=== PATIENT | female | born 1995 | race Caucasian/White ===

== ENCOUNTER → 2017-11-24 06:35 | Outpatient (CLI) | payer OTHER, MEDICAID, SELFPAY ==
--- NOTE | 2017-11-24 | DI.MRI.S_ITS ---
PROCEDURE: MR PELVIS WO/W CON INDICATIONS: pelvic pain TECHNIQUE: Coronal HASTE, sagittal breath-hold T2 FSE; axial T1 FSE with and without fat saturation through the pelvis. Optional long- and short-axis uterine nonbreath-hold T2 FSE through the uterus. Sagittal or axial dynamic VIBE during administration of contrast. Post-contrast axial or coronal VIBE/2-D FLASH with fat saturation from the iliac crests to the symphysis. Optional diffusion weighted imaging and ADC may be performed. COMPARISON: [facility], US, US PELVIC COMPLETE, 10/17/2017, 15:50. [facility], US, US PELVIC COMPLETE WITH TRANSVAGINAL, 06/17/2017, 23:06. , CT, KIDNEY/ URETER/BLADDER, 07/02/2013, 18:05. [facility], MR, ABDOMEN W&W/O CONTRAST, 09/07/2007, 16:36. FINDINGS: Image quality: Diagnostic.. Uterus: There has been an interval partial hysterectomy identified. The majority of the myometrium has been completely resected. The cervix remains in place and appears to be within normal limits. No soft tissue masses are identified. There are no adjacent loculated fluid collections. Adnexa: The ovaries are not enlarged. There is a small peripherally enhancing cyst without internal septations or other suspicious imaging characteristics involving the right ovary that measures up to 2.5 cm in diameter. The ovaries are otherwise unremarkable and contain multiple follicles, bilaterally. Urinary system: Bladder wall is normal in thickness. Distal ureters are non distended. Urethra appears normal in morphology. Nodes and vessels: No pelvic or inguinal adenopathy by size criteria. Iliac vessels are normal in size. Bowel and peritoneum: No pathologic free pelvic fluid. Physiologic free fluid is seen. No loculated fluid collections are evident. Inferior colon and small bowel loops are normal in caliber. Soft tissues: No inguinal hernias. No findings of pelvic floor incompetence in the absence of provocation. Bones: Marrow demonstrates normal overall signal. IMPRESSION: 1. No definite findings are evident to explain the patient's pain. 2. Status post partial hysterectomy. The cervix remains intact and appears to be within normal limits. 3. 2.5 cm right ovarian cyst is of doubtful significance. The ovaries are otherwise unremarkable. 4. Small amount of free fluid within the pelvis is likely physiologic. No loculated fluid collections or abscesses. Dictated by: Jose D Flores M.D. on 11/24/2017 at 8:38 Approved by: Jose D Flores M.D. on 11/24/2017 at 8:45
== END ==
PROVIDERS: Family Provider Family Medicine; PCP Family Medicine; Visit Provider Obstetrics & Gynecology Gynecologic Oncology
DX: R10.2 Pelvic and perineal pain (principal); N83.201 Unspecified ovarian cyst, right side
CPT/HCPCS: 72197; A9579

== ENCOUNTER 2017-11-30 16:47 | Emergency (ER) | payer OTHER, MEDICAID, SELFPAY ==
[2017-11-30 16:55] VITALS: BP 150/86; PULSE 85; RESP 20; TEMP 36.9; O2SAT 100; BMI 35.9
[2017-11-30 18:13] VITALS: BP 144/74; PULSE 81; RESP 16; TEMP 36.7; O2SAT 99
--- NOTE | 2017-11-30 18:27 | ED.ABDPAIN ---
HPI - Abdominal Pain General Chief Complaint: Abdominal Pain Stated Complaint: STATES PELVIC PAIN Time Seen by Provider: 11/30/17 17:32 Source: patient, family, RN notes reviewed and old records reviewed Mode of arrival: ambulatory Limitations: no limitations History of Present Illness HPI narrative: Patient is a 22-year-old female who presents with lower abdominal pain. She she has been having lower pelvic pain since her hysterectomy in August. She had an MRI November 24 with which did show on the right ovarian cyst. Today she says that the pain was quite bad. Woke up from her sleep last night she threw up once. She has taken Tylenol and ibuprofen today it has not really gotten better. No fevers. She has had painful urination since her hysterectomy and that has not changed. She had a pelvic MRI 11/24/2017 which did show an ovarian cyst with a small amount of free fluid. MD complaint: abdominal pain Related Data Home Medications Medication Instructions Recorded Confirmed ibuprofen 800 mg PO PRN PRN 11/30/17 11/30/17 medroxyprogesterone 10 mg PO DAILY 11/30/17 11/30/17 Previous Rx's Medication Instructions Recorded tramadol 50 mg PO Q6H PRN #10 tab 11/30/17 Allergies Allergy/AdvReac Type Severity Reaction Status Date / Time shellfish derived Allergy Severe ANAPHYLAXIS Verified 11/30/17 17:01 [SHELLFISH DERIVED] adhesive [ADHESIVE] Allergy Mild Verified 11/30/17 17:01 amoxicillin [AMOXICILLIN] Allergy Mild Verified 11/30/17 17:01 doxycycline [DOXYCYCLINE] Allergy Mild Verified 11/30/17 17:01 iodine [IODINE] Allergy Mild Verified 11/30/17 17:01 metoclopramide Allergy Mild Verified 11/30/17 17:01 [METOCLOPRAMIDE] Penicillins [PENICILLINS] Allergy Mild Verified 11/30/17 17:01 prochlorperazine Allergy Mild Verified 11/30/17 17:01 [PROCHLORPERAZINE] sulfamethoxazole Allergy Mild RASH Verified 11/30/17 17:01 [From BACTRIM] trimethoprim [From BACTRIM] Allergy Mild RASH Verified 11/30/17 17:01 cephalexin [CEPHALEXIN] Allergy Unknown Verified 11/30/17 17:01 ciprofloxacin [CIPROFLOXACIN] Allergy Unknown Verified 11/30/17 17:01 clindamycin [CLINDAMYCIN] Allergy Unknown Verified 11/30/17 17:01 Iodinated Contrast- Oral and Allergy Unknown Verified 11/30/17 17:01 IV Dye [IODINATED CONTRAST MEDIA - IV DYE] latex [LATEX] Allergy Unknown Verified 11/30/17 17:01 Review of Systems Review of Systems All systems reviewed & are unremarkable except as noted in HPI and below Constitutional Denies chills, Denies fever(s), Denies lethargy and Denies weakness Cardiovascular Denies chest pain, Denies irregular heart rhythm, Denies lightheadedness, Denies palpitations, Denies dyspnea, Denies dyspnea on exertion and Denies orthopnea Respiratory Denies cough, Denies dyspnea, Denies dyspnea on exertion and Denies wheezing Gastrointestinal Gastrointestinal: Reports as per HPI and Reports abdominal pain Genitourinary Reports as per HPI Musculoskeletal Denies back pain, Denies muscle weakness, Denies numbness and Denies tingling Integumentary/Breasts Denies pruritus, Denies erythema, Denies rash and Denies wounds Neurologic Denies numbness, Denies tingling and Denies weakness Endocrine Denies palpitations Allergic/Immunologic Denies wheezing [facility] Surgical History Status post hysterectomy (Acute) Status post appendectomy Status post dilation and curettage Status post dilation and curettage Status post knee surgery Status post knee surgery Status post laparoscopic supracervical hysterectomy (09/01/17) Status post laparoscopy Status post laparoscopy Status post laparoscopy Status post tonsillectomy and adenoidectomy Social History Smoking Status: Never smoker Exam Initial Vital Signs Initial Vital Signs: Vital Signs Temperature 98.5 F 11/30/17 16:55 Pulse Rate 85 11/30/17 16:55 Respiratory Rate 20 11/30/17 16:55 Blood Pressure 150/86 H 11/30/17 16:55 Pulse Oximetry 100 11/30/17 16:55 Const General: cooperative, well developed and acute distress Nutritional Appearance: well nourished Orientation: alert, awake, oriented x3 and not confused Resp Effort & Inspection: normal respiratory effort, able to speak in complete sentences, no respiratory distress and no use of accessory muscles Auscultation: clear to auscultation bilaterally, no rales, no rhonchi and no wheezes Cardio Rate: regular rate Rhythm: regular rhythm Heart Sounds: no click, no gallops, no murmurs and no rubs Pulses: normal peripheral pulses GI Palpation: soft and tender (Lower suprapubic area and right side) Auscultation: normal bowel sounds General: No CVA tenderness Skin General: no rashes or lesions noted, No jaundice and No petechiae Neuro General: alert, awake and oriented x3 Cranial Nerves: CN's II-XI intact bilaterally Course Orders Ordered: ED Orders 11/30/17 18:40 US pelvic complete Stat Complete Blood Count AUTO DIFF Stat Comprehensive Metabolic Panel Stat Lipase Stat Discontinued Medications Sodium Chloride (Normal Saline 0.9%) 1,000 mls @ 1,000 mls/hr IV CONT JERI Last Infusion: 11/30/17 19:44 Dose: 0 mls/hr Admin: 11/30/17 18:46 Dose: 1,000 mls/hr Ketorolac Tromethamine (Toradol) 30 mg IV NOW ONE Stop: 11/30/17 18:34 Last Admin: 11/30/17 18:46 Dose: 30 mg Tramadol HCl (Ultram 50mg Prepack) 1 bottle MISC SEEINSTR ONE Stop: 11/30/17 19:39 Last Admin: 11/30/17 19:43 Dose: 1 bottle Vital Signs - 8 hr 11/30/17 16:55 11/30/17 18:13 11/30/17 18:46 Temperature 98.5 F 98.0 F Pulse Rate 85 81 70 Respiratory Rate 20 16 14 Blood Pressure 150/86 H Blood Pressure [Left Arm] 144/74 H 130/67 H Pulse Oximetry 100 99 99 MDM - Abdominal Pain Lab Data Attestation: I reviewed the patient's lab results. Result diagrams: 11/30/17 18:40 11/30/17 18:40 Lab Results 11/30/17 11/30/17 Range/Units 18:40 18:40 WBC 8.7 (4.5-11.0) X10^3/uL RBC 4.84 (4.0-5.2) X10^6/uL Hgb 14.3 (12.0-16.0) g/dL Hct 41.0 (36-46) % MCV 84.6 (80-100) fL MCH 29.6 (26-34) PG MCHC 35.0 (30-36) % RDW 13.9 (11.6-14.8) % Plt Count 250 (150-400) X10^3/uL Neut % (Auto) 63.0 (50-75) % Lymph % (Auto) 26.7 (25-40) % Crawford % (Auto) 8.4 (3-14) % Eos % (Auto) 1.1 L (2-4) % Baso % (Auto) 0.8 (0-2) % Neut # (Auto) 5500 (9385-9349) /uL Sodium 141 (137-145) mmol/L Potassium 4.0 (3.4-5.1) mmol/L Chloride 104 (98-107) mmol/L Carbon Dioxide 26 (22-32) mmol/L BUN 13 (7-17) mg/dL Creatinine 0.70 (0.52-1.04) mg/dL Estimated GFR > 60.0 (>60) mL/min BUN/Creatinine Ratio 18.6 (6-22) Glucose 88 (70-100) mg/dL Calcium 9.5 (8.4-10.2) mg/dL Total Bilirubin 0.6 (0.2-1.3) mg/dL AST 18 (14-36) IU/L ALT 26 (9-52) IU/L Alkaline Phosphatase 61 (38-126) U/L Total Protein 7.3 (6.3-8.2) g/dL Albumin 4.3 (3.5-5.0) g/dL Globulin 3.0 (1.7-4.1) g/dL Albumin/Globulin Ratio 1.4 (1.0-2.8) Lipase 83 (23-300) U/L Imaging Data Pelvic ultrasound: Radiologist's impression: PROCEDURE: US PELVIC COMPLETE INDICATIONS: pain, right ovarian cyst hysterectomy TECHNIQUE: Real-time scanning was performed of the pelvic organs, with image documentation. Additional endovaginal scanning was necessary due to incomplete visualization of the adnexal and endometrial structures by transabdominal scanning. COMPARISON: [facility], MR, MR PELVIS WO/W CON, 11/24/2017, 6:48. [facility], US, US PELVIC COMPLETE WITH TRANSVAGINAL, 06/17/2017, 23:06. [facility], US, US PELVIC COMPLETE, 10/17/2017, 15:50. FINDINGS: Transabdominal scanning: Limited scanning through the kidneys shows no hydronephrosis. No pathologic free abdominal or pelvic fluid. Endovaginal scanning: Uterus: Uterus is surgically absent. Ovaries: Right ovary measures 4.4 x 2.5 x 2.8 cm. There is a 2.1 cm complex cyst in the right ovary. Left ovary measures 3.0 x 2.0 x 1.7 cm and demonstrates normal echotexture. IMPRESSION: 1. A 2.1 cm complex right ovary cyst. Recommend continued ultrasound followup to resolution. 2. Normal left ovary. Dictated by: Annel Johnson M.D. on 11/30/2017 at 19:46 MDM Narrative Medical decision making narrative: Pain is mildly better after Toradol. No leukocytosis no fever. Ultrasound confirms a complex ovarian cyst likely to be the cause of her pain. Discharge Plan Departure Patient Disposition: Home, Self-Care Clinical Impression: Complex cyst of right ovary Discharge Date/Time: 11/30/17 19:50 Interventions: ED Discharge Assessment Last Done: 11/30/17 19:49 Instructions: DI for Ovarian Cyst Activity Restrictions/Additional Instructions: *You have been diagnosed with ovarian cyst *What to do: May require repeat ultrasound in about 1 month *Continue to take medications as directed -tramadol 1-2 tablets every 6 hr if needed for severe pain -continue Tylenol and ibuprofen as directed *Follow up with your primary care provider in 2-3 days *Return to ER if you should have any new, worsening or concerning symptoms Prescriptions: New tramadol 50 mg tablet 50 mg PO Q6H PRN (Reason: pain) Qty: 10 RF: 0 No Action ibuprofen 200 MG tablet 800 mg PO PRN PRN (Reason: Pain, Moderate) RF: 0 medroxyprogesterone 10 mg tablet 10 mg PO DAILY RF: 0 Referrals: Chelsi Cao MD [Primary Care Provider] -
--- NOTE | 2017-11-30 18:40 | DI.US.S_ITS ---
PROCEDURE: US PELVIC COMPLETE INDICATIONS: pain, right ovarian cyst hysterectomy TECHNIQUE: Real-time scanning was performed of the pelvic organs, with image documentation. Additional endovaginal scanning was necessary due to incomplete visualization of the adnexal and endometrial structures by transabdominal scanning. COMPARISON: [facility], MR, MR PELVIS WO/W CON, 11/24/2017, 6:48. [facility], US, US PELVIC COMPLETE WITH TRANSVAGINAL, 06/17/2017, 23:06. [facility], US, US PELVIC COMPLETE, 10/17/2017, 15:50. FINDINGS: Transabdominal scanning: Limited scanning through the kidneys shows no hydronephrosis. No pathologic free abdominal or pelvic fluid. Endovaginal scanning: Uterus: Uterus is surgically absent. Ovaries: Right ovary measures 4.4 x 2.5 x 2.8 cm. There is a 2.1 cm complex cyst in the right ovary. Left ovary measures 3.0 x 2.0 x 1.7 cm and demonstrates normal echotexture. IMPRESSION: 1. A 2.1 cm complex right ovary cyst. Recommend continued ultrasound followup to resolution. 2. Normal left ovary. Dictated by: Annel Johnson M.D. on 11/30/2017 at 19:46 Approved by: Annel Johnson M.D. on 11/30/2017 at 19:48
[2017-11-30 18:46] VITALS: BP 130/67; PULSE 70; RESP 14; O2SAT 99
[2017-11-30] MEDS: SODIUM CHLORIDE 0.9% 1,000 ML 1000 ML IV (18:46)
[2017-11-30] MEDS: KETOROLAC 60 MG/2 ML VIAL 30 MG IV (18:46)
[2017-11-30 18:48] LABS: Add Manual Diff / Slide Review NO; Basophils Percent Auto 0.8 % (0-2); Eosinophils Percent Auto 1.1 % (2-4); Hemoglobin 14.3 g/dL (12.0-16.0); Lymphocytes Percent Auto 26.7 % (25-40); Mean Corpuscular Hemoglobin 29.6 PG (26-34); Mean Corpuscular Volume 84.6 fL (80-100); Monocytes Percent Auto 8.4 % (3-14); Neutrophils Absolute Auto 5500 /uL (3000-5900); Platelet Count 250 X10^3/uL (150-400); Red Blood Cell Count 4.84 X10^6/uL (4.0-5.2); Red Cell Distribution Width 13.9 % (11.6-14.8); White Blood Cell Count 8.7 X10^3/uL (4.5-11.0)
[2017-11-30 18:59] LABS: Alanine Aminotransferase 26 IU/L (9-52); Albumin 4.3 g/dL (3.5-5.0); Albumin Globulin Ratio 1.4 (1.0-2.8); Alkaline Phosphatase 61 U/L (38-126); Aspartate Aminotransferase 18 IU/L (14-36); BUN Creatinine Ratio 18.6 (6-22); Bilirubin Total 0.6 mg/dL (0.2-1.3); Blood Urea Nitrogen 13 mg/dL (7-17); Calcium 9.5 mg/dL (8.4-10.2); Carbon Dioxide 26 mmol/L (22-32); Chloride 104 mmol/L (98-107); Estimated Glomerular Filt Rate > 60.0 mL/min (>60); Glucose 88 mg/dL (70-100); HEMOLYSIS < 15 (0-50); Lipase 83 U/L (23-300); Sodium 141 mmol/L (137-145); Total Protein 7.3 g/dL (6.3-8.2)
[2017-11-30] MEDS: TRAMADOL 50 MG PREPACK 1 BOTTLE MISC (19:43)
--- NOTE | 2017-11-30 19:43 | PC.NURSE ---
Tramadol pre casa # [id number]
== END 2017-11-30 19:50 | disposition home or self-care (01) ==
PROVIDERS: Emergency Provider Emergency Medicine; Family Provider Family Medicine; PCP Family Medicine
DX: N83.291 Other ovarian cyst, right side (principal)
CPT/HCPCS: 36591; 76830; 76856; 80053; 81003; 81025; 83690; 85025; 96361; 96374; 99283; 99284; J1885

== ENCOUNTER 2017-12-03 10:49 | Emergency (ER) | payer OTHER, MEDICAID, SELFPAY ==
[2017-12-03 11:00] VITALS: BP 155/72; PULSE 111; RESP 18; TEMP 36.8; O2SAT 96; BMI 35.9
--- NOTE | 2017-12-03 11:15 | PC.NURSE ---
Sitting in cindy position leaning forward with a warm blanket held against her abd - states sharp cramping pain at 9:10 in pelvic area
--- NOTE | 2017-12-03 11:40 | ED_ITS ---
HPI - Female Genitourinary General Chief complaint: Vaginal Bleeding Stated complaint: PELVIC PAIN,BLEEDING Time Seen by Provider: 12/03/17 10:52 Source: patient Mode of arrival: ambulatory Limitations: no limitations History of Present Illness HPI Narrative: 22-year-old female who had a abdominal hysterectomy and tube removal without removal of bilateral ovaries and cervix here for evaluation of right lower quadrant abdominal pain and vaginal bleeding. Patient had the hysterectomy the perform several weeks ago. Since then has also seen a network technical analyst at [facility] in is currently on progesterone because she has had vaginal bleeding since the surgery. Patient is also here for right lower quadrant abdominal pain/right adnexal pain. Was seen here in the emergency department a couple days ago for very similar symptoms had a pelvic ultrasound completed which showed a right-sided ovarian cyst. Was sent home on tramadol. She states that the tramadol has not been working all that well in the pain has been worsening and then this morning she had vaginal bleeding when she urinated. No fevers. Related Data Home Medications Medication Instructions Recorded Confirmed ibuprofen 800 mg PO PRN PRN 11/30/17 12/03/17 medroxyprogesterone 30 mg PO DAILY 11/30/17 12/03/17 promethazine 25 mg PO PRN PRN 12/03/17 12/03/17 Previous Rx's Medication Instructions Recorded hydrocodone-acetaminophen [[place]] 1 tab PO Q6H PRN #5 tab 12/03/17 Allergies Allergy/AdvReac Type Severity Reaction Status Date / Time shellfish derived Allergy Severe ANAPHYLAXIS Verified 12/03/17 11:00 [SHELLFISH DERIVED] adhesive [ADHESIVE] Allergy Mild Verified 12/03/17 11:00 amoxicillin [AMOXICILLIN] Allergy Mild Verified 12/03/17 11:00 doxycycline [DOXYCYCLINE] Allergy Mild Verified 12/03/17 11:00 iodine [IODINE] Allergy Mild Verified 12/03/17 11:00 metoclopramide Allergy Mild Verified 12/03/17 11:00 [METOCLOPRAMIDE] Penicillins [PENICILLINS] Allergy Mild Verified 12/03/17 11:00 prochlorperazine Allergy Mild Verified 12/03/17 11:00 [PROCHLORPERAZINE] sulfamethoxazole Allergy Mild RASH Verified 12/03/17 11:00 [From BACTRIM] trimethoprim [From BACTRIM] Allergy Mild RASH Verified 12/03/17 11:00 cephalexin [CEPHALEXIN] Allergy Unknown Verified 12/03/17 11:00 ciprofloxacin [CIPROFLOXACIN] Allergy Unknown Verified 12/03/17 11:00 clindamycin [CLINDAMYCIN] Allergy Unknown Verified 12/03/17 11:00 Iodinated Contrast- Oral and Allergy Unknown Verified 12/03/17 11:00 IV Dye [IODINATED CONTRAST MEDIA - IV DYE] latex [LATEX] Allergy Unknown Verified 12/03/17 11:00 Review of Systems Constitutional Denies fatigue, Denies fever(s) and Denies lethargy Cardiovascular Denies chest pain, Denies palpitations and Denies dyspnea Respiratory Denies cough and Denies dyspnea Gastrointestinal Gastrointestinal: Reports abdominal pain, Denies constipation, Denies nausea and Denies vomiting Genitourinary Reports abnormal vaginal bleeding, Denies dysuria and Denies flank pain Musculoskeletal Denies myalgias and Denies arthralgias Integumentary/Breasts Denies lesions, Denies rash and Denies wounds Endocrine Denies fatigue and Denies palpitations Hematologic/Lymphatic Denies easy bruising PFSH Surgical History Status post hysterectomy (Acute) Status post appendectomy Status post dilation and curettage Status post dilation and curettage Status post knee surgery Status post knee surgery Status post laparoscopic supracervical hysterectomy (09/01/17) Status post laparoscopy Status post laparoscopy Status post laparoscopy Status post tonsillectomy and adenoidectomy Social History Smoking Status: Never smoker Exam Initial Vital Signs Initial Vital Signs: Vital Signs Temperature 98.2 F 12/03/17 11:00 Pulse Rate 111 H 12/03/17 11:00 Respiratory Rate 18 12/03/17 11:00 Blood Pressure 155/72 H 12/03/17 11:00 Pulse Oximetry 96 12/03/17 11:00 Const General: cooperative, healthy appearing, well developed, well groomed and No acute distress Orientation: alert, awake and oriented x3 HENMT Head: normal to inspection, normocephalic and atraumatic Resp Effort & Inspection: normal respiratory effort Auscultation: clear to auscultation bilaterally Cardio Rate: tachycardic Rhythm: regular rhythm Pulses: radial pulses present GI Inspection: normal to inspection and non-distended Palpation: soft, No firm, No guarding and tender (Right lower quadrant right adnexa) External Female Exam: external appearance normal Speculum Exam - Vagina: normal appearance of the vagina, not erythematous, no foreign bodies and no lacerations Speculum Exam - Cervix: normal appearance of the cervix and nontender Bimanual Exam- Vagina & Uterus: No cervical tenderness OB/External & Speculum: no foreign bodies Other: Patient without active bleeding. Has a very small amount of dark material which appears to be old blood in the vaginal vault. Back/Spine/Pelvis Back: No CVA tenderness Skin Lesions: no lesions Rashes: no rashes Neuro General: alert, awake and oriented x3 Extrem General: normal to inspection and capillary refill normal Course Vital Signs - 8 hr 12/03/ 11:00 Temperature 98.2 F Pulse Rate 111 H Respiratory Rate 18 Blood Pressure 155/72 H Pulse Oximetry 96 MDM - Female Genitourinary MDM Narrative Medical decision making narrative: Patient is currently on progesterone. Has a relatively benign abdominal exam today. No active bleeding from the pelvic exam. I did discuss the case with her operative OB surgeon who states that bleeding and a small amount after her this type of surgery is not unusual. Patient certainly is not exsanguinating. Informed the patient that I would not make any changes to her progesterone and that she did need to call her OB doctor Truman who she now sees for further advice on the bleeding. Offer the patient another pelvic ultrasound today for evaluation of the adnexal pain in the setting of a prior ovarian cyst. Patient declined this offer. I do not think that this is unreasonable given her physical exam. She does have tramadol at home which she states is not working for her. Will give her a few pills of [place] for symptom control. She was also instructed she needed to continue the ibuprofen. She was given return precautions. She expressed understanding and agreement with plan Discharge Plan Departure Patient Disposition: Home, Self-Care Clinical Impression: Abnormal vaginal bleeding Instructions: Chronic Pelvic Pain-Female Activity Restrictions/Additional Instructions: Continue all of your medications as directed. Call your doctor at [facility] to discuss your continued bleeding. We will hold on the ultrasound today per your request however if your symptoms worsen or change you do need to return to the emergency department for further evaluation. Prescriptions: New hydrocodone-acetaminophen [[place]] 5-325 mg tablet 1 tab PO Q6H PRN (Reason: pain) Qty: 5 RF: 0 No Action promethazine 25 mg tablet 25 mg PO PRN PRN (Reason: Nausea And Vomiting) RF: 0 ibuprofen 200 MG tablet 800 mg PO PRN PRN (Reason: Pain, Moderate) RF: 0 medroxyprogesterone 10 mg tablet 30 mg PO DAILY RF: 0
--- NOTE | 2017-12-03 12:21 | PC.NURSE ---
Post hysterectomy bleeding
--- NOTE | 2017-12-03 12:22 | PC.NURSE ---
Assist with pelvic exam by Dr Padilla
== END 2017-12-03 12:52 | disposition home or self-care (01) ==
PROVIDERS: Emergency Provider Emergency Medicine; Family Provider Family Medicine; PCP Family Medicine
DX: N93.9 Abnormal uterine and vaginal bleeding, unspecified (principal)
CPT/HCPCS: 81003; 99283

== ENCOUNTER → 2018-01-20 15:47 | Outpatient (CLI) | payer OTHER, MEDICAID, SELFPAY ==
--- NOTE | 2018-01-20 15:49 | DI.US.S_ITS ---
PROCEDURE: US ABDOMEN COMPLETE INDICATIONS: ABDOMINAL PAIN TECHNIQUE: Real-time scanning was performed of the abdominal and retroperitoneal organs, with image documentation. COMPARISON: [facility], US, ABDOMEN LIMITED, 06/05/2017, 10:43. FINDINGS: Liver: Liver is normal in size and homogeneous in echotexture. Gallbladder: Gallbladder appears clear with normal wall thickness. Biliary ducts: Intrahepatic bile ducts are non-dilated. Extrahepatic bile duct caliber measures 5 mm. Normal is 6-7 mm or less in diameter, or 10 mm or less post-cholecystectomy. Pancreas: Visualized portions of the pancreas are sonographically normal. Tail is obscured. Spleen: Spleen is borderline in size at 13.1 cm and homogeneous in echotexture. Kidneys: Kidneys are normal in size and echotexture. Right kidney measures 11.1 cm long; left kidney measures 11.6 cm long. No hydronephrosis or nephrolithiasis. No solid masses. Aorta: Visualized aorta is normal in caliber at less than 3 cm. Iliacs: Proximal common iliac arteries are normal in caliber at less than 2.5 cm. IVC: Nonvisualized secondary to bowel gas Miscellaneous: No free abdominal fluid. The right ovary measures 4.4 x 4.7 x 5.1 cm and contains a complex cyst measuring 30 x 30 x 32 mm. IMPRESSION: 1. Inferior vena cava is nonvisualized and tail of pancreas is obscured. 2. There is borderline splenomegaly. 3. Complicated right ovarian cyst measuring 3.2 cm in maximum diameter, is low level internal echoes present. Dictated by: Mike Sandy M.D. on 01/20/2018 at 16:42 Approved by: Mike Sandy M.D. on 01/20/2018 at 16:47
== END ==
PROVIDERS: Family Provider Family Medicine; PCP Family Medicine; Visit Provider Registered Nurse
DX: R10.9 Unspecified abdominal pain (principal); N83.201 Unspecified ovarian cyst, right side
CPT/HCPCS: 76700

== ENCOUNTER → 2018-01-22 08:59 | Outpatient (CLI) | payer OTHER, MEDICAID, SELFPAY ==
[2018-01-22 09:31] LABS: Hematocrit 40.8 % (36-46); Hemoglobin 14.4 g/dL (12.0-16.0); Lymphocytes Percent Auto 26.8 % (25-40); Mean Corpuscular HGB Conc 35.2 % (30-36); Mean Corpuscular Volume 85.3 fL (80-100); Monocytes Percent Auto 7.1 % (3-14); Neutrophils Percent Auto 63.5 % (50-75); Platelet Count 356 X10^3/uL (150-400); Red Blood Cell Count 4.78 X10^6/uL (4.0-5.2); Red Cell Distribution Width 13.9 % (11.6-14.8)
[2018-01-22 09:32] LABS: Add Manual Diff / Slide Review NO; Basophils Percent Auto 0.7 % (0-2); Eosinophils Percent Auto 1.9 % (2-4); Neutrophils Absolute Auto 6985 /uL (3000-5900)
== END ==
PROVIDERS: Family Provider Family Medicine; PCP Family Medicine; Visit Provider Registered Nurse
DX: R10.9 Unspecified abdominal pain (principal)
CPT/HCPCS: 85025

== ENCOUNTER → 2018-02-16 10:45 | Outpatient (CLI) | payer OTHER, MEDICAID, SELFPAY ==
--- NOTE | 2018-02-16 | DI.CT.S_ITS ---
PROCEDURE: CT KIDNEY URETER BLADDER (KUB) INDICATIONS: Calculus of kidney TECHNIQUE: Noncontrast 5 mm thick sections acquired from the diaphragms to the symphysis. 5 mm thick coronal and sagittal reformats were then performed. For radiation dose reduction, the following was used: automated exposure control, adjustment of mA and/or kV according to patient size. COMPARISON: Located Within [facility], CT, KIDNEY/ URETER/BLADDER, 07/02/2013, 18:05. FINDINGS: Image quality: Excellent. Lung bases: Lung bases are clear. Heart size is normal. Urinary system: Both kidneys are normal in size. There is a 4 mm nonobstructing stone in the upper pole of the right kidney. There are 31-2 mm diameter nonobstructing stones in the lower pole of the right kidney. There is a 1 mm nonobstructing stone in the lower pole left kidney. No hydronephrosis or perinephric fat stranding. Both ureters appear non-dilated throughout their expected courses. Bladder wall thickness is normal; no calcified bladder stones. Other solid organs: Liver is normal in size. Gallbladder is within normal limits. Pancreas is normal in contours. Spleen is normal in size. No adrenal nodules. Peritoneum and bowel: Unenhanced bowel loops demonstrate normal wall thickness and caliber. Surgical staple line adjacent to the left lateral margin of the first and second portions of the duodenum is stable compared to 07/02/2013. No free fluid or air. The appendix is surgically absent. Nodes and vessels: No retroperitoneal or mesenteric adenopathy by size criteria. Aorta and inferior vena cava are normal in caliber. Abdominal wall: No ventral hernias. Pelvis: No free pelvic fluid. No inguinal hernias or adenopathy. The uterus is absent. Bones: No suspicious bony lesions. No vertebral body compression fractures. IMPRESSION: 1. Small nonobstructing bilateral renal cortical stones. 2. No hydronephrosis. 3. No free fluid or free air. 4. Postsurgical changes. Dictated by: Marce Love MD, PhD on 02/16/2018 at 11:12 Approved by: Marce Love MD, PhD on 02/16/2018 at 11:19
== END ==
PROVIDERS: PCP Registered Nurse; Visit Provider Internal Medicine
DX: N20.0 Calculus of kidney (principal)
CPT/HCPCS: 74176

== ENCOUNTER 2018-02-28 08:59 | Emergency (ER) | payer OTHER, MEDICAID, SELFPAY ==
[2018-02-28 09:00] VITALS: BP 150/61; PULSE 82; RESP 20; TEMP 36.8; O2SAT 100
--- NOTE | 2018-02-28 09:13 | DI.US.S_ITS ---
PROCEDURE: US RENAL COMPLETE INDICATIONS: severe flank pain, hematuria, recent CT notes multiple stone TECHNIQUE: Real-time scanning was performed of the kidneys and bladder, with image documentation. COMPARISON: [facility], US, US ABDOMEN COMPLETE, 01/20/2018, 16:19. [facility], CT, CT KIDNEY URETER BLADDER (KUB), 02/16/2018, 10:43. [facility], US, RENAL COMPLETE, 07/15/2017, 13:05. FINDINGS: Kidneys: Kidneys are normal in size. Right kidney measures 10.9 cm long; left kidney measures 11.4 cm long. Right renal cortical thickness is 1.1 cm; left renal cortical thickness is 1.1 cm. Renal cortical echotexture is normal. No hydronephrosis. Non-shadowing echogenic foci are seen involving both kidneys, which measure up to 6 mm. No suspicious solid mass lesions. Bladder: The patient voided just prior to this study. The measured bladder volume is 15 cc. Miscellaneous: No free pelvic fluid. IMPRESSION: No hydronephrosis is seen. This patient has known nonobstructing kidney stones, which are much better seen on the prior CT. Dictated by: Wilfrido Vann M.D. on 02/28/2018 at 11:05 Approved by: Wilfrido Vann M.D. on 02/28/2018 at 11:07
--- NOTE | 2018-02-28 09:16 | ED.FEMALEGU ---
HPI - Female Genitourinary General Chief complaint: Urogenital-Female Stated complaint: kidney stones, fever, throwing up Time Seen by Provider: 02/28/18 09:00 History of Present Illness HPI Narrative: 23-year-old female, nonsmoker with multiple known kidney stones presents to the emergency department with chief complaint of 2 days of bilateral flank pain and fever with T-max 102? F. she admits to nausea but denies any vomiting. She has dysuria, frequency and hematuria. She denies any runny nose, sore throat or cough. She has no chest pain abdominal pain or change in bowel habits. She does admit to chills but denies any description of symptoms similar to rigors. MD Complaint: dysuria Onset (ago): day(s) Female Urogenital Radiation: L Flank and R Flank Quality: Aching and Cramping Duration: constant Relieving factors: none Exacerbating factors: none Urinary symptoms: Dysuria, Flank Pain, Frequency and Hematuria Patient : No Associated symptoms: nausea/vomiting, fever/chills and loss of appetite Related Data Home Medications Medication Instructions Recorded Confirmed ibuprofen 800 mg PO PRN PRN 11/30/17 02/12/18 acetaminophen 325 mg capsule 325 mg PO Q6H PRN 01/20/18 02/12/18 Previous Rx's Medication Instructions Recorded ondansetron HCl 4 mg tablet 4 mg PO QID PRN #30 tab 02/06/18 norgestimate 0.25 mg-ethinyl 1 tab PO DAILY #28 tab 02/12/18 estradiol 35 mcg tablet promethazine 25 mg tablet 25 mg PO Q6H PRN #14 tab 02/12/18 trazodone 50 mg tablet 50 mg PO BEDTIME PRN #20 tab 02/12/18 tamsulosin 0.4 mg capsule 0.4 mg PO DAILY #30 cap 02/16/18 tramadol 50 mg tablet 100 mg PO Q4-6H PRN #20 tab 02/16/18 levofloxacin [Levaquin] 750 mg PO DAILY #6 tab 02/28/18 ondansetron [Zofran ODT] 4 mg PO Q6H PRN #14 tab 02/28/18 oxycodone 5 mg PO Q4-6H PRN #20 tab 02/28/18 Allergies Allergy/AdvReac Type Severity Reaction Status Date / Time shellfish derived Allergy Severe ANAPHYLAXIS Verified 02/12/18 13:27 [SHELLFISH DERIVED] adhesive [ADHESIVE] Allergy Mild Verified 02/12/18 13:27 amoxicillin [AMOXICILLIN] Allergy Mild Verified 02/12/18 13:27 doxycycline [DOXYCYCLINE] Allergy Mild Verified 02/12/18 13:27 hydrocodone Allergy Mild rash Verified 02/12/18 13:27 iodine [IODINE] Allergy Mild Verified 02/12/18 13:27 metoclopramide Allergy Mild Verified 02/12/18 13:27 [METOCLOPRAMIDE] Penicillins [PENICILLINS] Allergy Mild Verified 02/12/18 13:27 prochlorperazine Allergy Mild Verified 02/12/18 13:27 [PROCHLORPERAZINE] sulfamethoxazole Allergy Mild RASH Verified 02/12/18 13:27 [From BACTRIM] trimethoprim [From BACTRIM] Allergy Mild RASH Verified 02/12/18 13:27 cephalexin [CEPHALEXIN] Allergy Unknown Verified 02/12/18 13:27 ciprofloxacin [CIPROFLOXACIN] Allergy Unknown Verified 02/12/18 13:27 clindamycin [CLINDAMYCIN] Allergy Unknown Verified 02/12/18 13:27 Iodinated Contrast- Oral and Allergy Unknown Verified 02/12/18 13:27 IV Dye [IODINATED CONTRAST MEDIA - IV DYE] latex [LATEX] Allergy Unknown Verified 02/12/18 13:27 Review of Systems Review of Systems All systems reviewed & are unremarkable except as noted in HPI and below Constitutional Reports chills, Reports fever(s), Denies lethargy and Reports weakness Eyes Denies change in vision, Denies eye discharge, Denies irritation and Denies loss of vision ENT Ears, Nose, Mouth, and Throat: Denies change in voice, Denies neck pain and Denies sore throat Cardiovascular Denies chest pain, Denies irregular heart rhythm, Denies lightheadedness, Denies palpitations, Denies dyspnea, Denies dyspnea on exertion and Denies orthopnea Respiratory Denies cough, Denies dyspnea, Denies dyspnea on exertion and Denies wheezing Gastrointestinal Gastrointestinal: Denies abdominal pain, Denies change in bowel habits, Denies diarrhea, Denies nausea and Denies vomiting Genitourinary Reports hematuria, Reports flank pain, Denies urinary incontinence and Reports urinary urgency Musculoskeletal Reports back pain and Denies neck pain Integumentary/Breasts Denies pruritus, Denies erythema, Denies rash and Denies wounds Neurologic Denies confusion, Denies loss of vision and Reports weakness Psychiatric Denies anxiety, Denies confusion, Denies depression, Denies homicidal ideation and Denies suicidal ideation Endocrine Denies palpitations Hematologic/Lymphatic Denies easy bruising Allergic/Immunologic Denies wheezing [facility] Medical History BRCA positive (Chronic) Ovarian cyst (Resolved) Pelvic congestion (Resolved 2013) Surgical History Status post appendectomy (Resolved 2003) Status post bilateral salpingectomy (Resolved 09/01/17) Status post dilation and curettage (Resolved 2010) Status post dilation and curettage (Resolved 2011) Status post knee surgery (Resolved 2007) Status post knee surgery (Resolved 2012) Status post laparoscopic supracervical hysterectomy (Resolved 09/01/17) Status post laparoscopy (Resolved 2003) Status post laparoscopy (Resolved 2011) Status post laparoscopy (Resolved 2004) Status post tonsillectomy and adenoidectomy (Resolved) Family History Mother BRCA positive Grandmother Ovarian cancer, Onset Age: 58 Breast cancer, Onset Age: 58 Social History Smoking Status: Never smoker Exam Narrative Exam Narrative: 23-year-old female obviously uncomfortable and not feeling well Initial Vital Signs Initial Vital Signs: Vital Signs Temperature 98.3 F 02/28/18 09:00 Pulse Rate 82 02/28/18 09:00 Respiratory Rate 20 02/28/18 09:00 Blood Pressure 150/61 H 02/28/18 09:00 Pulse Oximetry 100 02/28/18 09:00 Const General: cooperative, well developed and in distress Nutritional Appearance: well nourished Orientation: alert, awake, oriented x3 and not confused HENLA Head: normocephalic and atraumatic Ears: external ears normal and TM's normal bilaterally Nose: external nose normal and No nasal discharge Face and sinus: sinuses nontender, face symmetric, no sinus tenderness and No dry mucous membranes Mouth: oral mucosae normal and moist mucous membranes Teeth and gingiva: dentition normal Throat: tonsils normal and uvula midline Eyes General: appearance normal, both eyes and all related structures Eyelids: eyelids normal Conjunctivae: conjunctivae normal Sclera: sclerae normal Pupils: PERRL EOM: EOM intact bilaterally Resp Effort & Inspection: normal respiratory effort, able to speak in complete sentences, no respiratory distress and no use of accessory muscles Auscultation: clear to auscultation bilaterally, no rales, no rhonchi and no wheezes GI Inspection: non-distended Palpation: soft, no hepatosplenomegaly, No guarding, No pulsatile mass and No tender Auscultation: normal bowel sounds Back/Spine/Pelvis Back: CVA tenderness Other: Bilateral CVA tenderness Skin General: no rashes or lesions noted, No jaundice and No petechiae Extrem General: full ROM, no clubbing, cyanosis or edema, no pedal edema and no calf tenderness Course Orders Ordered: ED Orders 02/28/18 09:10 Basic Metabolic Panel Stat Bilirubin Total Stat Complete Blood Count AUTO DIFF Stat Lactate (Lactic Acid) Stat Procalcitonin Stat 02/28/18 09:13 US renal complete Stat 02/28/18 09:28 Urine Microscopic Stat 02/28/18 09:40 Blood Culture Stat Ondansetron HCl (Zofran) 4 mg IV Q4HR PRN PRN Reason: Nausea And Vomiting Last Admin: 02/28/18 10:48 Dose: 4 mg Admin: 02/28/18 09:43 Dose: 4 mg Discontinued Medications Hydromorphone HCl (Dilaudid) 0.5 mg IV NOW ONE Stop: 02/28/18 09:14 Last Admin: 02/28/18 09:44 Dose: 0.5 mg Hydromorphone HCl (Dilaudid) 0.5 mg IV NOW ONE Stop: 02/28/18 10:48 Last Admin: 02/28/18 10:48 Dose: 0.5 mg Sodium Chloride (Normal Saline 0.9%) 1,000 mls @ 1,000 mls/hr IV BOLUS ONE Stop: 02/28/18 10:12 Last Admin: 02/28/18 09:43 Dose: 1,000 mls/hr Levofloxacin (Levaquin) 750 mg in 150 mls @ 100 mls/hr IV NOW ONE Stop: 02/28/18 10:51 Last Admin: 02/28/18 09:43 Dose: 100 mls/hr Reevaluation(s) Reevaluation #1: Patient has an extensive allergy list. She states that she has had Levaquin through the IV without any trouble despite a listed allergy to ciprofloxacin. This conversation was in the presence of a nursing witness Vital Signs - 8 hr 02/28/18 09:00 02/28/18 10:00 02/28/18 11:00 Temperature 98.3 F Pulse Rate 82 84 71 Respiratory Rate 20 Blood Pressure 150/61 H Blood Pressure [Left Arm] 122/82 121/72 Pulse Oximetry 100 99 98 02/28/18 12:00 Temperature Pulse Rate 76 Respiratory Rate 16 Blood Pressure Blood Pressure [Left Arm] 115/52 L Pulse Oximetry 98 MDM - Female Genitourinary Differential Diagnosis Likely urinary tract infection, cervicitis, vaginitis and cystitis Medical Records Attestation: I reviewed the patient's medical records. Lab Data Attestation: I reviewed the patient's lab results. Result diagrams: 02/28/18 09:10 02/28/18 09:10 Lab Results 02/28/18 02/28/18 02/28/18 Range/Units 09:10 09:10 09:10 WBC 6.5 (4.5-11.0) X10^3/uL RBC 4.94 (4.0-5.2) X10^6/uL Hgb 14.8 (12.0-16.0) g/dL Hct 42.1 (36-46) % MCV 85.2 (80-100) fL MCH 30.1 (26-34) PG MCHC 35.3 (30-36) % RDW 13.5 (11.6-14.8) % Plt Count 277 (150-400) X10^3/uL Neut % (Auto) 51.5 (50-75) % Lymph % (Auto) 35.6 (25-40) % [place] % (Auto) 11.2 (3-14) % Eos % (Auto) 1.3 L (2-4) % Baso % (Auto) 0.4 (0-2) % Neut # (Auto) 3400 (2629-2423) /uL Sodium 144 (137-145) mmol/L Potassium 3.7 (3.4-5.1) mmol/L Chloride 104 (98-107) mmol/L Carbon Dioxide 28 (22-32) mmol/L BUN 13 (7-17) mg/dL Creatinine 0.80 (0.52-1.04) mg/dL Estimated GFR > 60.0 (>60) mL/min BUN/Creatinine Ratio 16.3 (6-22) Glucose 93 (70-100) mg/dL Lactate (0.7-2.1) mmol/L Calcium 9.5 (8.4-10.2) mg/dL Total Bilirubin 0.8 (0.2-1.3) mg/dL Procalcitonin < 0.05 (<0.5) ng/mL Urine RBC (0-5/HPF) Urine WBC (0-5/HPF) Ur Squamous Epith Cells Urine Bacteria (None) Urine Mucus (Negative) Ur Culture Indicated? Micro UA Comment 02/28/18 02/28/18 Range/Units 09:10 09:28 WBC (4.5-11.0) X10^3/uL RBC (4.0-5.2) X10^6/uL Hgb (12.0-16.0) g/dL Hct (36-46) % MCV (80-100) fL MCH (26-34) PG MCHC (30-36) % RDW (11.6-14.8) % Plt Count (150-400) X10^3/uL Neut % (Auto) (50-75) % Lymph % (Auto) (25-40) % [place] % (Auto) (3-14) % Eos % (Auto) (2-4) % Baso % (Auto) (0-2) % Neut # (Auto) (2612-1159) /uL Sodium (137-145) mmol/L Potassium (3.4-5.1) mmol/L Chloride (98-107) mmol/L Carbon Dioxide (22-32) mmol/L BUN (7-17) mg/dL Creatinine (0.52-1.04) mg/dL Estimated GFR (>60) mL/min BUN/Creatinine Ratio (6-22) Glucose (70-100) mg/dL Lactate 1.0 (0.7-2.1) mmol/L Calcium (8.4-10.2) mg/dL Total Bilirubin (0.2-1.3) mg/dL Procalcitonin (<0.5) ng/mL Urine RBC 0-1/hpf (0-5/HPF) Urine WBC 0-1/hpf (0-5/HPF) Ur Squamous Epith Cells 1-5 /hpf Urine Bacteria None seen (None) Urine Mucus 1+ H (Negative) Ur Culture Indicated? Cult not indicated Micro UA Comment Not Reportable Urine Dip Bedside Urine Glucose Negative Bedside Urine Bilirubin + 1 Bedside Urine Ketone - Negative Urine Specific [place] 1.030 Bedside Urine Occult Blood - Negative Bedside Urine pH 6.0 Bedside Urine Protein + 30 Bedside Urine Urobilinogen - Negative Bedside Urine Nitrite - Negative Bedside Urine Leukocytes +/- 15 Esterase Imaging Data Renal US: Radiologist's impression: PROCEDURE: US RENAL COMPLETE INDICATIONS: severe flank pain, hematuria, recent CT notes multiple stone TECHNIQUE: Real-time scanning was performed of the kidneys and bladder, with image documentation. COMPARISON: [facility], US, US ABDOMEN COMPLETE, 01/20/2018, 16:19. [facility], CT, CT KIDNEY URETER BLADDER (KUB), 02/16/2018, 10:43. [facility], US, RENAL COMPLETE, 07/15/2017, 13:05. FINDINGS: Kidneys: Kidneys are normal in size. Right kidney measures 10.9 cm long; left kidney measures 11.4 cm long. Right renal cortical thickness is 1.1 cm; left renal cortical thickness is 1.1 cm. Renal cortical echotexture is normal. No hydronephrosis. Non-shadowing echogenic foci are seen involving both kidneys, which measure up to 6 mm. No suspicious solid mass lesions. Bladder: The patient voided just prior to this study. The measured bladder volume is 15 cc. Miscellaneous: No free pelvic fluid. IMPRESSION: No hydronephrosis is seen. This patient has known nonobstructing kidney stones, which are much better seen on the prior CT. Dictated by: Wilfrido Vann M.D. on 02/28/2018 at 11:05 Approved by: Wilfrido Vann M.D. on 02/28/2018 at 11:07 MDM Narrative Medical decision making narrative: Patient has known stones, flank pain, dysuria and fever in the absence of other symptoms or suggestion of infectious source. Though her labs are very reassuring, I think it would be in her best interest to treat her clinical diagnosis (pyelo) Discharge Plan Departure Patient Disposition: Home Clinical Impression: Dysuria, Acute flank pain, Bilateral kidney stones Instructions: DI for Flank Pain Activity Restrictions/Additional Instructions: *You have been diagnosed with [ dysuria, flank pain, unknown kidney stones ] *What to do: *Take medications as directed *Follow up with your primary care provider in 2-3 days, call for an appointment. Let them know you were seen in the Emergency Department and that we ask that you be seen in follow up *Return to ER if you should have any new, worsening or concerning symptoms, such as [worsening pain, shaking chills, persistent vomiting or other bothersome symptoms ] You have been prescribed narcotic medications. While on these medications you cannot drive or operate heavy machinery. Additionally you cannot sign legal documents or perform any duties such as this. Many people get constipated on narcotic medications so it would be advisable to discuss stool softeners with the pharmacist when you pickle processor your prescription. Please understand that we cannot provide further refills of narcotics or controlled substances through the ED and your pain management will need to be through your Primary Care Provider Prescriptions: New levofloxacin [Levaquin] 750 mg tablet 750 mg PO DAILY Qty: 6 RF: 0 ondansetron [Zofran ODT] 4 mg tablet,disintegrating 4 mg PO Q6H PRN (Reason: nausea and vomiting) Qty: 14 RF: 0 oxycodone 5 mg tablet 5 mg PO Q4-6H PRN (Reason: pain) Qty: 20 RF: 0 No Action acetaminophen [Tylenol] 325 mg capsule 325 mg PO Q6H PRNRF: 0 ondansetron HCl 4 mg tablet 4 mg PO QID PRN (Reason: nausea and vomiting) Qty: 30 RF: 0 trazodone 50 mg tablet 50 mg PO BEDTIME PRN (Reason: insomnia) Qty: 20 RF: 0 promethazine 25 mg tablet 25 mg PO Q6H PRN (Reason: nausea) Qty: 14 RF: 0 norgestimate-ethinyl estradiol [[place] (28)] 0.25-35 mg-mcg tablet 1 tab PO DAILY Qty: 28 RF: 3 tramadol 50 mg tablet 100 mg PO Q4-6H PRN (Reason: pain) Qty: 20 RF: 0 tamsulosin 0.4 mg capsule 0.4 mg PO DAILY Qty: 30 RF: 0 ibuprofen 200 MG tablet 800 mg PO PRN PRN (Reason: Pain, Moderate) RF: 0 Referrals: Sanjuanita Carlos MD [Physician] - Kristel Oneal ARNP [Primary Care Provider] -
[2018-02-28 09:25] LABS: Add Manual Diff / Slide Review NO; Basophils Percent Auto 0.4 % (0-2); Eosinophils Percent Auto 1.3 % (2-4); Hematocrit 42.1 % (36-46); Hemoglobin 14.8 g/dL (12.0-16.0); Lymphocytes Percent Auto 35.6 % (25-40); Mean Corpuscular HGB Conc 35.3 % (30-36); Mean Corpuscular Hemoglobin 30.1 PG (26-34); Mean Corpuscular Volume 85.2 fL (80-100); Monocytes Percent Auto 11.2 % (3-14); Neutrophils Absolute Auto 3400 /uL (3000-5900); Neutrophils Percent Auto 51.5 % (50-75); Platelet Count 277 X10^3/uL (150-400); Red Blood Cell Count 4.94 X10^6/uL (4.0-5.2); Red Cell Distribution Width 13.5 % (11.6-14.8); White Blood Cell Count 6.5 X10^3/uL (4.5-11.0)
[2018-02-28 09:32] LABS: BUN Creatinine Ratio 16.3 (6-22); Bilirubin Total 0.8 mg/dL (0.2-1.3); Blood Urea Nitrogen 13 mg/dL (7-17); Calcium 9.5 mg/dL (8.4-10.2); Carbon Dioxide 28 mmol/L (22-32); Chloride 104 mmol/L (98-107); Estimated Glomerular Filt Rate > 60.0 mL/min (>60); Glucose 93 mg/dL (70-100); HEMOLYSIS < 15 (0-50); Potassium 3.7 mmol/L (3.4-5.1); Sodium 144 mmol/L (137-145)
[2018-02-28] MEDS: SODIUM CHLORIDE 0.9% 1,000 ML 1000 ML IV (09:43)
[2018-02-28] MEDS: ONDANSETRON 4 MG/2 ML INJ IV ×2 (09:43→10:48)
[2018-02-28] MEDS: levoFLOXacin 750 MG/150 ML PIGGYBACK 100 MG IV (09:43)
[2018-02-28] MEDS: HYDROMORPHONE 0.5 MG INJ IV (09:44)
[2018-02-28 10:00] VITALS: BP 122/82; PULSE 84; O2SAT 99
[2018-02-28 10:02] LABS: Procalcitonin < 0.05 ng/mL (<0.5)
[2018-02-28 10:05] LABS: Bacteria Urine None Seen
[2018-02-28 10:16] LABS: Culture Indicated Urine Cult Not Indicated; Mucus Urine 1+ (Negative); RBC Urine 0-1/HPF (0-5/HPF); Squamous Epithelial Cell Urine 1-5 /HPF; WBC Urine 0-1/HPF (0-5/HPF)
[2018-02-28] MEDS: HYDROMORPHONE 1 MG INJ 0.5 MG IV (10:48)
[2018-02-28 11:00] VITALS: BP 121/72; PULSE 71; O2SAT 98
[2018-02-28 12:00] VITALS: BP 115/52; PULSE 76; RESP 16; O2SAT 98
== END 2018-02-28 12:26 | disposition home or self-care (01) ==
PROVIDERS: Emergency Provider Emergency Medicine; PCP Registered Nurse
DX: N20.0 Calculus of kidney (principal); R10.9 Unspecified abdominal pain; R30.0 Dysuria
CPT/HCPCS: 36415; 36591; 76770; 80048; 81003; 81015; 82247; 83605; 84145; 85025; 87040; 96361; 96374; 96375; 96376; 99283; 99284; J1170; J1956; J2405

== ENCOUNTER 2018-03-27 19:22 | Emergency (ER) | payer OTHER, MEDICAID, SELFPAY ==
[2018-03-27 19:29] VITALS: BP 145/87; PULSE 90; RESP 15; TEMP 36.8; O2SAT 100; BMI 39.9
--- NOTE | 2018-03-27 19:29 | ED.FEMALEGU ---
HPI - Female Genitourinary <Yudith Contreras PA-C - Last Filed: 03/27/18 22:00> General Chief complaint: Urogenital-Female Stated complaint: KIDNEY PAIN Time Seen by Provider: 03/27/18 19:28 Source: patient Mode of arrival: ambulatory Limitations: no limitations History of Present Illness HPI Narrative: This 23-year-old female was sent here by the walk-in clinic due to concern for pyelonephritis with kidney stones. She states that she was seen here for multiple stones last month and has passed several. She states that she was seen here a few weeks ago and started antibiotics and got significantly better aside from some persistent right flank discomfort. She states that yesterday, this discomfort started getting worse, and she also started feeling nauseated. Today, she woke up with fever of 100. She had sweats last night. She has had 3 episodes of vomiting today and persistent dysuria and frequency along with the flank pain. She states most of the pain is in her bladder and feels like knives when she urinates. She denies any vaginal discharge or STD concerns. She he had a hysterectomy 08/24, supracervical, and then cervix was removed in December due to hemorrhage. Ovaries are intact. She states that she has been taking ibuprofen and acetaminophen today. Related Data Home Medications Medication Instructions Recorded Confirmed ibuprofen 800 mg PO PRN PRN 11/30/17 03/27/18 acetaminophen 325 mg capsule 325 mg PO Q6H PRN 01/20/18 03/27/18 Previous Rx's Medication Instructions Recorded ondansetron HCl 4 mg tablet 4 mg PO QID PRN #30 tab 02/06/18 ondansetron [Zofran ODT] 4 mg PO Q6H PRN #14 tab 02/28/18 tamsulosin 0.4 mg capsule 0.4 mg PO DAILY #30 cap 03/09/18 tramadol 50 mg tablet 50 mg PO Q4-6H PRN #20 tab 03/20/18 levofloxacin [Levaquin] 500 mg PO DAILY 6 Days tab 03/27/18 ondansetron [Zofran ODT] 4 mg PO Q6-8H PRN #7 tab 03/27/18 Allergies Allergy/AdvReac Type Severity Reaction Status Date / Time shellfish derived Allergy Severe ANAPHYLAXIS Verified 03/27/18 19:29 [SHELLFISH DERIVED] adhesive [ADHESIVE] Allergy Mild Verified 03/27/18 19:29 amoxicillin [AMOXICILLIN] Allergy Mild Verified 03/27/18 19:29 doxycycline [DOXYCYCLINE] Allergy Mild Verified 03/27/18 19:29 hydrocodone Allergy Mild rash Verified 03/27/18 19:29 iodine [IODINE] Allergy Mild Verified 03/27/18 19:29 metoclopramide Allergy Mild Verified 03/27/18 19:29 [METOCLOPRAMIDE] Penicillins [PENICILLINS] Allergy Mild Verified 03/27/18 19:29 prochlorperazine Allergy Mild Verified 03/27/18 19:29 [PROCHLORPERAZINE] sulfamethoxazole Allergy Mild RASH Verified 03/27/18 19:29 [From BACTRIM] trimethoprim [From BACTRIM] Allergy Mild RASH Verified 03/27/18 19:29 cephalexin [CEPHALEXIN] Allergy Unknown Verified 03/27/18 19:29 ciprofloxacin [CIPROFLOXACIN] Allergy Unknown Verified 03/27/18 19:29 clindamycin [CLINDAMYCIN] Allergy Unknown Verified 03/27/18 19:29 Iodinated Contrast- Oral and Allergy Unknown Verified 03/27/18 19:29 IV Dye [IODINATED CONTRAST MEDIA - IV DYE] latex [LATEX] Allergy Unknown Verified 03/27/18 19:29 Review of Systems <Yudith Contreras PA-C - Last Filed: 03/27/18 22:00> Review of Systems All systems reviewed & are unremarkable except as noted in HPI and below PFSH <Yudith Contreras PA-C - Last Filed: 03/27/18 22:00> Comment: no etoh or street drugs Exam <Yudith Contreras PA-C - Last Filed: 03/27/18 22:00> Narrative Exam Narrative: GENERAL APPEARANCE: Patient appears somewhat uncomfortable, but in NAD HEENT: PERRL, EOMI, conjunctiva pink, no scleral icterus LUNGS: Clear to auscultation bilaterally. HEART: Rate and rhythm regular without murmur, normal S1 and S2, no S3 or S4. ABDOMEN: Soft, NT, ND, +BS x 4 quadrants, +right CVAT NEUROLOGIC: Alert and oriented with normal speech and coordination DERMATOLOGIC: No jaundice or exanthem Initial Vital Signs Initial Vital Signs: Vital Signs Temperature 98.3 F 10/19/18 19:29 Pulse Rate 90 03/27/18 19:29 Respiratory Rate 15 03/27/18 19:29 Blood Pressure 145/87 H 03/27/18 19:29 Pulse Oximetry 100 03/27/18 19:29 <Dominique Corcoran DO - Last Filed: 03/27/18 22:04> Initial Vital Signs Initial Vital Signs: Vital Signs Temperature 98.3 F 03/27/18 19:29 Pulse Rate 90 03/27/18 19:29 Respiratory Rate 15 03/27/18 19:29 Blood Pressure 145/87 H 03/27/18 19:29 Pulse Oximetry 100 03/27/18 19:29 Course <Yudith Contreras PA-C - Last Filed: 03/27/18 22:00> Additional Information: Patient reports feeling improved. She has not had recurrent vomiting prior to discharge. She states that Levaquin is the antibiotic she tends to do best with, has multiple allergies. She was given 1st dose of that here. She does take Percocet at home occasionally for pain and tolerates that well, so was given a prepack along with Zofran. Advised follow-up with PCP early next week, and she is agreeable with this plan as well as follow-up if any acutely worsening symptoms over the weekend Orders Ordered: ED Orders 03/27/18 19:43 Complete Blood Count AUTO DIFF Stat Comprehensive Metabolic Panel Stat Lipase Stat 03/27/18 20:02 Lactate (Lactic Acid) Stat 03/27/18 20:05 Urine Culture Stat Urine Microscopic Stat Discontinued Medications Sodium Chloride (Normal Saline 0.9%) 1,000 mls @ 1,000 mls/hr IV BOLUS ONE Stop: 03/27/18 20:38 Last Infusion: 03/27/18 21:27 Dose: 0 mls/hr Admin: 03/27/18 20:04 Dose: 1,000 mls/hr Ketorolac Tromethamine (Toradol) 30 mg IV NOW ONE Stop: 03/27/18 19:40 Last Admin: 03/27/18 20:02 Dose: 30 mg Levofloxacin (Levaquin) 500 mg PO NOW ONE Stop: 03/27/18 20:30 Last Admin: 03/27/18 20:35 Dose: 500 mg Ondansetron HCl (Zofran) 4 mg IV NOW ONE Stop: 03/27/18 19:40 Last Admin: 03/27/18 20:02 Dose: 4 mg Ondansetron HCl (Zofran Odt Prepack) 1 bottle MISC SEEINSTR ONE Stop: 03/27/18 21:33 Last Admin: 03/27/18 21:42 Dose: 1 bottle Oxycodone/Acetaminophen (Endocet 5/325 Prepack) 1 bottle MISC SEEINSTR ONE Stop: 03/27/18 21:33 Last Admin: 03/27/18 21:42 Dose: 1 bottle Pantoprazole Sodium (Protonix) 40 mg IV NOW ONE Stop: 03/27/18 21:53 Vital Signs - 8 hr 03/27/18 19:29 03/27/18 21:52 Temperature 98.3 F 99.0 F Pulse Rate 90 84 Respiratory Rate 15 16 Blood Pressure 145/87 H 132/78 Pulse Oximetry 100 100 <Dominique Corcoran DO - Last Filed: 03/27/18 22:04> Orders Ordered: ED Orders 03/27/18 19:43 Complete Blood Count AUTO DIFF Stat Comprehensive Metabolic Panel Stat Lipase Stat 03/27/18 20:02 Lactate (Lactic Acid) Stat 03/27/18 20:05 Urine Culture Stat Urine Microscopic Stat Discontinued Medications Sodium Chloride (Normal Saline 0.9%) 1,000 mls @ 1,000 mls/hr IV BOLUS ONE Stop: 03/27/18 20:38 Last Infusion: 03/27/18 21:27 Dose: 0 mls/hr Admin: 03/27/18 20:04 Dose: 1,000 mls/hr Ketorolac Tromethamine (Toradol) 30 mg IV NOW ONE Stop: 03/27/18 19:40 Last Admin: 03/27/18 20:02 Dose: 30 mg Levofloxacin (Levaquin) 500 mg PO NOW ONE Stop: 03/27/18 20:30 Last Admin: 03/27/18 20:35 Dose: 500 mg Ondansetron HCl (Zofran) 4 mg IV NOW ONE Stop: 03/27/18 19:40 Last Admin: 03/27/18 20:02 Dose: 4 mg Ondansetron HCl (Zofran Odt Prepack) 1 bottle MISC SEEINSTR ONE Stop: 03/27/18 21:33 Last Admin: 03/27/18 21:42 Dose: 1 bottle Oxycodone/Acetaminophen (Endocet 5/325 Prepack) 1 bottle MISC SEEINSTR ONE Stop: 03/27/18 21:33 Last Admin: 03/27/18 21:42 Dose: 1 bottle Pantoprazole Sodium (Protonix) 40 mg IV NOW ONE Stop: 03/27/18 21:53 Vital Signs - 8 hr 03/27/18 19:29 03/27/18 21:52 Temperature 98.3 F 99.0 F Pulse Rate 90 84 Respiratory Rate 15 16 Blood Pressure 145/87 H 132/78 Pulse Oximetry 100 100 MDM - Female Genitourinary <Yudith Contreras PA-C - Last Filed: 03/27/18 22:00> Lab Data Result diagrams: 03/27/18 19:43 03/27/18 19:43 Lab Results 03/27/18 03/27/18 03/27/18 Range/Units 19:43 19:43 20:02 WBC 10.0 (4.5-11.0) X10^3/uL RBC 4.51 (4.0-5.2) X10^6/uL Hgb 13.6 (12.0-16.0) g/dL Hct 38.6 (36-46) % MCV 85.6 (80-100) fL MCH 30.1 (26-34) PG MCHC 35.1 (30-36) % RDW 13.8 (11.6-14.8) % Plt Count 238 (150-400) X10^3/uL Neut % (Auto) 58.6 (50-75) % Lymph % (Auto) 30.3 (25-40) % [place] % (Auto) 9.4 (3-14) % Eos % (Auto) 1.1 L (2-4) % Baso % (Auto) 0.6 (0-2) % Neut # (Auto) 5900 (2806-3316) /uL Sodium 142 (137-145) mmol/L Potassium 3.8 (3.4-5.1) mmol/L Chloride 105 (98-107) mmol/L Carbon Dioxide 26 (22-32) mmol/L BUN 17 (7-17) mg/dL Creatinine 0.80 (0.52-1.04) mg/dL Estimated GFR > 60.0 (>60) mL/min BUN/Creatinine Ratio 21.3 (6-22) Glucose 94 (70-100) mg/dL Lactate < 0.5 L (0.7-2.1) mmol/L Calcium 9.4 (8.4-10.2) mg/dL Total Bilirubin 0.5 (0.2-1.3) mg/dL AST 19 (14-36) IU/L ALT 21 (9-52) IU/L Alkaline Phosphatase 54 (38-126) U/L Total Protein 7.3 (6.3-8.2) g/dL Albumin 4.4 (3.5-5.0) g/dL Globulin 2.9 (1.7-4.1) g/dL Albumin/Globulin Ratio 1.5 (1.0-2.8) Lipase 72 (23-300) U/L Urine RBC (0-5/HPF) Urine WBC (0-5/HPF) Ur Squamous Epith Cells Urine Bacteria (None) Ur Culture Indicated? Micro UA Comment 03/27/18 Range/Units 20:05 WBC (4.5-11.0) X10^3/uL RBC (4.0-5.2) X10^6/uL Hgb (12.0-16.0) g/dL Hct (36-46) % MCV (80-100) fL MCH (26-34) PG MCHC (30-36) % RDW (11.6-14.8) % Plt Count (150-400) X10^3/uL Neut % (Auto) (50-75) % Lymph % (Auto) (25-40) % [place] % (Auto) (3-14) % Eos % (Auto) (2-4) % Baso % (Auto) (0-2) % Neut # (Auto) (1019-5232) /uL Sodium (137-145) mmol/L Potassium (3.4-5.1) mmol/L Chloride (98-107) mmol/L Carbon Dioxide (22-32) mmol/L BUN (7-17) mg/dL Creatinine (0.52-1.04) mg/dL Estimated GFR (>60) mL/min BUN/Creatinine Ratio (6-22) Glucose (70-100) mg/dL Lactate (0.7-2.1) mmol/L Calcium (8.4-10.2) mg/dL Total Bilirubin (0.2-1.3) mg/dL AST (14-36) IU/L ALT (9-52) IU/L Alkaline Phosphatase (38-126) U/L Total Protein (6.3-8.2) g/dL Albumin (3.5-5.0) g/dL Globulin (1.7-4.1) g/dL Albumin/Globulin Ratio (1.0-2.8) Lipase (23-300) U/L Urine RBC 10-30/hpf H (0-5/HPF) Urine WBC 1-5/hpf (0-5/HPF) Ur Squamous Epith Cells 1-5 /hpf Urine Bacteria None seen (None) Ur Culture Indicated? Specimen cultured Micro UA Comment Not Reportable <Dominique Corcoran, DO - Last Filed: 03/27/18 22:04> Lab Data Lab Results 03/27/18 03/27/18 03/27/18 Range/Units 19:43 19:43 20:02 WBC 10.0 (4.5-11.0) X10^3/uL RBC 4.51 (4.0-5.2) X10^6/uL Hgb 13.6 (12.0-16.0) g/dL Hct 38.6 (36-46) % MCV 85.6 (80-100) fL MCH 30.1 (26-34) PG MCHC 35.1 (30-36) % RDW 13.8 (11.6-14.8) % Plt Count 238 (150-400) X10^3/uL Neut % (Auto) 58.6 (50-75) % Lymph % (Auto) 30.3 (25-40) % [place] % (Auto) 9.4 (3-14) % Eos % (Auto) 1.1 L (2-4) % Baso % (Auto) 0.6 (0-2) % Neut # (Auto) 5900 (3939-7388) /uL Sodium 142 (137-145) mmol/L Potassium 3.8 (3.4-5.1) mmol/L Chloride 105 (98-107) mmol/L Carbon Dioxide 26 (22-32) mmol/L BUN 17 (7-17) mg/dL Creatinine 0.80 (0.52-1.04) mg/dL Estimated GFR > 60.0 (>60) mL/min BUN/Creatinine Ratio 21.3 (6-22) Glucose 94 (70-100) mg/dL Lactate < 0.5 L (0.7-2.1) mmol/L Calcium 9.4 (8.4-10.2) mg/dL Total Bilirubin 0.5 (0.2-1.3) mg/dL AST 19 (14-36) IU/L ALT 21 (9-52) IU/L Alkaline Phosphatase 54 (38-126) U/L Total Protein 7.3 (6.3-8.2) g/dL Albumin 4.4 (3.5-5.0) g/dL Globulin 2.9 (1.7-4.1) g/dL Albumin/Globulin Ratio 1.5 (1.0-2.8) Lipase 72 (23-300) U/L Urine RBC (0-5/HPF) Urine WBC (0-5/HPF) Ur Squamous Epith Cells Urine Bacteria (None) Ur Culture Indicated? Micro UA Comment 03/27/18 Range/Units 20:05 WBC (4.5-11.0) X10^3/uL RBC (4.0-5.2) X10^6/uL Hgb (12.0-16.0) g/dL Hct (36-46) % MCV (80-100) fL MCH (26-34) PG MCHC (30-36) % RDW (11.6-14.8) % Plt Count (150-400) X10^3/uL Neut % (Auto) (50-75) % Lymph % (Auto) (25-40) % [place] % (Auto) (3-14) % Eos % (Auto) (2-4) % Baso % (Auto) (0-2) % Neut # (Auto) (3285-7522) /uL Sodium (137-145) mmol/L Potassium (3.4-5.1) mmol/L Chloride (98-107) mmol/L Carbon Dioxide (22-32) mmol/L BUN (7-17) mg/dL Creatinine (0.52-1.04) mg/dL Estimated GFR (>60) mL/min BUN/Creatinine Ratio (6-22) Glucose (70-100) mg/dL Lactate (0.7-2.1) mmol/L Calcium (8.4-10.2) mg/dL Total Bilirubin (0.2-1.3) mg/dL AST (14-36) IU/L ALT (9-52) IU/L Alkaline Phosphatase (38-126) U/L Total Protein (6.3-8.2) g/dL Albumin (3.5-5.0) g/dL Globulin (1.7-4.1) g/dL Albumin/Globulin Ratio (1.0-2.8) Lipase (23-300) U/L Urine RBC 10-30/hpf H (0-5/HPF) Urine WBC 1-5/hpf (0-5/HPF) Ur Squamous Epith Cells 1-5 /hpf Urine Bacteria None seen (None) Ur Culture Indicated? Specimen cultured Micro UA Comment Not Reportable Discharge Plan Departure Patient Disposition: Home Clinical Impression: Pyelonephritis Discharge Date/Time: 03/27/18 21:54 Interventions: ED Discharge Assessment Last Done: 03/27/18 21:52 Instructions: DI for Kidney Infection Activity Restrictions/Additional Instructions: You should return as we talked about if you have acutely worsening symptoms over the weekend. You can take the Percocet tonight and the antinausea medicine as needed. You should also continue ibuprofen 800 mg every 8 hr. Drink clear fluids and eat small amounts of bland food frequently to help with nausea. Please order picker your Levaquin tomorrow from the pharmacy and continue this. Please follow-up with your PCP early next week to review cultures and assess your progress. Prescriptions: New levofloxacin [Levaquin] 500 mg tablet 500 mg PO DAILY 6 Days RF: 0 ondansetron [Zofran ODT] 4 mg tablet,disintegrating 4 mg PO Q6-8H PRN (Reason: nausea and vomiting) Qty: 7 RF: 0 No Action tramadol 50 mg tablet 50 mg PO Q4-6H PRN (Reason: pain) Qty: 20 RF: 0 acetaminophen [Tylenol] 325 mg capsule 325 mg PO Q6H PRNRF: 0 ondansetron HCl 4 mg tablet 4 mg PO QID PRN (Reason: nausea and vomiting) Qty: 30 RF: 0 tamsulosin 0.4 mg capsule 0.4 mg PO DAILY Qty: 30 RF: 0 ibuprofen 200 MG tablet 800 mg PO PRN PRN (Reason: Pain, Moderate) RF: 0 ondansetron [Zofran ODT] 4 mg tablet,disintegrating 4 mg PO Q6H PRN (Reason: nausea and vomiting) Qty: 14 RF: 0 Referrals: Kristel Oneal ARNP [Primary Care Provider] - <Dominique Corcoran DO - Last Filed: 03/27/18 22:04> Cosign ED Attending Cosignature Attestation: I was immediately available in the department for consultation. This documentation has been reviewed and I agree with assessment and plan. Supervised by Dominique Corcoran DO
[2018-03-27 20:00] LABS: Add Manual Diff / Slide Review NO; Basophils Percent Auto 0.6 % (0-2); Eosinophils Percent Auto 1.1 % (2-4); Hematocrit 38.6 % (36-46); Hemoglobin 13.6 g/dL (12.0-16.0); Lymphocytes Percent Auto 30.3 % (25-40); Mean Corpuscular HGB Conc 35.1 % (30-36); Mean Corpuscular Hemoglobin 30.1 PG (26-34); Mean Corpuscular Volume 85.6 fL (80-100); Monocytes Percent Auto 9.4 % (3-14); Neutrophils Absolute Auto 5900 /uL (3000-5900); Neutrophils Percent Auto 58.6 % (50-75); Platelet Count 238 X10^3/uL (150-400); Red Blood Cell Count 4.51 X10^6/uL (4.0-5.2); Red Cell Distribution Width 13.8 % (11.6-14.8)
[2018-03-27] MEDS: KETOROLAC 60 MG/2 ML VIAL 30 MG IV (20:02)
[2018-03-27] MEDS: ONDANSETRON 4 MG/2 ML INJ IV (20:02)
[2018-03-27] MEDS: SODIUM CHLORIDE 0.9% 1,000 ML 1000 ML IV (20:04)
[2018-03-27 20:10] LABS: Alanine Aminotransferase 21 IU/L (9-52); Albumin 4.4 g/dL (3.5-5.0); Albumin Globulin Ratio 1.5 (1.0-2.8); Alkaline Phosphatase 54 U/L (38-126); Aspartate Aminotransferase 19 IU/L (14-36); BUN Creatinine Ratio 21.3 (6-22); Bilirubin Total 0.5 mg/dL (0.2-1.3); Blood Urea Nitrogen 17 mg/dL (7-17); Calcium 9.4 mg/dL (8.4-10.2); Carbon Dioxide 26 mmol/L (22-32); Chloride 105 mmol/L (98-107); Estimated Glomerular Filt Rate > 60.0 mL/min (>60); Globulin 2.9 g/dL (1.7-4.1); Glucose 94 mg/dL (70-100); HEMOLYSIS 29 (0-50); Lipase 72 U/L (23-300); Potassium 3.8 mmol/L (3.4-5.1); Sodium 142 mmol/L (137-145); Total Protein 7.3 g/dL (6.3-8.2)
[2018-03-27 20:16] LABS: Bacteria Urine None Seen
[2018-03-27 20:26] LABS: Lactate (Lactic Acid) < 0.5 mmol/L (0.7-2.1)
[2018-03-27] MEDS: levoFLOXacin 250 MG TABLET 500 MG PO (20:35)
[2018-03-27 20:59] LABS: RBC Urine 10-30/HPF (0-5/HPF)
[2018-03-27 21:00] LABS: Culture Indicated Urine Specimen Cultured; Squamous Epithelial Cell Urine 1-5 /HPF; WBC Urine 1-5/HPF (0-5/HPF)
[2018-03-27] MEDS: ONDANSETRON 4 MG ODT PREPACK 1 BOTTLE MISC (21:42)
[2018-03-27] MEDS: OXYCODONE/APAP 5/325 PREPACK 1 BOTTLE MISC (21:42)
[2018-03-27 21:52] VITALS: BP 132/78; PULSE 84; RESP 16; TEMP 37.2; O2SAT 100
== END 2018-03-27 21:54 | disposition home or self-care (01) ==
PROVIDERS: Emergency Provider Internal Medicine; PCP Registered Nurse
DX: N12 Tubulo-interstitial nephritis, not specified as acute or chronic (principal)
CPT/HCPCS: 36415; 36591; 80053; 81015; 83605; 83690; 85025; 87086; 96361; 96372; 96374; 99283; 99284; J1885; J2405

== ENCOUNTER 2018-03-28 09:39 | Emergency (ER) | payer OTHER, MEDICAID, SELFPAY ==
[2018-03-28 09:48] VITALS: BP 141/82; PULSE 77; RESP 16; TEMP 36.5; O2SAT 100
--- NOTE | 2018-03-28 09:56 | ED_ITS ---
HPI - Female Genitourinary General Chief complaint: Urogenital-Female Stated complaint: POSSIBLE KIDNEY INFECTION/CAN'T KEEP ANYTHING DOWN Time Seen by Provider: 03/28/18 09:54 Source: patient Mode of arrival: ambulatory Limitations: no limitations History of Present Illness HPI Narrative: 23-year-old female seen here in the emergency department yesterday and diagnosed with pyelonephritis and discharged home with a prescription for Levaquin and Zofran. Patient states she did receive a dose of Levaquin in the emergency department yesterday. She has not filled these medications. She returns today for increasing pain in her right lower quadrant. She also states that she has had urinary urgency and frequency and then dribbling. No incontinence. No fevers. Related Data Home Medications Medication Instructions Recorded Confirmed ibuprofen 800 mg PO PRN PRN 11/30/17 03/27/18 acetaminophen 325 mg capsule 325 mg PO Q6H PRN 01/20/18 03/27/18 Previous Rx's Medication Instructions Recorded ondansetron HCl 4 mg tablet 4 mg PO QID PRN #30 tab 02/06/18 ondansetron [Zofran ODT] 4 mg PO Q6H PRN #14 tab 02/28/18 tamsulosin 0.4 mg capsule 0.4 mg PO DAILY #30 cap 03/09/18 tramadol 50 mg tablet 50 mg PO Q4-6H PRN #20 tab 03/20/18 levofloxacin [Levaquin] 500 mg PO DAILY 6 Days tab 03/27/18 ondansetron [Zofran ODT] 4 mg PO Q6-8H PRN #7 tab 03/27/18 oxycodone-acetaminophen [Percocet] 1 tab PO Q4-6H PRN #7 tab 03/28/18 Allergies Allergy/AdvReac Type Severity Reaction Status Date / Time shellfish derived Allergy Severe ANAPHYLAXIS Verified 03/27/18 19:29 [SHELLFISH DERIVED] adhesive [ADHESIVE] Allergy Mild Verified 03/27/18 19:29 amoxicillin [AMOXICILLIN] Allergy Mild Verified 03/27/18 19:29 doxycycline [DOXYCYCLINE] Allergy Mild Verified 03/27/18 19:29 hydrocodone Allergy Mild rash Verified 03/27/18 19:29 iodine [IODINE] Allergy Mild Verified 03/27/18 19:29 metoclopramide Allergy Mild Verified 03/27/18 19:29 [METOCLOPRAMIDE] Penicillins [PENICILLINS] Allergy Mild Verified 03/27/18 19:29 prochlorperazine Allergy Mild Verified 03/27/18 19:29 [PROCHLORPERAZINE] sulfamethoxazole Allergy Mild RASH Verified 03/27/18 19:29 [From BACTRIM] trimethoprim [From BACTRIM] Allergy Mild RASH Verified 03/27/18 19:29 cephalexin [CEPHALEXIN] Allergy Unknown Verified 03/27/18 19:29 ciprofloxacin [CIPROFLOXACIN] Allergy Unknown Verified 03/27/18 19:29 clindamycin [CLINDAMYCIN] Allergy Unknown Verified 03/27/18 19:29 Iodinated Contrast- Oral and Allergy Unknown Verified 03/27/18 19:29 IV Dye [IODINATED CONTRAST MEDIA - IV DYE] latex [LATEX] Allergy Unknown Verified 03/27/18 19:29 Review of Systems Constitutional Denies fever(s) Cardiovascular Denies chest pain and Denies dyspnea Respiratory Denies dyspnea Gastrointestinal Gastrointestinal: Reports abdominal pain, Denies constipation, Denies diarrhea, Reports nausea and Reports vomiting Genitourinary Reports difficulty voiding, Reports dysuria, Denies flank pain, Denies urinary incontinence, Reports urinary hesitancy and Reports urinary urgency Musculoskeletal Denies myalgias and Denies arthralgias Integumentary/Breasts Denies lesions and Denies rash [facility] Medical History BRCA positive (Chronic) Ovarian cyst (Resolved) Pelvic congestion (Resolved 2013) Surgical History Status post appendectomy (Resolved 2003) Status post bilateral salpingectomy (Resolved 09/01/17) Status post dilation and curettage (Resolved 2010) Status post dilation and curettage (Resolved 2011) Status post knee surgery (Resolved 2007) Status post knee surgery (Resolved 2012) Status post laparoscopic supracervical hysterectomy (Resolved 09/01/17) Status post laparoscopy (Resolved 2003) Status post laparoscopy (Resolved 2011) Status post laparoscopy (Resolved 2004) Status post removal of cervix (Resolved) Status post tonsillectomy and adenoidectomy (Resolved) Family History Mother BRCA positive Grandmother Ovarian cancer, Onset Age: 58 Breast cancer, Onset Age: 58 Social History Smoking Status: Never smoker Exam Initial Vital Signs Initial Vital Signs: Vital Signs Temperature 97.7 F 03/28/18 09:48 Pulse Rate 77 03/28/18 09:48 Respiratory Rate 16 03/28/18 09:48 Blood Pressure 141/82 H 03/28/18 09:48 Pulse Oximetry 100 03/28/18 09:48 Const General: cooperative, comfortable, well developed, well groomed and No acute distress Orientation: alert, awake and oriented x3 HENMT Head: normal to inspection and normocephalic Resp Effort & Inspection: normal respiratory effort GI Inspection: non-distended Palpation: soft, No firm, No rigid and No tender Back/Spine/Pelvis Back: No CVA tenderness Skin Lesions: no lesions Rashes: no rashes Neuro General: alert, awake and oriented x3 Extrem General: normal to inspection and capillary refill normal Psych Appearance: grossly normal and well kempt Course Orders Ordered: ED Orders 03/28/18 11:00 CT kidney ureter bladder (KUB) Stat Discontinued Medications Morphine Sulfate (Morphine) 4 mg SUBCUT NOW ONE Stop: 03/28/18 11:00 Last Admin: 03/28/18 11:53 Dose: 4 mg Ondansetron HCl (Zofran Odt) 4 mg PO NOW ONE Stop: 03/28/18 11:00 Last Admin: 03/28/18 11:54 Dose: 4 mg Vital Signs - 8 hr 03/28/18 09:48 Temperature 97.7 F Pulse Rate 77 Respiratory Rate 16 Blood Pressure 141/82 H Pulse Oximetry 100 MDM - Female Genitourinary Imaging Data CT scan - abdomen: Radiologist's impression: PROCEDURE: CT KIDNEY URETER BLADDER (KUB) INDICATIONS: concern for right sided renal stone TECHNIQUE: Noncontrast 5 mm thick sections acquired from the diaphragms to the symphysis. 5 mm thick coronal and sagittal reformats were then performed. For radiation dose reduction, the following was used: automated exposure control, adjustment of mA and/or kV according to patient size. COMPARISON: [facility], CT, CT KIDNEY URETER BLADDER (KUB), 02/16/2018, 10: 43. FINDINGS: Image quality: Excellent. Lung bases: Lung bases are clear. Heart size is normal. Urinary system: Both kidneys are normal in size. Left kidney and ureter are unremarkable. There is mild to moderate right hydronephrosis and hydroureter with a 3 mm calcification identified at the right ureterovesicular junction. Prominent perinephric stranding and right renal edema is present. In addition, there are 2 nonobstructing punctate renal calculi identified. The previously identified 3 mm superior pole renal calculus is no longer present within the superior renal pole. Bladder wall thickness is normal; no calcified bladder stones. Other solid organs: Liver is normal in size. Gallbladder is unremarkable. Pancreas is normal in contours. Spleen is normal in size. No adrenal nodules. Peritoneum and bowel: Unenhanced bowel loops demonstrate normal wall thickness and caliber. No free fluid or air. Nodes and vessels: No retroperitoneal or mesenteric adenopathy by size criteria. Aorta and inferior vena cava are normal in caliber. Abdominal wall: No ventral hernias. Pelvis: No free pelvic fluid. No inguinal hernias or adenopathy. Bones: No suspicious bony lesions. No vertebral body compression fractures. IMPRESSION: 1. Mild to moderate right hydronephrosis and hydroureter secondary to 3 mm calculus at the right ureterovesicular junction. Dictated by: Jada Bennett M.D. on 03/28/2018 at 12:00 Approved by: Jada Bennett M.D. on 03/28/2018 at 12:06 [facility] Narrative Medical decision making narrative: Review the patient's labs from yesterday show a urinalysis that is fairly unremarkable for urinary tract infection. The CT scan today shows a 3 mm right-sided renal stone which I do suspect is the cause of her symptoms. She has not filled her antibiotics nor her Zofran up to this point. After discussion I did inform her that she should not fill her antibiotics however she should still the Zofran. Will also send home with a small prescription for pain medication. She was given return precautions. She expressed understanding and agreement with plan. Discharge Plan Departure Patient Disposition: Home Clinical Impression: Renal colic on right side Instructions: Kidney Stones (Alternative Therapy), DI for Kidney Stones Activity Restrictions/Additional Instructions: I would recommend that you do not fill the prescription for the antibiotic because the CT scan today does show a kidney stone in your urinalysis yesterday was not concerning for a urinary tract infection. I do recommend you fill the prescription for the Zofran. Call your primary care doctor for a follow-up. Return to the emergency department for any new or worsening symptoms Prescriptions: New oxycodone-acetaminophen [Percocet] 5-325 mg tablet 1 tab PO Q4-6H PRN (Reason: pain) Qty: 7 RF: 0 No Action tramadol 50 mg tablet 50 mg PO Q4-6H PRN (Reason: pain) Qty: 20 RF: 0 acetaminophen [Tylenol] 325 mg capsule 325 mg PO Q6H PRNRF: 0 ondansetron HCl 4 mg tablet 4 mg PO QID PRN (Reason: nausea and vomiting) Qty: 30 RF: 0 tamsulosin 0.4 mg capsule 0.4 mg PO DAILY Qty: 30 RF: 0 levofloxacin [Levaquin] 500 mg tablet 500 mg PO DAILY 6 Days RF: 0 ondansetron [Zofran ODT] 4 mg tablet,disintegrating 4 mg PO Q6-8H PRN (Reason: nausea and vomiting) Qty: 7 RF: 0 ibuprofen 200 MG tablet 800 mg PO PRN PRN (Reason: Pain, Moderate) RF: 0 ondansetron [Zofran ODT] 4 mg tablet,disintegrating 4 mg PO Q6H PRN (Reason: nausea and vomiting) Qty: 14 RF: 0
--- NOTE | 2018-03-28 11:00 | DI.CT.S_ITS ---
PROCEDURE: CT KIDNEY URETER BLADDER (KUB) INDICATIONS: concern for right sided renal stone TECHNIQUE: Noncontrast 5 mm thick sections acquired from the diaphragms to the symphysis. 5 mm thick coronal and sagittal reformats were then performed. For radiation dose reduction, the following was used: automated exposure control, adjustment of mA and/or kV according to patient size. COMPARISON: [facility], CT, CT KIDNEY URETER BLADDER (KUB), 02/16/2018, 10:43. FINDINGS: Image quality: Excellent. Lung bases: Lung bases are clear. Heart size is normal. Urinary system: Both kidneys are normal in size. Left kidney and ureter are unremarkable. There is mild to moderate right hydronephrosis and hydroureter with a 3 mm calcification identified at the right ureterovesicular junction. Prominent perinephric stranding and right renal edema is present. In addition, there are 2 nonobstructing punctate renal calculi identified. The previously identified 3 mm superior pole renal calculus is no longer present within the superior renal pole. Bladder wall thickness is normal; no calcified bladder stones. Other solid organs: Liver is normal in size. Gallbladder is unremarkable. Pancreas is normal in contours. Spleen is normal in size. No adrenal nodules. Peritoneum and bowel: Unenhanced bowel loops demonstrate normal wall thickness and caliber. No free fluid or air. Nodes and vessels: No retroperitoneal or mesenteric adenopathy by size criteria. Aorta and inferior vena cava are normal in caliber. Abdominal wall: No ventral hernias. Pelvis: No free pelvic fluid. No inguinal hernias or adenopathy. Bones: No suspicious bony lesions. No vertebral body compression fractures. IMPRESSION: 1. Mild to moderate right hydronephrosis and hydroureter secondary to 3 mm calculus at the right ureterovesicular junction. Dictated by: Jada Bennett M.D. on 03/28/2018 at 12:00 Approved by: Jada Bennett M.D. on 03/28/2018 at 12:06
[2018-03-28] MEDS: MORPHINE 4 MG/ML INJ SUBCUT (11:53)
[2018-03-28] MEDS: ONDANSETRON 4 MG ODT PO (11:54)
[2018-03-28 12:30] VITALS: BP 128/82; PULSE 67; RESP 16
== END 2018-03-28 12:37 | disposition home or self-care (01) ==
PROVIDERS: Emergency Provider Emergency Medicine; PCP Registered Nurse
DX: N23 Unspecified renal colic (principal)
CPT/HCPCS: 51798; 74176; 99283; 99284; J2270

== ENCOUNTER 2018-03-29 19:41 | Emergency (ER) | payer OTHER, MEDICAID, SELFPAY ==
[2018-03-29 19:44] VITALS: BP 142/67; PULSE 89; RESP 22; TEMP 37.1; O2SAT 99
--- NOTE | 2018-03-29 20:01 | DI.US.S_ITS ---
PROCEDURE: US RENAL COMPLETE INDICATIONS: right flank pain, known kidney stone on right. TECHNIQUE: Real-time scanning was performed of the kidneys and bladder, with image documentation. COMPARISON: None. FINDINGS: Kidneys: Kidneys are normal in size. Right kidney measures 11.6 cm long; left kidney measures 12.9 cm long. Right renal cortical thickness is 2.0 cm; left renal cortical thickness is 1.8 cm. Renal cortical echotexture is normal. Multiple nonobstructing calculi measuring up to 5 mm in diameter present within the right renal pelvis. A 5 mm nonobstructing calculus is present within the lower pole of the left kidney. There is moderate right hydronephrosis. Bladder: The bladder is decompressed. Miscellaneous: No free pelvic fluid. IMPRESSION: 1. Nonobstructive bilateral nephrolithiasis. 2. Moderate right hydronephrosis suggesting ureteral calculus not visualized on the current study. Dictated by: Lilly Gallo M.D. on 03/29/2018 at 21:37 Approved by: Lilly Gallo M.D. on 03/29/2018 at 21:40
[2018-03-29] MEDS: KETOROLAC 60 MG/2 ML VIAL 30 MG IV (20:05)
[2018-03-29] MEDS: SODIUM CHLORIDE 0.9% 1,000 ML 1000 ML IV (20:06)
[2018-03-29] MEDS: ONDANSETRON 4 MG/2 ML INJ IV ×2 (20:06→22:02)
--- NOTE | 2018-03-29 20:09 | ED_ITS ---
HPI - Abdominal Pain General Chief Complaint: Abdominal Pain Stated Complaint: kidney stones Time Seen by Provider: 03/29/18 19:47 Source: patient and old records reviewed Mode of arrival: ambulatory Limitations: no limitations History of Present Illness HPI narrative: This is a 23-year-old female who comes to the emergency department with right flank pain. Patient has seen here recently several times for similar symptoms and has known kidney stones. She was most recently seen yesterday. Patient had a mild to moderate right hydro and hydroureter with a 3 mm calculus at the right ureteral vesicular junction yesterday. She also had several kidney stones in her kidney on a prior exam as well. Patient has not had fevers. She has been having nausea and vomiting and unable to keep her pain medication down. She has been using Zofran ODT at home without success. Her flank pain she states was higher up in seem to be moving down and coming in waves and has since become constant in the lower flank region. She states this is not really coming to the front of the abdomen. No diarrhea or constipation. She has been having some urinary frequency but no dysuria. No through she was told that she did not need to take prescription for antibiotics that she had been given because her urine yesterday showed no signs of infection. She has seen by Dr. Langley with [facility]. She has a history of hysterectomy. She denies any other medical problems. Related Data Home Medications Medication Instructions Recorded Confirmed ibuprofen 800 mg PO PRN PRN 11/30/17 03/27/18 acetaminophen 325 mg capsule 325 mg PO Q6H PRN 01/20/18 03/27/18 Previous Rx's Medication Instructions Recorded ondansetron HCl 4 mg tablet 4 mg PO QID PRN #30 tab 02/06/18 ondansetron [Zofran ODT] 4 mg PO Q6H PRN #14 tab 02/28/18 tamsulosin 0.4 mg capsule 0.4 mg PO DAILY #30 cap 03/09/18 tramadol 50 mg tablet 50 mg PO Q4-6H PRN #20 tab 03/20/18 levofloxacin [Levaquin] 500 mg PO DAILY 6 Days tab 03/27/18 ondansetron [Zofran ODT] 4 mg PO Q6-8H PRN #7 tab 03/27/18 oxycodone-acetaminophen [Percocet] 1 tab PO Q4-6H PRN #7 tab 03/28/18 levofloxacin [Levaquin] 500 mg PO DAILY #7 tab 03/29/18 oxycodone-acetaminophen [Percocet] 2 tab PO Q4-6H PRN #15 tab 03/29/18 Allergies Allergy/AdvReac Type Severity Reaction Status Date / Time shellfish derived Allergy Severe ANAPHYLAXIS Verified 03/27/18 19:29 [SHELLFISH DERIVED] adhesive [ADHESIVE] Allergy Mild Verified 03/27/18 19:29 amoxicillin [AMOXICILLIN] Allergy Mild Verified 03/27/18 19:29 doxycycline [DOXYCYCLINE] Allergy Mild Verified 03/27/18 19:29 hydrocodone Allergy Mild rash Verified 03/27/18 19:29 iodine [IODINE] Allergy Mild Verified 03/27/18 19:29 metoclopramide Allergy Mild Verified 03/27/18 19:29 [METOCLOPRAMIDE] Penicillins [PENICILLINS] Allergy Mild Verified 03/27/18 19:29 prochlorperazine Allergy Mild Verified 03/27/18 19:29 [PROCHLORPERAZINE] sulfamethoxazole Allergy Mild RASH Verified 03/27/18 19:29 [From BACTRIM] trimethoprim [From BACTRIM] Allergy Mild RASH Verified 03/27/18 19:29 cephalexin [CEPHALEXIN] Allergy Unknown Verified 03/27/18 19:29 ciprofloxacin [CIPROFLOXACIN] Allergy Unknown Verified 03/27/18 19:29 clindamycin [CLINDAMYCIN] Allergy Unknown Verified 03/27/18 19:29 Iodinated Contrast- Oral and Allergy Unknown Verified 03/27/18 19:29 IV Dye [IODINATED CONTRAST MEDIA - IV DYE] latex [LATEX] Allergy Unknown Verified 03/27/18 19:29 Review of Systems Review of Systems All systems reviewed & are unremarkable except as noted in HPI and below Constitutional Denies chills and Denies fever(s) Gastrointestinal Gastrointestinal: Reports abdominal pain, Denies constipation, Denies diarrhea, Reports nausea, Reports vomiting and Reports other (right flank pain) Genitourinary Reports as per HPI, Reports urinary frequency, Denies difficulty voiding, Denies dysuria, Reports flank pain (right), Denies urinary incontinence and Denies urinary urgency PFSH Medical History BRCA positive (Chronic) Ovarian cyst (Resolved) Pelvic congestion (Resolved 2013) Surgical History Status post appendectomy (Resolved 2003) Status post bilateral salpingectomy (Resolved 09/01/17) Status post dilation and curettage (Resolved 2010) Status post dilation and curettage (Resolved 2011) Status post knee surgery (Resolved 2007) Status post knee surgery (Resolved 2012) Status post laparoscopic supracervical hysterectomy (Resolved 09/01/17) Status post laparoscopy (Resolved 2003) Status post laparoscopy (Resolved 2011) Status post laparoscopy (Resolved 2004) Status post removal of cervix (Resolved) Status post tonsillectomy and adenoidectomy (Resolved) Social History Smoking Status: Never smoker Exam Narrative Exam Narrative: GENERAL: Alert and oriented x three, well-nourished, well- appearing female in moderate distress. Patient appears uncomfortable. HEENT: Head normocephalic, atraumatic, EOMI, pupils reactive, face symmetric, moist mucous membranes NECK: Supple, full range of motion CARDIOVASCULAR: Regular rate and rhythm without murmurs, rubs or gallops. RESPIRATORY: Breath sounds equal bilaterally, no wheezes rales or rhonchi. ABDOMEN: Soft, nontender. Normoactive bowel sounds all 4 quadrants. No guarding or rebound, rigidity, no mass. : Right CVA tenderness, No left CVA tenderness. EXTREMITIES: Normal range of motion, no clubbing or edema. Neurovascularly intact NEUROLOGICAL: Cranial nerves II through XII grossly intact. Moving all extremities SKIN: Warm, dry, no petechiae, no rashes or lesions. Initial Vital Signs Initial Vital Signs: Vital Signs Temperature 98.8 F 03/29/18 19:44 Pulse Rate 89 03/29/18 19:44 Respiratory Rate 22 03/29/18 19:44 Blood Pressure 142/67 H 03/29/18 19:44 Pulse Oximetry 99 03/29/18 19:44 Course Orders Ordered: ED Orders 03/29/18 20:00 Complete Blood Count AUTO DIFF Stat Comprehensive Metabolic Panel Stat Lipase Stat 03/29/18 20:01 US renal complete Stat 03/29/18 21:35 Urinalysis and Microscopic Stat Discontinued Medications Hydromorphone HCl (Dilaudid) 0.5 mg IV NOW ONE Stop: 03/29/18 21:58 Last Admin: 03/29/18 22:01 Dose: 0.5 mg Sodium Chloride (Normal Saline 0.9%) 1,000 mls @ 1,000 mls/hr IV BOLUS ONE Stop: 03/29/18 21:00 Last Infusion: 03/29/18 21:12 Dose: 0 mls/hr Admin: 03/29/18 20:06 Dose: 1,000 mls/hr Levofloxacin (Levaquin) 500 mg in 100 mls @ 100 mls/hr IV NOW ONE Stop: 03/29/18 23:08 Last Infusion: 03/30/18 00:05 Dose: 0 mls/hr Admin: 03/29/18 22:46 Dose: 100 mls/hr Ketorolac Tromethamine (Toradol) 30 mg IV NOW ONE Stop: 03/29/18 20:02 Last Admin: 03/29/18 20:05 Dose: 30 mg Morphine Sulfate (Morphine) 4 mg IV NOW ONE Stop: 03/29/18 22:49 Last Admin: 03/29/18 22:48 Dose: 4 mg Ondansetron HCl (Zofran) 4 mg IV NOW ONE Stop: 03/29/18 20:02 Last Admin: 03/29/18 20:06 Dose: 4 mg Ondansetron HCl (Zofran) 4 mg IV NOW ONE Stop: 03/29/18 22:03 Last Admin: 03/29/18 22:02 Dose: 4 mg Oxycodone/Acetaminophen (Endocet 5/325 Prepack) 1 bottle MISC SEEINSTR ONE Stop: 03/29/18 23:47 Last Admin: 03/30/18 00:03 Dose: 1 bottle Reevaluation(s) Reevaluation #1: Recheck after Toradol and Zofran, patient still uncomfortable. Vital Signs - 8 hr 03/29/18 20:11 03/29/18 22:43 03/30/18 00:08 Temperature 98.1 F Pulse Rate 89 81 79 Respiratory Rate 16 20 14 Blood Pressure 132/65 Blood Pressure [Right Arm] 144/58 H Pulse Oximetry 99 100 98 MDM - Abdominal Pain Lab Data Result diagrams: 03/29/18 20:00 03/29/18 20:00 Lab Results 03/29/18 03/29/18 03/29/18 Range/Units 20:00 20:00 21:35 WBC 12.3 H (4.5-11.0) X10^3/uL RBC 4.65 (4.0-5.2) X10^6/uL Hgb 13.6 (12.0-16.0) g/dL Hct 39.6 (36-46) % MCV 85.0 (80-100) fL MCH 29.2 (26-34) PG MCHC 34.4 (30-36) % RDW 13.6 (11.6-14.8) % Plt Count 232 (150-400) X10^3/uL Neut % (Auto) 79.0 H (50-75) % Lymph % (Auto) 11.8 L (25-40) % [place] % (Auto) 8.2 (3-14) % Eos % (Auto) 0.8 L (2-4) % Baso % (Auto) 0.2 (0-2) % Neut # (Auto) 9700 H (0554-6143) /uL Sodium 141 (137-145) mmol/L Potassium 3.5 (3.4-5.1) mmol/L Chloride 103 (98-107) mmol/L Carbon Dioxide 24 (22-32) mmol/L BUN 14 (7-17) mg/dL Creatinine 1.40 H (0.52-1.04) mg/dL Estimated GFR 45.8 L (>60) mL/min BUN/Creatinine Ratio 10.0 (6-22) Glucose 112 H (70-100) mg/dL Calcium 9.6 (8.4-10.2) mg/dL Total Bilirubin 1.1 (0.2-1.3) mg/dL AST 20 (14-36) IU/L ALT 24 (9-52) IU/L Alkaline Phosphatase 67 (38-126) U/L Total Protein 7.4 (6.3-8.2) g/dL Albumin 4.4 (3.5-5.0) g/dL Globulin 3.0 (1.7-4.1) g/dL Albumin/Globulin Ratio 1.5 (1.0-2.8) Lipase 51 (23-300) U/L Urine Color Yellow Urine Appearance Clear Urine pH 6.0 (4.5-8.0) Ur Specific [place] 1.010 (1.000-1.035) Urine Protein Negative (Negative) Urine Glucose (UA) Negative (Normal) g/dL Urine Ketones 1+ H (NEGATIVE) Urine Occult Blood Trace-lysed (Negative) Urine Nitrate Negative (Negative) Urine Bilirubin Negative (NEGATIVE) Urine Urobilinogen 0.2 (0.2) E.U./dL Ur Leukocyte Esterase 1+ H (NEGATIVE) Urine RBC 0-1/hpf D (0-5/HPF) Urine WBC 1-5/hpf (0-5/HPF) Ur Squamous Epith Cells 5-10 /hpf H Urine Bacteria Occasional (0-1) (None) Ur Culture Indicated? Cult not indicated Micro UA Comment Not Reportable Imaging Data Renal US: Attestation: I personally reviewed and interpreted this imaging study as follows: Radiologist's impression: [address] [address] Ultrasound Report Signed Patient: Ni Varner MMR#: [id number] : 1995Acct:[id number] Age/Sex: 23 / FDate of Service: 03/29/18 Loc: ED Accession Number: [id number] Procedure: US renal complete Ordering Provider: Dominique Corcoran D.O. PROCEDURE: US RENAL COMPLETE INDICATIONS: right flank pain, known kidney stone on right. TECHNIQUE: Real-time scanning was performed of the kidneys and bladder, with image documentation. COMPARISON: None. FINDINGS: Kidneys: Kidneys are normal in size. Right kidney measures 11.6 cm long; left kidney measures 12.9 cm long. Right renal cortical thickness is 2.0 cm; left renal cortical thickness is 1.8 cm. Renal cortical echotexture is normal. Multiple nonobstructing calculi measuring up to 5 mm in diameter present within the right renal pelvis. A 5 mm nonobstructing calculus is present within the lower pole of the left kidney. There is moderate right hydronephrosis. Bladder: The bladder is decompressed. Miscellaneous: No free pelvic fluid. IMPRESSION: 1. Nonobstructive bilateral nephrolithiasis. 2. Moderate right hydronephrosis suggesting ureteral calculus not visualized on the current study. Dictated by: Lilly Gallo M.D. on 03/29/2018 at 21:37 Approved by: Lilly Gallo M.D. on 03/29/2018 at 21:40 MDM Narrative Medical decision making narrative: [facility] @ [id number] for Shivam. Patient has elevated wbc count from prior and creatinine was 1.4 up from 0.9 two days ago, BUN is not elevated. Renal US shows moderate hydronephrosis suggesting ureteral calculus not visualized. Patient has stones in kidney as well. Patient was not able to keep down pain medication with zofran prior to arrival. She has had several visits to ER for same and CT from 03/27 with 3mm stone at right UVJ. Patient improving at this time urine shows leuks, no nitrates, 5-10 epi's with 1-5 wbc. Although less concerning for infection her WBC is elevated. Dr. Humphrey recommends follow up out patient after IV fluids. Discussed with patient she would prefer to return home, observation was discussed although may require transfer 2nd to no urology at this facility. Patient able to tolerate oral challenge, has zofran and home and given rx for pain meds. We did discuss needs close follow up as renal function is worse and to return if she cannot be seen in next 24-48 hours or worsening symptoms for recheck and labs at minimum. Discharge Plan Departure Patient Disposition: Home Clinical Impression: Kidney stone Discharge Date/Time: 03/30/18 00:08 Interventions: ED Discharge Assessment Last Done: 03/30/18 00:08 Instructions: DI for Kidney Stones Activity Restrictions/Additional Instructions: Call 1st thing tomorrow to set up follow-up with Dr. Langley in next 24-48 hours. I spoke with Dr. Mukherjee the on-call urologist about your case. Your creatinine (renal function) is 1.4 today and needs to be rechecked. Continue Zofran every 6 hr as needed for nausea. Take antibiotics as prescribed until gone. Take pain medication as prescribed, you may take 1-2 tablets every 4-6 hours as needed for pain. Return to the emergency department for fevers, increasing pain, persistent vomiting inability to stay hydrated or have other new or worsening symptoms. Prescriptions: New oxycodone-acetaminophen [Percocet] 5-325 mg tablet 2 tab PO Q4-6H PRN (Reason: pain) Qty: 15 RF: 0 levofloxacin [Levaquin] 500 mg tablet 500 mg PO DAILY Qty: 7 RF: 0 No Action tramadol 50 mg tablet 50 mg PO Q4-6H PRN (Reason: pain) Qty: 20 RF: 0 acetaminophen [Tylenol] 325 mg capsule 325 mg PO Q6H PRNRF: 0 ondansetron HCl 4 mg tablet 4 mg PO QID PRN (Reason: nausea and vomiting) Qty: 30 RF: 0 tamsulosin 0.4 mg capsule 0.4 mg PO DAILY Qty: 30 RF: 0 levofloxacin [Levaquin] 500 mg tablet 500 mg PO DAILY 6 Days RF: 0 ondansetron [Zofran ODT] 4 mg tablet,disintegrating 4 mg PO Q6-8H PRN (Reason: nausea and vomiting) Qty: 7 RF: 0 oxycodone-acetaminophen [Percocet] 5-325 mg tablet 1 tab PO Q4-6H PRN (Reason: pain) Qty: 7 RF: 0 ibuprofen 200 MG tablet 800 mg PO PRN PRN (Reason: Pain, Moderate) RF: 0 ondansetron [Zofran ODT] 4 mg tablet,disintegrating 4 mg PO Q6H PRN (Reason: nausea and vomiting) Qty: 14 RF: 0 Referrals: Kristel Oneal ARNP [Primary Care Provider] - Abel Langley MD [Physician] -
[2018-03-29 20:11] VITALS: BP 144/58; PULSE 89; RESP 16; O2SAT 99
[2018-03-29 20:13] LABS: Add Manual Diff / Slide Review NO; Basophils Percent Auto 0.2 % (0-2); Eosinophils Percent Auto 0.8 % (2-4); Hematocrit 39.6 % (36-46); Hemoglobin 13.6 g/dL (12.0-16.0); Lymphocytes Percent Auto 11.8 % (25-40); Mean Corpuscular HGB Conc 34.4 % (30-36); Mean Corpuscular Hemoglobin 29.2 PG (26-34); Monocytes Percent Auto 8.2 % (3-14); Neutrophils Absolute Auto 9700 /uL (3000-5900); Platelet Count 232 X10^3/uL (150-400); Red Blood Cell Count 4.65 X10^6/uL (4.0-5.2); Red Cell Distribution Width 13.6 % (11.6-14.8); White Blood Cell Count 12.3 X10^3/uL (4.5-11.0)
[2018-03-29 20:25] LABS: Alanine Aminotransferase 24 IU/L (9-52); Albumin 4.4 g/dL (3.5-5.0); Albumin Globulin Ratio 1.5 (1.0-2.8); Alkaline Phosphatase 67 U/L (38-126); Aspartate Aminotransferase 20 IU/L (14-36); Bilirubin Total 1.1 mg/dL (0.2-1.3); Blood Urea Nitrogen 14 mg/dL (7-17); Calcium 9.6 mg/dL (8.4-10.2); Carbon Dioxide 24 mmol/L (22-32); Chloride 103 mmol/L (98-107); Estimated Glomerular Filt Rate 45.8 mL/min (>60); Glucose 112 mg/dL (70-100); HEMOLYSIS < 15 (0-50); Lipase 51 U/L (23-300); Potassium 3.5 mmol/L (3.4-5.1); Sodium 141 mmol/L (137-145); Total Protein 7.4 g/dL (6.3-8.2)
[2018-03-29 21:43] LABS: Appearance Urine UA CLEAR; Bilirubin Urine UA NEGATIVE (NEGATIVE); Color Urine UA YELLOW; Glucose Urine UA NEGATIVE (Normal); Ketones Urine UA 1+ (NEGATIVE); Leukocyte Esterase Urine UA 1+ (NEGATIVE); Nitrite Urine UA NEGATIVE (Negative); Occult Blood Urine UA TRACE-LYSED (Negative); Protein Urine UA NEGATIVE (Negative); Urobilinogen Urine UA 0.2 E.U./dL (0.2)
[2018-03-29 21:50] LABS: RBC Urine 0-1/HPF (0-5/HPF)
[2018-03-29 21:51] LABS: Squamous Epithelial Cell Urine 5-10 /HPF; WBC Urine 1-5/HPF (0-5/HPF)
[2018-03-29 21:52] LABS: Bacteria Urine Occasional (0-1); Culture Indicated Urine Cult Not Indicated
[2018-03-29] MEDS: HYDROMORPHONE 1 MG INJ 0.5 MG IV (22:01)
[2018-03-29 22:43] VITALS: PULSE 81; RESP 20; O2SAT 100
[2018-03-29] MEDS: levoFLOXacin 500 MG/100 ML PIGGYBACK 100 MG IV (22:46)
[2018-03-29] MEDS: MORPHINE 4 MG/ML INJ IV (22:48)
[2018-03-30] MEDS: OXYCODONE/APAP 5/325 PREPACK 1 BOTTLE MISC (00:03)
[2018-03-30 00:08] VITALS: BP 132/65; PULSE 79; RESP 14; TEMP 36.7; O2SAT 98
== END 2018-03-30 00:08 | disposition home or self-care (01) ==
PROVIDERS: Emergency Provider Emergency Medicine; PCP Registered Nurse
DX: N20.0 Calculus of kidney (principal)
CPT/HCPCS: 36591; 76770; 80053; 81001; 83690; 85025; 96361; 96365; 96375; 96376; 99283; 99284; J1170; J1885; J1956; J2270; J2405

== ENCOUNTER 2018-03-30 12:11 | Emergency (ER) | payer OTHER, MEDICAID, SELFPAY ==
[2018-03-30 12:35] VITALS: BP 145/90; PULSE 74; RESP 14; TEMP 36.9; O2SAT 98
--- NOTE | 2018-03-30 13:08 | ED_ITS ---
HPI - Female Genitourinary <Yudith Contreras PA-C - Last Filed: 03/30/18 21:42> General Chief complaint: Urogenital-Female Stated complaint: Kidney Stones, told to return to ER Time Seen by Provider: 03/30/18 12:54 Source: patient Mode of arrival: ambulatory Limitations: no limitations History of Present Illness HPI Narrative: This 23-year-old female returns to ED at our request to repeat labs. She states that she actually tried to have this done with her PCP this morning, but states that they did not want to see her until after she had follow -up with Urology. She was here 3 nights ago with pain, fever, nausea and vomiting, started on treatment for pyelonephritis. She states that pain had worsened significantly by the following day. CT scan showed hydronephrosis and hydroureter secondary to 3 mm calculus at the right UVJ. She continued to have nausea and vomiting and returned yesterday due to not being able to keep down any of her medications. Ultrasound was done that showed nonobstructing bilateral stones and persistent right hydronephrosis. Urology advised outpatient follow-up. Patient was feeling better after IV medications. She states that today, she has been able to stay on top of the nausea, but still has not had anything to eat or drink. She states pain and nausea medication is helping now that she can keep them down. Related Data Home Medications Medication Instructions Recorded Confirmed ibuprofen 800 mg PO PRN PRN 11/30/17 03/27/18 acetaminophen 325 mg capsule 325 mg PO Q6H PRN 01/20/18 03/27/18 Previous Rx's Medication Instructions Recorded ondansetron HCl 4 mg tablet 4 mg PO QID PRN #30 tab 02/06/18 tamsulosin 0.4 mg capsule 0.4 mg PO DAILY #30 cap 03/09/18 tramadol 50 mg tablet 50 mg PO Q4-6H PRN #20 tab 03/20/18 levofloxacin [Levaquin] 500 mg PO DAILY #7 tab 03/29/18 oxycodone-acetaminophen [Percocet] 2 tab PO Q4-6H PRN #15 tab 03/29/18 ondansetron [Zofran ODT] 4 mg PO Q6-8H PRN #14 tab 03/30/18 oxycodone-acetaminophen [Percocet] 2 tab PO Q6H PRN #12 tab 03/30/18 Allergies Allergy/AdvReac Type Severity Reaction Status Date / Time shellfish derived Allergy Severe ANAPHYLAXIS Verified 03/27/18 19:29 [SHELLFISH DERIVED] adhesive [ADHESIVE] Allergy Mild Verified 03/27/18 19:29 amoxicillin [AMOXICILLIN] Allergy Mild Verified 03/27/18 19:29 doxycycline [DOXYCYCLINE] Allergy Mild Verified 03/27/18 19:29 hydrocodone Allergy Mild rash Verified 03/27/18 19:29 iodine [IODINE] Allergy Mild Verified 03/27/18 19:29 metoclopramide Allergy Mild Verified 03/27/18 19:29 [METOCLOPRAMIDE] Penicillins [PENICILLINS] Allergy Mild Verified 03/27/18 19:29 prochlorperazine Allergy Mild Verified 03/27/18 19:29 [PROCHLORPERAZINE] sulfamethoxazole Allergy Mild RASH Verified 03/27/18 19:29 [From BACTRIM] trimethoprim [From BACTRIM] Allergy Mild RASH Verified 03/27/18 19:29 cephalexin [CEPHALEXIN] Allergy Unknown Verified 03/27/18 19:29 ciprofloxacin [CIPROFLOXACIN] Allergy Unknown Verified 03/27/18 19:29 clindamycin [CLINDAMYCIN] Allergy Unknown Verified 03/27/18 19:29 Iodinated Contrast- Oral and Allergy Unknown Verified 03/27/18 19:29 IV Dye [IODINATED CONTRAST MEDIA - IV DYE] latex [LATEX] Allergy Unknown Verified 03/27/18 19:29 Review of Systems <Yudith Contreras PA-C - Last Filed: 03/30/18 21:42> Review of Systems All systems reviewed & are unremarkable except as noted in HPI and below Exam <Yudith Contreras PA-C - Last Filed: 03/30/18 21:42> Narrative Exam Narrative: GENERAL APPEARANCE: Patient resting comfortably, in no distress. LUNGS: Clear to auscultation bilaterally. HEART: Rate and rhythm regular without murmur, normal S1 and S2, no S3 or S4. ABDOMEN: Soft, ND, +BS x 4 quadrants, +right CVAT, and right inferior lateral abdomen and suprapubic tenderness without guarding or rebound EXTREMITIES: No edema or cyanosis NEUROLOGIC: Alert and oriented with normal speech and coordination DERMATOLOGIC: No jaundice or exanthem Initial Vital Signs Initial Vital Signs: Vital Signs Temperature 98.5 F 03/30/18 12:35 Pulse Rate 74 03/30/18 12:35 Respiratory Rate 14 03/30/18 12:35 Blood Pressure 145/90 H 03/30/18 12:35 Pulse Oximetry 98 03/30/18 12:35 <Nate Padilla DO - Last Filed: 04/02/18 07:27> Initial Vital Signs Initial Vital Signs: Vital Signs Temperature 98.5 F 03/30/18 12:35 Pulse Rate 74 03/30/18 12:35 Respiratory Rate 14 03/30/18 12:35 Blood Pressure 145/90 H 03/30/18 12:35 Pulse Oximetry 98 03/30/18 12:35 Course <Yudith Contreras PA-C - Last Filed: 03/30/18 21:42> Additional Information: Labs are improved today. Patient is tolerating oral fluids here in the ER without recurrent vomiting, and has had improvement in her nausea and pain with tolerating oral medications today, which she will continue. She was scheduled for follow-up with Urology in a few days and agreed to return in the interim if any acutely worsening symptoms. Orders Ordered: Discontinued Medications Sodium Chloride (Normal Saline 0.9%) 1,000 mls @ 1,000 mls/hr IV BOLUS ONE Stop: 03/30/18 14:17 Last Infusion: 03/30/18 15:13 Dose: 0 mls/hr Admin: 03/30/18 13:55 Dose: 1,000 mls/hr Ondansetron HCl (Zofran Odt) 4 mg PO NOW ONE Stop: 03/30/18 13:49 Last Admin: 03/30/18 14:01 Dose: 4 mg Oxycodone/Acetaminophen (Percocet 5/325) 2 tab PO NOW ONE Stop: 03/30/18 13:49 Last Admin: 03/30/18 13:54 Dose: 2 tab Vital Signs - 8 hr 03/30/18 12:35 Temperature 98.5 F Pulse Rate 74 Respiratory Rate 14 Blood Pressure 145/90 H Pulse Oximetry 98 <Nate Padilla DO - Last Filed: 04/02/18 07:27> Orders Ordered: Discontinued Medications Sodium Chloride (Normal Saline 0.9%) 1,000 mls @ 1,000 mls/hr IV BOLUS ONE Stop: 03/30/18 14:17 Last Infusion: 03/30/18 15:13 Dose: 0 mls/hr Admin: 03/30/18 13:55 Dose: 1,000 mls/hr Ondansetron HCl (Zofran Odt) 4 mg PO NOW ONE Stop: 03/30/18 13:49 Last Admin: 03/30/18 14:01 Dose: 4 mg Oxycodone/Acetaminophen (Percocet 5/325) 2 tab PO NOW ONE Stop: 03/30/18 13:49 Last Admin: 03/30/18 13:54 Dose: 2 tab Vital Signs - 8 hr 03/30/18 12:35 Temperature 98.5 F Pulse Rate 74 Respiratory Rate 14 Blood Pressure 145/90 H Pulse Oximetry 98 MDM - Female Genitourinary <Yudith Contreras PA-C - Last Filed: 03/30/18 21:42> Lab Data Result diagrams: 03/30/18 12:45 03/30/18 12:45 Lab Results 03/30/18 03/30/18 Range/Units 12:45 12:45 WBC 7.2 (4.5-11.0) X10^3/uL RBC 4.22 (4.0-5.2) X10^6/uL Hgb 12.6 (12.0-16.0) g/dL Hct 35.8 L (36-46) % MCV 84.8 (80-100) fL MCH 29.9 (26-34) PG MCHC 35.3 (30-36) % RDW 13.4 (11.6-14.8) % Plt Count 217 (150-400) X10^3/uL Neut % (Auto) 61.8 (50-75) % Lymph % (Auto) 25.7 (25-40) % [place] % (Auto) 11.0 (3-14) % Eos % (Auto) 1.3 L (2-4) % Baso % (Auto) 0.2 (0-2) % Neut # (Auto) 4400 (1932-5281) /uL Sodium 141 (137-145) mmol/L Potassium 4.0 (3.4-5.1) mmol/L Chloride 104 (98-107) mmol/L Carbon Dioxide 26 (22-32) mmol/L BUN 15 (7-17) mg/dL Creatinine 1.20 H (0.52-1.04) mg/dL Estimated GFR 54.7 L (>60) mL/min BUN/Creatinine Ratio 12.5 (6-22) Glucose 96 (70-100) mg/dL Calcium 9.0 (8.4-10.2) mg/dL <Nate Padilla, DO - Last Filed: 04/02/18 07:27> Lab Data Lab Results 03/30/18 03/30/18 Range/Units 12:45 12:45 WBC 7.2 (4.5-11.0) X10^3/uL RBC 4.22 (4.0-5.2) X10^6/uL Hgb 12.6 (12.0-16.0) g/dL Hct 35.8 L (36-46) % MCV 84.8 (80-100) fL MCH 29.9 (26-34) PG MCHC 35.3 (30-36) % RDW 13.4 (11.6-14.8) % Plt Count 217 (150-400) X10^3/uL Neut % (Auto) 61.8 (50-75) % Lymph % (Auto) 25.7 (25-40) % [place] % (Auto) 11.0 (3-14) % Eos % (Auto) 1.3 L (2-4) % Baso % (Auto) 0.2 (0-2) % Neut # (Auto) 4400 (2098-7482) /uL Sodium 141 (137-145) mmol/L Potassium 4.0 (3.4-5.1) mmol/L Chloride 104 (98-107) mmol/L Carbon Dioxide 26 (22-32) mmol/L BUN 15 (7-17) mg/dL Creatinine 1.20 H (0.52-1.04) mg/dL Estimated GFR 54.7 L (>60) mL/min BUN/Creatinine Ratio 12.5 (6-22) Glucose 96 (70-100) mg/dL Calcium 9.0 (8.4-10.2) mg/dL Discharge Plan Departure Patient Disposition: Home Clinical Impression: Kidney calculi Discharge Date/Time: 03/30/18 15:48 Interventions: ED Discharge Assessment Last Done: 03/30/18 15:45 Instructions: DI for Kidney Stones Activity Restrictions/Additional Instructions: Please return as we talked about if you have any acutely worsening symptoms. Otherwise, please continue your nausea medication regularly. Continue your antibiotic and Flomax as well as pain medication as needed. You have an appointment with Urology at [facility], [facility], [address] [place] [address] in [place], at 1 p.m. for Urology follow up with CHRIS Bhakta Prescriptions: New oxycodone-acetaminophen [Percocet] 5-325 mg tablet 2 tab PO Q6H PRN (Reason: pain) Qty: 12 RF: 0 ondansetron [Zofran ODT] 4 mg tablet,disintegrating 4 mg PO Q6-8H PRN (Reason: nausea and vomiting) Qty: 14 RF: 0 No Action tramadol 50 mg tablet 50 mg PO Q4-6H PRN (Reason: pain) Qty: 20 RF: 0 acetaminophen [Tylenol] 325 mg capsule 325 mg PO Q6H PRNRF: 0 ondansetron HCl 4 mg tablet 4 mg PO QID PRN (Reason: nausea and vomiting) Qty: 30 RF: 0 tamsulosin 0.4 mg capsule 0.4 mg PO DAILY Qty: 30 RF: 0 ibuprofen 200 MG tablet 800 mg PO PRN PRN (Reason: Pain, Moderate) RF: 0 oxycodone-acetaminophen [Percocet] 5-325 mg tablet 2 tab PO Q4-6H PRN (Reason: pain) Qty: 15 RF: 0 levofloxacin [Levaquin] 500 mg tablet 500 mg PO DAILY Qty: 7 RF: 0 Referrals: [facility] [Provider Group] Kristel Oneal ARNP [Primary Care Provider] - <Nate Padilla DO - Last Filed: 04/02/18 07:27> [facility] ED Attending Romario Attestation: I was available for consultation during this patient's emergency department encounter
[2018-03-30 13:20] LABS: BUN Creatinine Ratio 12.5 (6-22); Blood Urea Nitrogen 15 mg/dL (7-17); Carbon Dioxide 26 mmol/L (22-32); Chloride 104 mmol/L (98-107); Estimated Glomerular Filt Rate 54.7 mL/min (>60); Glucose 96 mg/dL (70-100); HEMOLYSIS 18 (0-50); Sodium 141 mmol/L (137-145)
[2018-03-30 13:35] LABS: Add Manual Diff / Slide Review NO; Basophils Percent Auto 0.2 % (0-2); Eosinophils Percent Auto 1.3 % (2-4); Hematocrit 35.8 % (36-46); Hemoglobin 12.6 g/dL (12.0-16.0); Lymphocytes Percent Auto 25.7 % (25-40); Mean Corpuscular HGB Conc 35.3 % (30-36); Mean Corpuscular Hemoglobin 29.9 PG (26-34); Mean Corpuscular Volume 84.8 fL (80-100); Neutrophils Absolute Auto 4400 /uL (3000-5900); Neutrophils Percent Auto 61.8 % (50-75); Platelet Count 217 X10^3/uL (150-400); Red Blood Cell Count 4.22 X10^6/uL (4.0-5.2); Red Cell Distribution Width 13.4 % (11.6-14.8); White Blood Cell Count 7.2 X10^3/uL (4.5-11.0)
[2018-03-30] MEDS: OXYCODONE/ACETAMINOPHEN 5/325 TABLET 2 TAB PO (13:54)
[2018-03-30] MEDS: SODIUM CHLORIDE 0.9% 1,000 ML 1000 ML IV (13:55)
[2018-03-30] MEDS: ONDANSETRON 4 MG ODT PO (14:01)
[2018-03-30 15:45] VITALS: BP 145/93; PULSE 90; RESP 20; TEMP 36.9; O2SAT 98
== END 2018-03-30 15:48 | disposition home or self-care (01) ==
PROVIDERS: Emergency Provider Internal Medicine; PCP Registered Nurse
DX: N20.0 Calculus of kidney (principal)
CPT/HCPCS: 36591; 80048; 85025; 96360; 99283; 99284

== ENCOUNTER → 2018-04-11 14:45 | Outpatient (CLI) | payer OTHER, MEDICAID, SELFPAY | PROVIDERS: PCP Registered Nurse | DX: Z23 Encounter for immunization (principal) | CPT/HCPCS: 90471; 90686 ==

== ENCOUNTER 2018-04-16 07:09 | Emergency (ER) | payer OTHER, MEDICAID, SELFPAY ==
[2018-04-16 07:09] VITALS: BP 126/92; PULSE 83; RESP 16; TEMP 37.1; O2SAT 98; BMI 34.7
--- NOTE | 2018-04-16 07:39 | DI.US.S_ITS ---
PROCEDURE: US RENAL COMPLETE INDICATIONS: HISTORY STONES; RECENT STENT REMOVAL; FEVER, PAIN TECHNIQUE: Real-time scanning was performed of the kidneys and bladder, with image documentation. COMPARISON: [facility], US, US ABDOMEN COMPLETE, 01/20/2018, 16:19. [facility], CT, CT KIDNEY URETER BLADDER (KUB), 02/16/2018, 10:43. [facility], CT, CT KIDNEY URETER BLADDER (KUB), 03/28/2018, 11:05. [facility], US, US RENAL COMPLETE, 02/28/2018, 10:17. FINDINGS: Kidneys: Kidneys are normal in size. Right kidney measures 10.1 cm long; left kidney measures 10.9 cm long. Right renal cortical thickness is 1.5 cm; left renal cortical thickness is 1.4 cm. Renal cortical echotexture is normal. No hydronephrosis or nephrolithiasis. No suspicious solid mass lesions. Bladder: Pre-void bladder volume is contracted. On pre-void images, neither ureteral jets are noted with color Doppler interrogation. (Of note, ureteral jets may not be detectable in up to 25% of cases due to insufficient differences in specific gravity between ureteral and bladder urine). Miscellaneous: No free pelvic fluid. IMPRESSION: 1. No renal stone hydronephrosis on the current exam. 2. Bladder is contracted, therefore, not well-seen. Dictated by: Annel Johnson M.D. on 04/16/2018 at 8:35 Approved by: Annel Johnson M.D. on 04/16/2018 at 8:38
[2018-04-16] MEDS: ONDANSETRON 4 MG/2 ML INJ IV (07:48)
[2018-04-16] MEDS: KETOROLAC 60 MG/2 ML VIAL 15 MG IV (07:49)
--- NOTE | 2018-04-16 08:05 | ED.FEMALEGU ---
HPI - Female Genitourinary General Chief complaint: Urogenital-Female Stated complaint: states kidney stones Time Seen by Provider: 04/16/18 07:26 Source: patient and family Mode of arrival: ambulatory Limitations: no limitations History of Present Illness HPI Narrative: 23-year-old nonsmoking female with extensive kidney stone history presents with left flank pain along with fever, chills and nausea for the past few days. She has dysuria, frequency and urgency. She has had multiple kidney stones recently and has been managed by Urology at [facility]. Two weeks ago she had a right ureteral stent placed due to 2 impacted stones. She did not tolerate the stent all that well and had frequent pain, nausea and fevers. The stent was removed on Friday and she continues to have discomfort and feel sick. Now her pain is on her left flank and is persistently sharp and stabbing but has episodes of crampy pain every few hours or so. She denies provocation or palliation. She has had fever as high as 103 and has been taking Levaquin. Complaint: dysuria Onset (ago): day(s) Location: LLQ Female Urogenital Radiation: L Flank Severity: moderate Quality: Aching, Burning and Cramping Duration: intermittent Relieving factors: none Exacerbating factors: none Urinary symptoms: Dysuria and Flank Pain Patient : No Related Data Home Medications Medication Instructions Recorded Confirmed ibuprofen 800 mg PO PRN PRN 11/30/17 04/16/18 acetaminophen 325 mg capsule 325 mg PO Q6H PRN 01/20/18 04/16/18 oxybutynin chloride 5 mg PO TID 04/16/18 04/16/18 phenazopyridine 100 mg PO TID 04/16/18 04/16/18 Previous Rx's Medication Instructions Recorded ondansetron HCl 4 mg tablet 4 mg PO QID PRN #30 tab 02/06/18 tamsulosin 0.4 mg capsule 0.4 mg PO DAILY #30 cap 03/09/18 ketorolac 10 mg PO Q6H PRN #14 tab 04/16/18 levofloxacin [Levaquin] 500 mg PO DAILY 10 Days #10 tab 04/16/18 ondansetron 4 mg PO QID PRN #20 tab 04/16/18 oxycodone 5 mg PO Q4-6H PRN #14 tab 04/16/18 Allergies Allergy/AdvReac Type Severity Reaction Status Date / Time shellfish derived Allergy Severe ANAPHYLAXIS Verified 03/27/18 19:29 [SHELLFISH DERIVED] adhesive [ADHESIVE] Allergy Mild Verified 03/27/18 19:29 amoxicillin [AMOXICILLIN] Allergy Mild Verified 03/27/18 19:29 doxycycline [DOXYCYCLINE] Allergy Mild Verified 03/27/18 19:29 hydrocodone Allergy Mild rash Verified 03/27/18 19:29 iodine [IODINE] Allergy Mild Verified 03/27/18 19:29 metoclopramide Allergy Mild Verified 03/27/18 19:29 [METOCLOPRAMIDE] Penicillins [PENICILLINS] Allergy Mild Verified 03/27/18 19:29 prochlorperazine Allergy Mild Verified 03/27/18 19:29 [PROCHLORPERAZINE] sulfamethoxazole Allergy Mild RASH Verified 03/27/18 19:29 [From BACTRIM] trimethoprim [From BACTRIM] Allergy Mild RASH Verified 03/27/18 19:29 cephalexin [CEPHALEXIN] Allergy Unknown Verified 03/27/18 19:29 ciprofloxacin [CIPROFLOXACIN] Allergy Unknown Verified 03/27/18 19:29 clindamycin [CLINDAMYCIN] Allergy Unknown Verified 03/27/18 19:29 Iodinated Contrast- Oral and Allergy Unknown Verified 03/27/18 19:29 IV Dye [IODINATED CONTRAST MEDIA - IV DYE] latex [LATEX] Allergy Unknown Verified 03/27/18 19:29 lidocaine AdvReac Palpitation Uncoded 04/16/18 10:17 s Review of Systems Review of Systems All systems reviewed & are unremarkable except as noted in HPI and below Constitutional Reports chills, Reports fever(s), Denies lethargy and Denies weakness Eyes Denies change in vision, Denies eye discharge, Denies irritation and Denies loss of vision ENT Ears, Nose, Mouth, and Throat: Denies change in voice, Denies neck pain and Denies sore throat Cardiovascular Denies chest pain, Denies irregular heart rhythm, Denies lightheadedness, Denies palpitations, Denies dyspnea, Denies dyspnea on exertion and Denies orthopnea Respiratory Denies cough, Denies dyspnea, Denies dyspnea on exertion and Denies wheezing Gastrointestinal Gastrointestinal: Denies abdominal pain, Denies change in bowel habits, Denies diarrhea, Denies nausea and Denies vomiting Genitourinary Denies hematuria, Reports flank pain, Denies urinary incontinence and Denies urinary urgency Musculoskeletal Denies neck pain Integumentary/Breasts Denies pruritus, Denies erythema, Denies rash and Denies wounds Neurologic Denies confusion, Denies loss of vision and Denies weakness Psychiatric Denies anxiety, Denies confusion, Denies depression, Denies homicidal ideation and Denies suicidal ideation Endocrine Denies palpitations Hematologic/Lymphatic Denies easy bruising Allergic/Immunologic Denies wheezing PFSH Medical History BRCA positive (Chronic) Ovarian cyst (Resolved) Pelvic congestion (Resolved 2013) Surgical History Status post appendectomy (Resolved 2003) Status post bilateral salpingectomy (Resolved 09/01/17) Status post dilation and curettage (Resolved 2010) Status post dilation and curettage (Resolved 2011) Status post knee surgery (Resolved 2007) Status post knee surgery (Resolved 2012) Status post laparoscopic supracervical hysterectomy (Resolved 09/01/17) Status post laparoscopy (Resolved 2003) Status post laparoscopy (Resolved 2011) Status post laparoscopy (Resolved 2004) Status post removal of cervix (Resolved) Status post tonsillectomy and adenoidectomy (Resolved) Family History Mother BRCA positive Grandmother Ovarian cancer, Onset Age: 58 Breast cancer, Onset Age: 58 Social History Smoking Status: Never smoker Exam Narrative Exam Narrative: 23-year-old female appears uncomfortable, mother at bedside Initial Vital Signs Initial Vital Signs: Vital Signs Temperature 98.7 F 04/16/18 07:09 Pulse Rate 83 04/16/18 07:09 Respiratory Rate 16 04/16/18 07:09 Blood Pressure 126/92 H 04/16/18 07:09 Pulse Oximetry 98 04/16/18 07:09 Const General: cooperative, well developed, in distress and ill appearing Nutritional Appearance: well nourished Orientation: alert, awake, oriented x3 and not confused HENOR Head: normocephalic and atraumatic Ears: external ears normal Nose: external nose normal and No nasal discharge Mouth: oral mucosae normal Teeth and gingiva: dentition normal Eyes General: appearance normal, both eyes and all related structures Eyelids: eyelids normal Conjunctivae: conjunctivae normal Sclera: sclerae normal Pupils: PERRL EOM: EOM intact bilaterally Chest Chest: normal inspection of the chest Cardio Rate: regular rate Rhythm: regular rhythm Heart Sounds: no click, no gallops, no murmurs and no rubs Pulses: normal peripheral pulses GI Inspection: non-distended Palpation: soft, no hepatosplenomegaly, No guarding, No pulsatile mass and No tender Auscultation: normal bowel sounds Back/Spine/Pelvis Back: CVA tenderness Skin General: no rashes or lesions noted, No jaundice and No petechiae Extrem General: full ROM, no clubbing, cyanosis or edema, no pedal edema and no calf tenderness Course Orders Ordered: ED Orders 04/16/18 07:39 US renal complete Stat 04/16/18 07:50 Basic Metabolic Panel Stat Complete Blood Count AUTO DIFF Stat Lactate (Lactic Acid) Stat Procalcitonin Stat 04/16/18 08:30 Blood Culture Stat 04/16/18 09:05 Urine Microscopic Stat Discontinued Medications Sodium Chloride (Normal Saline 0.9%) 1,000 mls @ 1,000 mls/hr IV BOLUS ONE Stop: 04/16/18 08:26 Last Infusion: 04/16/18 09:33 Dose: 0 mls/hr Admin: 04/16/18 08:08 Dose: 1,000 mls/hr Lidocaine HCl 6.5 ml/ Sodium (Chloride) 56.5 mls @ 339 mls/hr IV NOW ONE Stop: 04/16/18 09:44 Last Infusion: 04/16/18 10:21 Dose: 0 mls/hr Admin: 04/16/18 10:05 Dose: 339 mls/hr Ketorolac Tromethamine (Toradol) 15 mg IV NOW ONE Stop: 04/16/18 07:28 Last Admin: 04/16/18 07:49 Dose: 15 mg Ondansetron HCl (Zofran) 4 mg IV Q4HR PRN PRN Reason: Nausea And Vomiting Last Admin: 04/16/18 07:48 Dose: 4 mg Oxybutynin (Ditropan) 5 mg PO NOW ONE Stop: 04/16/18 07:41 Last Admin: 04/16/18 08:07 Dose: 5 mg Consultations Consultation #1: call to patient's urologist to discuss presentation and follow up. They are happy with levaquin and pain control as well as follow up. Vital Signs - 8 hr 04/16/18 07:09 04/16/18 09:32 04/16/18 10:10 Temperature 98.7 F Pulse Rate 83 89 86 Respiratory Rate 16 18 20 Blood Pressure 126/92 H Blood Pressure [Left Arm] 132/75 133/77 Pulse Oximetry 98 98 100 04/16/18 10:17 04/16/18 10:30 04/16/18 12:04 Temperature Pulse Rate 77 89 86 Respiratory Rate 22 16 18 Blood Pressure 140/87 Blood Pressure [Left Arm] 137/86 137/79 Pulse Oximetry 100 97 100 MDM - Female Genitourinary Differential Diagnosis Likely urinary tract infection and ovarian cyst Medical Records Attestation: I reviewed the patient's medical records. Lab Data Attestation: I reviewed the patient's lab results. Result diagrams: 04/16/18 07:50 04/16/18 07:50 Lab Results 04/16/18 04/16/18 04/16/18 Range/Units 07:50 07:50 07:50 WBC 7.8 (4.5-11.0) X10^3/uL RBC 4.52 (4.0-5.2) X10^6/uL Hgb 13.3 (12.0-16.0) g/dL Hct 38.7 (36-46) % MCV 85.8 (80-100) fL MCH 29.4 (26-34) PG MCHC 34.2 (30-36) % RDW 13.3 (11.6-14.8) % Plt Count 264 (150-400) X10^3/uL Neut % (Auto) 60.3 (50-75) % Lymph % (Auto) 26.5 (25-40) % [place] % (Auto) 11.9 (3-14) % Eos % (Auto) 0.6 L (2-4) % Baso % (Auto) 0.7 (0-2) % Neut # (Auto) 4700 (2636-8546) /uL Sodium 142 (137-145) mmol/L Potassium 4.4 (3.4-5.1) mmol/L Chloride 106 (98-107) mmol/L Carbon Dioxide 22 (22-32) mmol/L BUN 12 (7-17) mg/dL Creatinine 0.70 (0.52-1.04) mg/dL Estimated GFR > 60.0 (>60) mL/min BUN/Creatinine Ratio 17.1 (6-22) Glucose 97 (70-100) mg/dL Lactate (0.7-2.1) mmol/L Calcium 9.4 (8.4-10.2) mg/dL Procalcitonin < 0.05 (<0.5) ng/mL Urine RBC (0-5/HPF) Urine WBC (0-5/HPF) Ur Squamous Epith Cells Urine Bacteria (None) Ur Culture Indicated? Micro UA Comment 04/16/18 04/16/18 Range/Units 07:50 09:05 WBC (4.5-11.0) X10^3/uL RBC (4.0-5.2) X10^6/uL Hgb (12.0-16.0) g/dL Hct (36-46) % MCV (80-100) fL MCH (26-34) PG MCHC (30-36) % RDW (11.6-14.8) % Plt Count (150-400) X10^3/uL Neut % (Auto) (50-75) % Lymph % (Auto) (25-40) % [place] % (Auto) (3-14) % Eos % (Auto) (2-4) % Baso % (Auto) (0-2) % Neut # (Auto) (9099-5642) /uL Sodium (137-145) mmol/L Potassium (3.4-5.1) mmol/L Chloride (98-107) mmol/L Carbon Dioxide (22-32) mmol/L BUN (7-17) mg/dL Creatinine (0.52-1.04) mg/dL Estimated GFR (>60) mL/min BUN/Creatinine Ratio (6-22) Glucose (70-100) mg/dL Lactate 1.3 (0.7-2.1) mmol/L Calcium (8.4-10.2) mg/dL Procalcitonin (<0.5) ng/mL Urine RBC 0-1/hpf (0-5/HPF) Urine WBC 10-30/hpf H (0-5/HPF) Ur Squamous Epith Cells 5-10 /hpf H Urine Bacteria Moderate (10-30) H (None) Ur Culture Indicated? Cult not indicated Micro UA Comment Not Reportable Urine Dip Bedside Urine Glucose Negative Bedside Urine Bilirubin - Negative Bedside Urine Ketone - Negative Urine Specific [place] 1.015 Bedside Urine Occult Blood +/- Bedside Urine pH 6.0 Bedside Urine Protein - Negative Bedside Urine Urobilinogen - Negative Bedside Urine Nitrite - Negative Bedside Urine Leukocytes ++ 125 Esterase Imaging Data Renal US: Radiologist's impression: [address] [id number] Ultrasound Report Signed Patient: Ni Varner MMR#: [id number] : 1995Acct:[id number] Age/Sex: 23 / FDate of Service: 04/16/18 Loc: ED Accession Number: [id number] Procedure: US renal complete Ordering Provider: Dio Blankenship D.O. PROCEDURE: US RENAL COMPLETE INDICATIONS: HISTORY STONES; RECENT STENT REMOVAL; FEVER, PAIN TECHNIQUE: Real-time scanning was performed of the kidneys and bladder, with image documentation. COMPARISON: [facility], US, US ABDOMEN COMPLETE, 01/20/2018, 16:19. [facility], CT, CT KIDNEY URETER BLADDER (KUB), 02/16/2018, 10:43. [facility], CT, CT KIDNEY URETER BLADDER (KUB), 03/28/2018, 11:05. [facility], US, US RENAL COMPLETE, 02/28/2018, 10:17. FINDINGS: Kidneys: Kidneys are normal in size. Right kidney measures 10.1 cm long; left kidney measures 10.9 cm long. Right renal cortical thickness is 1.5 cm; left renal cortical thickness is 1.4 cm. Renal cortical echotexture is normal. No hydronephrosis or nephrolithiasis. No suspicious solid mass lesions. Bladder: Pre-void bladder volume is contracted. On pre-void images, neither ureteral jets are noted with color Doppler interrogation. (Of note, ureteral jets may not be detectable in up to 25% of cases due to insufficient differences in specific gravity between ureteral and bladder urine). Miscellaneous: No free pelvic fluid. IMPRESSION: 1. No renal stone hydronephrosis on the current exam. 2. Bladder is contracted, therefore, not well-seen. Dictated by: Annel Johnson M.D. on 04/16/2018 at 8:35 Approved by: Annel Johnson M.D. on 04/16/2018 at 8:38 Discharge Plan Departure Patient Disposition: Home Clinical Impression: Pyelonephritis Discharge Date/Time: 04/16/18 12:03 Interventions: ED Discharge Assessment Last Done: 04/16/18 12:04 Instructions: DI for Kidney Infection Activity Restrictions/Additional Instructions: *You have been diagnosed with [acute pyelonephritis ] *What to do: *Take medications as directed *Follow up with your primary care provider in 2-3 days, call for an appointment. Let them know you were seen in the Emergency Department and that we ask that you be seen in follow up *Return to ER if you should have any new, worsening or concerning symptoms, such as [ worsening pain, fever and chills, persistent vomiting, or other bothersome symptoms] Prescriptions: New ondansetron 4 mg tablet,disintegrating 4 mg PO QID PRN (Reason: nausea and vomiting) Qty: 20 RF: 0 oxycodone 5 mg tablet 5 mg PO Q4-6H PRN (Reason: pain) Qty: 14 RF: 0 levofloxacin [Levaquin] 500 mg tablet 500 mg PO DAILY 10 Days Qty: 10 RF: 0 ketorolac 10 mg tablet 10 mg PO Q6H PRN (Reason: pain) Qty: 14 RF: 0 No Action acetaminophen [Tylenol] 325 mg capsule 325 mg PO Q6H PRN (Reason: Pain, Mild) RF: 0 ondansetron HCl 4 mg tablet 4 mg PO QID PRN (Reason: nausea and vomiting) Qty: 30 RF: 0 tamsulosin 0.4 mg capsule 0.4 mg PO DAILY Qty: 30 RF: 0 phenazopyridine 100 mg tablet 100 mg PO TID RF: 0 oxybutynin chloride 5 mg tablet 5 mg PO TID RF: 0 ibuprofen 200 MG tablet 800 mg PO PRN PRN (Reason: Pain, Moderate) RF: 0 Referrals: Sanjuanita Carlos MD [Physician] - Kristel Oneal ARNP [Primary Care Provider] -
[2018-04-16] MEDS: OXYBUTYNIN 5 MG TABLET PO (08:07)
[2018-04-16] MEDS: SODIUM CHLORIDE 0.9% 1,000 ML 1000 ML IV (08:08)
--- NOTE | 2018-04-16 08:09 | ED_ITS ---
HPI - Female Genitourinary General Chief complaint: Urogenital-Female Stated complaint: states kidney stones Time Seen by Provider: 04/16/18 07:26 Source: patient and family Mode of arrival: ambulatory Limitations: no limitations History of Present Illness HPI Narrative: 23-year-old nonsmoking female with extensive kidney stone history presents with left flank pain along with fever, chills and nausea for the past few days. She has dysuria, frequency and urgency. She has had multiple kidney stones recently and has been managed by Urology at [facility]. Two weeks ago she had a right ureteral stent placed due to 2 impacted stones. She did not tolerate the stent all that well and had frequent pain, nausea and fevers. The stent was removed on Friday and she continues to have discomfort and feel sick. Now her pain is on her left flank and is persistently sharp and stabbing but has episodes of crampy pain every few hours or so. She denies provocation or palliation. She has had fever as high as 103 and has been taking Levaquin. Complaint: dysuria Onset (ago): day(s) Location: LLQ Female Urogenital Radiation: L Flank Severity: moderate Quality: Aching, Burning and Cramping Duration: intermittent Relieving factors: none Exacerbating factors: none Urinary symptoms: Dysuria and Flank Pain Patient : No Related Data Home Medications Medication Instructions Recorded Confirmed ibuprofen 800 mg PO PRN PRN 11/30/17 04/16/18 acetaminophen 325 mg capsule 325 mg PO Q6H PRN 01/20/18 04/16/18 oxybutynin chloride 5 mg PO TID 04/16/18 04/16/18 phenazopyridine 100 mg PO TID 04/16/18 04/16/18 Previous Rx's Medication Instructions Recorded ondansetron HCl 4 mg tablet 4 mg PO QID PRN #30 tab 02/06/18 tamsulosin 0.4 mg capsule 0.4 mg PO DAILY #30 cap 03/09/18 ketorolac 10 mg PO Q6H PRN #14 tab 04/16/18 levofloxacin [Levaquin] 500 mg PO DAILY 10 Days #10 tab 04/16/18 ondansetron 4 mg PO QID PRN #20 tab 04/16/18 oxycodone 5 mg PO Q4-6H PRN #14 tab 04/16/18 Allergies Allergy/AdvReac Type Severity Reaction Status Date / Time shellfish derived Allergy Severe ANAPHYLAXIS Verified 03/27/18 19:29 [SHELLFISH DERIVED] adhesive [ADHESIVE] Allergy Mild Verified 03/27/18 19:29 amoxicillin [AMOXICILLIN] Allergy Mild Verified 03/27/18 19:29 doxycycline [DOXYCYCLINE] Allergy Mild Verified 03/27/18 19:29 hydrocodone Allergy Mild rash Verified 03/27/18 19:29 iodine [IODINE] Allergy Mild Verified 03/27/18 19:29 metoclopramide Allergy Mild Verified 03/27/18 19:29 [METOCLOPRAMIDE] Penicillins [PENICILLINS] Allergy Mild Verified 03/27/18 19:29 prochlorperazine Allergy Mild Verified 03/27/18 19:29 [PROCHLORPERAZINE] sulfamethoxazole Allergy Mild RASH Verified 03/27/18 19:29 [From BACTRIM] trimethoprim [From BACTRIM] Allergy Mild RASH Verified 03/27/18 19:29 cephalexin [CEPHALEXIN] Allergy Unknown Verified 03/27/18 19:29 ciprofloxacin [CIPROFLOXACIN] Allergy Unknown Verified 03/27/18 19:29 clindamycin [CLINDAMYCIN] Allergy Unknown Verified 03/27/18 19:29 Iodinated Contrast- Oral and Allergy Unknown Verified 03/27/18 19:29 IV Dye [IODINATED CONTRAST MEDIA - IV DYE] latex [LATEX] Allergy Unknown Verified 03/27/18 19:29 lidocaine AdvReac Palpitation Uncoded 04/16/18 10:17 s Review of Systems Review of Systems All systems reviewed & are unremarkable except as noted in HPI and below Constitutional Reports chills, Reports fever(s), Denies lethargy and Denies weakness Eyes Denies change in vision, Denies eye discharge, Denies irritation and Denies loss of vision ENT Ears, Nose, Mouth, and Throat: Denies change in voice, Denies neck pain and Denies sore throat Cardiovascular Denies chest pain, Denies irregular heart rhythm, Denies lightheadedness, Denies palpitations, Denies dyspnea, Denies dyspnea on exertion and Denies orthopnea Respiratory Denies cough, Denies dyspnea, Denies dyspnea on exertion and Denies wheezing Gastrointestinal Gastrointestinal: Denies abdominal pain, Denies change in bowel habits, Denies diarrhea, Denies nausea and Denies vomiting Genitourinary Denies hematuria, Reports flank pain, Denies urinary incontinence and Denies urinary urgency Musculoskeletal Denies neck pain Integumentary/Breasts Denies pruritus, Denies erythema, Denies rash and Denies wounds Neurologic Denies confusion, Denies loss of vision and Denies weakness Psychiatric Denies anxiety, Denies confusion, Denies depression, Denies homicidal ideation and Denies suicidal ideation Endocrine Denies palpitations Hematologic/Lymphatic Denies easy bruising Allergic/Immunologic Denies wheezing PFSH Medical History BRCA positive (Chronic) Ovarian cyst (Resolved) Pelvic congestion (Resolved 2013) Surgical History Status post appendectomy (Resolved 2003) Status post bilateral salpingectomy (Resolved 09/01/17) Status post dilation and curettage (Resolved 2010) Status post dilation and curettage (Resolved 2011) Status post knee surgery (Resolved 2007) Status post knee surgery (Resolved 2012) Status post laparoscopic supracervical hysterectomy (Resolved 09/01/17) Status post laparoscopy (Resolved 2003) Status post laparoscopy (Resolved 2011) Status post laparoscopy (Resolved 2004) Status post removal of cervix (Resolved) Status post tonsillectomy and adenoidectomy (Resolved) Family History Mother BRCA positive Grandmother Ovarian cancer, Onset Age: 58 Breast cancer, Onset Age: 58 Social History Smoking Status: Never smoker Exam Narrative Exam Narrative: 23-year-old female appears uncomfortable, mother at bedside Initial Vital Signs Initial Vital Signs: Vital Signs Temperature 98.7 F 04/16/18 07:09 Pulse Rate 83 04/16/18 07:09 Respiratory Rate 16 04/16/18 07:09 Blood Pressure 126/92 H 04/16/18 07:09 Pulse Oximetry 98 04/16/18 07:09 Const General: cooperative, well developed, in distress and ill appearing Nutritional Appearance: well nourished Orientation: alert, awake, oriented x3 and not confused HENSD Head: normocephalic and atraumatic Ears: external ears normal Nose: external nose normal and No nasal discharge Mouth: oral mucosae normal Teeth and gingiva: dentition normal Eyes General: appearance normal, both eyes and all related structures Eyelids: eyelids normal Conjunctivae: conjunctivae normal Sclera: sclerae normal Pupils: PERRL EOM: EOM intact bilaterally Chest Chest: normal inspection of the chest Cardio Rate: regular rate Rhythm: regular rhythm Heart Sounds: no click, no gallops, no murmurs and no rubs Pulses: normal peripheral pulses GI Inspection: non-distended Palpation: soft, no hepatosplenomegaly, No guarding, No pulsatile mass and No tender Auscultation: normal bowel sounds Back/Spine/Pelvis Back: CVA tenderness Skin General: no rashes or lesions noted, No jaundice and No petechiae Extrem General: full ROM, no clubbing, cyanosis or edema, no pedal edema and no calf tenderness Course Orders Ordered: ED Orders 04/16/18 07:39 US renal complete Stat 04/16/18 07:50 Basic Metabolic Panel Stat Complete Blood Count AUTO DIFF Stat Lactate (Lactic Acid) Stat Procalcitonin Stat 04/16/18 08:30 Blood Culture Stat 04/16/18 09:05 Urine Microscopic Stat Discontinued Medications Sodium Chloride (Normal Saline 0.9%) 1,000 mls @ 1,000 mls/hr IV BOLUS ONE Stop: 04/16/18 08:26 Last Infusion: 04/16/18 09:33 Dose: 0 mls/hr Admin: 04/16/18 08:08 Dose: 1,000 mls/hr Lidocaine HCl 6.5 ml/ Sodium (Chloride) 56.5 mls @ 339 mls/hr IV NOW ONE Stop: 04/16/18 09:44 Last Infusion: 04/16/18 10:21 Dose: 0 mls/hr Admin: 04/16/18 10:05 Dose: 339 mls/hr Ketorolac Tromethamine (Toradol) 15 mg IV NOW ONE Stop: 04/16/18 07:28 Last Admin: 04/16/18 07:49 Dose: 15 mg Ondansetron HCl (Zofran) 4 mg IV Q4HR PRN PRN Reason: Nausea And Vomiting Last Admin: 04/16/18 07:48 Dose: 4 mg Oxybutynin (Ditropan) 5 mg PO NOW ONE Stop: 04/16/18 07:41 Last Admin: 04/16/18 08:07 Dose: 5 mg Consultations Consultation #1: call to patient's urologist to discuss presentation and follow up. They are happy with levaquin and pain control as well as follow up. Vital Signs - 8 hr 04/16/18 07:09 04/16/18 09:32 04/16/18 10:10 Temperature 98.7 F Pulse Rate 83 89 86 Respiratory Rate 16 18 20 Blood Pressure 126/92 H Blood Pressure [Left Arm] 132/75 133/77 Pulse Oximetry 98 98 100 04/16/18 10:17 04/16/18 10:30 04/16/18 12:04 Temperature Pulse Rate 77 89 86 Respiratory Rate 22 16 18 Blood Pressure 140/87 Blood Pressure [Left Arm] 137/86 137/79 Pulse Oximetry 100 97 100 MDM - Female Genitourinary Differential Diagnosis Likely urinary tract infection and ovarian cyst Medical Records Attestation: I reviewed the patient's medical records. Lab Data Attestation: I reviewed the patient's lab results. Result diagrams: 04/16/18 07:50 04/16/18 07:50 Lab Results 04/16/18 04/16/18 04/16/18 Range/Units 07:50 07:50 07:50 WBC 7.8 (4.5-11.0) X10^3/uL RBC 4.52 (4.0-5.2) X10^6/uL Hgb 13.3 (12.0-16.0) g/dL Hct 38.7 (36-46) % MCV 85.8 (80-100) fL MCH 29.4 (26-34) PG MCHC 34.2 (30-36) % RDW 13.3 (11.6-14.8) % Plt Count 264 (150-400) X10^3/uL Neut % (Auto) 60.3 (50-75) % Lymph % (Auto) 26.5 (25-40) % [place] % (Auto) 11.9 (3-14) % Eos % (Auto) 0.6 L (2-4) % Baso % (Auto) 0.7 (0-2) % Neut # (Auto) 4700 (9120-5961) /uL Sodium 142 (137-145) mmol/L Potassium 4.4 (3.4-5.1) mmol/L Chloride 106 (98-107) mmol/L Carbon Dioxide 22 (22-32) mmol/L BUN 12 (7-17) mg/dL Creatinine 0.70 (0.52-1.04) mg/dL Estimated GFR > 60.0 (>60) mL/min BUN/Creatinine Ratio 17.1 (6-22) Glucose 97 (70-100) mg/dL Lactate (0.7-2.1) mmol/L Calcium 9.4 (8.4-10.2) mg/dL Procalcitonin < 0.05 (<0.5) ng/mL Urine RBC (0-5/HPF) Urine WBC (0-5/HPF) Ur Squamous Epith Cells Urine Bacteria (None) Ur Culture Indicated? Micro UA Comment 04/16/18 04/16/18 Range/Units 07:50 09:05 WBC (4.5-11.0) X10^3/uL RBC (4.0-5.2) X10^6/uL Hgb (12.0-16.0) g/dL Hct (36-46) % MCV (80-100) fL MCH (26-34) PG MCHC (30-36) % RDW (11.6-14.8) % Plt Count (150-400) X10^3/uL Neut % (Auto) (50-75) % Lymph % (Auto) (25-40) % [place] % (Auto) (3-14) % Eos % (Auto) (2-4) % Baso % (Auto) (0-2) % Neut # (Auto) (4411-6538) /uL Sodium (137-145) mmol/L Potassium (3.4-5.1) mmol/L Chloride (98-107) mmol/L Carbon Dioxide (22-32) mmol/L BUN (7-17) mg/dL Creatinine (0.52-1.04) mg/dL Estimated GFR (>60) mL/min BUN/Creatinine Ratio (6-22) Glucose (70-100) mg/dL Lactate 1.3 (0.7-2.1) mmol/L Calcium (8.4-10.2) mg/dL Procalcitonin (<0.5) ng/mL Urine RBC 0-1/hpf (0-5/HPF) Urine WBC 10-30/hpf H (0-5/HPF) Ur Squamous Epith Cells 5-10 /hpf H Urine Bacteria Moderate (10-30) H (None) Ur Culture Indicated? Cult not indicated Micro UA Comment Not Reportable Urine Dip Bedside Urine Glucose Negative Bedside Urine Bilirubin - Negative Bedside Urine Ketone - Negative Urine Specific [place] 1.015 Bedside Urine Occult Blood +/- Bedside Urine pH 6.0 Bedside Urine Protein - Negative Bedside Urine Urobilinogen - Negative Bedside Urine Nitrite - Negative Bedside Urine Leukocytes ++ 125 Esterase Imaging Data Renal US: Radiologist's impression: [address] [address] Ultrasound Report Signed Patient: Ni Varner MMR#: [id number] : 1995Acct:[id number] Age/Sex: 23 / FDate of Service: 04/16/18 Loc: ED Accession Number: [id number] Procedure: US renal complete Ordering Provider: Dio Blankenship D.O. PROCEDURE: US RENAL COMPLETE INDICATIONS: HISTORY STONES; RECENT STENT REMOVAL; FEVER, PAIN TECHNIQUE: Real-time scanning was performed of the kidneys and bladder, with image documentation. COMPARISON: [facility], US, US ABDOMEN COMPLETE, 01/20/2018, 16:19. [facility], CT, CT KIDNEY URETER BLADDER (KUB), 02/16/2018, 10:43. [facility] , CT, CT KIDNEY URETER BLADDER (KUB), 03/28/2018, 11:05. [facility], US, US RENAL COMPLETE, 02/28/2018, 10:17. FINDINGS: Kidneys: Kidneys are normal in size. Right kidney measures 10.1 cm long; left kidney measures 10.9 cm long. Right renal cortical thickness is 1.5 cm; left renal cortical thickness is 1.4 cm. Renal cortical echotexture is normal. No hydronephrosis or nephrolithiasis. No suspicious solid mass lesions. Bladder: Pre-void bladder volume is contracted. On pre-void images, neither ureteral jets are noted with color Doppler interrogation. (Of note, ureteral jets may not be detectable in up to 25% of cases due to insufficient differences in specific gravity between ureteral and bladder urine). Miscellaneous: No free pelvic fluid. IMPRESSION: 1. No renal stone hydronephrosis on the current exam. 2. Bladder is contracted, therefore, not well-seen. Dictated by: Annel Johnson M.D. on 04/16/2018 at 8:35 Approved by: Annel Johnson M.D. on 04/16/2018 at 8:38 Discharge Plan Departure Patient Disposition: Home Clinical Impression: Pyelonephritis Discharge Date/Time: 04/16/18 12:03 Interventions: ED Discharge Assessment Last Done: 04/16/18 12:04 Instructions: DI for Kidney Infection Activity Restrictions/Additional Instructions: *You have been diagnosed with [acute pyelonephritis ] *What to do: *Take medications as directed *Follow up with your primary care provider in 2-3 days, call for an appointment. Let them know you were seen in the Emergency Department and that we ask that you be seen in follow up *Return to ER if you should have any new, worsening or concerning symptoms , such as [ worsening pain, fever and chills, persistent vomiting, or other bothersome symptoms] Prescriptions: New ondansetron 4 mg tablet,disintegrating 4 mg PO QID PRN (Reason: nausea and vomiting) Qty: 20 RF: 0 oxycodone 5 mg tablet 5 mg PO Q4-6H PRN (Reason: pain) Qty: 14 RF: 0 levofloxacin [Levaquin] 500 mg tablet 500 mg PO DAILY 10 Days Qty: 10 RF: 0 ketorolac 10 mg tablet 10 mg PO Q6H PRN (Reason: pain) Qty: 14 RF: 0 No Action acetaminophen [Tylenol] 325 mg capsule 325 mg PO Q6H PRN (Reason: Pain, Mild) RF: 0 ondansetron HCl 4 mg tablet 4 mg PO QID PRN (Reason: nausea and vomiting) Qty: 30 RF: 0 tamsulosin 0.4 mg capsule 0.4 mg PO DAILY Qty: 30 RF: 0 phenazopyridine 100 mg tablet 100 mg PO TID RF: 0 oxybutynin chloride 5 mg tablet 5 mg PO TID RF: 0 ibuprofen 200 MG tablet 800 mg PO PRN PRN (Reason: Pain, Moderate) RF: 0 Referrals: Sanjuanita Carlos MD [Physician] - Kristel Oneal ARNP [Primary Care Provider] -
[2018-04-16 08:14] LABS: Add Manual Diff / Slide Review NO; Basophils Percent Auto 0.7 % (0-2); Eosinophils Percent Auto 0.6 % (2-4); Hematocrit 38.7 % (36-46); Hemoglobin 13.3 g/dL (12.0-16.0); Lymphocytes Percent Auto 26.5 % (25-40); Mean Corpuscular HGB Conc 34.2 % (30-36); Mean Corpuscular Hemoglobin 29.4 PG (26-34); Mean Corpuscular Volume 85.8 fL (80-100); Monocytes Percent Auto 11.9 % (3-14); Neutrophils Absolute Auto 4700 /uL (3000-5900); Neutrophils Percent Auto 60.3 % (50-75); Platelet Count 264 X10^3/uL (150-400); Red Blood Cell Count 4.52 X10^6/uL (4.0-5.2); Red Cell Distribution Width 13.3 % (11.6-14.8); White Blood Cell Count 7.8 X10^3/uL (4.5-11.0)
[2018-04-16 08:23] LABS: BUN Creatinine Ratio 17.1 (6-22); Blood Urea Nitrogen 12 mg/dL (7-17); Calcium 9.4 mg/dL (8.4-10.2); Carbon Dioxide 22 mmol/L (22-32); Chloride 106 mmol/L (98-107); Estimated Glomerular Filt Rate > 60.0 mL/min (>60); Glucose 97 mg/dL (70-100); Lactate (Lactic Acid) 1.3 mmol/L (0.7-2.1); Potassium 4.4 mmol/L (3.4-5.1); Sodium 142 mmol/L (137-145)
[2018-04-16 08:24] LABS: HEMOLYSIS 98 (0-50)
--- NOTE | 2018-04-16 08:31 | PC.NURSE ---
pt has been taking oxybutin, pyridium, colace, has been using heat for comfort.
[2018-04-16 08:46] LABS: Procalcitonin < 0.05 ng/mL (<0.5)
[2018-04-16 09:32] VITALS: BP 132/75; PULSE 89; RESP 18; O2SAT 98
[2018-04-16 09:38] LABS: Bacteria Urine Moderate (10-30); RBC Urine 0-1/HPF (0-5/HPF); Squamous Epithelial Cell Urine 5-10 /HPF; WBC Urine 10-30/HPF (0-5/HPF)
[2018-04-16 09:39] LABS: Culture Indicated Urine Cult Not Indicated
[2018-04-16] MEDS: LIDOCAINE 2% 6.5 ML in SODIUM CHLORIDE 0.9% 50 ML 339 ML IV (10:05)
--- NOTE | 2018-04-16 10:08 | PC.NURSE ---
lidocaine 5.6ml in 50ml, ivpb over 10 minutes quality assurance monitor body normal sinus rhythm, without ectopy
[2018-04-16 10:10] VITALS: BP 133/77; PULSE 86; RESP 20; O2SAT 100
--- NOTE | 2018-04-16 10:11 | PC.NURSE ---
felt head , felt funny, and shortness of breath. stopped lidocaine, recieved 25ml. stopped.
[2018-04-16 10:17] VITALS: BP 137/86; PULSE 77; RESP 1; RESP 22; O2SAT 100
--- NOTE | 2018-04-16 10:17 | PC.NURSE ---
breath sound clear to auscultate, no redness or rash noted. resolved once lidocaine stopped. no relieve from pain.
[2018-04-16 10:30] VITALS: BP 137/79; PULSE 89; RESP 16; O2SAT 97
--- NOTE | 2018-04-16 10:32 | PC.NURSE ---
remain normal sinus rhythm
[2018-04-16 12:04] VITALS: BP 140/87; PULSE 86; RESP 18; O2SAT 100
== END 2018-04-16 12:03 | disposition home or self-care (01) ==
PROVIDERS: Emergency Provider Emergency Medicine; PCP Registered Nurse
DX: N12 Tubulo-interstitial nephritis, not specified as acute or chronic (principal)
CPT/HCPCS: 36415; 36591; 76770; 80048; 81003; 81015; 83605; 84145; 85025; 87040; 96361; 96365; 96375; 99283; 99284; J1885; J2405

== ENCOUNTER → 2018-04-23 16:16 | Outpatient (CLI) | payer OTHER, MEDICAID, SELFPAY ==
[2018-04-23 18:31] LABS: Bacteria Urine None Seen
[2018-04-23 18:45] LABS: Appearance Urine UA CLEAR; Bilirubin Urine UA NEGATIVE (NEGATIVE); Color Urine UA YELLOW; Glucose Urine UA NEGATIVE (Normal); Ketones Urine UA NEGATIVE (NEGATIVE); Leukocyte Esterase Urine UA 1+ (NEGATIVE); Nitrite Urine UA NEGATIVE (Negative); Occult Blood Urine UA TRACE-INTACT (Negative); Protein Urine UA NEGATIVE (Negative); Urobilinogen Urine UA 0.2 E.U./dL (0.2)
[2018-04-23 19:06] LABS: RBC Urine 1-5/HPF (0-5/HPF); Squamous Epithelial Cell Urine 0-1 /HPF; WBC Urine 10-30/HPF (0-5/HPF)
[2018-04-23 19:07] LABS: Culture Indicated Urine Specimen Cultured
== END ==
PROVIDERS: PCP Registered Nurse; Visit Provider Registered Nurse
DX: N20.0 Calculus of kidney (principal)
CPT/HCPCS: 81001; 87086

== ENCOUNTER → 2018-04-23 16:35 | Outpatient (CLI) | payer OTHER, MEDICAID, SELFPAY ==
[2018-04-23 18:46] LABS: Add Manual Diff / Slide Review NO; Basophils Percent Auto 0.3 % (0-2); Eosinophils Percent Auto 1.2 % (2-4); Hematocrit 39.1 % (36-46); Hemoglobin 13.6 g/dL (12.0-16.0); Lymphocytes Percent Auto 24.6 % (25-40); Mean Corpuscular HGB Conc 34.8 % (30-36); Mean Corpuscular Hemoglobin 29.4 PG (26-34); Mean Corpuscular Volume 84.5 fL (80-100); Monocytes Percent Auto 8.8 % (3-14); Neutrophils Absolute Auto 5500 /uL (3000-5900); Neutrophils Percent Auto 65.1 % (50-75); Platelet Count 248 X10^3/uL (150-400); Red Blood Cell Count 4.63 X10^6/uL (4.0-5.2); Red Cell Distribution Width 13.4 % (11.6-14.8); White Blood Cell Count 8.4 X10^3/uL (4.5-11.0)
[2018-04-23 19:23] LABS: Alanine Aminotransferase 26 IU/L (9-52); Albumin 4.5 g/dL (3.5-5.0); Albumin Globulin Ratio 1.8 (1.0-2.8); Alkaline Phosphatase 61 U/L (38-126); Aspartate Aminotransferase 16 IU/L (14-36); Bilirubin Total 0.7 mg/dL (0.2-1.3); Blood Urea Nitrogen 14 mg/dL (7-17); Calcium 9.4 mg/dL (8.4-10.2); Carbon Dioxide 21 mmol/L (22-32); Chloride 106 mmol/L (98-107); Estimated Glomerular Filt Rate > 60.0 mL/min (>60); Globulin 2.5 g/dL (1.7-4.1); Glucose 84 mg/dL (70-100); HEMOLYSIS < 15 (0-50); Sodium 140 mmol/L (137-145)
== END ==
PROVIDERS: PCP Registered Nurse; Visit Provider Registered Nurse
DX: R50.9 Fever, unspecified (principal); N12 Tubulo-interstitial nephritis, not specified as acute or chronic; N20.0 Calculus of kidney
CPT/HCPCS: 36415; 80053; 81001; 85025; 87086

== ENCOUNTER → 2018-05-14 10:14 | Outpatient (CLI) | payer OTHER, MEDICAID, SELFPAY ==
--- NOTE | 2018-05-14 | DI.CT.S_ITS ---
PROCEDURE: CT ABDOMEN PELVIS WO CON INDICATIONS: NEPHROLITHIASIS TECHNIQUE: Noncontrast 5 mm thick sections acquired from the diaphragms to the symphysis. 5 mm coronal and sagittal reformats were then performed. For radiation dose reduction, the following was used: automated exposure control, adjustment of mA and/or kV according to patient size. COMPARISON: [facility], CT, KIDNEY/ URETER/BLADDER, 07/02/2013, 18:05. [facility], CT, CT KIDNEY URETER BLADDER (KUB), 03/28/2018, 11:05. FINDINGS: Image quality: Excellent. ABDOMEN: Lung bases: Lung bases are clear. Heart size is normal. Solid organs: Liver is normal in size. Gallbladder is unremarkable. Pancreas is normal in contours. Spleen is normal in size. No adrenal nodules. The kidneys are normal in size. No hydronephrosis. A 1 mm diameter calculus is present within the lower pole of the right kidney. No other renal calculi. No ureteral calculi. Peritoneum and bowel: Unenhanced bowel loops demonstrate normal wall thickness and caliber. Probable surgical sutures present within the duodenum. The appendix is not visualized; however surgical clips are present in the region of the cecum in the lower quadrant suggesting prior appendectomy. No free fluid or air. Nodes and vessels: No retroperitoneal or mesenteric adenopathy by size criteria. Aorta and inferior vena cava are normal in caliber. Miscellaneous: No ventral hernias. PELVIS: Genitourinary: Bladder wall thickness is normal. Uterus is nonvisualized and is presumably surgically absent. A 2.8 x 4.8 cm low-density cystic lesion is present within the left adnexa suggesting an ovarian cyst. This is new when compared with the prior CT dated 03/28/18. Miscellaneous: No inguinal hernias or adenopathy. Bones: No suspicious bony lesions. No vertebral body compression fractures. IMPRESSION: 1. Nonobstructing right nephrolithiasis. No hydronephrosis, hydroureter, or ureterolithiasis. 2. No acute intra-abdominal findings. 3. Findings suspicious for a right ovarian cyst. If further characterization is warranted, nonemergent pelvic ultrasound is recommended. Dictated by: Lilly Gallo M.D. on 05/14/2018 at 13:54 Approved by: Lilly Gallo M.D. on 05/14/2018 at 14:00
== END ==
PROVIDERS: PCP Registered Nurse; Visit Provider Registered Nurse
DX: N20.0 Calculus of kidney (principal)
CPT/HCPCS: 74176

== ENCOUNTER 2018-06-10 14:32 | Emergency (ER) | payer OTHER, MEDICAID, SELFPAY ==
[2018-06-10] VITALS (7 sets, daily range): BP systolic 95–134; BP diastolic 21–80; PULSE 78–90; RESP 15–16; TEMP 36.7; O2SAT 100
--- NOTE | 2018-06-10 14:47 | ED_ITS ---
HPI - Fall General Chief Complaint: Trauma Stated Complaint: fell down flight of stairs Time Seen by Provider: 06/10/18 14:39 Source: patient and family Mode of arrival: ambulatory Limitations: no limitations History of Present Illness HPI Narrative: Patient is a 23-year-old female here for evaluation of injuries that she sustained after a fall. Patient states she was coming down a flight of stairs when she felt her right knee lock up which she states has happened in the past. She states she fell forward. Landing on her left side. Unsure as to how exactly she fell down the stairs but did fall down approximately 10 stairs. No loss of consciousness. She states she laid there for approximately 10 min. Has pain on her left side. Came in by private vehicle not in a cervical collar not on a backboard Related Data Home Medications Medication Instructions Recorded Confirmed ibuprofen 800 mg PO PRN PRN 11/30/17 06/10/18 acetaminophen 325 mg capsule 325 mg PO Q6H PRN 01/20/18 06/10/18 trazodone 200 mg PO BEDTIME 06/10/18 06/10/18 Allergies Allergy/AdvReac Type Severity Reaction Status Date / Time shellfish derived Allergy Severe ANAPHYLAXIS Verified 06/05/18 11:11 [SHELLFISH DERIVED] adhesive [ADHESIVE] Allergy Mild Verified 06/05/18 11:11 amoxicillin [AMOXICILLIN] Allergy Mild Verified 06/05/18 11:11 doxycycline [DOXYCYCLINE] Allergy Mild Verified 06/05/18 11:11 hydrocodone Allergy Mild rash Verified 06/05/18 11:11 iodine [IODINE] Allergy Mild Verified 06/05/18 11:11 metoclopramide Allergy Mild Verified 06/05/18 11:11 [METOCLOPRAMIDE] Penicillins [PENICILLINS] Allergy Mild Verified 06/05/18 11:11 prochlorperazine Allergy Mild Verified 06/05/18 11:11 [PROCHLORPERAZINE] sulfamethoxazole Allergy Mild RASH Verified 06/05/18 11:11 [From BACTRIM] trimethoprim [From BACTRIM] Allergy Mild RASH Verified 06/05/18 11:11 cephalexin [CEPHALEXIN] Allergy Unknown Verified 06/05/18 11:11 ciprofloxacin [CIPROFLOXACIN] Allergy Unknown Verified 06/05/18 11:11 clindamycin [CLINDAMYCIN] Allergy Unknown Verified 06/05/18 11:11 Iodinated Contrast- Oral and Allergy Unknown Verified 06/05/18 11:11 IV Dye [IODINATED CONTRAST MEDIA - IV DYE] latex [LATEX] Allergy Unknown Verified 06/05/18 11:11 lidocaine AdvReac Palpitation Uncoded 06/05/18 11:11 s Review of Systems Constitutional Denies chills, Denies fever(s) and Denies headache(s) Eyes Denies blurry vision and Denies diplopia ENT Ears, Nose, Mouth, and Throat: Denies vertigo, Denies dizziness, Denies headache (s) and Reports neck pain Cardiovascular Denies chest pain and Denies dyspnea Respiratory Denies dyspnea Gastrointestinal Gastrointestinal: Denies abdominal pain, Denies nausea and Denies vomiting Genitourinary Denies dysuria Musculoskeletal Reports myalgias, Denies deformity, Reports arthralgias, Denies joint swelling and Reports neck pain Integumentary/Breasts Denies lesions and Denies rash Neurologic Denies vertigo, Denies dizziness and Denies headache(s) Hematologic/Lymphatic Comments: Not on anticoagulation Exam Initial Vital Signs Initial Vital Signs: Vital Signs Temperature 98.0 F 06/10/18 14:40 Pulse Rate 87 06/10/18 14:40 Respiratory Rate 15 06/10/18 14:40 Blood Pressure 134/80 06/10/18 14:40 Pulse Oximetry 100 06/10/18 14:40 Const General: cooperative, healthy appearing, comfortable, well developed, well groomed and No acute distress Orientation: alert, awake and oriented x3 [facility] Head: normal to inspection and normocephalic Ears: hearing grossly normal bilaterally Nose: external nose normal Face and sinus: normal facial exam Eyes General: appearance normal, both eyes and all related structures Chest Chest: normal inspection of the chest, No crepitus and tenderness (Left anterior chest) Resp Effort & Inspection: normal respiratory effort Auscultation: clear to auscultation bilaterally Cardio Rate: regular rate Rhythm: regular rhythm Pulses: radial pulses present GI Inspection: non-distended Palpation: soft Back/Spine/Pelvis Cervical Spine: No collar present, cervical muscular tenderness, No pain with cervical ROM, No cervical spasm, No cervical spinal tenderness and No step off deformity Thoracic/Lumbar Spine: thoracic and lumbar spine normal to inspection, No thoracic spinal tenderness and No lumbar spinal tenderness Skin Lesions: no lesions Rashes: no rashes Neuro General: alert, awake and oriented x3 Speech: speech normal Extrem General: normal to inspection and capillary refill normal Other: Left shoulder unremarkable. Tenderness to palpation about the left elbow and just distal to the left elbow. Some tenderness with supination. No problems with pronation. Left wrist unremarkable. Left hand unremarkable. Right upper extremity unremarkable Tenderness to palpation around the left knee. Remainder left lower extremity unremarkable. Right lower extremity unremarkable. Psych Appearance: grossly normal and well kempt [facility] Social History Smoking Status: Never smoker Scores Nexus Score for C-Spine Focal Neurologic deficit present: No Midline spinal tenderness present: No Altered level of conciousness present: No Intoxication present: No Distracting Injury Present: No Nexus Criteria for C-spine: 0 Course Orders Ordered: ED Orders 06/10/18 14:47 XR chest 1V Stat XR forearm LT 2V Stat XR knee LT 3V Stat 06/10/18 15:45 Urine Culture Stat Urine Microscopic Stat Discontinued Medications Hydrocodone Bitart/Acetaminophen ([place] 5/325) 1 tab PO NOW ONE Stop: 06/10/18 14:48 Last Admin: 06/10/18 15:10 Dose: Morphine Sulfate (Morphine) 4 mg IM NOW ONE Stop: 06/10/18 14:52 Last Admin: 06/10/18 15:01 Dose: 4 mg Ondansetron HCl (Zofran Odt) 4 mg PO NOW ONE Stop: 06/10/18 14:48 Last Admin: 06/10/18 15:01 Dose: 4 mg Vital Signs - 8 hr 06/10/18 14:40 06/10/18 14:50 06/10/18 15:43 Temperature 98.0 F Pulse Rate 87 81 78 Respiratory Rate 15 16 Blood Pressure 134/80 Blood Pressure [Right Arm] 119/62 126/62 Pulse Oximetry 100 100 06/10/18 16:00 Temperature Pulse Rate 87 Respiratory Rate 16 Blood Pressure Blood Pressure [Right Arm] 120/63 Pulse Oximetry 100 MDM - Fall Lab Data Lab Results 06/10/18 Range/Units 15:45 Urine RBC None seen (0-5/HPF) Urine WBC 5-10/hpf H (0-5/HPF) Urine Bacteria None seen (None) Ur Culture Indicated? Specimen cultured Micro UA Comment Not Reportable Urine Dip Bedside Urine Glucose 100 mg/dl Bedside Urine Bilirubin - Negative Bedside Urine Ketone - Negative Urine Specific [place] 1.015 Bedside Urine Occult Blood - Negative Bedside Urine pH 6.0 Bedside Urine Protein - Negative Bedside Urine Urobilinogen - Negative Bedside Urine Nitrite - Negative Bedside Urine Leukocytes +/- 15 Esterase Imaging Data XR forearm: Radiologist's impression: [address] [address] XRay Report Signed Patient: Ni Varner MR#: [id number] : 1995 Acct:[id number] Age/Sex: 23 / F Date of Service: 06/10/18 Loc: ED Accession Number: [id number] Procedure: XR forearm LT 2V Ordering Provider: Nate Padilla D.O. PROCEDURE: XR FOREARM RT 2V INDICATIONS: fall with forearm pain TECHNIQUE: 2 views of the forearm were acquired. COMPARISON: None. FINDINGS: Bones: No fractures or dislocations. No suspicious bony lesions. Soft tissues: No suspicious soft tissue calcifications or masses. IMPRESSION: No displaced fractures of the left forearm. Dictated by: Jose D Flores M.D. on 06/10/2018 at 14:43 Approved by: Jose D Flores M.D. on 06/10/2018 at 14:52 X-ray knee: Radiologist's impression: PROCEDURE: XR KNEE LT 3V INDICATIONS: fall with pain TECHNIQUE: 3 views of the knee were acquired. COMPARISON: None. FINDINGS: Bones: No fractures or dislocations. No suspicious bony lesions. Soft tissues: No joint effusion. No suspicious soft tissue calcifications. IMPRESSION: No acute trauma foun, no effusion identified. Dictated by: Celestine Su M.D. on 06/10/2018 at 16:52 Chest x-ray: Radiologist's impression: [address] [address] XRay Report Signed Patient: Ni Varner MR#: [id number] : 1995 Acct:[id number] Age/Sex: 23 / F Date of Service: 06/10/18 Loc: ED Accession Number: [id number] Procedure: XR chest 1V Ordering Provider: Nate Padilla D.O. PROCEDURE: XR CHEST 1V INDICATIONS: fall with left sided pain TECHNIQUE: One view of the chest was acquired. COMPARISON: None. FINDINGS: Surgical changes and devices: None. Lungs and pleura: No pleural effusions or pneumothorax. Lungs are clear. Mediastinum: Mediastinal contours appear normal. Heart size is normal. Bones and chest wall: No suspicious bony lesions. Overlying soft tissues appear unremarkable. IMPRESSION: Normal for age, source of current rib pain symptoms is not seen. Dictated by: Celestine Su M.D. on 06/10/2018 at 16:53 Approved by: Celestine Su M.D. on 06/10/2018 at 16:53 [facility] Narrative Medical decision making narrative: Patient's x-rays were negative. C-spine cleared by nexus criteria. Informed patient that she is going to be more sore tomorrow. Informed her that if her elbow is still sore the next week that she should have it re-x-rayed. She was given return precautions. She expressed understanding and agreement with plan. Discharge Plan Departure Patient Disposition: Home Clinical Impression: Contusion of elbow, left, Contusion of knee, left, Fall Instructions: How To Perform RICE (Rest, Ice, Compress, Elevate) Activity Restrictions/Additional Instructions: Expect to be more sore tomorrow. If you have any specific new tenderness or if the tenderness in your left elbow does not improve you do need to return to the emergency department for further evaluation. Call your primary care doctor for a follow-up. Prescriptions: No Action acetaminophen [Tylenol] 325 mg capsule 325 mg PO Q6H PRN (Reason: Pain, Mild) RF: 0 ibuprofen 200 MG tablet 800 mg PO PRN PRN (Reason: Pain, Moderate) RF: 0 trazodone 100 mg tablet 200 mg PO BEDTIME RF: 0
[2018-06-10] MEDS: ONDANSETRON 4 MG ODT PO (15:01)
[2018-06-10] MEDS: MORPHINE 4 MG/ML INJ IM ×2 (15:01→17:20)
[2018-06-10 15:55] LABS: Bacteria Urine None Seen; RBC Urine None Seen (0-5/HPF)
[2018-06-10 16:11] LABS: WBC Urine 5-10/HPF (0-5/HPF)
[2018-06-10 16:12] LABS: Culture Indicated Urine Specimen Cultured
== END 2018-06-10 17:35 | disposition home or self-care (01) ==
PROVIDERS: Emergency Provider Emergency Medicine; PCP Registered Nurse
DX: S80.02XA Contusion of left knee, initial encounter (principal); S50.02XA Contusion of left elbow, initial encounter; W10.8XXA Fall (on) (from) other stairs and steps, initial encounter
CPT/HCPCS: 71045; 73090; 73562; 81003; 81015; 87086; 96372; 99283; 99284; J2270

== ENCOUNTER → 2018-07-16 11:32 | Outpatient (CLI) | payer OTHER, MEDICAID, SELFPAY ==
--- NOTE | 2018-07-16 11:34 | DI.MG.S_ITS ---
BILATERAL DIGITAL SCREENING MAMMOGRAM 3D/2D WITH CAD: 07/16/2018 CLINICAL: Baseline exam. Routine screening. Family history of breast cancer. No prior exams were available for comparison. There are scattered fibroglandular elements in both breasts. Current study was also evaluated with a Computer Aided Detection (CAD) system. No significant masses, calcifications, or other findings are seen in either breast. IMPRESSION: NEGATIVE There is no mammographic evidence of malignancy. Return to annual mammogram screening schedule is recommended. Given patient's strong family history of BRCA, consider screening MRI if clinically indicated. This exam was interpreted at Station ID: [id number]. NOTE: For mammograms, a report in lay terms will be sent to the patient. Approximately 15% of breast malignancies will not be visualized mammographically. In the management of a palpable breast mass, a negative mammogram must not discourage biopsy of a clinically suspicious lesion. Electronically Signed By: Vance guadarrama/:07/21/2018 07:50:46 letter sent: Normal Exam ACR BI-RADS Category 1: Negative [id number]
== END ==
PROVIDERS: PCP Registered Nurse; Visit Provider Registered Nurse
DX: Z12.31 Encounter for screening mammogram for malignant neoplasm of breast (principal); Z80.3 Family history of malignant neoplasm of breast; Z15.01 Genetic susceptibility to malignant neoplasm of breast; Z15.09 Genetic susceptibility to other malignant neoplasm
CPT/HCPCS: 77063; 77067

== ENCOUNTER 2018-07-22 07:49 | Emergency (ER) | payer OTHER, MEDICAID, SELFPAY ==
[2018-07-22 08:00] VITALS: BP 141/89; PULSE 97; RESP 20; TEMP 36.6; O2SAT 100; BMI 34.7
[2018-07-22 09:20] VITALS: BP 119/74; PULSE 80; RESP 18; TEMP 36.6; O2SAT 100
[2018-07-22 09:32] VITALS: BP 141/89; PULSE 97; RESP 20; TEMP 36.6; O2SAT 100; BMI 34.7
--- NOTE | 2018-07-22 09:51 | ED.FEMALEGU ---
HPI - Female Genitourinary General Chief complaint: Urogenital-Female Stated complaint: KIDNEY STONES Time Seen by Provider: 07/22/18 07:54 Source: patient and family Mode of arrival: ambulatory Limitations: no limitations History of Present Illness HPI Narrative: 23-year-old female, history of occasional smoking and extensive year ago gynecological trouble since the delivery of her last child presents with dysuria, frequency and severe left flank pain since yesterday. She has had nausea but no vomiting. She denies any fever or chills. She has had multiple kidney stones including those which contribute to obstructive uropathy and require stent and lithotripsy. She has had ongoing trouble and has multiple visits to Urology and has an upcoming appointment with your Ob gynecology at the [facility]. Her pain is worse when she moves and improves with rest MD Complaint: dysuria and UTI Onset (ago): hour(s) Location: suprapubic Female Urogenital Radiation: L Flank Severity: moderate Quality: Aching and Cramping Duration: constant Relieving factors: none Exacerbating factors: none Urinary symptoms: Difficulty Urinating and Dysuria Patient : No Associated symptoms: nausea/vomiting Related Data Home Medications Medication Instructions Recorded Confirmed ibuprofen 800 mg PO PRN PRN 11/30/17 07/22/18 acetaminophen 325 mg capsule 325 mg PO Q6H PRN 01/20/18 07/22/18 Previous Rx's Medication Instructions Recorded trazodone 100 mg tablet 200 mg PO BEDTIME #30 tab 06/25/18 oxycodone 5 mg PO Q4-6H PRN #14 tab 07/22/18 promethazine 25 mg NV Q4-6H PRN #12 each 07/22/18 Allergies Allergy/AdvReac Type Severity Reaction Status Date / Time shellfish derived Allergy Severe ANAPHYLAXIS Verified 07/03/18 09:05 [SHELLFISH DERIVED] adhesive [ADHESIVE] Allergy Mild Verified 07/03/18 09:05 amoxicillin [AMOXICILLIN] Allergy Mild Verified 07/03/18 09:05 doxycycline [DOXYCYCLINE] Allergy Mild Verified 07/03/18 09:05 hydrocodone Allergy Mild rash Verified 07/03/18 09:05 iodine [IODINE] Allergy Mild Verified 07/03/18 09:05 metoclopramide Allergy Mild Verified 07/03/18 09:05 [METOCLOPRAMIDE] Penicillins [PENICILLINS] Allergy Mild Verified 07/03/18 09:05 prochlorperazine Allergy Mild Verified 07/03/18 09:05 [PROCHLORPERAZINE] sulfamethoxazole Allergy Mild RASH Verified 07/03/18 09:05 [From BACTRIM] trimethoprim [From BACTRIM] Allergy Mild RASH Verified 07/03/18 09:05 cephalexin [CEPHALEXIN] Allergy Unknown Verified 07/03/18 09:05 ciprofloxacin [CIPROFLOXACIN] Allergy Unknown Verified 07/03/18 09:05 clindamycin [CLINDAMYCIN] Allergy Unknown Verified 07/03/18 09:05 Iodinated Contrast- Oral and Allergy Unknown Verified 07/03/18 09:05 IV Dye [IODINATED CONTRAST MEDIA - IV DYE] latex [LATEX] Allergy Unknown Verified 07/03/18 09:05 lidocaine AdvReac Palpitation Uncoded 07/03/18 09:05 s Review of Systems Constitutional Denies chills, Denies fever(s), Denies lethargy and Denies weakness Eyes Denies change in vision, Denies eye discharge, Denies irritation and Denies loss of vision ENT Ears, Nose, Mouth, and Throat: Denies change in voice, Denies neck pain and Denies sore throat Cardiovascular Denies chest pain, Denies irregular heart rhythm, Denies lightheadedness, Denies palpitations, Denies dyspnea, Denies dyspnea on exertion and Denies orthopnea Respiratory Denies cough, Denies dyspnea, Denies dyspnea on exertion and Denies wheezing Gastrointestinal Gastrointestinal: Reports abdominal pain, Denies change in bowel habits, Denies diarrhea, Denies nausea and Denies vomiting Genitourinary Denies hematuria, Reports difficulty voiding, Reports flank pain, Denies urinary incontinence and Denies urinary urgency Musculoskeletal Denies neck pain Integumentary/Breasts Denies pruritus, Denies erythema, Denies rash and Denies wounds Neurologic Denies confusion, Denies loss of vision and Denies weakness Psychiatric Denies anxiety, Denies confusion, Denies depression, Denies homicidal ideation and Denies suicidal ideation Endocrine Denies palpitations Hematologic/Lymphatic Denies easy bruising Allergic/Immunologic Denies wheezing PFSH Medical History BRCA positive (Chronic) Ovarian cyst (Resolved) Pelvic congestion (Resolved 2013) Surgical History Status post appendectomy (Resolved 2003) Status post bilateral salpingectomy (Resolved 09/01/17) Status post dilation and curettage (Resolved 2010) Status post dilation and curettage (Resolved 2011) Status post knee surgery (Resolved 2007) Status post knee surgery (Resolved 2012) Status post laparoscopic supracervical hysterectomy (Resolved 09/01/17) Status post laparoscopy (Resolved 2003) Status post laparoscopy (Resolved 2011) Status post laparoscopy (Resolved 2004) Status post removal of cervix (Resolved) Status post tonsillectomy and adenoidectomy (Resolved) Family History Mother BRCA positive Grandmother Ovarian cancer Breast cancer Social History Smoking Status: Never smoker Family History Mother BRCA positive Grandmother Ovarian cancer Breast cancer Social History Smoking Status: Never smoker Exam Narrative Exam Narrative: GENERAL: 23-year-old female, appears unwell, obviously in pain HEAD: Atraumatic. Normocephalic. No temporal or scalp tenderness. EYES: Pupils equal round and reactive. Extraocular motions intact. No scleral icterus. No injection or drainage. ENT: Nose without bleeding, purulent drainage or septal hematoma. Throat without erythema, tonsillar hypertrophy or exudate. Uvula midline. Airway patent. NECK: Trachea midline. No JVD or lymphadenopathy. Supple, nontender, no meningeal signs. CARDIOVASCULAR: Regular rate and rhythm without murmurs, gallops, or rubs. RESPIRATORY: Clear to auscultation. Breath sounds equal bilaterally. No wheezes, rales, or rhonchi. GASTROINTESTINAL: Abdomen soft, mild suprapubic tenderness and left flank tenderness, nondistended. No hepato-splenomegaly, or palpable masses. No guarding. EXTREMITIES: No clubbing, cyanosis, or edema. No joint tenderness, effusion, or edema noted. BACK: Nontender without deformity or crepitance. No flank tenderness. NEURO: AOx3. SKIN: No rash or erythema. Initial Vital Signs Initial Vital Signs: Vital Signs Temperature 97.9 F 07/22/18 08:00 Pulse Rate 97 H 07/22/18 08:00 Respiratory Rate 20 07/22/18 08:00 Blood Pressure 141/89 H 07/22/18 08:00 Pulse Oximetry 100 07/22/18 08:00 Course Orders Ordered: ED Orders 07/22/18 10:15 Complete Blood Count AUTO DIFF Stat Comprehensive Metabolic Panel Stat Discontinued Medications Hydromorphone HCl (Dilaudid) 1 mg IV NOW ONE Stop: 07/22/18 10:56 Last Admin: 07/22/18 10:59 Dose: 1 mg Hydromorphone HCl (Dilaudid) 1 mg IV NOW ONE Stop: 07/22/18 12:39 Last Admin: 07/22/18 13:05 Dose: 1 mg Sodium Chloride (Normal Saline 0.9%) 1,000 mls @ 1,000 mls/hr IV BOLUS ONE Stop: 07/22/18 09:02 Last Infusion: 07/22/18 11:42 Dose: 0 mls/hr Admin: 07/22/18 10:29 Dose: 1,000 mls/hr Ketorolac Tromethamine (Toradol) 15 mg IV NOW ONE Stop: 07/22/18 09:53 Last Admin: 07/22/18 10:29 Dose: 15 mg Ondansetron HCl (Zofran) 4 mg IV NOW ONE Stop: 07/22/18 09:53 Last Admin: 07/22/18 10:30 Dose: 4 mg Promethazine HCl (Phenadoz) 25 mg NV NOW ONE Stop: 07/22/18 11:10 Last Admin: 07/22/18 11:14 Dose: 25 mg Consultations Consultation #1: call to patient urologist whom recommends close follow up and suggests they will reach out and call her in the next day or two as she may well need another stent Vital Signs - 8 hr 07/22/18 11:41 07/22/18 13:16 Temperature 97.4 F L Pulse Rate 85 88 Respiratory Rate 18 16 Blood Pressure 132/64 Blood Pressure [Right Arm] 115/70 Pulse Oximetry 98 98 MDM - Female Genitourinary Medical Records Attestation: I reviewed the patient's medical records. Lab Data Attestation: I reviewed the patient's lab results. Result diagrams: 07/22/18 10:15 07/22/18 10:15 Lab Results 07/22/18 07/22/18 07/22/18 Range/Units 08:10 10:15 10:15 WBC 6.1 (4.5-11.0) X10^3/uL RBC 4.57 (4.0-5.2) X10^6/uL Hgb 13.7 (12.0-16.0) g/dL Hct 39.4 (36-46) % MCV 86.2 (80-100) fL MCH 30.0 (26-34) PG MCHC 34.8 (30-36) % RDW 13.2 (11.6-14.8) % Plt Count 223 (150-400) X10^3/uL Neut % (Auto) 55.4 (50-75) % Lymph % (Auto) 35.8 (25-40) % [place] % (Auto) 7.4 (3-14) % Eos % (Auto) 0.8 L (2-4) % Baso % (Auto) 0.6 (0-2) % Neut # (Auto) 3400 (1567-3575) /uL Lymph # (Auto) 2200 (3335-3364) /uL [place] # (Auto) 500 (0-900) /uL Eos # (Auto) 0 (0-450) /uL Baso # (Auto) 0 (0-100) /uL Sodium 138 (137-145) mmol/L Potassium 4.1 (3.4-5.1) mmol/L Chloride 104 (98-107) mmol/L Carbon Dioxide 24 (22-32) mmol/L BUN 15 (7-17) mg/dL Creatinine 0.70 (0.52-1.04) mg/dL Estimated GFR > 60.0 (>60) mL/min BUN/Creatinine Ratio 21.4 (6-22) Glucose 89 (70-100) mg/dL Calcium 9.0 (8.4-10.2) mg/dL Total Bilirubin 0.5 (0.2-1.3) mg/dL AST 15 (14-36) IU/L ALT 27 (9-52) IU/L Alkaline Phosphatase 62 (38-126) U/L Total Protein 7.1 (6.3-8.2) g/dL Albumin 4.2 (3.5-5.0) g/dL Globulin 2.9 (1.7-4.1) g/dL Albumin/Globulin Ratio 1.4 (1.0-2.8) Urine Color Yellow Urine Appearance Turbid Urine pH 6.0 (4.5-8.0) Ur Specific [place] 1.025 (1.000-1.035) Urine Protein Trace H (Negative) Urine Glucose (UA) Negative (Negative) g/dL Urine Ketones Negative (NEGATIVE) Urine Occult Blood Trace-lysed (Negative) Urine Nitrate Negative (Negative) Urine Bilirubin Negative (NEGATIVE) Urine Urobilinogen 0.2 (0.2) E.U./dL Ur Leukocyte Esterase Negative (NEGATIVE) Urine RBC None seen (0-5/HPF) Urine WBC None seen (0-5/HPF) Amorphous Sediment 4+ Urine Bacteria None seen (None) Ur Culture Indicated? Cult not indicated Imaging Data Renal US: Radiologist's impression: [address] [address] Ultrasound Report Signed Patient: Ni Varner [facility]#: [id number] : 1995Acct:[id number] Age/Sex: 23 / FDate of Service: 07/22/18 Loc: ED Accession Number: [id number] Procedure: US renal complete Ordering Provider: Dio Blankenship D.O. PROCEDURE: US RENAL COMPLETE INDICATIONS: severe flank pain, hx obstructive uropathy/stent/lithotripsy TECHNIQUE: Real-time scanning was performed of the kidneys and bladder, with image documentation. COMPARISON: None. FINDINGS: Kidneys: Kidneys are normal in size. Right kidney measures 10.8 cm long; left kidney measures 9.6 cm long. Right renal cortical thickness is 0.9 cm; left renal cortical thickness is 0.9 cm. Renal cortical echotexture is normal. There is a 1.4 x 0.5 x 1.1 cm nonobstructing stone in the left renal pelvis. No hydronephrosis. No suspicious solid mass lesions. Bladder: Pre-void bladder volume is 183 mL. Patient unable to void and post void imaging was not performed. On pre-void images, both the right and left ureteral jets are noted with color Doppler interrogation. (Of note, ureteral jets may not be detectable in up to 25% of cases due to insufficient differences in specific gravity between ureteral and bladder urine). Miscellaneous: No free pelvic fluid. IMPRESSION: 1. 1.1 x 0.5 x 1.1 cm left renal pelvis stone. 2. No hydronephrosis. Dictated by: Marce Love MD, PhD on 07/22/2018 at 10:25 Approved by: Marce Love MD, PhD on 07/22/2018 at 10:26 Discharge Plan Departure Patient Disposition: Home Clinical Impression: Nephrolithiasis Discharge Date/Time: 07/22/18 13:16 Interventions: ED Discharge Assessment Last Done: 07/22/18 13:16 Instructions: DI for Kidney Stones Activity Restrictions/Additional Instructions: *You have been diagnosed with [ kidney stone, left flank pain ] *What to do: *Take medications as directed *Follow up with your Urologist at in 2-3 days, call for an appointment. Let them know you were seen in the Emergency Department and that we ask that you be seen in follow up *Return to ER if you should have any new, worsening or concerning symptoms *[facility] [phone] You have been prescribed narcotic medications. While on these medications you cannot drive or operate heavy machinery. Additionally you cannot sign legal documents or perform any duties such as this. Many people get constipated on narcotic medications so it would be advisable to discuss stool softeners with the pharmacist when you last picker your prescription. Please understand that we cannot provide further refills of narcotics or controlled substances through the ED and your pain management will need to be through your Primary Care Provider Prescriptions: New promethazine 25 mg suppository 25 mg NV Q4-6H PRN (Reason: nausea and vomiting) Qty: 12 RF: 0 oxycodone 5 mg tablet 5 mg PO Q4-6H PRN (Reason: pain) Qty: 14 RF: 0 No Action trazodone 100 mg tablet 200 mg PO BEDTIME Qty: 30 RF: 3 acetaminophen [Tylenol] 325 mg capsule 325 mg PO Q6H PRN (Reason: Pain, Mild) RF: 0 ibuprofen 200 MG tablet 800 mg PO PRN PRN (Reason: Pain, Moderate) RF: 0 Referrals: Kristel Oneal ARNP [Primary Care Provider] -
--- NOTE | 2018-07-22 10:00 | ED_ITS ---
HPI - Female Genitourinary General Chief complaint: Urogenital-Female Stated complaint: KIDNEY STONES Time Seen by Provider: 07/22/18 07:54 Source: patient and family Mode of arrival: ambulatory Limitations: no limitations History of Present Illness HPI Narrative: 23-year-old female, history of occasional smoking and extensive year ago gynecological trouble since the delivery of her last child presents with dysuria, frequency and severe left flank pain since yesterday. She has had nausea but no vomiting. She denies any fever or chills. She has had multiple kidney stones including those which contribute to obstructive uropathy and require stent and lithotripsy. She has had ongoing trouble and has multiple visits to Urology and has an upcoming appointment with your Ob gynecology at the [facility]. Her pain is worse when she moves and improves with rest MD Complaint: dysuria and UTI Onset (ago): hour(s) Location: suprapubic Female Urogenital Radiation: L Flank Severity: moderate Quality: Aching and Cramping Duration: constant Relieving factors: none Exacerbating factors: none Urinary symptoms: Difficulty Urinating and Dysuria Patient : No Associated symptoms: nausea/vomiting Related Data Home Medications Medication Instructions Recorded Confirmed ibuprofen 800 mg PO PRN PRN 11/30/17 07/22/18 acetaminophen 325 mg capsule 325 mg PO Q6H PRN 01/20/18 07/22/18 Previous Rx's Medication Instructions Recorded trazodone 100 mg tablet 200 mg PO BEDTIME #30 tab 06/25/18 oxycodone 5 mg PO Q4-6H PRN #14 tab 07/22/18 promethazine 25 mg SD Q4-6H PRN #12 each 07/22/18 Allergies Allergy/AdvReac Type Severity Reaction Status Date / Time shellfish derived Allergy Severe ANAPHYLAXIS Verified 07/03/18 09:05 [SHELLFISH DERIVED] adhesive [ADHESIVE] Allergy Mild Verified 07/03/18 09:05 amoxicillin [AMOXICILLIN] Allergy Mild Verified 07/03/18 09:05 doxycycline [DOXYCYCLINE] Allergy Mild Verified 07/03/18 09:05 hydrocodone Allergy Mild rash Verified 07/03/18 09:05 iodine [IODINE] Allergy Mild Verified 07/03/18 09:05 metoclopramide Allergy Mild Verified 07/03/18 09:05 [METOCLOPRAMIDE] Penicillins [PENICILLINS] Allergy Mild Verified 07/03/18 09:05 prochlorperazine Allergy Mild Verified 07/03/18 09:05 [PROCHLORPERAZINE] sulfamethoxazole Allergy Mild RASH Verified 07/03/18 09:05 [From BACTRIM] trimethoprim [From BACTRIM] Allergy Mild RASH Verified 07/03/18 09:05 cephalexin [CEPHALEXIN] Allergy Unknown Verified 07/03/18 09:05 ciprofloxacin [CIPROFLOXACIN] Allergy Unknown Verified 07/03/18 09:05 clindamycin [CLINDAMYCIN] Allergy Unknown Verified 07/03/18 09:05 Iodinated Contrast- Oral and Allergy Unknown Verified 07/03/18 09:05 IV Dye [IODINATED CONTRAST MEDIA - IV DYE] latex [LATEX] Allergy Unknown Verified 07/03/18 09:05 lidocaine AdvReac Palpitation Uncoded 07/03/18 09:05 s Review of Systems Constitutional Denies chills, Denies fever(s), Denies lethargy and Denies weakness Eyes Denies change in vision, Denies eye discharge, Denies irritation and Denies loss of vision ENT Ears, Nose, Mouth, and Throat: Denies change in voice, Denies neck pain and Denies sore throat Cardiovascular Denies chest pain, Denies irregular heart rhythm, Denies lightheadedness, Denies palpitations, Denies dyspnea, Denies dyspnea on exertion and Denies orthopnea Respiratory Denies cough, Denies dyspnea, Denies dyspnea on exertion and Denies wheezing Gastrointestinal Gastrointestinal: Reports abdominal pain, Denies change in bowel habits, Denies diarrhea, Denies nausea and Denies vomiting Genitourinary Denies hematuria, Reports difficulty voiding, Reports flank pain, Denies urinary incontinence and Denies urinary urgency Musculoskeletal Denies neck pain Integumentary/Breasts Denies pruritus, Denies erythema, Denies rash and Denies wounds Neurologic Denies confusion, Denies loss of vision and Denies weakness Psychiatric Denies anxiety, Denies confusion, Denies depression, Denies homicidal ideation and Denies suicidal ideation Endocrine Denies palpitations Hematologic/Lymphatic Denies easy bruising Allergic/Immunologic Denies wheezing PFSH Medical History BRCA positive (Chronic) Ovarian cyst (Resolved) Pelvic congestion (Resolved 2013) Surgical History Status post appendectomy (Resolved 2003) Status post bilateral salpingectomy (Resolved 09/01/17) Status post dilation and curettage (Resolved 2010) Status post dilation and curettage (Resolved 2011) Status post knee surgery (Resolved 2007) Status post knee surgery (Resolved 2012) Status post laparoscopic supracervical hysterectomy (Resolved 09/01/17) Status post laparoscopy (Resolved 2003) Status post laparoscopy (Resolved 2011) Status post laparoscopy (Resolved 2004) Status post removal of cervix (Resolved) Status post tonsillectomy and adenoidectomy (Resolved) Family History Mother BRCA positive Grandmother Ovarian cancer Breast cancer Social History Smoking Status: Never smoker Family History Mother BRCA positive Grandmother Ovarian cancer Breast cancer Social History Smoking Status: Never smoker Exam Narrative Exam Narrative: GENERAL: 23-year-old female, appears unwell, obviously in pain HEAD: Atraumatic. Normocephalic. No temporal or scalp tenderness. EYES: Pupils equal round and reactive. Extraocular motions intact. No scleral icterus. No injection or drainage. ENT: Nose without bleeding, purulent drainage or septal hematoma. Throat without erythema, tonsillar hypertrophy or exudate. Uvula midline. Airway patent. NECK: Trachea midline. No JVD or lymphadenopathy. Supple, nontender, no meningeal signs. CARDIOVASCULAR: Regular rate and rhythm without murmurs, gallops, or rubs. RESPIRATORY: Clear to auscultation. Breath sounds equal bilaterally. No wheezes, rales, or rhonchi. GASTROINTESTINAL: Abdomen soft, mild suprapubic tenderness and left flank tenderness, nondistended. No hepato-splenomegaly, or palpable masses. No guarding. EXTREMITIES: No clubbing, cyanosis, or edema. No joint tenderness, effusion, or edema noted. BACK: Nontender without deformity or crepitance. No flank tenderness. NEURO: AOx3. SKIN: No rash or erythema. Initial Vital Signs Initial Vital Signs: Vital Signs Temperature 97.9 F 07/22/18 08:00 Pulse Rate 97 H 07/22/18 08:00 Respiratory Rate 20 07/22/18 08:00 Blood Pressure 141/89 H 07/22/18 08:00 Pulse Oximetry 100 07/22/18 08:00 Course Orders Ordered: ED Orders 07/22/18 10:15 Complete Blood Count AUTO DIFF Stat Comprehensive Metabolic Panel Stat Discontinued Medications Hydromorphone HCl (Dilaudid) 1 mg IV NOW ONE Stop: 07/22/18 10:56 Last Admin: 07/22/18 10:59 Dose: 1 mg Hydromorphone HCl (Dilaudid) 1 mg IV NOW ONE Stop: 07/22/18 12:39 Last Admin: 07/22/18 13:05 Dose: 1 mg Sodium Chloride (Normal Saline 0.9%) 1,000 mls @ 1,000 mls/hr IV BOLUS ONE Stop: 07/22/18 09:02 Last Infusion: 07/22/18 11:42 Dose: 0 mls/hr Admin: 07/22/18 10:29 Dose: 1,000 mls/hr Ketorolac Tromethamine (Toradol) 15 mg IV NOW ONE Stop: 07/22/18 09:53 Last Admin: 07/22/18 10:29 Dose: 15 mg Ondansetron HCl (Zofran) 4 mg IV NOW ONE Stop: 07/22/18 09:53 Last Admin: 07/22/18 10:30 Dose: 4 mg Promethazine HCl (Phenadoz) 25 mg SD NOW ONE Stop: 07/22/18 11:10 Last Admin: 07/22/18 11:14 Dose: 25 mg Consultations Consultation #1: call to patient urologist whom recommends close follow up and suggests they will reach out and call her in the next day or two as she may well need another stent Vital Signs - 8 hr 07/22/18 11:41 07/22/18 13:16 Temperature 97.4 F L Pulse Rate 85 88 Respiratory Rate 18 16 Blood Pressure 132/64 Blood Pressure [Right Arm] 115/70 Pulse Oximetry 98 98 MDM - Female Genitourinary Medical Records Attestation: I reviewed the patient's medical records. Lab Data Attestation: I reviewed the patient's lab results. Result diagrams: 07/22/18 10:15 07/22/18 10:15 Lab Results 07/22/18 07/22/18 07/22/18 Range/Units 08:10 10:15 10:15 WBC 6.1 (4.5-11.0) X10^3/uL RBC 4.57 (4.0-5.2) X10^6/uL Hgb 13.7 (12.0-16.0) g/dL Hct 39.4 (36-46) % MCV 86.2 (80-100) fL MCH 30.0 (26-34) PG MCHC 34.8 (30-36) % RDW 13.2 (11.6-14.8) % Plt Count 223 (150-400) X10^3/uL Neut % (Auto) 55.4 (50-75) % Lymph % (Auto) 35.8 (25-40) % Amelia % (Auto) 7.4 (3-14) % Eos % (Auto) 0.8 L (2-4) % Baso % (Auto) 0.6 (0-2) % Neut # (Auto) 3400 (5222-2509) /uL Lymph # (Auto) 2200 (0178-5010) /uL Amelia # (Auto) 500 (0-900) /uL Eos # (Auto) 0 (0-450) /uL Baso # (Auto) 0 (0-100) /uL Sodium 138 (137-145) mmol/L Potassium 4.1 (3.4-5.1) mmol/L Chloride 104 (98-107) mmol/L Carbon Dioxide 24 (22-32) mmol/L BUN 15 (7-17) mg/dL Creatinine 0.70 (0.52-1.04) mg/dL Estimated GFR > 60.0 (>60) mL/min BUN/Creatinine Ratio 21.4 (6-22) Glucose 89 (70-100) mg/dL Calcium 9.0 (8.4-10.2) mg/dL Total Bilirubin 0.5 (0.2-1.3) mg/dL AST 15 (14-36) IU/L ALT 27 (9-52) IU/L Alkaline Phosphatase 62 (38-126) U/L Total Protein 7.1 (6.3-8.2) g/dL Albumin 4.2 (3.5-5.0) g/dL Globulin 2.9 (1.7-4.1) g/dL Albumin/Globulin Ratio 1.4 (1.0-2.8) Urine Color Yellow Urine Appearance Turbid Urine pH 6.0 (4.5-8.0) Ur Specific [place] 1.025 (1.000-1.035) Urine Protein Trace H (Negative) Urine Glucose (UA) Negative (Negative) g/dL Urine Ketones Negative (NEGATIVE) Urine Occult Blood Trace-lysed (Negative) Urine Nitrate Negative (Negative) Urine Bilirubin Negative (NEGATIVE) Urine Urobilinogen 0.2 (0.2) E.U./dL Ur Leukocyte Esterase Negative (NEGATIVE) Urine RBC None seen (0-5/HPF) Urine WBC None seen (0-5/HPF) Amorphous Sediment 4+ Urine Bacteria None seen (None) Ur Culture Indicated? Cult not indicated Imaging Data Renal US: Radiologist's impression: [address] [address] Ultrasound Report Signed Patient: Ni Varner [facility]#: [id number] : 1995Acct:[id number] Age/Sex: 23 / FDate of Service: 07/22/18 Loc: ED Accession Number: [id number] Procedure: US renal complete Ordering Provider: Dio Blankenship D.O. PROCEDURE: US RENAL COMPLETE INDICATIONS: severe flank pain, hx obstructive uropathy/stent/lithotripsy TECHNIQUE: Real-time scanning was performed of the kidneys and bladder, with image documentation. COMPARISON: None. FINDINGS: Kidneys: Kidneys are normal in size. Right kidney measures 10.8 cm long; left kidney measures 9.6 cm long. Right renal cortical thickness is 0.9 cm; left renal cortical thickness is 0.9 cm. Renal cortical echotexture is normal. There is a 1.4 x 0.5 x 1.1 cm nonobstructing stone in the left renal pelvis. No hydronephrosis. No suspicious solid mass lesions. Bladder: Pre-void bladder volume is 183 mL. Patient unable to void and post void imaging was not performed. On pre-void images, both the right and left ureteral jets are noted with color Doppler interrogation. (Of note, ureteral jets may not be detectable in up to 25% of cases due to insufficient differences in specific gravity between ureteral and bladder urine). Miscellaneous: No free pelvic fluid. IMPRESSION: 1. 1.1 x 0.5 x 1.1 cm left renal pelvis stone. 2. No hydronephrosis. Dictated by: Marce Love MD, PhD on 07/22/2018 at 10:25 Approved by: Marce Love MD, PhD on 07/22/2018 at 10:26 Discharge Plan Departure Patient Disposition: Home Clinical Impression: Nephrolithiasis Discharge Date/Time: 07/22/18 13:16 Interventions: ED Discharge Assessment Last Done: 07/22/18 13:16 Instructions: DI for Kidney Stones Activity Restrictions/Additional Instructions: *You have been diagnosed with [ kidney stone, left flank pain ] *What to do: *Take medications as directed *Follow up with your Urologist at in 2-3 days, call for an appointment. Let them know you were seen in the Emergency Department and that we ask that you be seen in follow up *Return to ER if you should have any new, worsening or concerning symptoms *[facility] [phone] You have been prescribed narcotic medications. While on these medications you cannot drive or operate heavy machinery. Additionally you cannot sign legal documents or perform any duties such as this. Many people get constipated on narcotic medications so it would be advisable to discuss stool softeners with the pharmacist when you mixing picker tender your prescription. Please understand that we cannot provide further refills of narcotics or controlled substances through the ED and your pain management will need to be through your Primary Care Provider Prescriptions: New promethazine 25 mg suppository 25 mg SD Q4-6H PRN (Reason: nausea and vomiting) Qty: 12 RF: 0 oxycodone 5 mg tablet 5 mg PO Q4-6H PRN (Reason: pain) Qty: 14 RF: 0 No Action trazodone 100 mg tablet 200 mg PO BEDTIME Qty: 30 RF: 3 acetaminophen [Tylenol] 325 mg capsule 325 mg PO Q6H PRN (Reason: Pain, Mild) RF: 0 ibuprofen 200 MG tablet 800 mg PO PRN PRN (Reason: Pain, Moderate) RF: 0 Referrals: Kristel Oneal ARNP [Primary Care Provider] -
[2018-07-22 10:27] LABS: Add Manual Diff / Slide Review NO; Basophils Absolute Auto 0 /uL (0-100); Basophils Percent Auto 0.6 % (0-2); Eosinophils Absolute Auto 0 /uL (0-450); Eosinophils Percent Auto 0.8 % (2-4); Hematocrit 39.4 % (36-46); Hemoglobin 13.7 g/dL (12.0-16.0); Lymphocytes Absolute Auto 2200 /uL (1100-4500); Lymphocytes Percent Auto 35.8 % (25-40); Mean Corpuscular HGB Conc 34.8 % (30-36); Mean Corpuscular Volume 86.2 fL (80-100); Monocytes Absolute Auto 500 /uL (0-900); Monocytes Percent Auto 7.4 % (3-14); Neutrophils Absolute Auto 3400 /uL (1500-7000); Neutrophils Percent Auto 55.4 % (50-75); Platelet Count 223 X10^3/uL (150-400); Red Blood Cell Count 4.57 X10^6/uL (4.0-5.2); Red Cell Distribution Width 13.2 % (11.6-14.8); White Blood Cell Count 6.1 X10^3/uL (4.5-11.0)
[2018-07-22] MEDS: SODIUM CHLORIDE 0.9% 1,000 ML 1000 ML IV (10:29)
[2018-07-22] MEDS: KETOROLAC 60 MG/2 ML VIAL 15 MG IV (10:29)
[2018-07-22] MEDS: ONDANSETRON 4 MG/2 ML INJ IV (10:30)
[2018-07-22 10:37] LABS: Alanine Aminotransferase 27 IU/L (9-52); Albumin 4.2 g/dL (3.5-5.0); Albumin Globulin Ratio 1.4 (1.0-2.8); Alkaline Phosphatase 62 U/L (38-126); Aspartate Aminotransferase 15 IU/L (14-36); BUN Creatinine Ratio 21.4 (6-22); Bilirubin Total 0.5 mg/dL (0.2-1.3); Blood Urea Nitrogen 15 mg/dL (7-17); Carbon Dioxide 24 mmol/L (22-32); Chloride 104 mmol/L (98-107); Estimated Glomerular Filt Rate > 60.0 mL/min (>60); Globulin 2.9 g/dL (1.7-4.1); Glucose 89 mg/dL (70-100); HEMOLYSIS < 15 (0-50); Potassium 4.1 mmol/L (3.4-5.1); Sodium 138 mmol/L (137-145); Total Protein 7.1 g/dL (6.3-8.2)
[2018-07-22] MEDS: HYDROMORPHONE 1 MG INJ IV ×2 (10:59→13:05)
--- NOTE | 2018-07-22 11:05 | PC.NURSE ---
unable to edit MAR. should reflect that pain is in left flank, not right flank.
[2018-07-22] MEDS: PROMETHAZINE 25 MG SUPP PR (11:14)
[2018-07-22 11:41] VITALS: BP 115/70; PULSE 85; RESP 18; O2SAT 98
[2018-07-22 12:04] LABS: Bacteria Urine None Seen; RBC Urine None Seen (0-5/HPF); WBC Urine None Seen (0-5/HPF)
[2018-07-22 12:05] LABS: Appearance Urine UA TURBID; Bilirubin Urine UA NEGATIVE (NEGATIVE); Color Urine UA YELLOW; Glucose Urine UA NEGATIVE (Negative); Ketones Urine UA NEGATIVE (NEGATIVE); Leukocyte Esterase Urine UA NEGATIVE (NEGATIVE); Nitrite Urine UA NEGATIVE (Negative); Occult Blood Urine UA TRACE-LYSED (Negative); Protein Urine UA TRACE (Negative); Specific Gravity Urine UA 1.025 (1.000-1.035); Urobilinogen Urine UA 0.2 E.U./dL (0.2)
[2018-07-22 12:14] LABS: Amorphous Sediment Urine 4+; Culture Indicated Urine Cult Not Indicated
[2018-07-22 13:16] VITALS: BP 132/64; PULSE 88; RESP 16; TEMP 36.3; O2SAT 98
== END 2018-07-22 13:16 | disposition home or self-care (01) ==
PROVIDERS: Emergency Provider Emergency Medicine; PCP Registered Nurse
DX: N20.0 Calculus of kidney (principal)
CPT/HCPCS: 36591; 76770; 80053; 81001; 85025; 96361; 96374; 96375; 96376; 99284; J1170; J1885; J2405

== ENCOUNTER 2018-07-26 11:36 | Emergency (ER) | payer OTHER, MEDICAID, SELFPAY ==
[2018-07-26 11:45] VITALS: BP 119/57; PULSE 79; RESP 15; TEMP 36.6; O2SAT 99; BMI 34.7
--- NOTE | 2018-07-26 12:49 | ED.FEMALEGU ---
HPI - Female Genitourinary <Dominique Vargas, REFINISH TECHNICIAN-BC - Last Filed: 07/26/18 20:17> General Chief complaint: Urogenital-Female Stated complaint: kidney stone,not able to go to bathroom Time Seen by Provider: 07/26/18 12:44 Source: patient Mode of arrival: ambulatory Limitations: no limitations History of Present Illness HPI Narrative: Patient is a 23-year-old female with history of kidney stones, nonsmoker who presents with a chief complaint of inability to urinate. She was diagnosed with a kidney stone on 07/22 at this facility, has follow-up scheduled with her kidney stone specialist on Friday. She states that she has had a hard time urinating for the past 2-3 days and states she has only urinated 3 times in the past 2 days. Of note she was able to urinate upon arrival to the emergency department. She complains of low-grade temperatures to 99, vomiting and pain. She has been using her given prescriptions for pain and nausea. She denies any abdominal pain. Related Data Home Medications Medication Instructions Recorded Confirmed ibuprofen 800 mg PO PRN PRN 11/30/17 07/22/18 acetaminophen 325 mg capsule 325 mg PO Q6H PRN 01/20/18 07/22/18 Previous Rx's Medication Instructions Recorded trazodone 100 mg tablet 200 mg PO BEDTIME #30 tab 06/25/18 oxycodone 5 mg PO Q4-6H PRN #14 tab 07/22/18 promethazine 25 mg MS Q4-6H PRN #12 each 07/22/18 levofloxacin [Levaquin] 500 mg PO DAILY #10 tab 07/26/18 oxycodone 5 mg PO Q4-6H PRN #14 tab 07/26/18 Allergies Allergy/AdvReac Type Severity Reaction Status Date / Time shellfish derived Allergy Severe ANAPHYLAXIS Verified 07/26/18 11:45 [SHELLFISH DERIVED] adhesive [ADHESIVE] Allergy Mild Verified 07/26/18 11:45 amoxicillin [AMOXICILLIN] Allergy Mild Verified 07/26/18 11:45 doxycycline [DOXYCYCLINE] Allergy Mild Verified 07/26/18 11:45 hydrocodone Allergy Mild rash Verified 07/26/18 11:45 iodine [IODINE] Allergy Mild Verified 07/26/18 11:45 metoclopramide Allergy Mild Verified 07/26/18 11:45 [METOCLOPRAMIDE] Penicillins [PENICILLINS] Allergy Mild Verified 07/26/18 11:45 prochlorperazine Allergy Mild Verified 07/26/18 11:45 [PROCHLORPERAZINE] sulfamethoxazole Allergy Mild RASH Verified 07/26/18 11:45 [From BACTRIM] trimethoprim [From BACTRIM] Allergy Mild RASH Verified 07/26/18 11:45 cephalexin [CEPHALEXIN] Allergy Unknown Verified 07/26/18 11:45 ciprofloxacin [CIPROFLOXACIN] Allergy Unknown Verified 07/26/18 11:45 clindamycin [CLINDAMYCIN] Allergy Unknown Verified 07/26/18 11:45 Iodinated Contrast- Oral and Allergy Unknown Verified 07/26/18 11:45 IV Dye [IODINATED CONTRAST MEDIA - IV DYE] latex [LATEX] Allergy Unknown Verified 07/26/18 11:45 lidocaine AdvReac Palpitation Uncoded 07/26/18 11:45 s Review of Systems <SAPPHIRE Pandya - Last Filed: 07/26/18 20:17> Review of Systems GENERAL: see HPI HEENT: Denies sinus pain, ear pain, sore throat, difficulty swallowing, dizziness. RESPIRATORY: Denies dyspnea, cough, wheezing, hemoptysis, sputum. CARDIOVASCULAR: Denies chest pain, palpitations, orthopnea, edema, GASTROINTESTINAL: Denies nausea, vomiting, abdominal pain, diarrhea, constipation, melena. : See HPI MUSCULOSKELETAL: denies weakness, joint pain, or bony pain SKIN: Denies rash, skin lesions, or other NEUROLOGIC: Denies weakness, headache, numbness, change in speech, confusion, seizures, incoordination. PSYCHIATRIC: No concerning psychosocial issues. 12 point review of systems is negative except for those stated above PFSH <SAPPHIRE Pandya - Last Filed: 07/26/18 20:17> Medical History BRCA positive (Chronic) Ovarian cyst (Resolved) Pelvic congestion (Resolved 2013) Surgical History Status post appendectomy (Resolved 2003) Status post bilateral salpingectomy (Resolved 09/01/17) Status post dilation and curettage (Resolved 2010) Status post dilation and curettage (Resolved 2011) Status post knee surgery (Resolved 2007) Status post knee surgery (Resolved 2012) Status post laparoscopic supracervical hysterectomy (Resolved 09/01/17) Status post laparoscopy (Resolved 2003) Status post laparoscopy (Resolved 2011) Status post laparoscopy (Resolved 2004) Status post removal of cervix (Resolved) Status post tonsillectomy and adenoidectomy (Resolved) Family History Mother BRCA positive Grandmother Ovarian cancer Breast cancer Social History Smoking Status: Never smoker Social History Smoking Status: Never smoker Exam <SAPPHIRE Pandya - Last Filed: 07/26/18 20:17> Narrative Exam Narrative: GENERAL: This is a well-nourished, well-developed patient, in mild distress. HEAD: Atraumatic. Normocephalic. No temporal or scalp tenderness. EYES: Pupils equal round and reactive. Extraocular motions intact. No scleral icterus. No injection or drainage. ENT: Nose without bleeding, purulent drainage or septal hematoma. Throat without erythema, tonsillar hypertrophy or exudate. Uvula midline. Airway patent. NECK: Trachea midline. No JVD or lymphadenopathy. Supple, nontender, no meningeal signs. CARDIOVASCULAR: Regular rate and rhythm without murmurs, gallops, or rubs. RESPIRATORY: Clear to auscultation. Breath sounds equal bilaterally. No wheezes, rales, or rhonchi. GASTROINTESTINAL: Abdomen soft, non-tender, nondistended. No hepato-splenomegaly, or palpable masses. No guarding. active bowel sounds all 4 quadrants. EXTREMITIES: No clubbing, cyanosis, or edema. No joint tenderness, effusion, or edema noted. BACK: Nontender without deformity or crepitance. Flank tenderness noted left side. No Flank tenderness on right side. NEURO: AOx3. SKIN: No rash or erythema. Initial Vital Signs Initial Vital Signs: Vital Signs Temperature 97.8 F 07/26/18 11:45 Pulse Rate 79 07/26/18 11:45 Respiratory Rate 15 07/26/18 11:45 Blood Pressure 119/57 L 07/26/18 11:45 Pulse Oximetry 99 07/26/18 11:45 <Marylou Orellana DO - Last Filed: 07/27/18 20:04> Initial Vital Signs Initial Vital Signs: Vital Signs Temperature 97.8 F 07/26/18 11:45 Pulse Rate 79 07/26/18 11:45 Respiratory Rate 15 07/26/18 11:45 Blood Pressure 119/57 L 07/26/18 11:45 Pulse Oximetry 99 07/26/18 11:45 Course <DARREN Pandya-BC - Last Filed: 07/26/18 20:17> Course Narrative: I checked on the patient several times throughout her stay in the emergency department. Given the fact that she has follow-up arranged with the [facility], I spoke with the covering urologist Dr. Ryder. He will contact the kidney stone center, Was okay with antibiotics and plan. several hours of the patient's stay in the emergency department or waiting upon a [facility] feedback. She was treated throughout her stay with fluids, Dilaudid and Zofran. She was comfortable throughout her stay With treatment. Orders Ordered: Discontinued Medications Hydromorphone HCl (Dilaudid) 1 mg IV NOW ONE Stop: 07/26/18 12:53 Last Admin: 07/26/18 13:06 Dose: 1 mg Hydromorphone HCl (Dilaudid) 1 mg IV NOW ONE Stop: 07/26/18 14:50 Last Admin: 07/26/18 14:57 Dose: 1 mg Sodium Chloride (Normal Saline 0.9%) 1,000 mls @ 1,000 mls/hr IV BOLUS ONE Stop: 07/26/18 13:48 Last Infusion: 07/26/18 14:42 Dose: 0 mls/hr Admin: 07/26/18 13:06 Dose: 1,000 mls/hr Sodium Chloride (Normal Saline 0.9%) 1,000 mls @ 1,000 mls/hr IV BOLUS ONE Stop: 07/26/18 15:28 Last Infusion: 07/26/18 16:44 Dose: 0 mls/hr Admin: 07/26/18 14:57 Dose: 1,000 mls/hr Levofloxacin (Levaquin) 500 mg PO NOW ONE Stop: 07/26/18 17:48 Last Admin: 07/26/18 17:56 Dose: 500 mg Ondansetron HCl (Zofran) 4 mg IV NOW ONE Stop: 07/26/18 12:52 Last Admin: 07/26/18 13:05 Dose: 4 mg Ondansetron HCl (Zofran) 4 mg IV NOW ONE Stop: 07/26/18 14:50 Last Admin: 07/26/18 14:57 Dose: 4 mg Oxycodone/Acetaminophen (Endocet 5/325 Prepack) 1 bottle MISC SEEINSTR ONE Stop: 07/26/18 17:48 Last Admin: 07/26/18 17:56 Dose: 1 bottle Vital Signs - 8 hr 07/26/18 15:07 07/26/18 17:38 Pulse Rate 78 71 Respiratory Rate 18 15 Blood Pressure [Left Arm] 125/51 L 123/56 L Pulse Oximetry 99 100 <Marylou Orellana DO - Last Filed: 07/27/18 20:04> Orders Ordered: Discontinued Medications Hydromorphone HCl (Dilaudid) 1 mg IV NOW ONE Stop: 07/26/18 12:53 Last Admin: 07/26/18 13:06 Dose: 1 mg Hydromorphone HCl (Dilaudid) 1 mg IV NOW ONE Stop: 07/26/18 14:50 Last Admin: 07/26/18 14:57 Dose: 1 mg Sodium Chloride (Normal Saline 0.9%) 1,000 mls @ 1,000 mls/hr IV BOLUS ONE Stop: 07/26/18 13:48 Last Infusion: 07/26/18 14:42 Dose: 0 mls/hr Admin: 07/26/18 13:06 Dose: 1,000 mls/hr Sodium Chloride (Normal Saline 0.9%) 1,000 mls @ 1,000 mls/hr IV BOLUS ONE Stop: 07/26/18 15:28 Last Infusion: 07/26/18 16:44 Dose: 0 mls/hr Admin: 07/26/18 14:57 Dose: 1,000 mls/hr Levofloxacin (Levaquin) 500 mg PO NOW ONE Stop: 07/26/18 17:48 Last Admin: 07/26/18 17:56 Dose: 500 mg Ondansetron HCl (Zofran) 4 mg IV NOW ONE Stop: 07/26/18 12:52 Last Admin: 07/26/18 13:05 Dose: 4 mg Ondansetron HCl (Zofran) 4 mg IV NOW ONE Stop: 07/26/18 14:50 Last Admin: 07/26/18 14:57 Dose: 4 mg Oxycodone/Acetaminophen (Endocet 5/325 Prepack) 1 bottle MISC SEEINSTR ONE Stop: 07/26/18 17:48 Last Admin: 07/26/18 17:56 Dose: 1 bottle Vital Signs - 8 hr 07/26/18 15:07 07/26/18 17:38 Pulse Rate 78 71 Respiratory Rate 18 15 Blood Pressure [Left Arm] 125/51 L 123/56 L Pulse Oximetry 99 100 MDM - Female Genitourinary <DARREN Pandya- - Last Filed: 07/26/18 20:17> Lab Data Result diagrams: 07/26/18 12:35 07/26/18 12:35 Lab Results 07/26/18 07/26/18 07/26/18 Range/Units 12:35 12:35 12:40 WBC 6.7 (4.5-11.0) X10^3/uL RBC 4.76 (4.0-5.2) X10^6/uL Hgb 14.1 (12.0-16.0) g/dL Hct 41.1 (36-46) % MCV 86.3 (80-100) fL MCH 29.6 (26-34) PG MCHC 34.3 (30-36) % RDW 13.4 (11.6-14.8) % Plt Count 248 (150-400) X10^3/uL Neut % (Auto) 60.9 (50-75) % Lymph % (Auto) 30.2 (25-40) % Wirt % (Auto) 7.7 (3-14) % Eos % (Auto) 0.7 L (2-4) % Baso % (Auto) 0.5 (0-2) % Neut # (Auto) 4100 (2721-7290) /uL Lymph # (Auto) 2000 (1557-7599) /uL Wirt # (Auto) 500 (0-900) /uL Eos # (Auto) 0 (0-450) /uL Baso # (Auto) 0 (0-100) /uL Sodium 137 (137-145) mmol/L Potassium 4.0 (3.4-5.1) mmol/L Chloride 101 (98-107) mmol/L Carbon Dioxide 26 (22-32) mmol/L BUN 13 (7-17) mg/dL Creatinine 0.80 (0.52-1.04) mg/dL Estimated GFR > 60.0 (>60) mL/min BUN/Creatinine Ratio 16.3 (6-22) Glucose 85 (70-100) mg/dL Calcium 9.5 (8.4-10.2) mg/dL Total Bilirubin 0.7 (0.2-1.3) mg/dL AST 20 (14-36) IU/L ALT 27 (9-52) IU/L Alkaline Phosphatase 64 (38-126) U/L Total Protein 7.5 (6.3-8.2) g/dL Albumin 4.4 (3.5-5.0) g/dL Globulin 3.1 (1.7-4.1) g/dL Albumin/Globulin Ratio 1.4 (1.0-2.8) Urine RBC 0-1/hpf (0-5/HPF) Urine WBC 1-5/hpf (0-5/HPF) Ur Squamous Epith Cells 1-5 /hpf Urine Bacteria Few (2-10) H (None) Ur Culture Indicated? Specimen cultured Urine Dip Bedside Urine Glucose Negative Bedside Urine Bilirubin - Negative Bedside Urine Ketone - Negative Urine Specific [place] 1.020 Bedside Urine Occult Blood +/- Bedside Urine pH 7.5 Bedside Urine Urobilinogen - Negative Bedside Urine Nitrite - Negative Bedside Urine Leukocytes ++ 125 Esterase MDM Narrative Medical decision making narrative: The patient is a 23-year-old female who presents with chief complaint of a known kidney stone and inability urinate. She had a bladder scan of 70, was able to urinate several times during her stay in the emergency department. Her kidney function is good with a creatinine of 0.8 and she does not have an elevated white blood cell count. However she does have signs of infection in her urine given that she has bacteria in her urine. I will start her on Levaquin as she is not allergic to it. She is afebrile and hemodynamically stable in the emergency department. I discussed at length return precautions including fever, inability keep down fluids. Expert consultation was obtained from Dr. Ryder from [facility] urology. Patient had no questions or concerns upon discharge. <Marylou Esteban, DO - Last Filed: 07/27/18 20:04> Lab Data Lab Results 07/26/18 07/26/18 07/26/18 Range/Units 12:35 12:35 12:40 WBC 6.7 (4.5-11.0) X10^3/uL RBC 4.76 (4.0-5.2) X10^6/uL Hgb 14.1 (12.0-16.0) g/dL Hct 41.1 (36-46) % MCV 86.3 (80-100) fL MCH 29.6 (26-34) PG MCHC 34.3 (30-36) % RDW 13.4 (11.6-14.8) % Plt Count 248 (150-400) X10^3/uL Neut % (Auto) 60.9 (50-75) % Lymph % (Auto) 30.2 (25-40) % Wirt % (Auto) 7.7 (3-14) % Eos % (Auto) 0.7 L (2-4) % Baso % (Auto) 0.5 (0-2) % Neut # (Auto) 4100 (2753-0962) /uL Lymph # (Auto) 2000 (6902-7118) /uL Wirt # (Auto) 500 (0-900) /uL Eos # (Auto) 0 (0-450) /uL Baso # (Auto) 0 (0-100) /uL Sodium 137 (137-145) mmol/L Potassium 4.0 (3.4-5.1) mmol/L Chloride 101 (98-107) mmol/L Carbon Dioxide 26 (22-32) mmol/L BUN 13 (7-17) mg/dL Creatinine 0.80 (0.52-1.04) mg/dL Estimated GFR > 60.0 (>60) mL/min BUN/Creatinine Ratio 16.3 (6-22) Glucose 85 (70-100) mg/dL Calcium 9.5 (8.4-10.2) mg/dL Total Bilirubin 0.7 (0.2-1.3) mg/dL AST 20 (14-36) IU/L ALT 27 (9-52) IU/L Alkaline Phosphatase 64 (38-126) U/L Total Protein 7.5 (6.3-8.2) g/dL Albumin 4.4 (3.5-5.0) g/dL Globulin 3.1 (1.7-4.1) g/dL Albumin/Globulin Ratio 1.4 (1.0-2.8) Urine RBC 0-1/hpf (0-5/HPF) Urine WBC 1-5/hpf (0-5/HPF) Ur Squamous Epith Cells 1-5 /hpf Urine Bacteria Few (2-10) H (None) Ur Culture Indicated? Specimen cultured Urine Dip Bedside Urine Glucose Negative Bedside Urine Bilirubin - Negative Bedside Urine Ketone - Negative Urine Specific [place] 1.020 Bedside Urine Occult Blood +/- Bedside Urine pH 7.5 Bedside Urine Urobilinogen - Negative Bedside Urine Nitrite - Negative Bedside Urine Leukocytes ++ 125 Esterase Discharge Plan Departure Patient Disposition: Home Clinical Impression: Nephrolithiasis Discharge Date/Time: 07/26/18 18:15 Interventions: ED Discharge Assessment Last Done: 07/26/18 18:15 Instructions: DI for Kidney Stones, DI for Urinary Tract Infection (UTI) Activity Restrictions/Additional Instructions: I spoke with Dr Ryder from And he will inform the kidney center of you visit here today as well as your likely infected kidney stone. Please monitor for fever and signs of systemic illness. Please be evaluated if any of these occur. Please follow up with the [facility] on Friday as discussed. Come back to emergency department if necessary. Prescriptions: New levofloxacin [Levaquin] 500 mg tablet 500 mg PO DAILY Qty: 10 RF: 0 oxycodone 5 mg tablet 5 mg PO Q4-6H PRN (Reason: pain) Qty: 14 RF: 0 No Action trazodone 100 mg tablet 200 mg PO BEDTIME Qty: 30 RF: 3 acetaminophen [Tylenol] 325 mg capsule 325 mg PO Q6H PRN (Reason: Pain, Mild) RF: 0 promethazine 25 mg suppository 25 mg MS Q4-6H PRN (Reason: nausea and vomiting) Qty: 12 RF: 0 oxycodone 5 mg tablet 5 mg PO Q4-6H PRN (Reason: pain) Qty: 14 RF: 0 ibuprofen 200 MG tablet 800 mg PO PRN PRN (Reason: Pain, Moderate) RF: 0 Referrals: [facility] [Provider Group] Kristel Oneal ARNP [Primary Care Provider] - <Marylou Orellana DO - Last Filed: 07/27/18 20:04> Cosign ED Attending Zachature Attestation: I was immediately available in the department for consultation. Documentation has been reviewed. I agree with assessment and plan.
[2018-07-26 12:55] LABS: Add Manual Diff / Slide Review NO; Basophils Absolute Auto 0 /uL (0-100); Basophils Percent Auto 0.5 % (0-2); Eosinophils Absolute Auto 0 /uL (0-450); Eosinophils Percent Auto 0.7 % (2-4); Hematocrit 41.1 % (36-46); Hemoglobin 14.1 g/dL (12.0-16.0); Lymphocytes Absolute Auto 2000 /uL (1100-4500); Lymphocytes Percent Auto 30.2 % (25-40); Mean Corpuscular HGB Conc 34.3 % (30-36); Mean Corpuscular Hemoglobin 29.6 PG (26-34); Mean Corpuscular Volume 86.3 fL (80-100); Monocytes Absolute Auto 500 /uL (0-900); Monocytes Percent Auto 7.7 % (3-14); Neutrophils Absolute Auto 4100 /uL (1500-7000); Neutrophils Percent Auto 60.9 % (50-75); Platelet Count 248 X10^3/uL (150-400); Red Blood Cell Count 4.76 X10^6/uL (4.0-5.2); Red Cell Distribution Width 13.4 % (11.6-14.8); White Blood Cell Count 6.7 X10^3/uL (4.5-11.0)
[2018-07-26 13:01] LABS: Bacteria Urine Few (2-10); Culture Indicated Urine Specimen Cultured; RBC Urine 0-1/HPF (0-5/HPF); Squamous Epithelial Cell Urine 1-5 /HPF; WBC Urine 1-5/HPF (0-5/HPF)
[2018-07-26 13:01] LABS: Alanine Aminotransferase 27 IU/L (9-52); Albumin 4.4 g/dL (3.5-5.0); Albumin Globulin Ratio 1.4 (1.0-2.8); Alkaline Phosphatase 64 U/L (38-126); Aspartate Aminotransferase 20 IU/L (14-36); BUN Creatinine Ratio 16.3 (6-22); Bilirubin Total 0.7 mg/dL (0.2-1.3); Blood Urea Nitrogen 13 mg/dL (7-17); Calcium 9.5 mg/dL (8.4-10.2); Carbon Dioxide 26 mmol/L (22-32); Chloride 101 mmol/L (98-107); Estimated Glomerular Filt Rate > 60.0 mL/min (>60); Globulin 3.1 g/dL (1.7-4.1); Glucose 85 mg/dL (70-100); HEMOLYSIS < 15 (0-50); Sodium 137 mmol/L (137-145); Total Protein 7.5 g/dL (6.3-8.2)
[2018-07-26] MEDS: ONDANSETRON 4 MG/2 ML INJ IV ×2 (13:05→14:57)
[2018-07-26] MEDS: HYDROMORPHONE 1 MG INJ IV ×2 (13:06→14:57)
[2018-07-26] MEDS: SODIUM CHLORIDE 0.9% 1,000 ML 1000 ML IV ×2 (13:06→14:57)
--- NOTE | 2018-07-26 14:28 | ED_ITS ---
HPI - Female Genitourinary <Dominique Vargas, [employer] MACHINE OPERATOR-BC - Last Filed: 07/26/18 20:17> General Chief complaint: Urogenital-Female Stated complaint: kidney stone,not able to go to bathroom Time Seen by Provider: 07/26/18 12:44 Source: patient Mode of arrival: ambulatory Limitations: no limitations History of Present Illness HPI Narrative: Patient is a 23-year-old female with history of kidney stones, nonsmoker who presents with a chief complaint of inability to urinate. She was diagnosed with a kidney stone on 07/22 at this facility, has follow-up scheduled with her kidney stone specialist on Friday. She states that she has had a hard time urinating for the past 2-3 days and states she has only urinated 3 times in the past 2 days. Of note she was able to urinate upon arrival to the emergency department. She complains of low-grade temperatures to 99, vomiting and pain. She has been using her given prescriptions for pain and nausea. She denies any abdominal pain. Related Data Home Medications Medication Instructions Recorded Confirmed ibuprofen 800 mg PO PRN PRN 11/30/17 07/22/18 acetaminophen 325 mg capsule 325 mg PO Q6H PRN 01/20/18 07/22/18 Previous Rx's Medication Instructions Recorded trazodone 100 mg tablet 200 mg PO BEDTIME #30 tab 06/25/18 oxycodone 5 mg PO Q4-6H PRN #14 tab 07/22/18 promethazine 25 mg [place] Q4-6H PRN #12 each 07/22/18 levofloxacin [Levaquin] 500 mg PO DAILY #10 tab 07/26/18 oxycodone 5 mg PO Q4-6H PRN #14 tab 07/26/18 Allergies Allergy/AdvReac Type Severity Reaction Status Date / Time shellfish derived Allergy Severe ANAPHYLAXIS Verified 07/26/18 11:45 [SHELLFISH DERIVED] adhesive [ADHESIVE] Allergy Mild Verified 07/26/18 11:45 amoxicillin [AMOXICILLIN] Allergy Mild Verified 07/26/18 11:45 doxycycline [DOXYCYCLINE] Allergy Mild Verified 07/26/18 11:45 hydrocodone Allergy Mild rash Verified 07/26/18 11:45 iodine [IODINE] Allergy Mild Verified 07/26/18 11:45 metoclopramide Allergy Mild Verified 07/26/18 11:45 [METOCLOPRAMIDE] Penicillins [PENICILLINS] Allergy Mild Verified 07/26/18 11:45 prochlorperazine Allergy Mild Verified 07/26/18 11:45 [PROCHLORPERAZINE] sulfamethoxazole Allergy Mild RASH Verified 07/26/18 11:45 [From BACTRIM] trimethoprim [From BACTRIM] Allergy Mild RASH Verified 07/26/18 11:45 cephalexin [CEPHALEXIN] Allergy Unknown Verified 07/26/18 11:45 ciprofloxacin [CIPROFLOXACIN] Allergy Unknown Verified 07/26/18 11:45 clindamycin [CLINDAMYCIN] Allergy Unknown Verified 07/26/18 11:45 Iodinated Contrast- Oral and Allergy Unknown Verified 07/26/18 11:45 IV Dye [IODINATED CONTRAST MEDIA - IV DYE] latex [LATEX] Allergy Unknown Verified 07/26/18 11:45 lidocaine AdvReac Palpitation Uncoded 07/26/18 11:45 s Review of Systems <SAPPHIRE Pandya - Last Filed: 07/26/18 20:17> Review of Systems GENERAL: see HPI HEENT: Denies sinus pain, ear pain, sore throat, difficulty swallowing, dizziness. RESPIRATORY: Denies dyspnea, cough, wheezing, hemoptysis, sputum. CARDIOVASCULAR: Denies chest pain, palpitations, orthopnea, edema, GASTROINTESTINAL: Denies nausea, vomiting, abdominal pain, diarrhea, constipation, melena. : See HPI MUSCULOSKELETAL: denies weakness, joint pain, or bony pain SKIN: Denies rash, skin lesions, or other NEUROLOGIC: Denies weakness, headache, numbness, change in speech, confusion, seizures, incoordination. PSYCHIATRIC: No concerning psychosocial issues. 12 point review of systems is negative except for those stated above PFSH <SAPPHIRE Pandya - Last Filed: 07/26/18 20:17> Medical History BRCA positive (Chronic) Ovarian cyst (Resolved) Pelvic congestion (Resolved 2013) Surgical History Status post appendectomy (Resolved 2003) Status post bilateral salpingectomy (Resolved 09/01/17) Status post dilation and curettage (Resolved 2010) Status post dilation and curettage (Resolved 2011) Status post knee surgery (Resolved 2007) Status post knee surgery (Resolved 2012) Status post laparoscopic supracervical hysterectomy (Resolved 09/01/17) Status post laparoscopy (Resolved 2003) Status post laparoscopy (Resolved 2011) Status post laparoscopy (Resolved 2004) Status post removal of cervix (Resolved) Status post tonsillectomy and adenoidectomy (Resolved) Family History Mother BRCA positive Grandmother Ovarian cancer Breast cancer Social History Smoking Status: Never smoker Social History Smoking Status: Never smoker Exam <SAPPHIRE Pandya - Last Filed: 07/26/18 20:17> Narrative Exam Narrative: GENERAL: This is a well-nourished, well-developed patient, in mild distress. HEAD: Atraumatic. Normocephalic. No temporal or scalp tenderness. EYES: Pupils equal round and reactive. Extraocular motions intact. No scleral icterus. No injection or drainage. ENT: Nose without bleeding, purulent drainage or septal hematoma. Throat without erythema, tonsillar hypertrophy or exudate. Uvula midline. Airway patent. NECK: Trachea midline. No JVD or lymphadenopathy. Supple, nontender, no meningeal signs. CARDIOVASCULAR: Regular rate and rhythm without murmurs, gallops, or rubs. RESPIRATORY: Clear to auscultation. Breath sounds equal bilaterally. No wheezes, rales, or rhonchi. GASTROINTESTINAL: Abdomen soft, non-tender, nondistended. No hepato- splenomegaly, or palpable masses. No guarding. active bowel sounds all 4 quadrants. EXTREMITIES: No clubbing, cyanosis, or edema. No joint tenderness, effusion, or edema noted. BACK: Nontender without deformity or crepitance. Flank tenderness noted left side. No Flank tenderness on right side. NEURO: AOx3. SKIN: No rash or erythema. Initial Vital Signs Initial Vital Signs: Vital Signs Temperature 97.8 F 07/26/18 11:45 Pulse Rate 79 07/26/18 11:45 Respiratory Rate 15 07/26/18 11:45 Blood Pressure 119/57 L 07/26/18 11:45 Pulse Oximetry 99 07/26/18 11:45 <Marylou Orellana DO - Last Filed: 07/27/18 20:04> Initial Vital Signs Initial Vital Signs: Vital Signs Temperature 97.8 F 07/26/18 11:45 Pulse Rate 79 07/26/18 11:45 Respiratory Rate 15 07/26/18 11:45 Blood Pressure 119/57 L 07/26/18 11:45 Pulse Oximetry 99 07/26/18 11:45 Course <DARREN Pandya-BC - Last Filed: 07/26/18 20:17> Course Narrative: I checked on the patient several times throughout her stay in the emergency department. Given the fact that she has follow-up arranged with the [facility] at [facility], I spoke with the covering urologist Dr. Ryder. He will contact the kidney stone center, Was okay with antibiotics and plan. several hours of the patient's stay in the emergency department or waiting upon a [facility] feedback. She was treated throughout her stay with fluids, Dilaudid and Zofran. She was comfortable throughout her stay With treatment. Orders Ordered: Discontinued Medications Hydromorphone HCl (Dilaudid) 1 mg IV NOW ONE Stop: 07/26/18 12:53 Last Admin: 07/26/18 13:06 Dose: 1 mg Hydromorphone HCl (Dilaudid) 1 mg IV NOW ONE Stop: 07/26/18 14:50 Last Admin: 07/26/18 14:57 Dose: 1 mg Sodium Chloride (Normal Saline 0.9%) 1,000 mls @ 1,000 mls/hr IV BOLUS ONE Stop: 07/26/18 13:48 Last Infusion: 07/26/18 14:42 Dose: 0 mls/hr Admin: 07/26/18 13:06 Dose: 1,000 mls/hr Sodium Chloride (Normal Saline 0.9%) 1,000 mls @ 1,000 mls/hr IV BOLUS ONE Stop: 07/26/18 15:28 Last Infusion: 07/26/18 16:44 Dose: 0 mls/hr Admin: 07/26/18 14:57 Dose: 1,000 mls/hr Levofloxacin (Levaquin) 500 mg PO NOW ONE Stop: 07/26/18 17:48 Last Admin: 07/26/18 17:56 Dose: 500 mg Ondansetron HCl (Zofran) 4 mg IV NOW ONE Stop: 07/26/18 12:52 Last Admin: 07/26/18 13:05 Dose: 4 mg Ondansetron HCl (Zofran) 4 mg IV NOW ONE Stop: 07/26/18 14:50 Last Admin: 07/26/18 14:57 Dose: 4 mg Oxycodone/Acetaminophen (Endocet 5/325 Prepack) 1 bottle MISC SEEINSTR ONE Stop: 07/26/18 17:48 Last Admin: 07/26/18 17:56 Dose: 1 bottle Vital Signs - 8 hr 07/26/18 15:07 07/26/18 17:38 Pulse Rate 78 71 Respiratory Rate 18 15 Blood Pressure [Left Arm] 125/51 L 123/56 L Pulse Oximetry 99 100 <Marylou Orellana DO - Last Filed: 07/27/18 20:04> Orders Ordered: Discontinued Medications Hydromorphone HCl (Dilaudid) 1 mg IV NOW ONE Stop: 07/26/18 12:53 Last Admin: 07/26/18 13:06 Dose: 1 mg Hydromorphone HCl (Dilaudid) 1 mg IV NOW ONE Stop: 07/26/18 14:50 Last Admin: 07/26/18 14:57 Dose: 1 mg Sodium Chloride (Normal Saline 0.9%) 1,000 mls @ 1,000 mls/hr IV BOLUS ONE Stop: 07/26/18 13:48 Last Infusion: 07/26/18 14:42 Dose: 0 mls/hr Admin: 07/26/18 13:06 Dose: 1,000 mls/hr Sodium Chloride (Normal Saline 0.9%) 1,000 mls @ 1,000 mls/hr IV BOLUS ONE Stop: 07/26/18 15:28 Last Infusion: 07/26/18 16:44 Dose: 0 mls/hr Admin: 07/26/18 14:57 Dose: 1,000 mls/hr Levofloxacin (Levaquin) 500 mg PO NOW ONE Stop: 07/26/18 17:48 Last Admin: 07/26/18 17:56 Dose: 500 mg Ondansetron HCl (Zofran) 4 mg IV NOW ONE Stop: 07/26/18 12:52 Last Admin: 07/26/18 13:05 Dose: 4 mg Ondansetron HCl (Zofran) 4 mg IV NOW ONE Stop: 07/26/18 14:50 Last Admin: 07/26/18 14:57 Dose: 4 mg Oxycodone/Acetaminophen (Endocet 5/325 Prepack) 1 bottle MISC SEEINSTR ONE Stop: 07/26/18 17:48 Last Admin: 07/26/18 17:56 Dose: 1 bottle Vital Signs - 8 hr 07/26/18 15:07 07/26/18 17:38 Pulse Rate 78 71 Respiratory Rate 18 15 Blood Pressure [Left Arm] 125/51 L 123/56 L Pulse Oximetry 99 100 MDM - Female Genitourinary <DARREN Pandya- - Last Filed: 07/26/18 20:17> Lab Data Result diagrams: 07/26/18 12:35 07/26/18 12:35 Lab Results 07/26/18 07/26/18 07/26/18 Range/Units 12:35 12:35 12:40 WBC 6.7 (4.5-11.0) X10^3/uL RBC 4.76 (4.0-5.2) X10^6/uL Hgb 14.1 (12.0-16.0) g/dL Hct 41.1 (36-46) % MCV 86.3 (80-100) fL MCH 29.6 (26-34) PG MCHC 34.3 (30-36) % RDW 13.4 (11.6-14.8) % Plt Count 248 (150-400) X10^3/uL Neut % (Auto) 60.9 (50-75) % Lymph % (Auto) 30.2 (25-40) % [place] % (Auto) 7.7 (3-14) % Eos % (Auto) 0.7 L (2-4) % Baso % (Auto) 0.5 (0-2) % Neut # (Auto) 4100 (8067-8727) /uL Lymph # (Auto) 2000 (4595-9480) /uL [place] # (Auto) 500 (0-900) /uL Eos # (Auto) 0 (0-450) /uL Baso # (Auto) 0 (0-100) /uL Sodium 137 (137-145) mmol/L Potassium 4.0 (3.4-5.1) mmol/L Chloride 101 (98-107) mmol/L Carbon Dioxide 26 (22-32) mmol/L BUN 13 (7-17) mg/dL Creatinine 0.80 (0.52-1.04) mg/dL Estimated GFR > 60.0 (>60) mL/min BUN/Creatinine Ratio 16.3 (6-22) Glucose 85 (70-100) mg/dL Calcium 9.5 (8.4-10.2) mg/dL Total Bilirubin 0.7 (0.2-1.3) mg/dL AST 20 (14-36) IU/L ALT 27 (9-52) IU/L Alkaline Phosphatase 64 (38-126) U/L Total Protein 7.5 (6.3-8.2) g/dL Albumin 4.4 (3.5-5.0) g/dL Globulin 3.1 (1.7-4.1) g/dL Albumin/Globulin Ratio 1.4 (1.0-2.8) Urine RBC 0-1/hpf (0-5/HPF) Urine WBC 1-5/hpf (0-5/HPF) Ur Squamous Epith Cells 1-5 /hpf Urine Bacteria Few (2-10) H (None) Ur Culture Indicated? Specimen cultured Urine Dip Bedside Urine Glucose Negative Bedside Urine Bilirubin - Negative Bedside Urine Ketone - Negative Urine Specific [place] 1.020 Bedside Urine Occult Blood +/- Bedside Urine pH 7.5 Bedside Urine Urobilinogen - Negative Bedside Urine Nitrite - Negative Bedside Urine Leukocytes ++ 125 Esterase MDM Narrative Medical decision making narrative: The patient is a 23-year-old female who presents with chief complaint of a known kidney stone and inability urinate. She had a bladder scan of 70, was able to urinate several times during her stay in the emergency department. Her kidney function is good with a creatinine of 0.8 and she does not have an elevated white blood cell count. However she does have signs of infection in her urine given that she has bacteria in her urine. I will start her on Levaquin as she is not allergic to it. She is afebrile and hemodynamically stable in the emergency department. I discussed at length return precautions including fever, inability keep down fluids. Expert consultation was obtained from Dr. Ryder from [facility] urology. Patient had no questions or concerns upon discharge. <Marylou Esteban, DO - Last Filed: 07/27/18 20:04> Lab Data Lab Results 07/26/18 07/26/18 07/26/18 Range/Units 12:35 12:35 12:40 WBC 6.7 (4.5-11.0) X10^3/uL RBC 4.76 (4.0-5.2) X10^6/uL Hgb 14.1 (12.0-16.0) g/dL Hct 41.1 (36-46) % MCV 86.3 (80-100) fL MCH 29.6 (26-34) PG MCHC 34.3 (30-36) % RDW 13.4 (11.6-14.8) % Plt Count 248 (150-400) X10^3/uL Neut % (Auto) 60.9 (50-75) % Lymph % (Auto) 30.2 (25-40) % [place] % (Auto) 7.7 (3-14) % Eos % (Auto) 0.7 L (2-4) % Baso % (Auto) 0.5 (0-2) % Neut # (Auto) 4100 (6616-0674) /uL Lymph # (Auto) 2000 (3100-3244) /uL [place] # (Auto) 500 (0-900) /uL Eos # (Auto) 0 (0-450) /uL Baso # (Auto) 0 (0-100) /uL Sodium 137 (137-145) mmol/L Potassium 4.0 (3.4-5.1) mmol/L Chloride 101 (98-107) mmol/L Carbon Dioxide 26 (22-32) mmol/L BUN 13 (7-17) mg/dL Creatinine 0.80 (0.52-1.04) mg/dL Estimated GFR > 60.0 (>60) mL/min BUN/Creatinine Ratio 16.3 (6-22) Glucose 85 (70-100) mg/dL Calcium 9.5 (8.4-10.2) mg/dL Total Bilirubin 0.7 (0.2-1.3) mg/dL AST 20 (14-36) IU/L ALT 27 (9-52) IU/L Alkaline Phosphatase 64 (38-126) U/L Total Protein 7.5 (6.3-8.2) g/dL Albumin 4.4 (3.5-5.0) g/dL Globulin 3.1 (1.7-4.1) g/dL Albumin/Globulin Ratio 1.4 (1.0-2.8) Urine RBC 0-1/hpf (0-5/HPF) Urine WBC 1-5/hpf (0-5/HPF) Ur Squamous Epith Cells 1-5 /hpf Urine Bacteria Few (2-10) H (None) Ur Culture Indicated? Specimen cultured Urine Dip Bedside Urine Glucose Negative Bedside Urine Bilirubin - Negative Bedside Urine Ketone - Negative Urine Specific [place] 1.020 Bedside Urine Occult Blood +/- Bedside Urine pH 7.5 Bedside Urine Urobilinogen - Negative Bedside Urine Nitrite - Negative Bedside Urine Leukocytes ++ 125 Esterase Discharge Plan Departure Patient Disposition: Home Clinical Impression: Nephrolithiasis Discharge Date/Time: 07/26/18 18:15 Interventions: ED Discharge Assessment Last Done: 07/26/18 18:15 Instructions: DI for Kidney Stones, DI for Urinary Tract Infection (UTI) Activity Restrictions/Additional Instructions: I spoke with Dr Ryder from And he will inform the kidney center of you visit here today as well as your likely infected kidney stone. Please monitor for fever and signs of systemic illness. Please be evaluated if any of these occur. Please follow up with the Kidney Center on Friday as discussed. Come back to emergency department if necessary. Prescriptions: New levofloxacin [Levaquin] 500 mg tablet 500 mg PO DAILY Qty: 10 RF: 0 oxycodone 5 mg tablet 5 mg PO Q4-6H PRN (Reason: pain) Qty: 14 RF: 0 No Action trazodone 100 mg tablet 200 mg PO BEDTIME Qty: 30 RF: 3 acetaminophen [Tylenol] 325 mg capsule 325 mg PO Q6H PRN (Reason: Pain, Mild) RF: 0 promethazine 25 mg suppository 25 mg [place] Q4-6H PRN (Reason: nausea and vomiting) Qty: 12 RF: 0 oxycodone 5 mg tablet 5 mg PO Q4-6H PRN (Reason: pain) Qty: 14 RF: 0 ibuprofen 200 MG tablet 800 mg PO PRN PRN (Reason: Pain, Moderate) RF: 0 Referrals: [facility] [Provider Group] Kristel Oneal ARNP [Primary Care Provider] - <Marylou Orellana DO - Last Filed: 07/27/18 20:04> Cosign ED Attending Zachature Attestation: I was immediately available in the department for consultation. Documentation has been reviewed. I agree with assessment and plan.
[2018-07-26 15:07] VITALS: BP 125/51; PULSE 78; RESP 18; O2SAT 99
[2018-07-26 17:38] VITALS: BP 123/56; PULSE 71; RESP 15; O2SAT 100
[2018-07-26] MEDS: levoFLOXacin 250 MG TABLET 500 MG PO (17:56)
[2018-07-26] MEDS: OXYCODONE/APAP 5/325 PREPACK 1 BOTTLE MISC (17:56)
== END 2018-07-26 18:15 | disposition home or self-care (01) ==
PROVIDERS: Emergency Provider Nurse Practitioner Family; PCP Registered Nurse
DX: N20.0 Calculus of kidney (principal)
CPT/HCPCS: 36591; 51798; 80053; 81003; 81015; 85025; 87086; 96361; 96374; 96375; 96376; 99283; 99284; J1170; J2405

== ENCOUNTER → 2018-08-24 10:44 | Outpatient (CLI) | payer OTHER, MEDICAID, SELFPAY ==
--- NOTE | 2018-08-24 | DI.US.S_ITS ---
PROCEDURE: US PELVIC COMPLETE INDICATIONS: PELVIC PAIN. Prior hysterectomy. TECHNIQUE: Real-time scanning was performed of the pelvic organs, with image documentation. Additional endovaginal scanning was necessary due to incomplete visualization of the adnexal and endometrial structures by transabdominal scanning. COMPARISON: [facility], US, US RENAL COMPLETE, 07/22/2018, 10:02. [facility], US, US RENAL COMPLETE, 04/16/2018, 8:04. [facility], US, US RENAL COMPLETE, 03/29/2018, 21:10. [facility], US, US RENAL COMPLETE, 02/28/2018, 10:17. [facility], CT, CT ABDOMEN PELVIS WO CON, 05/14/2018, 10:10. [facility], US, US PELVIC COMPLETE, 11/30/2017, 19:04. FINDINGS: Transabdominal scanning: Limited scanning through the kidneys shows no hydronephrosis. No pathologic free abdominal or pelvic fluid. Endovaginal scanning: Uterus: The uterus is absent, consistent with provided clinical history of prior hysterectomy. Ovaries: Right ovary measures 3.8 x 2.5 x 2.5 cm. There is a 2.2 x 1.3 x 1.5 cm heterogeneously hypoechoic mass with peripheral vascularity in the right ovary. The left ovary measures 3.0 x 2.0 x 1.5 cm. IMPRESSION: 2.2 cm heterogeneously hypoechoic mass within the right ovary may represent a hemorrhagic ovarian cyst; a followup pelvic ultrasound in 2-3 months is recommended to demonstrate stability/resolution and to exclude an underlying malignancy. Dictated by: Rex Hernandez [facility] Interpreted: Abdirashid Rob MD on 08/24/2018 at 13:55 Approved by: Abdirashid Rob M.D. on 08/24/2018 at 17:35
== END ==
PROVIDERS: PCP Registered Nurse; Visit Provider Obstetrics & Gynecology
DX: R10.2 Pelvic and perineal pain (principal); N83.9 Noninflammatory disorder of ovary, fallopian tube and broad ligament, unspecified; Z90.710 Acquired absence of both cervix and uterus
CPT/HCPCS: 76830; 76856

== ENCOUNTER 2018-09-14 18:01 | Emergency (ER) | payer OTHER, MEDICAID, SELFPAY ==
[2018-09-14 18:10] VITALS: BP 144/79; PULSE 83; RESP 20; TEMP 36.6; O2SAT 100
[2018-09-14 18:49] LABS: Add Manual Diff / Slide Review NO; Basophils Absolute Auto 100 /uL (0-100); Basophils Percent Auto 0.8 % (0-2); Eosinophils Absolute Auto 100 /uL (0-450); Eosinophils Percent Auto 1.1 % (2-4); Hematocrit 40.1 % (36-46); Lymphocytes Absolute Auto 2800 /uL (1100-4500); Lymphocytes Percent Auto 31.9 % (25-40); Mean Corpuscular Volume 85.9 fL (80-100); Monocytes Absolute Auto 900 /uL (0-900); Monocytes Percent Auto 9.6 % (3-14); Neutrophils Absolute Auto 5000 /uL (1500-7000); Neutrophils Percent Auto 56.6 % (50-75); Platelet Count 262 X10^3/uL (150-400); Red Blood Cell Count 4.66 X10^6/uL (4.0-5.2); Red Cell Distribution Width 13.7 % (11.6-14.8); White Blood Cell Count 8.9 X10^3/uL (4.5-11.0)
[2018-09-14] MEDS: ONDANSETRON 4 MG/2 ML INJ IV ×2 (18:59→21:18)
[2018-09-14] MEDS: KETOROLAC 60 MG/2 ML VIAL 15 MG IV (18:59)
[2018-09-14] MEDS: SODIUM CHLORIDE 0.9% 1,000 ML 1000 ML IV (19:00)
[2018-09-14 19:01] LABS: Blood Urea Nitrogen 16 mg/dL (7-17); Calcium 9.1 mg/dL (8.4-10.2); Carbon Dioxide 26 mmol/L (22-32); Chloride 102 mmol/L (98-107); Estimated Glomerular Filt Rate > 60.0 mL/min (>60); Glucose 72 mg/dL (70-100); HEMOLYSIS 39 (0-50); Potassium 3.5 mmol/L (3.4-5.1); Sodium 137 mmol/L (137-145)
[2018-09-14 19:52] LABS: Bacteria Urine None Seen
[2018-09-14 20:03] LABS: Culture Indicated Urine Cult Not Indicated; RBC Urine 0-1/HPF (0-5/HPF); Squamous Epithelial Cell Urine 1-5 /HPF (0-5/HPF); WBC Urine 0-1/HPF (0-5/HPF)
--- NOTE | 2018-09-14 21:07 | DI.US.S_ITS ---
PROCEDURE: US RENAL COMPLETE INDICATIONS: RIGHT FLANK PAIN TECHNIQUE: Real-time scanning was performed of the kidneys and bladder, with image documentation. COMPARISON: [facility], CT, CT ABDOMEN PELVIS WO CON, 05/14/2018, 10:10. [facility], US, US RENAL COMPLETE, 07/22/2018, 10:02. FINDINGS: Kidneys: Kidneys are normal in size. Right kidney measures 10.3 cm long; left kidney measures 12.0 cm long. Right renal cortical thickness is 1.1 cm; left renal cortical thickness is 1.7 cm. Renal cortical echotexture is normal. No hydronephrosis or definitive nephrolithiasis. No suspicious solid mass lesions. Bladder: Urinary bladder decompressed and suboptimally visualized. Miscellaneous: No free pelvic fluid. IMPRESSION: 1. No source for flank pain identified. Dictated by: Rex MCMAHAN Interpreted: Jaad Bennett MD on 09/15/2018 at 9:35 Approved by: Jada Bennett M.D. on 09/15/2018 at 11:22
[2018-09-14] MEDS: HYDROMORPHONE 1 MG INJ IV (21:12)
[2018-09-14] MEDS: OXYCODONE/APAP 5/325 PREPACK 1 BOTTLE MISC (23:28)
[2018-09-14 23:35] VITALS: BP 149/81; PULSE 80; RESP 16; O2SAT 100
--- NOTE | 2018-09-15 06:28 | ED_ITS ---
HPI - Abdominal Pain General Chief Complaint: Abdominal Pain Stated Complaint: PASSED KIDNEY STONE DIZZY VOMITING Time Seen by Provider: 09/14/18 18:10 Source: patient Mode of arrival: ambulatory Limitations: no limitations History of Present Illness HPI narrative: 23-year-old female occasional smoker with extensive genital urinary history presents with a chief complaint of passing a kidney stone followed by nausea, vomiting and some ongoing episodes of right flank pain. She does have some increasing pain with motion but it largely has a mind of its own. It radiated around her right side into her groin. She felt the stone pass. She denies any ongoing dysuria or frequency. She denies any vaginal bleeding or discharge. She has an extensive history of similar MD complaint: flank pain Onset (ago): hour(s) Pain Consistency: intermittent and colicky Location: R flank Severity: severe Quality: cramping and stabbing Radiation: RLQ Relieving factors: nothing Exacerbating factors: nothing Associated symptoms: nausea and vomiting Related Data Home Medications Medication Instructions Recorded Confirmed ibuprofen 800 mg PO PRN PRN 11/30/17 07/22/18 acetaminophen 325 mg capsule 325 mg PO Q6H PRN 01/20/18 07/22/18 Previous Rx's Medication Instructions Recorded trazodone 100 mg tablet 200 mg PO BEDTIME #30 tab 06/25/18 oxycodone 5 mg PO Q4-6H PRN #14 tab 07/22/18 promethazine 25 mg HI Q4-6H PRN #12 each 07/22/18 levofloxacin [Levaquin] 500 mg PO DAILY #10 tab 07/26/18 oxycodone 5 mg PO Q4-6H PRN #14 tab 07/26/18 oxycodone 5 mg PO Q4-6H PRN #14 tab 09/14/18 promethazine 25 mg HI Q4-6H PRN #12 each 09/14/18 Allergies Allergy/AdvReac Type Severity Reaction Status Date / Time shellfish derived Allergy Severe ANAPHYLAXIS Verified 07/26/18 11:45 [SHELLFISH DERIVED] adhesive [ADHESIVE] Allergy Mild Verified 07/26/18 11:45 amoxicillin [AMOXICILLIN] Allergy Mild Verified 07/26/18 11:45 doxycycline [DOXYCYCLINE] Allergy Mild Verified 07/26/18 11:45 hydrocodone Allergy Mild rash Verified 07/26/18 11:45 iodine [IODINE] Allergy Mild Verified 07/26/18 11:45 metoclopramide Allergy Mild Verified 07/26/18 11:45 [METOCLOPRAMIDE] Penicillins [PENICILLINS] Allergy Mild Verified 07/26/18 11:45 prochlorperazine Allergy Mild Verified 07/26/18 11:45 [PROCHLORPERAZINE] sulfamethoxazole Allergy Mild RASH Verified 07/26/18 11:45 [From BACTRIM] trimethoprim [From BACTRIM] Allergy Mild RASH Verified 07/26/18 11:45 cephalexin [CEPHALEXIN] Allergy Unknown Verified 07/26/18 11:45 ciprofloxacin [CIPROFLOXACIN] Allergy Unknown Verified 07/26/18 11:45 clindamycin [CLINDAMYCIN] Allergy Unknown Verified 07/26/18 11:45 Iodinated Contrast- Oral and Allergy Unknown Verified 07/26/18 11:45 IV Dye [IODINATED CONTRAST MEDIA - IV DYE] latex [LATEX] Allergy Unknown Verified 07/26/18 11:45 lidocaine AdvReac Palpitation Uncoded 07/26/18 11:45 s Review of Systems Constitutional Denies chills, Denies fever(s), Denies lethargy and Denies weakness Eyes Denies change in vision, Denies eye discharge, Denies irritation and Denies loss of vision ENT Ears, Nose, Mouth, and Throat: Denies change in voice, Denies neck pain and Denies sore throat Cardiovascular Denies chest pain, Denies irregular heart rhythm, Denies lightheadedness, Denies palpitations, Denies dyspnea, Denies dyspnea on exertion and Denies orthopnea Respiratory Denies cough, Denies dyspnea, Denies dyspnea on exertion and Denies wheezing Gastrointestinal Gastrointestinal: Reports abdominal pain, Denies change in bowel habits, Denies diarrhea, Reports nausea and Reports vomiting Genitourinary Denies hematuria, Reports flank pain, Denies urinary incontinence and Denies urinary urgency Musculoskeletal Denies neck pain Integumentary/Breasts Denies pruritus, Denies erythema, Denies rash and Denies wounds Neurologic Denies confusion, Denies loss of vision and Denies weakness Psychiatric Denies anxiety, Denies confusion, Denies depression, Denies homicidal ideation and Denies suicidal ideation Endocrine Denies palpitations Hematologic/Lymphatic Denies easy bruising Allergic/Immunologic Denies wheezing [facility] Medical History BRCA positive (Chronic) Ovarian cyst (Resolved) Pelvic congestion (Resolved 2013) Surgical History Status post appendectomy (Resolved 2003) Status post bilateral salpingectomy (Resolved 09/01/17) Status post dilation and curettage (Resolved 2010) Status post dilation and curettage (Resolved 2011) Status post knee surgery (Resolved 2007) Status post knee surgery (Resolved 2012) Status post laparoscopic supracervical hysterectomy (Resolved 09/01/17) Status post laparoscopy (Resolved 2003) Status post laparoscopy (Resolved 2011) Status post laparoscopy (Resolved 2004) Status post removal of cervix (Resolved) Status post tonsillectomy and adenoidectomy (Resolved) Family History Mother BRCA positive Grandmother Ovarian cancer Breast cancer Social History Smoking Status: Never smoker Family History Mother BRCA positive Grandmother Ovarian cancer Breast cancer Social History Smoking Status: Never smoker Exam Narrative Exam Narrative: GENERAL: 23-year-old female, tearful, obviously uncomfortable and in pain HEAD: Atraumatic. Normocephalic. No temporal or scalp tenderness. EYES: Pupils equal round and reactive. Extraocular motions intact. No scleral icterus. No injection or drainage. ENT: Nose without bleeding, purulent drainage or septal hematoma. Throat without erythema, tonsillar hypertrophy or exudate. Uvula midline. Airway patent. NECK: Trachea midline. No JVD or lymphadenopathy. Supple, nontender, no meningeal signs. CARDIOVASCULAR: Regular rate and rhythm without murmurs, gallops, or rubs. RESPIRATORY: Clear to auscultation. Breath sounds equal bilaterally. No wheezes, rales, or rhonchi. GASTROINTESTINAL: Abdomen soft, mild right lower quadrant pain with suprapubic tenderness, nondistended. No hepato-splenomegaly, or palpable masses. No guarding. EXTREMITIES: No clubbing, cyanosis, or edema. No joint tenderness, effusion, or edema noted. BACK: Mild right posterior flank tenderness NEURO: AOx3. SKIN: No rash or erythema. Initial Vital Signs Initial Vital Signs: Vital Signs Temperature 97.8 F 09/14/18 18:10 Pulse Rate 83 09/14/18 18:10 Respiratory Rate 20 09/14/18 18:10 Blood Pressure 144/79 H 09/14/18 18:10 Pulse Oximetry 100 09/14/18 18:10 Course Orders Ordered: Discontinued Medications Hydromorphone HCl (Dilaudid) 1 mg IV NOW ONE Stop: 09/14/18 21:10 Last Admin: 09/14/18 21:12 Dose: 1 mg Sodium Chloride (Normal Saline 0.9%) 1,000 mls @ 1,000 mls/hr IV BOLUS ONE Stop: 09/14/18 19:28 Last Infusion: 09/14/18 20:45 Dose: 0 mls/hr Admin: 09/14/18 19:00 Dose: 1,000 mls/hr Ketorolac Tromethamine (Toradol) 15 mg IV NOW ONE Stop: 09/14/18 18:30 Last Admin: 09/14/18 18:59 Dose: 15 mg Ondansetron HCl (Zofran) 4 mg IV Q4HR PRN PRN Reason: Nausea And Vomiting Last Admin: 09/14/18 21:18 Dose: 4 mg Admin: 09/14/18 18:59 Dose: 4 mg Oxycodone/Acetaminophen (Endocet 5/325 Prepack) 1 bottle MISC SEEINSTR ONE Stop: 09/14/18 23:18 Last Admin: 09/14/18 23:28 Dose: 1 bottle Reevaluation(s) Reevaluation #1: patient feeling much better after the above, but not 100% improvement Vital Signs - 8 hr 09/14/18 23:35 Pulse Rate 80 Respiratory Rate 16 Blood Pressure 149/81 H Pulse Oximetry 100 MDM - Abdominal Pain Differential Diagnosis Differential diagnosis: Likely abdominal pain, acute appendicitis and calculus of kidney Medical Records Attestation: I reviewed the patient's medical records. Lab Data Attestation: I reviewed the patient's lab results. Result diagrams: 09/14/18 18:30 09/14/18 18:30 Lab Results 09/14/18 09/14/18 09/14/18 Range/Units 18:30 18:30 19:32 WBC 8.9 (4.5-11.0) X10^3/uL RBC 4.66 (4.0-5.2) X10^6/uL Hgb 14.0 (12.0-16.0) g/dL Hct 40.1 (36-46) % MCV 85.9 (80-100) fL MCH 30.0 (26-34) PG MCHC 35.0 (30-36) % RDW 13.7 (11.6-14.8) % Plt Count 262 (150-400) X10^3/uL Neut % (Auto) 56.6 (50-75) % Lymph % (Auto) 31.9 (25-40) % Crenshaw % (Auto) 9.6 (3-14) % Eos % (Auto) 1.1 L (2-4) % Baso % (Auto) 0.8 (0-2) % Neut # (Auto) 5000 (9114-1069) /uL Lymph # (Auto) 2800 (8199-6576) /uL Crenshaw # (Auto) 900 (0-900) /uL Eos # (Auto) 100 (0-450) /uL Baso # (Auto) 100 (0-100) /uL Sodium 137 (137-145) mmol/L Potassium 3.5 (3.4-5.1) mmol/L Chloride 102 (98-107) mmol/L Carbon Dioxide 26 (22-32) mmol/L BUN 16 (7-17) mg/dL Creatinine 0.80 (0.52-1.04) mg/dL Estimated GFR > 60.0 (>60) mL/min BUN/Creatinine Ratio 20.0 (6-22) Glucose 72 (70-100) mg/dL Calcium 9.1 (8.4-10.2) mg/dL Urine RBC 0-1/hpf (0-5/HPF) Urine WBC 0-1/hpf (0-5/HPF) Ur Squamous Epith Cells 1-5 /hpf (0-5/HPF) Urine Bacteria None seen (None) Ur Culture Indicated? Cult not indicated Point of care testing: Urine Dip Bedside Urine Glucose Negative Bedside Urine Bilirubin - Negative Bedside Urine Ketone - Negative Urine Specific Moran 1.010 Bedside Urine Occult Blood + Bedside Urine pH 6.0 Bedside Urine Protein - Negative Bedside Urine Urobilinogen - Negative Bedside Urine Nitrite - Negative Bedside Urine Leukocytes - Negative Esterase Imaging Data Renal US: Radiologist's impression: No obstructive uropathy Discharge Plan Departure Patient Disposition: Home Clinical Impression: Nephrolithiasis Discharge Date/Time: 09/14/18 23:35 Interventions: ED Discharge Assessment Last Done: 09/14/18 23:35 Instructions: DI for Kidney Stones Activity Restrictions/Additional Instructions: *You have been diagnosed with [flank pain likely kidney stone ] *What to do: *Take medications as directed *Follow up with your primary care provider in 2-3 days, call for an appointment. Let them know you were seen in the Emergency Department and that we ask that you be seen in follow up *Return to ER if you should have any new, worsening or concerning symptoms Prescriptions: New oxycodone 5 mg tablet 5 mg PO Q4-6H PRN (Reason: pain) Qty: 14 RF: 0 promethazine 25 mg suppository 25 mg HI Q4-6H PRN (Reason: nausea and vomiting) Qty: 12 RF: 0 No Action trazodone 100 mg tablet 200 mg PO BEDTIME Qty: 30 RF: 3 acetaminophen [Tylenol] 325 mg capsule 325 mg PO Q6H PRN (Reason: Pain, Mild) RF: 0 promethazine 25 mg suppository 25 mg HI Q4-6H PRN (Reason: nausea and vomiting) Qty: 12 RF: 0 oxycodone 5 mg tablet 5 mg PO Q4-6H PRN (Reason: pain) Qty: 14 RF: 0 ibuprofen 200 MG tablet 800 mg PO PRN PRN (Reason: Pain, Moderate) RF: 0 levofloxacin [Levaquin] 500 mg tablet 500 mg PO DAILY Qty: 10 RF: 0 oxycodone 5 mg tablet 5 mg PO Q4-6H PRN (Reason: pain) Qty: 14 RF: 0 Referrals: Kristel Oneal ARNP [Primary Care Provider] -
== END 2018-09-14 23:35 | disposition home or self-care (01) ==
PROVIDERS: Emergency Provider Emergency Medicine; PCP Registered Nurse
DX: N20.0 Calculus of kidney (principal); R11.2 Nausea with vomiting, unspecified
CPT/HCPCS: 36591; 76770; 80048; 81003; 81015; 85025; 96361; 96374; 96375; 99283; 99284; J1170; J1885; J2405

== ENCOUNTER 2018-09-21 10:32 | Emergency (ER) | payer OTHER, MEDICAID, SELFPAY ==
[2018-09-21 10:35] VITALS: BP 149/70; PULSE 87; RESP 14; TEMP 36.8; O2SAT 100
[2018-09-21 11:11] LABS: Add Manual Diff / Slide Review NO; Basophils Absolute Auto 0 /uL (0-100); Basophils Percent Auto 0.6 % (0-2); Eosinophils Absolute Auto 100 /uL (0-450); Eosinophils Percent Auto 0.9 % (2-4); Hematocrit 41.4 % (36-46); Hemoglobin 14.1 g/dL (12.0-16.0); Lymphocytes Absolute Auto 2500 /uL (1100-4500); Lymphocytes Percent Auto 32.5 % (25-40); Mean Corpuscular Hemoglobin 29.5 PG (26-34); Mean Corpuscular Volume 86.9 fL (80-100); Monocytes Absolute Auto 600 /uL (0-900); Monocytes Percent Auto 8.2 % (3-14); Neutrophils Absolute Auto 4400 /uL (1500-7000); Neutrophils Percent Auto 57.8 % (50-75); Platelet Count 222 X10^3/uL (150-400); Red Blood Cell Count 4.76 X10^6/uL (4.0-5.2); Red Cell Distribution Width 13.2 % (11.6-14.8); White Blood Cell Count 7.7 X10^3/uL (4.5-11.0)
[2018-09-21 11:12] LABS: Appearance Urine UA CLOUDY; Bilirubin Urine UA NEGATIVE (NEGATIVE); Color Urine UA RED; Glucose Urine UA NEGATIVE (Negative); Ketones Urine UA NEGATIVE (NEGATIVE); Leukocyte Esterase Urine UA NEGATIVE (NEGATIVE); Nitrite Urine UA NEGATIVE (Negative); Occult Blood Urine UA 3+ (Negative); Protein Urine UA 2+ (Negative); Specific Gravity Urine UA 1.015 (1.000-1.035); Urobilinogen Urine UA 0.2 E.U./dL (0.2); pH Urine UA 7.5 (4.5-8.0)
[2018-09-21 11:14] LABS: Alanine Aminotransferase 31 IU/L (9-52); Albumin 4.5 g/dL (3.5-5.0); Albumin Globulin Ratio 1.5 (1.0-2.8); Alkaline Phosphatase 58 U/L (38-126); Aspartate Aminotransferase 20 IU/L (14-36); BUN Creatinine Ratio 22.5 (6-22); Bilirubin Total 0.5 mg/dL (0.2-1.3); Blood Urea Nitrogen 18 mg/dL (7-17); Calcium 9.3 mg/dL (8.4-10.2); Carbon Dioxide 25 mmol/L (22-32); Chloride 103 mmol/L (98-107); Estimated Glomerular Filt Rate > 60.0 mL/min (>60); Glucose 84 mg/dL (70-100); HEMOLYSIS 18 (0-50); Sodium 137 mmol/L (137-145); Total Protein 7.5 g/dL (6.3-8.2)
[2018-09-21 11:33] LABS: Bacteria Urine Moderate (10-30); Culture Indicated Urine Cult Not Indicated; RBC Urine >100/HPF (0-5/HPF); Squamous Epithelial Cell Urine 1-5 /HPF (0-5/HPF); WBC Urine 1-5/HPF (0-5/HPF)
[2018-09-21 12:33] VITALS: BP 150/72; PULSE 85; RESP 15; O2SAT 100
--- NOTE | 2018-09-21 12:36 | ED_ITS ---
HPI - Abdominal Pain <Dominique VargasMICHELP-BC - Last Filed: 09/21/18 21:33> General Chief Complaint: Abdominal Pain Stated Complaint: Kidney stones and bleeding Time Seen by Provider: 09/21/18 12:25 Source: patient Mode of arrival: ambulatory Limitations: no limitations History of Present Illness HPI narrative: The patient is a 23-year-old female with history of kidney stones who presents with a chief complaint of left lower side pain. She states she felt a pop and had sudden vaginal bleeding. She states she has had a hysterectomy hand had everything removed but her ovaries she later states she is not sure if the bleeding was vaginal or in her urine. She states in the past she has had bleeding from the cuff that needed to be cauterized. She complains of fevers up to 100?. She does complain of nausea. She has not taken anything for the pain. she was seen at this facility last week and diagnosed with multiple kidney stones. She has not followed up with her primary care physician or her kidney physician yet. Related Data Home Medications Medication Instructions Recorded Confirmed ibuprofen 800 mg PO PRN PRN 11/30/17 09/21/18 acetaminophen 325 mg capsule 325 mg PO Q6H PRN 01/20/18 09/21/18 Previous Rx's Medication Instructions Recorded trazodone 100 mg tablet 200 mg PO BEDTIME #30 tab 06/25/18 promethazine 25 mg PA Q4-6H PRN #12 each 07/22/18 levofloxacin [Levaquin] 750 mg PO DAILY #5 tab 09/21/18 oxycodone 5 mg PO Q4-6H PRN #10 tab 09/21/18 Allergies Allergy/AdvReac Type Severity Reaction Status Date / Time shellfish derived Allergy Severe ANAPHYLAXIS Verified 09/21/18 10:43 [SHELLFISH DERIVED] adhesive [ADHESIVE] Allergy Mild Verified 09/21/18 10:43 amoxicillin [AMOXICILLIN] Allergy Mild Verified 09/21/18 10:43 doxycycline [DOXYCYCLINE] Allergy Mild Verified 09/21/18 10:43 hydrocodone Allergy Mild rash Verified 09/21/18 10:43 iodine [IODINE] Allergy Mild Verified 09/21/18 10:43 metoclopramide Allergy Mild Verified 09/21/18 10:43 [METOCLOPRAMIDE] Penicillins [PENICILLINS] Allergy Mild Verified 09/21/18 10:43 prochlorperazine Allergy Mild Verified 09/21/18 10:43 [PROCHLORPERAZINE] sulfamethoxazole Allergy Mild RASH Verified 09/21/18 10:43 [From BACTRIM] trimethoprim [From BACTRIM] Allergy Mild RASH Verified 09/21/18 10:43 cephalexin [CEPHALEXIN] Allergy Unknown Verified 09/21/18 10:43 ciprofloxacin [CIPROFLOXACIN] Allergy Unknown Verified 09/21/18 10:43 clindamycin [CLINDAMYCIN] Allergy Unknown Verified 09/21/18 10:43 Iodinated Contrast- Oral and Allergy Unknown Verified 09/21/18 10:43 IV Dye [IODINATED CONTRAST MEDIA - IV DYE] latex [LATEX] Allergy Unknown Verified 09/21/18 10:43 lidocaine AdvReac Palpitation Uncoded 09/21/18 10:43 s Review of Systems <SAPPHIRE Pandya - Last Filed: 09/21/18 21:33> Review of Systems GENERAL: See HPI HEENT: Denies sinus pain, ear pain, sore throat, difficulty swallowing, dizziness. RESPIRATORY: Denies dyspnea, cough, wheezing, hemoptysis, sputum. CARDIOVASCULAR: Denies chest pain, palpitations, orthopnea, edema, GASTROINTESTINAL: See HPI : See HPI MUSCULOSKELETAL: denies weakness, joint pain, or bony pain SKIN: Denies rash, skin lesions, or other NEUROLOGIC: Denies weakness, headache, numbness, change in speech, confusion, seizures, incoordination. PSYCHIATRIC: No concerning psychosocial issues. 12 point review of systems is negative except for those stated above PFSH <SAPPHIRE Pandya - Last Filed: 09/21/18 21:33> Medical History BRCA positive (Chronic) Ovarian cyst (Resolved) Pelvic congestion (Resolved 2013) Surgical History Status post appendectomy (Resolved 2003) Status post bilateral salpingectomy (Resolved 09/01/17) Status post dilation and curettage (Resolved 2010) Status post dilation and curettage (Resolved 2011) Status post knee surgery (Resolved 2007) Status post knee surgery (Resolved 2012) Status post laparoscopic supracervical hysterectomy (Resolved 03/26/18) Status post laparoscopy (Resolved 2003) Status post laparoscopy (Resolved 2011) Status post laparoscopy (Resolved 2004) Status post removal of cervix (Resolved) Status post tonsillectomy and adenoidectomy (Resolved) Family History Mother BRCA positive Grandmother Ovarian cancer Breast cancer Social History Smoking Status: Never smoker Family History Mother BRCA positive Grandmother Ovarian cancer Breast cancer Social History Smoking Status: Never smoker Exam <SAPPHIRE Pandya - Last Filed: 09/21/18 21:33> Narrative Exam Narrative: GENERAL: This is a well-nourished, well-developed patient, in no acute distress lying on stretcher HEAD: Atraumatic. Normocephalic. No temporal or scalp tenderness. EYES: Pupils equal round and reactive. Extraocular motions intact. No scleral icterus. No injection or drainage. ENT: Nose without bleeding, purulent drainage or septal hematoma. Throat without erythema, tonsillar hypertrophy or exudate. Uvula midline. Airway patent. NECK: Trachea midline. No JVD or lymphadenopathy. Supple, nontender, no me ningeal signs. CARDIOVASCULAR: Regular rate and rhythm without murmurs, gallops, or rubs. RESPIRATORY: Clear to auscultation. Breath sounds equal bilaterally. No wheezes, rales, or rhonchi. No accessory muscle use. No cough. GASTROINTESTINAL: Abdomen soft, nondistended. No hepato-splenomegaly, or palpable masses. No guarding. active bowel sounds all 4 quadrants. Diffuse tenderness left lower quadrant. EXTREMITIES: No clubbing, cyanosis, or edema. No joint tenderness, effusion, or edema noted. BACK: Nontender without deformity or crepitance. No flank tenderness. NEURO: AOx3. SKIN: No rash or erythema. : Pelvic exam performed with Bria GUTIERREZ as chain saw mechanic. No rashes, no vaginal bleeding. No abnormality of cuff noted. Initial Vital Signs Initial Vital Signs: Vital Signs Temperature 98.2 F 09/21/18 10:35 Pulse Rate 87 09/21/18 10:35 Respiratory Rate 14 09/21/18 10:35 Blood Pressure 149/70 H 09/21/18 10:35 Pulse Oximetry 100 09/21/18 10:35 <Dominique Corcoran DO - Last Filed: 09/22/18 07:31> Initial Vital Signs Initial Vital Signs: Vital Signs Temperature 98.2 F 09/21/18 10:35 Pulse Rate 87 09/21/18 10:35 Respiratory Rate 14 09/21/18 10:35 Blood Pressure 149/70 H 09/21/18 10:35 Pulse Oximetry 100 09/21/18 10:35 Course <DARREN Pandya-BC - Last Filed: 09/21/18 21:33> Orders Ordered: Discontinued Medications Hydromorphone HCl (Dilaudid) 0.5 mg IV NOW ONE Stop: 09/21/18 12:51 Last Admin: 09/21/18 12:55 Dose: 0.5 mg Hydromorphone HCl (Dilaudid) 0.5 mg IV PRN PRN PRN Reason: Pain, Severe (7-10) Last Admin: 09/21/18 13:30 Dose: 0.5 mg Hydromorphone HCl (Dilaudid) 1 mg IV NOW ONE Stop: 09/21/18 13:56 Last Admin: 09/21/18 14:01 Dose: 1 mg Sodium Chloride (Normal Saline 0.9%) 1,000 mls @ 1,000 mls/hr IV BOLUS ONE Stop: 09/21/18 13:38 Last Admin: 09/21/18 12:41 Dose: 1,000 mls/hr Ondansetron HCl (Zofran) 4 mg IV NOW ONE Stop: 09/21/18 12:40 Last Admin: 09/21/18 12:41 Dose: 4 mg Vital Signs - 8 hr 09/21/18 10:35 09/21/18 12:33 Temperature 98.2 F Pulse Rate 87 85 Respiratory Rate 14 15 Blood Pressure 149/70 H Blood Pressure [Left Arm] 150/72 H Pulse Oximetry 100 100 <Dominique Corcoran DO - Last Filed: 09/22/18 07:31> Orders Ordered: Discontinued Medications Hydromorphone HCl (Dilaudid) 0.5 mg IV NOW ONE Stop: 09/21/18 12:51 Last Admin: 09/21/18 12:55 Dose: 0.5 mg Hydromorphone HCl (Dilaudid) 0.5 mg IV PRN PRN PRN Reason: Pain, Severe (7-10) Last Admin: 09/21/18 13:30 Dose: 0.5 mg Hydromorphone HCl (Dilaudid) 1 mg IV NOW ONE Stop: 09/21/18 13:56 Last Admin: 09/21/18 14:01 Dose: 1 mg Sodium Chloride (Normal Saline 0.9%) 1,000 mls @ 1,000 mls/hr IV BOLUS ONE Stop: 09/21/18 13:38 Last Admin: 09/21/18 12:41 Dose: 1,000 mls/hr Ondansetron HCl (Zofran) 4 mg IV NOW ONE Stop: 09/21/18 12:40 Last Admin: 09/21/18 12:41 Dose: 4 mg Vital Signs - 8 hr 09/21/18 10:35 09/21/18 12:33 Temperature 98.2 F Pulse Rate 87 85 Respiratory Rate 14 15 Blood Pressure 149/70 H Blood Pressure [Left Arm] 150/72 H Pulse Oximetry 100 100 MDM - Abdominal Pain <DARREN Pandya- - Last Filed: 09/21/18 21:33> Lab Data Result diagrams: 09/21/18 10:55 09/21/18 10:55 Lab Results 09/21/18 09/21/18 09/21/18 Range/Units 10:55 10:55 10:55 WBC 7.7 (4.5-11.0) X10^3/uL RBC 4.76 (4.0-5.2) X10^6/uL Hgb 14.1 (12.0-16.0) g/dL Hct 41.4 (36-46) % MCV 86.9 (80-100) fL MCH 29.5 (26-34) PG MCHC 34.0 (30-36) % RDW 13.2 (11.6-14.8) % Plt Count 222 (150-400) X10^3/uL Neut % (Auto) 57.8 (50-75) % Lymph % (Auto) 32.5 (25-40) % Moore % (Auto) 8.2 (3-14) % Eos % (Auto) 0.9 L (2-4) % Baso % (Auto) 0.6 (0-2) % Neut # (Auto) 4400 (4575-5969) /uL Lymph # (Auto) 2500 (7929-8044) /uL Moore # (Auto) 600 (0-900) /uL Eos # (Auto) 100 (0-450) /uL Baso # (Auto) 0 (0-100) /uL Sodium 137 (137-145) mmol/L Potassium 4.0 (3.4-5.1) mmol/L Chloride 103 (98-107) mmol/L Carbon Dioxide 25 (22-32) mmol/L BUN 18 H (7-17) mg/dL Creatinine 0.80 (0.52-1.04) mg/dL Estimated GFR > 60.0 (>60) mL/min BUN/Creatinine Ratio 22.5 H (6-22) Glucose 84 (70-100) mg/dL Calcium 9.3 (8.4-10.2) mg/dL Total Bilirubin 0.5 (0.2-1.3) mg/dL AST 20 (14-36) IU/L ALT 31 (9-52) IU/L Alkaline Phosphatase 58 (38-126) U/L Total Protein 7.5 (6.3-8.2) g/dL Albumin 4.5 (3.5-5.0) g/dL Globulin 3.0 (1.7-4.1) g/dL Albumin/Globulin Ratio 1.5 (1.0-2.8) Urine Color Red Urine Appearance Cloudy Urine pH 7.5 (4.5-8.0) Ur Specific Greenleaf 1.015 (1.000-1.035) Urine Protein 2+ H (Negative) Urine Glucose (UA) Negative (Negative) g/dL Urine Ketones Negative (NEGATIVE) Urine Occult Blood 3+ H (Negative) Urine Nitrate Negative (Negative) Urine Bilirubin Negative (NEGATIVE) Urine Urobilinogen 0.2 (0.2) E.U./dL Ur Leukocyte Esterase Negative (NEGATIVE) Urine RBC >100/hpf H (0-5/HPF) Urine WBC 1-5/hpf (0-5/HPF) Ur Squamous Epith Cells 1-5 /hpf (0-5/HPF) Urine Bacteria Moderate (10-30) H (None) Ur Culture Indicated? Cult not indicated Imaging Data pelvic us: Radiologist's impression: [address] [address] Ultrasound Report Signed Patient: Ni Varner MMR#: [id number] : 1995Acct:[id number] Age/Sex: 23 / FDate of Service: 09/21/18 Loc: ED Accession Number: [id number] Procedure: US pelvic complete Ordering Provider: Dominique Vargas-BRYON PROCEDURE: US PELVIC COMPLETE INDICATIONS: pelvic pain TECHNIQUE: Real-time scanning was performed of the pelvic organs, with image documentation. Additional endovaginal scanning was necessary due to incomplete visualization of the adnexal and endometrial structures by transabdominal scanning. COMPARISON: [facility], US PELVIC COMPLETE, 08/24/2018, 11:12. FINDINGS: Transabdominal scanning: Limited scanning through the kidneys shows no hyd ronephrosis. No pathologic free abdominal or pelvic fluid. Endovaginal scanning: Uterus: Patient is status post hysterectomy. No gross abnormality is seen in vaginal cuff region. Ovaries: Right ovary measures 3 x 2.2 x 3.1 cm in size. Left ovary measures 3.7 x 2 x 2.6 cm in size. Complex appearing cyst measures 2.3 x 1.7 x 1.9 cm in size is seen in left ovary. Right ovary is within normal limits. IMPRESSION: Complex cyst in left ovary as described above, suggest followup study. Normal-appearing right ovary. Patient is status post hysterectomy. No pelvic free fluid. Dictated by: Jian Redman M.D. on 09/21/2018 at 14:16 Approved by: Jian Redman M.D. on 09/21/2018 at 14:20 renal us: Radiologist's impression: Ni Varner 23 F [address] [address] Ultrasound Report Signed Patient: Ni Varner MMR#: [id number] : 1995Acct:[id number] Age/Sex: 23 / FDate of Service: 09/21/18 Loc: ED Accession Number: [id number] Procedure: US renal complete Ordering Provider: Dominique Vargas CONTRACT ADMINISTRATION COORDINATOR-BC PROCEDURE: US RENAL COMPLETE INDICATIONS: flank pain TECHNIQUE: Real-time scanning was performed of the kidneys and bladder, with image documentation. COMPARISON: [facility], CT, CT ABDOMEN PELVIS WO CON, 05/14/2018, 10:10. FINDINGS: Kidneys: Kidneys are normal in size. Right kidney measures 10.7 cm long; left kidney measures 10.2 cm long. Right renal cortical thickness is punctate cm; left renal cortical thickness is 0.9 cm. Renal cortical echotexture is normal. No hydronephrosis or shadowing nephrolithiasis. No suspicious solid mass lesions. Bladder: The urinary bladder wall is within normal limits. Bilateral ureteral jets are evident. No bladder calculi. Miscellaneous: No free pelvic fluid. IMPRESSION: Unremarkable kidneys. No hydronephrosis. Dictated by: Jose D Flores M.D. on 09/21/2018 at 13:18 Approved by: Jose D Flores M.D. on 09/21/2018 at 13:19 MDM Narrative Medical decision making narrative: The patient is a 23-year-old female presents with left lower quadrant pain and flank pain. Her pelvic exam showed no noted abnormalities. I did obtain a pelvic ultrasound which found a left ovarian cyst. I encouraged follow-up with the patient's computer help desk specialist regarding this. No noted vaginal bleeding. Her renal ultrasound showed no kidney stones. This I believe she has passed these, which is likely leading to the hematuria and flank pain. given the bacteria and leukocyte Estrace, I am treating for a urinary tract infection at this point time. I encouraged the patient to follow up with her kidney specialist. She was given a prescription of oxycodone for pain. Discussed at length follow-up with primary care, liquefaction and regasification helper as well as her kidney center. Discussed return precautions of fever, inability keep down fluids etc. Patient mother state understanding and have no questions or concerns at this point time. I did elect to treat the patient with Levaquin for her infection as she is allergic to everything else and states that she can tolerate Levaquin. Mother states that the patient has tolerated Levaquin in the past. <Dominique Corcoran DO - Last Filed: 09/22/18 07:31> Lab Data Lab Results 09/21/18 09/21/18 09/21/18 Range/Units 10:55 10:55 10:55 WBC 7.7 (4.5-11.0) X10^3/uL RBC 4.76 (4.0-5.2) X10^6/uL Hgb 14.1 (12.0-16.0) g/dL Hct 41.4 (36-46) % MCV 86.9 (80-100) fL MCH 29.5 (26-34) PG MCHC 34.0 (30-36) % RDW 13.2 (11.6-14.8) % Plt Count 222 (150-400) X10^3/uL Neut % (Auto) 57.8 (50-75) % Lymph % (Auto) 32.5 (25-40) % Moore % (Auto) 8.2 (3-14) % Eos % (Auto) 0.9 L (2-4) % Baso % (Auto) 0.6 (0-2) % Neut # (Auto) 4400 (4749-6366) /uL Lymph # (Auto) 2500 (2674-9461) /uL Moore # (Auto) 600 (0-900) /uL Eos # (Auto) 100 (0-450) /uL Baso # (Auto) 0 (0-100) /uL Sodium 137 (137-145) mmol/L Potassium 4.0 (3.4-5.1) mmol/L Chloride 103 (98-107) mmol/L Carbon Dioxide 25 (22-32) mmol/L BUN 18 H (7-17) mg/dL Creatinine 0.80 (0.52-1.04) mg/dL Estimated GFR > 60.0 (>60) mL/min BUN/Creatinine Ratio 22.5 H (6-22) Glucose 84 (70-100) mg/dL Calcium 9.3 (8.4-10.2) mg/dL Total Bilirubin 0.5 (0.2-1.3) mg/dL AST 20 (14-36) IU/L ALT 31 (9-52) IU/L Alkaline Phosphatase 58 (38-126) U/L Total Protein 7.5 (6.3-8.2) g/dL Albumin 4.5 (3.5-5.0) g/dL Globulin 3.0 (1.7-4.1) g/dL Albumin/Globulin Ratio 1.5 (1.0-2.8) Urine Color Red Urine Appearance Cloudy Urine pH 7.5 (4.5-8.0) Ur Specific Greenleaf 1.015 (1.000-1.035) Urine Protein 2+ H (Negative) Urine Glucose (UA) Negative (Negative) g/dL Urine Ketones Negative (NEGATIVE) Urine Occult Blood 3+ H (Negative) Urine Nitrate Negative (Negative) Urine Bilirubin Negative (NEGATIVE) Urine Urobilinogen 0.2 (0.2) E.U./dL Ur Leukocyte Esterase Negative (NEGATIVE) Urine RBC >100/hpf H (0-5/HPF) Urine WBC 1-5/hpf (0-5/HPF) Ur Squamous Epith Cells 1-5 /hpf (0-5/HPF) Urine Bacteria Moderate (10-30) H (None) Ur Culture Indicated? Cult not indicated Discharge Plan Departure Patient Disposition: Home Clinical Impression: Ovarian cyst Qualifiers: Laterality: left Qualified Code(s): N83.202 - Unspecified ovarian cyst, left side Urinary tract infection Qualifiers: Urinary tract infection type: site unspecified Hematuria presence: with hematuria Qualified Code(s): N39.0 - Urinary tract infection, site not specified Discharge Date/Time: 09/21/18 15:01 Interventions: ED Discharge Assessment Last Done: 09/21/18 15:00 Instructions: DI for Urinary Tract Infection (UTI), DI for Ovarian Cyst Activity Restrictions/Additional Instructions: Your ultrasounds show no kidney stones as well as an ovarian cyst. There was no noted vaginal bleeding. I believe that the blood is coming from your urine. Given the bacteria in her urine, we are going to treat you for a urinary tract infection. Please follow-up with your kidney specialist as well as with her OBGYN regarding the ovarian cyst. Come back to the emergency department for any acute concerns. Please monitor for tendon problems on the Levaquin. I have given you a prescription of oxycodone, be aware this can make you sedated and constipated. Prescriptions: New levofloxacin [Levaquin] 750 mg tablet 750 mg PO DAILY Qty: 5 RF: 0 oxycodone 5 mg tablet 5 mg PO Q4-6H PRN (Reason: pain) Qty: 10 RF: 0 No Action trazodone 100 mg tablet 200 mg PO BEDTIME Qty: 30 RF: 3 acetaminophen [Tylenol] 325 mg capsule 325 mg PO Q6H PRN (Reason: Pain, Mild) RF: 0 promethazine 25 mg suppository 25 mg PA Q4-6H PRN (Reason: nausea and vomiting) Qty: 12 RF: 0 ibuprofen 200 MG tablet 800 mg PO PRN PRN (Reason: Pain, Moderate) RF: 0 Referrals: Kristel Oneal ARNP [Primary Care Provider] - <Dominique Corcoran DO - Last Filed: 09/22/18 07:31> Cosign ED Attending Cosignature Attestation: I was immediately available in the department for consultation. This documentation has been reviewed and I agree with assessment and plan. Supervised by Dominique Corcoran DO
--- NOTE | 2018-09-21 12:37 | PC.NURSE ---
Patient unsure if blood is in the urine or coming from vagina. Has had a hysterectomy with removal of cervix. This morning was going to bathroom and felt a pop in pelvic regions. States she had similar symptoms when she had an opening in the cuff at the end of the vaginal vault, which subsequently had to be cauterized. She is concerned the same thing happened this morning. Also having kidney stone-like pain with frequency and a low grade fever of 100 this morning. Feeling nauseated.
[2018-09-21] MEDS: SODIUM CHLORIDE 0.9% 1,000 ML 1000 ML IV (12:41)
[2018-09-21] MEDS: ONDANSETRON 4 MG/2 ML INJ IV (12:41)
[2018-09-21] MEDS: HYDROMORPHONE 1 MG INJ 0.5 MG IV ×2 (12:55→13:30)
--- NOTE | 2018-09-21 13:10 | DI.US.S_ITS ---
PROCEDURE: US PELVIC COMPLETE INDICATIONS: pelvic pain TECHNIQUE: Real-time scanning was performed of the pelvic organs, with image documentation. Additional endovaginal scanning was necessary due to incomplete visualization of the adnexal and endometrial structures by transabdominal scanning. COMPARISON: [facility], , PELVIC COMPLETE, 08/24/2018, 11:12. FINDINGS: Transabdominal scanning: Limited scanning through the kidneys shows no hydronephrosis. No pathologic free abdominal or pelvic fluid. Endovaginal scanning: Uterus: Patient is status post hysterectomy. No gross abnormality is seen in vaginal cuff region. Ovaries: Right ovary measures 3 x 2.2 x 3.1 cm in size. Left ovary measures 3.7 x 2 x 2.6 cm in size. Complex appearing cyst measures 2.3 x 1.7 x 1.9 cm in size is seen in left ovary. Right ovary is within normal limits. IMPRESSION: Complex cyst in left ovary as described above, suggest followup study. Normal-appearing right ovary. Patient is status post hysterectomy. No pelvic free fluid. Dictated by: Jian Redman M.D. on 09/21/2018 at 14:16 Approved by: Jian Redman M.D. on 09/21/2018 at 14:20
--- NOTE | 2018-09-21 13:10 | DI.US.S_ITS ---
PROCEDURE: US RENAL COMPLETE INDICATIONS: flank pain TECHNIQUE: Real-time scanning was performed of the kidneys and bladder, with image documentation. COMPARISON: [facility], CT, CT ABDOMEN PELVIS WO CON, 05/14/2018, 10:10. FINDINGS: Kidneys: Kidneys are normal in size. Right kidney measures 10.7 cm long; left kidney measures 10.2 cm long. Right renal cortical thickness is punctate cm; left renal cortical thickness is 0.9 cm. Renal cortical echotexture is normal. No hydronephrosis or shadowing nephrolithiasis. No suspicious solid mass lesions. Bladder: The urinary bladder wall is within normal limits. Bilateral ureteral jets are evident. No bladder calculi. Miscellaneous: No free pelvic fluid. IMPRESSION: Unremarkable kidneys. No hydronephrosis. Dictated by: Jose D Flores M.D. on 09/21/2018 at 13:18 Approved by: Jose D Flores M.D. on 09/21/2018 at 13:19
[2018-09-21] MEDS: HYDROMORPHONE 1 MG INJ IV (14:01)
--- NOTE | 2018-11-11 17:48 | PC.NURSE ---
IV stop time for normal saline: stopped at 1400 1000ml infused
== END 2018-09-21 15:01 | disposition home or self-care (01) ==
PROVIDERS: Emergency Medicine; Emergency Provider Nurse Practitioner Family; PCP Registered Nurse
DX: N83.202 Unspecified ovarian cyst, left side (principal); N39.0 Urinary tract infection, site not specified
CPT/HCPCS: 36591; 76770; 76856; 80053; 81001; 85025; 96361; 96374; 96375; 96376; 99283; 99284; J1170; J2405

== ENCOUNTER 2018-09-24 19:24 | Emergency (ER) | payer OTHER, MEDICAID, SELFPAY ==
[2018-09-24 19:29] VITALS: BP 132/82; PULSE 91; RESP 16; TEMP 37.1; O2SAT 100
--- NOTE | 2018-09-24 19:57 | ED.GENADULT ---
HPI - General Adult General Chief complaint: Abdominal Pain Stated complaint: FEVER Time Seen by Provider: 09/24/18 19:56 Source: patient Mode of arrival: ambulatory Limitations: no limitations History of Present Illness HPI narrative: Patient is a 23-year-old female. Seen here in the emergency department a couple days ago and diagnosed with a left-sided ovarian cyst and urinary tract infection. Was discharged home on Levaquin. She states that since then she did start to feel better but then today she started feel worse. Had fevers at home. Also has worsening left sided abdominal pain. Related Data Home Medications Medication Instructions Recorded Confirmed ibuprofen 800 mg PO PRN PRN 11/30/17 09/21/18 acetaminophen 325 mg capsule 325 mg PO Q6H PRN 01/20/18 09/21/18 Previous Rx's Medication Instructions Recorded trazodone 100 mg tablet 200 mg PO BEDTIME #30 tab 06/25/18 promethazine 25 mg KS Q4-6H PRN #12 each 07/22/18 levofloxacin [Levaquin] 750 mg PO DAILY #5 tab 09/21/18 oxycodone 5 mg PO Q4-6H PRN #10 tab 09/21/18 Allergies Allergy/AdvReac Type Severity Reaction Status Date / Time shellfish derived Allergy Severe ANAPHYLAXIS Verified 09/21/18 10:43 [SHELLFISH DERIVED] adhesive [ADHESIVE] Allergy Mild Verified 09/21/18 10:43 amoxicillin [AMOXICILLIN] Allergy Mild Verified 09/21/18 10:43 doxycycline [DOXYCYCLINE] Allergy Mild Verified 09/21/18 10:43 hydrocodone Allergy Mild rash Verified 09/21/18 10:43 iodine [IODINE] Allergy Mild Verified 09/21/18 10:43 metoclopramide Allergy Mild Verified 09/21/18 10:43 [METOCLOPRAMIDE] Penicillins [PENICILLINS] Allergy Mild Verified 09/21/18 10:43 prochlorperazine Allergy Mild Verified 09/21/18 10:43 [PROCHLORPERAZINE] sulfamethoxazole Allergy Mild RASH Verified 09/21/18 10:43 [From BACTRIM] trimethoprim [From BACTRIM] Allergy Mild RASH Verified 09/21/18 10:43 cephalexin [CEPHALEXIN] Allergy Unknown Verified 09/21/18 10:43 ciprofloxacin [CIPROFLOXACIN] Allergy Unknown Verified 09/21/18 10:43 clindamycin [CLINDAMYCIN] Allergy Unknown Verified 09/21/18 10:43 Iodinated Contrast- Oral and Allergy Unknown Verified 09/21/18 10:43 IV Dye [IODINATED CONTRAST MEDIA - IV DYE] latex [LATEX] Allergy Unknown Verified 09/21/18 10:43 lidocaine AdvReac Palpitation Uncoded 09/21/18 10:43 s Review of Systems Constitutional Reports fever(s) Cardiovascular Denies dyspnea Respiratory Denies dyspnea Gastrointestinal Gastrointestinal: Reports abdominal pain, Denies nausea and Denies vomiting Genitourinary Denies flank pain Integumentary/Breasts Denies rash Hematologic/Lymphatic Denies easy bruising [facility] Medical History BRCA positive (Chronic) Ovarian cyst (Resolved) Pelvic congestion (Resolved 2013) Social History Smoking Status: Never smoker Exam Initial Vital Signs Initial Vital Signs: Vital Signs Temperature 98.8 F 09/24/18 19:29 Pulse Rate 91 H 09/24/18 19:29 Respiratory Rate 16 09/24/18 19:29 Blood Pressure 132/82 09/24/18 19:29 Pulse Oximetry 100 09/24/18 19:29 Const General: well developed, well groomed and No acute distress Orientation: alert and awake [facility] Head: normal to inspection and normocephalic Resp Effort & Inspection: normal respiratory effort Cardio Rate: regular rate GI Inspection: non-distended Palpation: soft, No firm and tender (Left lower quadrant/left adnexa) Skin Lesions: no lesions Rashes: no rashes Neuro General: alert and awake Cognition: normal cognition Speech: speech normal Extrem General: normal to inspection and capillary refill normal Course Orders Ordered: ED Orders 09/24/18 20:31 US pelvic complete Stat Vital Signs - 8 hr 09/24/18 19:29 09/24/18 22:15 Temperature 98.8 F 98.3 F Pulse Rate 91 H 85 Respiratory Rate 16 Blood Pressure 132/82 133/83 Pulse Oximetry 100 98 Medical Decision Making Imaging Data US - abdomen: Radiologist's impression: Unchanged left-sided ovarian cyst No signs of torsion. Right ovary unremarkable MDM Narrative Medical decision making narrative: The ultrasound today shows that the left-sided ovarian cyst is unchanged from ultrasound earlier this week. There is no signs of torsion. Low suspicion for PID since the patient has had a hysterectomy. Review of the patient's urinary culture from a couple days ago shows mixed ike. Will have her continue the Levaquin. No indication to change this antibiotic. She is afebrile here in the emergency department. Will hold on further workup for now. She is given return precautions. She expressed understanding agree with plan. Discharge Plan Departure Patient Disposition: Home Clinical Impression: Ovarian cyst Qualifiers: Laterality: left Qualified Code(s): N83.202 - Unspecified ovarian cyst, left side Discharge Date/Time: 09/24/18 22:15 Interventions: ED Discharge Assessment Last Done: 09/24/18 22:15 Instructions: DI for Ovarian Cyst Activity Restrictions/Additional Instructions: You can take Tylenol/ibuprofen for any discomfort. Contact your primary care doctor for follow-up. Return to the emergency department for any new or worsening symptoms Prescriptions: No Action trazodone 100 mg tablet 200 mg PO BEDTIME Qty: 30 RF: 3 acetaminophen [Tylenol] 325 mg capsule 325 mg PO Q6H PRN (Reason: Pain, Mild) RF: 0 promethazine 25 mg suppository 25 mg KS Q4-6H PRN (Reason: nausea and vomiting) Qty: 12 RF: 0 levofloxacin [Levaquin] 750 mg tablet 750 mg PO DAILY Qty: 5 RF: 0 oxycodone 5 mg tablet 5 mg PO Q4-6H PRN (Reason: pain) Qty: 10 RF: 0 ibuprofen 200 MG tablet 800 mg PO PRN PRN (Reason: Pain, Moderate) RF: 0 Referrals: Kristel Oneal ARNP [Primary Care Provider] -
--- NOTE | 2018-09-24 20:31 | DI.US.S_ITS ---
PROCEDURE: US PELVIC COMPLETE INDICATIONS: L ovarian cyst with increased pain TECHNIQUE: Real-time scanning was performed of the pelvic organs, with image documentation. Additional endovaginal scanning was necessary due to incomplete visualization of the adnexal and endometrial structures by transabdominal scanning. COMPARISON: [facility], , US PELVIC COMPLETE, 09/21/2018, 13:36. FINDINGS: Transabdominal scanning: Limited scanning through the kidneys shows no hydronephrosis. No pathologic free abdominal or pelvic fluid. Endovaginal scanning: Uterus: Uterus is surgically absent. Ovaries: Right adnexa measures 3.6 x 1.6 x 2.2 cm. Right adnexa is sonographically normal. Left adnexa measures 3.9 x 2.5 x 2.9 cm. Complex cyst is noted in the left adnexa measures 1.7 x 1.6 x 1.4 cm (2.3 x 1.7 x 1.9 cm previously). IMPRESSION: 1. Status post hysterectomy. 2. Complex left adnexal cyst slightly decreased in size compared to 09/21/2018. Recommend continued surveillance with followup ultrasound in 4-6 weeks to ensure resolution of the cyst. Dictated by: Marce Love MD, PhD on 09/25/2018 at 8:57 Approved by: Marce Love MD, PhD on 09/25/2018 at 8:59
[2018-09-24 22:15] VITALS: BP 133/83; PULSE 85; TEMP 36.8; O2SAT 98
== END 2018-09-24 22:15 | disposition home or self-care (01) ==
PROVIDERS: Emergency Provider Emergency Medicine; Family Provider Registered Nurse; PCP Registered Nurse
DX: N83.202 Unspecified ovarian cyst, left side (principal); R50.9 Fever, unspecified
CPT/HCPCS: 76830; 76856; 99283

== ENCOUNTER → 2019-02-12 17:01 | Outpatient (CLI) | payer OTHER, MEDICAID, SELFPAY ==
[2019-02-12 18:18] LABS: Prolactin 17.5 ng/mL (3.0-18.6)
== END ==
PROVIDERS: PCP Registered Nurse; Visit Provider Nurse Practitioner Family
DX: N20.0 Calculus of kidney (principal); N64.4 Mastodynia; N64.52 Nipple discharge
CPT/HCPCS: 36415; 84146

== ENCOUNTER → 2019-03-04 14:32 | Outpatient (CLI) | payer OTHER, MEDICAID, SELFPAY ==
--- NOTE | 2019-03-04 14:33 | DI.MG.S_ITS ---
UNILATERAL RIGHT DIGITAL DIAGNOSTIC MAMMOGRAM 3D/2D: 03/04/2019 CLINICAL: Pain and lump on the Right breast. Comparison is made to exam dated: 07/16/2018 mammogram - [facility]. The tissue of right breast is heterogeneously dense. This may lower the sensitivity of mammography. No significant masses, calcifications, or other findings are seen in the breast. IMPRESSION: INCOMPLETE: NEEDS ADDITIONAL IMAGING EVALUATION There is no mammographic or sonographic abnormality seen in the right breast to correspond with the non-bloody discharge from the nipple in the sub-areolar depth and there is no mammographic or sonographic abnormality seen in the right breast to correspond with the palpable abnormality in the lower outer quadrant, however, given BRCA 2 diagnosis, breast MRI is recommended. This exam was interpreted at Station ID: [id number]. Electronically Signed By: Lilly Gallo M.D. lk/:03/05/2019 08:35:06 copy to: Kristel Oneal letter sent: Need MRI ACR BI-RADS Category 0: Incomplete [id number]
--- NOTE | 2019-03-04 14:33 | DI.US.S_ITS ---
ULTRASOUND OF RIGHT BREAST: 03/04/2019 CLINICAL: Palpable right breast lump. Comparison is made to exams dated: 07/16/2018 mammogram, 10/24/2016 ultrasound, and 10/24/2016 mammogram - [facility]. Ultrasound of the right breast was performed on the area of interest. Moss scale images of the real-time examination were reviewed. IMPRESSION: INCOMPLETE: NEEDS ADDITIONAL IMAGING EVALUATION There is no sonographic abnormality seen in the right breast to correspond with the non-bloody discharge from the nipple in the sub-areolar depth and there is no sonographic abnormality seen in the right breast to correspond with the palpable abnormality, however, given the patient's BRCA 2 status, mammogram is recommeded and will be performed immediately following this exam. This exam was interpreted at Station ID: [id number]. Electronically Signed By: Lilly Gallo M.D. lk/:03/04/2019 15:55:43 copy to: Kristel Oneal Ultrasound BI-RADS: 0 Indeterminate
== END ==
PROVIDERS: PCP Registered Nurse; Visit Provider Nurse Practitioner Family
DX: R92.8 Other abnormal and inconclusive findings on diagnostic imaging of breast (principal); N64.4 Mastodynia; N63.13 Unspecified lump in the right breast, lower outer quadrant; N64.52 Nipple discharge
CPT/HCPCS: 76642; 77065; G0279

== ENCOUNTER 2019-03-10 15:07 | Emergency (ER) | payer OTHER, MEDICAID, SELFPAY ==
[2019-03-10 15:05] VITALS: BP 148/83; PULSE 96; RESP 16; TEMP 36.9; O2SAT 99
[2019-03-10] MEDS: EPINEPHrine 1 MG/ML AMPUL 0.4 MG IM (15:26)
[2019-03-10] MEDS: diphenhydrAMINE 50 MG/ML VIAL 25 MG IV ×2 (15:26→16:28)
[2019-03-10] MEDS: FAMOTIDINE 20 MG/50 ML PIGGYBACK 200 MG IV (15:26)
[2019-03-10] MEDS: methylPREDNISolone 125 MG/2 ML VIAL IV (15:27)
[2019-03-10 15:40] VITALS: BP 150/78; PULSE 98; RESP 24; O2SAT 100
[2019-03-10 16:00] VITALS: BP 138/67; PULSE 106; RESP 25; O2SAT 100
[2019-03-10 16:30] VITALS: BP 134/61; PULSE 97; RESP 15; O2SAT 100
[2019-03-10 17:00] VITALS: BP 135/57; PULSE 94; RESP 23; O2SAT 100
[2019-03-10 17:30] VITALS: BP 127/71; PULSE 94; RESP 13; O2SAT 100
--- NOTE | 2019-03-11 03:07 | ED_ITS ---
HPI - Allergic Reaction <GABRIELA Ding - Last Filed: 03/11/19 03:27> General Chief complaint: Allergic Reaction Stated complaint: Allergic Reaction Source: patient, family and EMS Mode of arrival: EMS Limitations: no limitations History of Present Illness HPI narrative: This is a 24-year-old female, non smoker, who presents to ED with [facility] with chief complain of severe allergy reaction and reports has chest tightness, itching throat and breathing difficulty about 30 minutes after eating a burger at [employer]. 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 She in the past had to require several epinephrine doses for on allergy reaction. Patient ran out of her epinephrine pen and had taken 25 mg of Benadryl p.o. before coming into ED. There was no therapy was provided by EMS EN route. Patient is able to speak in full sentences. Patient does not have nausea or vomiting or feeling fainting. Related Data Home Medications Medication Instructions Recorded Confirmed ibuprofen 800 mg PO PRN PRN 11/30/17 03/10/19 acetaminophen 325 mg capsule 325 mg PO Q6H PRN 01/20/18 03/10/19 biotin 1 mg capsule 1 mg PO DAILY 02/02/19 03/10/19 omega-3 fatty acids 1,000 mg 1,000 mg PO DAILY 02/02/19 03/10/19 capsule vitamin B complex 1 tab PO DAILY 02/02/19 03/10/19 baclofen 10 mg tablet 20 mg PO DAILY PRN 02/12/19 03/10/19 duloxetine 60 mg PO DAILY 03/10/19 03/10/19 Previous Rx's Medication Instructions Recorded bupropion HCl 150 mg tablet,12 hr 150 mg PO DAILY #90 each 02/02/19 sustained-release tramadol 50 mg tablet 100 mg PO BID PRN #60 tab 02/02/19 lorazepam 0.5 mg tablet 0.5 mg PO ONCE #1 tab 03/09/19 epinephrine [EpiPen 2-Jamie] 0.3 mg IM Q20M PRN #1 each 03/10/19 prednisone 40 mg PO DAILY 4 Days #8 tab 03/10/19 trazodone 100 mg tablet 200 mg PO BEDTIME PRN #60 tab 03/10/19 Allergies Allergy/AdvReac Type Severity Reaction Status Date / Time shellfish derived Allergy Severe ANAPHYLAXIS Verified 02/12/19 16:33 [SHELLFISH DERIVED] adhesive [ADHESIVE] Allergy Mild Verified 02/12/19 16:33 amoxicillin [AMOXICILLIN] Allergy Mild Verified 02/12/19 16:33 doxycycline [DOXYCYCLINE] Allergy Mild Verified 02/12/19 16:33 hydrocodone Allergy Mild rash Verified 02/12/19 16:33 iodine [IODINE] Allergy Mild Verified 02/12/19 16:33 metoclopramide Allergy Mild Verified 02/12/19 16:33 [METOCLOPRAMIDE] Penicillins [PENICILLINS] Allergy Mild Verified 02/12/19 16:33 prochlorperazine Allergy Mild Verified 02/12/19 16:33 [PROCHLORPERAZINE] sulfamethoxazole Allergy Mild RASH Verified 02/12/19 16:33 [From BACTRIM] trimethoprim [From BACTRIM] Allergy Mild RASH Verified 02/12/19 16:33 cephalexin [CEPHALEXIN] Allergy Unknown Verified 02/12/19 16:33 ciprofloxacin [CIPROFLOXACIN] Allergy Unknown Verified 02/12/19 16:33 clindamycin [CLINDAMYCIN] Allergy Unknown Verified 02/12/19 16:33 Iodinated Contrast Media Allergy Unknown Verified 02/12/19 16:33 [IODINATED CONTRAST MEDIA - IV DYE] latex [LATEX] Allergy Unknown Verified 02/12/19 16:33 lidocaine AdvReac Palpitation Uncoded 02/12/19 16:33 s Review of Systems <GABRIELA Ding - Last Filed: 03/11/19 03:27> Review of Systems ROS Unobtainable: All systems reviewed & are unremarkable except as noted in HPI and below PFSH <GABRIELA Ding - Last Filed: 03/11/19 03:27> Medical History BRCA positive (Chronic) Ovarian cyst (Resolved) Pelvic congestion (Resolved 2013) Surgical History Status post appendectomy (Resolved 2003) Status post bilateral salpingectomy (Resolved 09/01/17) Status post dilation and curettage (Resolved 2010) Status post dilation and curettage (Resolved 2011) Status post knee surgery (Resolved 2007) Status post knee surgery (Resolved 2012) Status post laparoscopic supracervical hysterectomy (Resolved 09/01/17) Status post laparoscopy (Resolved 2003) Status post laparoscopy (Resolved 2011) Status post laparoscopy (Resolved 2004) Status post removal of cervix (Resolved) Status post tonsillectomy and adenoidectomy (Resolved) Family History Mother BRCA positive Grandmother Ovarian cancer Breast cancer Social History Smoking Status: Never smoker Family History Mother BRCA positive Grandmother Ovarian cancer Breast cancer Social History Smoking Status: Never smoker Exam <GABRIELA Ding - Last Filed: 03/11/19 03:27> Narrative Exam Narrative: General appearance: well developed, well nourished, in no acute distress. Head: normocephalic, atraumatic, no scalp lesions, non-tender. Eye: pupil equal, round. EOMI. Nose: nares patent. Oral: mucosa moist. No oropharyngeal swelling. s/p tonsillectomy Neck/Thyroid: neck supple, full range of motion, no visible masses. Skin: no suspicious rashes, lesions over visible areas. Warm and dry. Heart: S1 and S2 with regular rate and rhythm. No clubbing, no cyanosis, no edema. Lungs: Lungs clear to auscultate bilaterally. Breathing even and unlabored. No stridor. No accessory muscles used. Chest: normal shape and expansion. Abdomen: non-obese, non-distended. Neurologic: alert and oriented. Cognitive exam, BACKUP OPERATOR and PNS grossly intact on informal exam. Psych: good eye contact, normal affect. Initial Vital Signs Initial Vital Signs: Vital Signs Temperature 98.4 F 03/10/19 15:05 Pulse Rate 96 H 03/10/19 15:05 Respiratory Rate 16 03/10/19 15:05 Blood Pressure 148/83 H 03/10/19 15:05 Pulse Oximetry 99 03/10/19 15:05 <Dominique Corcoran DO - Last Filed: 03/15/19 19:39> Initial Vital Signs Initial Vital Signs: Vital Signs Temperature 98.4 F 03/10/19 15:05 Pulse Rate 96 H 03/10/19 15:05 Respiratory Rate 16 03/10/19 15:05 Blood Pressure 148/83 H 03/10/19 15:05 Pulse Oximetry 99 03/10/19 15:05 Course <GABRIELA Ding - Last Filed: 03/11/19 03:27> Orders Ordered: Discontinued Medications Diphenhydramine HCl (Benadryl) 25 mg IV NOW ONE Stop: 03/10/19 15:09 Last Admin: 03/10/19 15:26 Dose: 25 mg Documented by: CARLITA Diphenhydramine HCl (Benadryl) 25 mg IV NOW ONE Stop: 03/10/19 16:17 Last Admin: 03/10/19 16:28 Dose: 25 mg Documented by: BISMARK Epinephrine HCl (Adrenalin) 0.4 mg IM NOW ONE Stop: 03/10/19 15:09 Last Admin: 03/10/19 15:26 Dose: 0.4 mg Documented by: CARLITA Famotidine (Pepcid) 20 mg in 50 mls @ 200 mls/hr IV NOW ONE Stop: 03/10/19 15:22 Last Infusion: 03/10/19 16:00 Dose: 0 mls/hr Documented by: Admin: 03/10/19 15:26 Dose: 200 mls/hr Documented by: CARLITA Methylprednisolone (Solu-Medrol 125 Mg Vial) 125 mg IV NOW ONE Stop: 03/10/19 15:09 Last Admin: 03/10/19 15:27 Dose: 125 mg Documented by: CARLITA <Dominique Corcoran DO - Last Filed: 03/15/19 19:39> Orders Ordered: Discontinued Medications Diphenhydramine HCl (Benadryl) 25 mg IV NOW ONE Stop: 03/10/19 15:09 Last Admin: 03/10/19 15:26 Dose: 25 mg Documented by: CARLITA Diphenhydramine HCl (Benadryl) 25 mg IV NOW ONE Stop: 03/10/19 16:17 Last Admin: 03/10/19 16:28 Dose: 25 mg Documented by: BISMARK Epinephrine HCl (Adrenalin) 0.4 mg IM NOW ONE Stop: 03/10/19 15:09 Last Admin: 03/10/19 15:26 Dose: 0.4 mg Documented by: CARLITA Famotidine (Pepcid) 20 mg in 50 mls @ 200 mls/hr IV NOW ONE Stop: 03/10/19 15:22 Last Infusion: 03/10/19 16:00 Dose: 0 mls/hr Documented by: Admin: 03/10/19 15:26 Dose: 200 mls/hr Documented by: CARLITA Methylprednisolone (Solu-Medrol 125 Mg Vial) 125 mg IV NOW ONE Stop: 03/10/19 15:09 Last Admin: 03/10/19 15:27 Dose: 125 mg Documented by: CARLITA [facility] - Allergic Reaction <Richard DoshiGABRIELA Tan - Last Filed: 03/11/19 03:27> Differential Diagnosis Differential diagnosis: Likely anaphylaxis and allergic reaction Medical Records Attestation: I reviewed the patient's medical records. ECG Data Attestation: I personally reviewed and interpreted this ECG as follows: Prior ECG tracings: available for review Interpretation: Sinus rhythm at 86. Normal [place] No ST elevations or depression. No significant changes from previous EKGs. MDM Narrative Medical decision making narrative: This is a 24-year-old female, who has anaphylactic allergic reaction to shellfish. She had eaten of Burger at [email or web address] and noticed itchy throat, breathing difficulty and chest pain. Lung sounds are clear to auscultate. There is no obvious oropharyngeal swelling was appreciated. EKG was normal sinus rhythm. Patient was medicated with IV Benadryl, Pepcid, Solu-Medrol, IM epinephrine. And patient was medicated with additional Benadryl IV for moderately improved but on results symptoms. Patient was was monitored 2.5 hours and patient states she is feeling better and breathing is easier without chest pain. Patient was discharged to home with prescriptions for epinephrine, steroids for additional 4 day course. Patient advised to use daily allergy medications or Benadryl and [id number] histamine bryn. Return precautions were discussed with the patient and to call 911 if she has another anaphylactic symptoms. The patient and mother verbalized the understanding and agree with treatment plan. Discharge Plan Departure Patient Disposition: Home Clinical Impression: Allergic reaction Qualifiers: Encounter type: initial encounter Qualified Code(s): T78.40XA - Allergy, unspecified, initial encounter Discharge Date/Time: 03/10/19 18:41 Instructions: DI for Anaphylaxis Activity Restrictions/Additional Instructions: You have been diagnosed with [severe allergic reaction]. What to do: *Take your medications as directed. Please take prednisone 40 mg total next 4 days daily to decrease hyper reaction. He can also take [id number] allergy medication daily, Benadryl as needed 25-50 mg 3 times to 4 times a day. Histamine bryn such as Zanta and Pepcid will help with allergy reaction as well. *Follow up with your primary care provider in 2-3 days, call for an appointment. Let them know you were seen in the ED and that we asked you to be seen in follow up. *Return to ED if you have any new, worsening, or concerning symptoms, such as [chest pain, swelling to her throat, lips or tongue, breathing difficulty, feeling fainting, unable to tolerate fluids, or any other concerns]. Prescriptions: New epinephrine [EpiPen 2-Jamie] 0.3 mg/0.3 mL auto-injector 0.3 mg IM Q20M PRN (Reason: anaphylaxis) Qty: 1 RF: 0 prednisone 20 mg tablet 40 mg PO DAILY 4 Days Qty: 8 RF: 0 No Action lorazepam 0.5 mg tablet 0.5 mg PO ONCE Qty: 1 RF: 0 trazodone 100 mg tablet 200 mg PO BEDTIME PRN (Reason: insomnia) Qty: 60 RF: 6 acetaminophen [Tylenol] 325 mg capsule 325 mg PO Q6H PRN (Reason: Pain, Mild) RF: 0 baclofen 10 mg tablet 20 mg PO DAILY PRN (Reason: Spasms) RF: 0 bupropion HCl 150 mg tablet sustained-release 12 hr 150 mg PO DAILY Qty: 90 RF: 3 tramadol 50 mg tablet 100 mg PO BID PRN (Reason: pain) Qty: 60 RF: 2 biotin 1 mg capsule 1 mg PO DAILY RF: 0 omega-3 fatty acids [Fish Oil Concentrate] 1,000 mg capsule 1,000 mg PO DAILY RF: 0 vitamin B complex [B Complex 1] tablet 1 tab PO DAILY RF: 0 duloxetine 60 mg capsule,delayed release(DR/EC) 60 mg PO DAILY RF: 0 ibuprofen 200 MG tablet 800 mg PO PRN PRN (Reason: Pain, Moderate) RF: 0 Referrals: Kristel Oneal ARNP [Primary Care Provider] -
== END 2019-03-10 18:41 | disposition home or self-care (01) ==
PROVIDERS: Emergency Provider Nurse Practitioner Family; PCP Registered Nurse
DX: T78.40XA Allergy, unspecified, initial encounter (principal)
CPT/HCPCS: 93005; 96365; 96372; 96375; 96376; 99284; J0171; J1200; J2930

== ENCOUNTER → 2019-03-22 13:01 | Outpatient (CLI) | payer OTHER, MEDICAID, SELFPAY ==
--- NOTE | 2019-03-22 13:03 | DI.MRI.S_ITS ---
BREAST MRI OF BOTH BREASTS: 03/22/2019 CLINICAL: Patient presented for a right breast diagnostic mammogram with targeted right breast ultrasound on 03/04/19 with a chief complaint of pain and lump on the right breast. There is also report of non-bloody nipple discharge and a Staples abnormality of the lower outer quadrant of the right breast. No mammographic or sonographic abnormalities were reportedly identified on those exams to explain the patient's reported symptoms. Patient also has a history of the BRCA 2 gene. PROCEDURE: MR BREAST BI WO/W CON INDICATIONS: Patient presented for a right breast diagnostic mammogram with targeted right breast ultrasound on 03/04/19 with a chief complaint of pain and lump on the right breast. There is also report of non-bloody nipple discharge and a Staples abnormality of the lower outer quadrant of the right breast. No mammographic or sonographic abnormalities were reportedly identified on those exams to explain the patient's reported symptoms. Patient also has a history of the BRCA 2 gene. TECHNIQUE: The patient was placed prone in a dedicated breast imaging coil. Precontrast axial STIR and 3D FLASH without fat saturation sequences were obtained. Both before and after bolus injection of contrast, sequential 1-minute axial 3D FLASH with fat saturation sequences for 3 time points, with subtraction images and maximum intensity projections (MIP's) generated. Delayed sagittal FLASH images with fat saturation were also obtained. 20 ccs ProHance intravenous contrast was utilized for this exam. Computer-aided detection, including computer algorithm analysis of MRI image data for lesion detection and characterization, pharmacokinetic analysis, with further physician review for interpretation, was performed. COMPARISON: [facility], MM DIAGNOSTIC MAMMO UNILAT RT, 03/04/2019, 15:27. [facility], US BREAST RT LIMITED, 03/04/2019, 14:54. [facility], , MM SCREENING MAMMO BI, 07/16/2018, 12:14. FINDINGS: Image quality: Excellent. There is moderate background parenchymal enhancement. There is scattered fibroglandular tissue bilaterally. Right breast: No suspicious masses or non-mass enhancement. Left breast: No suspicious masses or non-mass enhancement. There is a 0.7 x 0.6 x 0.6 cm intramammary lymph node in the lateral left breast at 2:00 at 3:00 position middle depth (axial image 62 of series 6) which demonstrates preserved central hilar fat, uniform cortical thickness, and T2 signal hyperintensity. Miscellaneous: No axillary or internal mammary lymphadenopathy. IMPRESSION: 1. No suspicious masses or non-mass enhancement identified within the breasts bilaterally. Recommend continued high risk screening protocol with annual screening mammograms and annual breast MRIs at alternating 6 month intervals, with next bilateral screening mammogram due in July 2019 and next screening breast MRI due in January 2020. 2. No axillary or internal mammary lymphadenopathy bilaterally. 3. No MRI findings to explain patient's reported right breast pain, palpable abnormality, or right nipple discharge. Recommend clinical followup for further evaluation and management of the patient's symptoms. BIRADS: Left Breast: 2. Benign findings. Recommend clinical followup. Recommend continued high risk screening protocol with annual screening mammograms and annual breast MRIs at alternating 6 month intervals, with next bilateral screening mammogram due in July 2019 and next screening breast MRI due in January 2020. Right Breast: 1. Negative for malignancy. Recommend clinical followup. Recommend continued high risk screening protocol with annual screening mammograms and annual breast MRIs at alternating 6 month intervals, with next bilateral screening mammogram due in July 2019 and next screening breast MRI due in January 2020. COMMENT: The imaging literature indicates that a negative contrast breast MRI examination has a high sensitivity and a moderate specificity for detecting and excluding invasive carcinomas to a detection threshold of 3-5 mm; nonetheless, appropriate clinical and mammographic follow-up are recommended. MRI is not sensitive for detecting DCIS (ductal carcinoma in situ) and may not detect large invasive neoplasms that show only minimal enhancement such as mucinous carcinoma. If there are suspicious calcifications or clinically worrisome palpable masses, then biopsy should still be considered. Invasive neoplasms can be hidden by co-existent and benign enhancement caused by mastitis, hormone therapy effects, radiation therapy, , and recent biopsy or surgery. False positive examinations can occur in a number of circumstances, including breasts that have recently been subject to invasive procedures and those that contain atypical ductal hyperplasia, hormonally stimulated glandular tissue, fat necrosis, or radial scars. This exam was interpreted at Station ID: [id number]. Electronically Signed By: Abdirashid Rob M.D. ecl/:03/22/2019 16:32:21 copy to: Kristel Oneal letter sent: Clinical Evaluation ACR BI-RADS Category 2: Benign Finding(s) 3342F
== END ==
PROVIDERS: PCP Registered Nurse; Visit Provider Nurse Practitioner Family
DX: R92.8 Other abnormal and inconclusive findings on diagnostic imaging of breast (principal); N64.4 Mastodynia; N63.10 Unspecified lump in the right breast, unspecified quadrant; N64.52 Nipple discharge
CPT/HCPCS: 77049; A9579

== ENCOUNTER → 2019-04-09 16:53 | Outpatient (CLI) | payer OTHER, MEDICAID, SELFPAY | PROVIDERS: PCP Registered Nurse; Visit Provider Nurse Practitioner | DX: M54.9 Dorsalgia, unspecified (principal) | CPT/HCPCS: 87086 ==

== ENCOUNTER 2019-04-30 17:17 | Emergency (ER) | payer OTHER, MEDICAID, SELFPAY ==
[2019-04-30 17:32] VITALS: BP 133/76; PULSE 97; RESP 22; TEMP 36.9; O2SAT 100; BMI 39.3
--- NOTE | 2019-04-30 17:36 | DI.RAD.S_ITS ---
PROCEDURE: XR ANKLE LT MIN 3V INDICATIONS: twisted going down stairs, pain lateral side TECHNIQUE: 3 views of the ankle were acquired. COMPARISON: None. FINDINGS: Bones: No fractures or dislocations. Ankle mortise is normally aligned. No suspicious bony lesions. Soft tissues: No tibiotalar joint effusion. Achilles tendon appears normal. Soft tissue swelling over the lateral malleolus is present. IMPRESSION: No osseous trauma found but there is soft tissue swelling over the lateral malleolus. Dictated by: Celestine Su M.D. on 04/30/2019 at 18:31 Approved by: Celestine Su M.D. on 04/30/2019 at 18:32
[2019-04-30] MEDS: KETOROLAC 60 MG/2 ML VIAL IM (18:32)
--- NOTE | 2019-04-30 19:29 | PC.NURSE ---
Crutch training done with return demo provided by patient. Patient verbalizes understanding of use of air cast and crutches. CMS intact in LLE.
--- NOTE | 2019-04-30 19:34 | ED.LOWEXIN ---
HPI - Extremity Injury (Lower) <Dominique Vargas, ENGINEERING SECRETARY-BC - Last Filed: 04/30/19 19:52> General Chief Complaint: Extremity Injury, Lower Stated Complaint: ankle pain, twisted + popped Time Seen by Provider: 04/30/19 17:57 Source: patient Mode of arrival: Wheelchair Limitations: no limitations History of Present Illness HPI Narrative: The patient is a 24-year-old female nonsmoker with history of kidney stones who presents with a chief complaint of left ankle pain. She states that she fell going down the stairs, denies any other injury, hitting her and neck pain back pain or loss of consciousness. She states that this is an isolated left ankle injury. She has no previous injuries to her left ankle. She states that rolled inward and she felt a pop. She has not applied ice taken any Tylenol or Motrin. She states that nothing else needs to be imaged at this point time. Related Data Home Medications Medication Instructions Recorded Confirmed ibuprofen 800 mg PO PRN PRN 11/30/17 04/09/19 acetaminophen 325 mg capsule 325 mg PO Q6H PRN 01/20/18 04/09/19 baclofen 10 mg tablet 20 mg PO DAILY PRN 02/12/19 04/09/19 duloxetine 60 mg PO DAILY 03/10/19 04/09/19 meloxicam 15 mg tablet 15 mg PO DAILY 04/09/19 04/09/19 Previous Rx's Medication Instructions Recorded tramadol 50 mg tablet 100 mg PO BID PRN #60 tab 02/02/19 epinephrine [EpiPen 2-Jamie] 0.3 mg IM Q20M PRN #1 each 03/10/19 trazodone 100 mg tablet 200 mg PO BEDTIME PRN #60 tab 03/10/19 levofloxacin 500 mg tablet 500 mg PO Q24H #5 tab 04/09/19 phenazopyridine 100 mg tablet 100 mg PO TID PRN #6 tab 04/09/19 ketorolac 10 mg PO TID PRN #15 tab 04/30/19 Allergies Allergy/AdvReac Type Severity Reaction Status Date / Time shellfish derived Allergy Severe ANAPHYLAXIS Verified 04/30/19 17:35 [SHELLFISH DERIVED] adhesive [ADHESIVE] Allergy Mild Verified 04/30/19 17:35 amoxicillin [AMOXICILLIN] Allergy Mild Verified 04/30/19 17:35 doxycycline [DOXYCYCLINE] Allergy Mild Verified 04/30/19 17:35 hydrocodone Allergy Mild rash Verified 04/30/19 17:35 iodine [IODINE] Allergy Mild Verified 04/30/19 17:35 metoclopramide Allergy Mild Verified 04/30/19 17:35 [METOCLOPRAMIDE] Penicillins [PENICILLINS] Allergy Mild Verified 04/30/19 17:35 prochlorperazine Allergy Mild Verified 04/30/19 17:35 [PROCHLORPERAZINE] sulfamethoxazole Allergy Mild RASH Verified 04/30/19 17:35 [From BACTRIM] trimethoprim [From BACTRIM] Allergy Mild RASH Verified 04/30/19 17:35 cephalexin [CEPHALEXIN] Allergy Unknown Verified 04/30/19 17:35 ciprofloxacin [CIPROFLOXACIN] Allergy Unknown Verified 04/30/19 17:35 clindamycin [CLINDAMYCIN] Allergy Unknown Verified 04/30/19 17:35 Iodinated Contrast Media Allergy Unknown Verified 04/30/19 17:35 [IODINATED CONTRAST MEDIA - IV DYE] latex [LATEX] Allergy Unknown Verified 04/30/19 17:35 lidocaine AdvReac Palpitation Verified 04/30/19 18:25 s Review of Systems <SAPPHIRE Pandya - Last Filed: 04/30/19 19:52> Review of Systems Narrative: GENERAL: Denies chills, fatigue, malaise, fever, sweats. HEENT: Denies sinus pain, ear pain, sore throat, difficulty swallowing, dizziness. RESPIRATORY: Denies dyspnea, cough, wheezing, hemoptysis, sputum. CARDIOVASCULAR: Denies chest pain, palpitations, orthopnea, edema, GASTROINTESTINAL: Denies nausea, vomiting, abdominal pain, diarrhea, constipation, melena. : Denies dysuria, frequency, incontinence, hematuria, urinary retention. MUSCULOSKELETAL: See HPI SKIN: See HPI NEUROLOGIC: Denies weakness, headache, numbness, change in speech, confusion, seizures, incoordination. PSYCHIATRIC: No concerning psychosocial issues. 12 point review of systems is negative except for those stated above Patient History <SAPPHIRE Pandya - Last Filed: 04/30/19 19:52> Medical History BRCA positive (Chronic) Ovarian cyst (Resolved) Pelvic congestion (Resolved 2013) Surgical History Status post appendectomy (Resolved 2003) Status post bilateral salpingectomy (Resolved 09/01/17) Status post dilation and curettage (Resolved 2010) Status post dilation and curettage (Resolved 2011) Status post knee surgery (Resolved 2007) Status post knee surgery (Resolved 2012) Status post laparoscopic supracervical hysterectomy (Resolved 09/01/17) Status post laparoscopy (Resolved 2003) Status post laparoscopy (Resolved 2011) Status post laparoscopy (Resolved 2004) Status post removal of cervix (Resolved) Status post tonsillectomy and adenoidectomy (Resolved) Family History Mother BRCA positive Grandmother Ovarian cancer Breast cancer Social History Smoking Status: Never smoker alcohol intake frequency: 0-2 drinks per day Substance Use Type: does not use Exam <SAPPHIRE Pandya - Last Filed: 04/30/19 19:52> Narrative Exam Narrative: GENERAL: This is a well-nourished, well-developed patient, in no acute distress HEAD: Atraumatic. Normocephalic. No temporal or scalp tenderness. EYES: Pupils equal round and reactive. Extraocular motions intact. No scleral icterus. No injection or drainage. ENT: Nose without bleeding, purulent drainage or septal hematoma. Throat without erythema, tonsillar hypertrophy or exudate. Uvula midline. Airway patent. NECK: Trachea midline. No JVD or lymphadenopathy. Supple, nontender, no meningeal signs. CARDIOVASCULAR: Regular rate and rhythm RESPIRATORY: No cough. No increased respiratory effort. No accessory muscle use. EXTREMITIES: General pain to palpation noted left ankle. Swelling noted lateral aspect distal to lateral malleolus. Positive pedal pulses. Able to flex and extend left ankle. BACK: Nontender without deformity or crepitance. No flank tenderness. No pain to C-spine palpation NEURO: AOx3. No gross cranial nerve deficit. Clear speech. SKIN: No rash or erythema laceration or abrasion noted on visible skin or left ankle. Slight swelling noted on lateral aspect of left ankle. Initial Vital Signs Initial Vital Signs: Vital Signs Temperature 98.4 F 04/30/19 17:32 Pulse Rate 97 H 04/30/19 17:32 Respiratory Rate 22 04/30/19 17:32 Blood Pressure 133/76 04/30/19 17:32 Pulse Oximetry 100 04/30/19 17:32 <Nate Padilla DO - Last Filed: 04/30/19 21:44> Initial Vital Signs Initial Vital Signs: Vital Signs Temperature 98.4 F 04/30/19 17:32 Pulse Rate 97 H 04/30/19 17:32 Respiratory Rate 22 04/30/19 17:32 Blood Pressure 133/76 04/30/19 17:32 Pulse Oximetry 100 04/30/19 17:32 Procedures <SAPPHIRE Pandya - Last Filed: 04/30/19 19:52> Orthopedic Splinting/Casting Injury #1: Side: left Lower Extremity Injury Location: ankle Lower Extremity Immobilizer: AirCast and Bobo wrap Other Orthopedic Equipment: crutches Post splinting neuro exam: intact Post splinting vascular exam: intact Placed by: Nursing Course <SAPPHIRE Pandya - Last Filed: 04/30/19 19:52> Orders Ordered: ED Orders 04/30/19 17:36 XR ankle LT min 3V Stat Discontinued Medications Ketorolac Tromethamine (Toradol) 60 mg IM NOW ONE Stop: 04/30/19 18:24 Last Admin: 04/30/19 18:32 Dose: 60 mg Documented by: LREED Vital Signs Vital signs: Vital Signs - 8 hr 04/30/19 17:32 04/30/19 19:38 Temperature 98.4 F Pulse Rate 97 H 79 Respiratory Rate 22 16 Blood Pressure 133/76 109/78 Pulse Oximetry 100 99 <Nate Padilla DO - Last Filed: 04/30/19 21:44> Orders Ordered: ED Orders 04/30/19 17:36 XR ankle LT min 3V Stat Discontinued Medications Ketorolac Tromethamine (Toradol) 60 mg IM NOW ONE Stop: 04/30/19 18:24 Last Admin: 04/30/19 18:32 Dose: 60 mg Documented by: LREED Vital Signs Vital signs: Vital Signs - 8 hr 04/30/19 17:32 04/30/19 19:38 Temperature 98.4 F Pulse Rate 97 H 79 Respiratory Rate 22 16 Blood Pressure 133/76 109/78 Pulse Oximetry 100 99 MDM - Extremity Injury (Lower) <Dominique VargasDARREN-BC - Last Filed: 04/30/19 19:52> Imaging Data Ankle x-ray: Radiologist's impression: [address] [address] XRay Report Signed Patient: Ni Varner [facility]#: [id number] : 1995Acct:[id number] Age/Sex: 24 / FDate of Service: 04/30/19 Loc: ED Accession Number: [id number] Procedure: XR ankle LT min 3V Ordering Provider: Marylou Orellana D.O. PROCEDURE: XR ANKLE LT MIN 3V INDICATIONS: twisted going down stairs, pain lateral side TECHNIQUE: 3 views of the ankle were acquired. COMPARISON: None. FINDINGS: Bones: No fractures or dislocations. Ankle mortise is normally aligned. No suspicious bony lesions. Soft tissues: No tibiotalar joint effusion. Achilles tendon appears normal. Soft tissue swelling over the lateral malleolus is present. IMPRESSION: No osseous trauma found but there is soft tissue swelling over the lateral malleolus. Dictated by: Celestine Su M.D. on 04/30/2019 at 18:31 Approved by: Celestine Su M.D. on 04/30/2019 at 18:32 [facility] Narrative Medical decision making narrative: The patient is a 24-year-old female with history of kidney stones who presents with a chief complaint of ankle pain after twisting her ankle falling on the stairs. She denies any other injuries from the fall, denies any other imaging. Her x-ray came back with no acute fracture. I discussed that this does not rule out any soft tissue injury. It is difficult to evaluate her range of motion in the emergency department given pain. She was given ice and Toradol in the emergency department. I discussed at length not using Toradol with any other anti-inflammatories such as Mobic and ibuprofen. Encourage PCP follow-up in the next few days. Given her level pain, she was placed in Aircast as well as crutches and an Bobo bandage. She was neurovascularly intact before and after. Patient has no questions or concerns upon discharge and states understanding of return precautions as well as follow-up care. Patient states understanding of discharge instructions and has no questions or concerns regarding follow-up care or return precautions. Discharge Plan Departure Patient Disposition: Home Clinical Impression: Ankle sprain and strain Discharge Date/Time: 04/30/19 19:38 Instructions: DI for Ankle Sprain, How To Perform RICE (Rest, Ice, Compress, Elevate), DI for Ankle Pain Activity Restrictions/Additional Instructions: As I discussed, your x-ray shows no acute fracture. This does not rule out a soft tissue injury such as a ligament or tendon injury. It is important that you follow up with primary care provider, especially if worsening or no improvement. There can be fractures that did not show up on initial x-ray. I have given you a prescription of Toradol. This is an NSAID. Do not combine it with other NSAIDs such as Aleve or ibuprofen. I suggest taking it with some food, as it can irritate your stomach. Please follow up with primary care provider in the next few days. Please come back to emergency department for any acute concerns. Prescriptions: New ketorolac 10 mg tablet 10 mg PO TID PRN (Reason: pain) Qty: 15 RF: 0 No Action trazodone 100 mg tablet 200 mg PO BEDTIME PRN (Reason: insomnia) Qty: 60 RF: 6 acetaminophen [Tylenol] 325 mg capsule 325 mg PO Q6H PRN (Reason: Pain, Mild) RF: 0 baclofen 10 mg tablet 20 mg PO DAILY PRN (Reason: Spasms) RF: 0 meloxicam 15 mg tablet 15 mg PO DAILY RF: 0 levofloxacin 500 mg tablet 500 mg PO Q24H Qty: 5 RF: 0 phenazopyridine [Pyridium] 100 mg tablet 100 mg PO TID PRN (Reason: pain) Qty: 6 RF: 0 tramadol 50 mg tablet 100 mg PO BID PRN (Reason: pain) Qty: 60 RF: 2 duloxetine 60 mg capsule,delayed release(DR/EC) 60 mg PO DAILY RF: 0 epinephrine [EpiPen 2-Jamie] 0.3 mg/0.3 mL auto-injector 0.3 mg IM Q20M PRN (Reason: anaphylaxis) Qty: 1 RF: 0 ibuprofen 200 MG tablet 800 mg PO PRN PRN (Reason: Pain, Moderate) RF: 0 Referrals: Kristel Oneal ARNP [Primary Care Provider] - <Nate Padilla DO - Last Filed: 04/30/19 21:44> Sign Out Provider Sign Out Attestation: Dr Padilla Co-Sign Statement: I was available for consultation during this patient's emergency department visit. This chart is signed by myself for administrative purposes only. I did not have direct contact with this patient during this visit. They were seen independently by the APC.
[2019-04-30 19:38] VITALS: BP 109/78; PULSE 79; RESP 16; O2SAT 99
== END 2019-04-30 19:38 | disposition home or self-care (01) ==
PROVIDERS: Emergency Provider Nurse Practitioner Family; PCP Registered Nurse
DX: S93.402A Sprain of unspecified ligament of left ankle, initial encounter (principal); S96.912A Strain of unspecified muscle and tendon at ankle and foot level, left foot, initial encounter; W10.9XXA Fall (on) (from) unspecified stairs and steps, initial encounter
CPT/HCPCS: 29540; 73610; 96372; 99283; J1885

== ENCOUNTER → 2019-08-19 09:11 | Outpatient (CLI) | payer OTHER, MEDICAID, SELFPAY | PROVIDERS: PCP Registered Nurse; Visit Provider Registered Nurse | DX: N39.0 Urinary tract infection, site not specified (principal) | CPT/HCPCS: 87086 ==

== ENCOUNTER → 2019-09-13 11:47 | Outpatient (CLI) | payer OTHER, MEDICAID, SELFPAY | PROVIDERS: PCP Registered Nurse; Visit Provider Registered Nurse | DX: N39.0 Urinary tract infection, site not specified (principal) | CPT/HCPCS: 87086 ==

== ENCOUNTER 2019-12-09 16:00 | Outpatient (RCR) | payer OTHER, MEDICAID, SELFPAY ==
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
--- NOTE | 2019-12-09 17:19 | PT.OPPOC ---
Physical, Occupational & Speech Therapy At [facility] Current Diagnoses Pelvic and perineal pain (12/09/19) Visit Care Team Role Provider Type GABRIELA Salazar Primary Care Provider Advanced Hot Tamale Worker Specialty: Medical Address: [address] [place] [address], [id number] Email: [email or web address] Attending Provider Specialty: Address: Phone: Fax: Email: Plan Of Care PT-OP-T Assessment and Plan Start: 06/16/19 09:26 Freq: Status: Active Protocol: Document 12/09/19 16:59 [facility] (Rec: 12/09/19 17:14 [facility] [email or web address]) Physical Therapy Assessment Goals Three Impairment hypertonicity of the pelvic floor Prison Goal (LTG) With yoga for the pelvic floor , breathing techniques, and contract relax Ni is able to fully relax her pelvic floor at baseline on EMG biofeedback Two Impairment pain to palpation right greater than left anterior pelvis Short Term Goal (STG) Ni is no longer tender to palpation over her abdominal wall and is able to tolerate abdominal massage for improved fascial mobility One Impairment pelvic pain rated 8/10 Short Term Goal (STG) Ni is able to reduce her pain to 5/10 or less STG Duration 6 weeks Cash Applications Clerk Goal (LTG) Ni is able to return to a exercise program and return to intercourse with her with overall reduced pain levels LTG Duration 8 weeks plus Assessment Summary Assessment Ni was seen for 3 visits in PT prior to Covid 19 pandemic. She returns to PT today with continued symptoms of pelvic pain and tightness. She notes she has done some of her stretches but hasn't been able to keep up with her program. I worked with Ni today reviewing stretches for pelvic pain as well as adding in iliopsoas stretches. She is sitting in a forward lean position and I talked with her today regarding her posture and how her posture can contribute to pelvic pain symptoms. Ni would benefit from resuming PT and working towards decreasing her chronic pelvic pain symptoms Physical Therapy Plan Frequency and Duration Frequency of Treatment 1x/Week Duration of Treatment 8 Plan of Care Start Date 12/09/19 Plan of Care End Date 02/09/20 Therapeutic Interventions Therapeutic Interventions Home Exercise Program,Manual Therapy,Neuromuscular Re- education,Self-Care/Home Management,Soft Tissue Mobilization,Therapeutic Exercises Modalities Biofeedback Next Visit Focus/Plan Next Note Type Treatment Note Next Visit Plan Work on EMG biofeedback down training of the pelvic floor musculature, MFR over the pelvis, stretches for the anterior pelvis and hips Plan of Care Dates Plan of Care Start Date 12/09/19 Plan of Care End Date 02/09/20 Electronically Signed by: Sanjuanita Bowen, PT 12/09/19 2401 Please Sign and Return: I have reviewed this Plan of Care and certify that the skilled therapy services above are required to meet the patient?s needs. Physician Signature Date Printed Name and Credentials Clinical Instructor Signature Printed Name and Credentials
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
== END 2020-02-15 11:04 ==
LOC: PHYS 16:00
PROVIDERS: PCP Registered Nurse
DX: R10.2 Pelvic and perineal pain (principal)
CPT/HCPCS: 97110; 97140; 97161; 97535

== ENCOUNTER → 2020-01-14 10:25 | Outpatient (CLI) | payer OTHER, MEDICAID, SELFPAY ==
[2020-01-14 12:04] LABS: Alanine Aminotransferase 23 IU/L (<35); Albumin 4.2 g/dL (3.5-5.0); Albumin Globulin Ratio 1.6 (1.0-2.8); Alkaline Phosphatase 57 U/L (38-126); Aspartate Aminotransferase 23 IU/L (14-36); BUN Creatinine Ratio 19.5 (6-22); Bilirubin Total 0.7 mg/dL (0.2-1.3); Blood Urea Nitrogen 17 mg/dL (7-17); Calcium 9.8 mg/dL (8.4-10.2); Carbon Dioxide 26 mmol/L (22-32); Chloride 102 mmol/L (98-107); Cholesterol 247 mg/dL (140-199); Estimated Glomerular Filt Rate > 60.0 mL/min (>60); Globulin 2.6 g/dL (1.7-4.1); Glucose 82 mg/dL (70-100); HDL Cholesterol 29 mg/dL (40-60); HEMOLYSIS < 15 (0-50); LDL Cholesterol Calculated 153 mg/dL (<100); Potassium 4.3 mmol/L (3.4-5.1); Sodium 136 mmol/L (137-145); Total Protein 6.8 g/dL (6.3-8.2); Triglycerides 327 mg/dL (35-150)
[2020-01-14 12:31] LABS: TSH w/ Reflex to FT4 0.87 uIU/mL (0.47-4.68)
== END ==
PROVIDERS: PCP Family Medicine; Referring Provider Family Medicine; Visit Provider Family Medicine
DX: E66.9 Obesity, unspecified (principal)
CPT/HCPCS: 36415; 80053; 80061; 84443

== ENCOUNTER → 2020-03-02 11:03 | Outpatient (CLI) | payer OTHER, MEDICAID, SELFPAY ==
--- NOTE | 2020-03-02 | DI.MRI.S_ITS ---
BREAST MRI OF BOTH BREASTS: 03/02/2020 CLINICAL: Routine screening. BRCA 2 positive. Comparison is made to exams dated: 03/22/2019 breast MRI, 03/04/2019 mammogram, 07/16/2018 mammogram, and 03/02/2020 mammogram - [facility]. Gadolinium contrast calibrated to patient weight was injected. MRI images were obtained. Bilateral background breast enhancement is mild. TECHNIQUE: The patient was placed prone in a dedicated breast imaging coil. Precontrast axial STIR and 3D FLASH without fat saturation sequences were obtained. Both before and after bolus injection of contrast, sequential 1-minute axial 3D FLASH with fat saturation sequences for 3 time points, with subtraction images and maximum intensity projections (MIP's) generated. Delayed sagittal FLASH images with fat saturation were also obtained. Computer-aided detection, including computer algorithm analysis of MRI image data for lesion detection and characterization, pharmacokinetic analysis, with further physician review for interpretation, was performed. COMPARISON: [facility], MR, MR BREAST BI WO/W CON, 03/22/2019, 13:26. FINDINGS: Image quality: Excellent. There is mild background parenchymal enhancement. Right breast: No suspicious mass or non mass enhancement is seen within the right breast. Left breast: No suspicious mass or non mass enhancement is seen within the left breast. A stable 7 mm intramammary lymph node is seen in the lateral left breast at the 2-3 o'clock position middle with preserved fatty hilum, unchanged when compared to the prior MRI from 03/22/2019. Miscellaneous: No axillary lymphadenopathy. No significant abnormality is seen in the included chest wall. IMPRESSION: BENIGN No suspicious mass or non mass enhancement is seen in either breast. Recommend continued high risk screening protocol with annual screening mammograms and annual breast MRIs at alternating 6 month intervals. BIRADS 2 COMMENT: The imaging literature indicates that a negative contrast breast MRI examination has a high sensitivity and a moderate specificity for detecting and excluding invasive carcinomas to a detection threshold of 3-5 mm; nonetheless, appropriate clinical and mammographic follow-up are recommended. MRI is not sensitive for detecting DCIS (ductal carcinoma in situ) and may not detect large invasive neoplasms that show only minimal enhancement such as mucinous carcinoma. If there are suspicious calcifications or clinically worrisome palpable masses, then biopsy should still be considered. Invasive neoplasms can be hidden by co-existent and benign enhancement caused by mastitis, hormone therapy effects, radiation therapy, , and recent biopsy or surgery. False positive examinations can occur in a number of circumstances, including breasts that have recently been subject to invasive procedures and those that contain atypical ductal hyperplasia, hormonally stimulated glandular tissue, fat necrosis, or radial scars. A 1 year screening mammogram and a breast MRI is recommended. This exam was interpreted at Station ID: [id number]. Electronically Signed By: Alexi oconnell/ericka:03/02/2020 13:04:29 copy to: Kristel Oneal copy to: Lorna Boyd letter sent: Normal Exam ACR BI-RADS Category 2: Benign Finding(s) 3342F
--- NOTE | 2020-03-02 | DI.MG.S_ITS ---
BILATERAL DIGITAL SCREENING MAMMOGRAM 3D/2D WITH CAD: 03/02/2020 CLINICAL: Routine screening. BRCA 2 positive surveillance. Family history of breast cancer. Comparison is made to exams dated: 03/04/2019 mammogram, 07/16/2018 mammogram, and 10/24/2016 mammogram - [facility]. The tissue of both breasts is heterogeneously dense. This may lower the sensitivity of mammography. Current study was also evaluated with a Computer Aided Detection (CAD) system. No significant masses, calcifications, or other findings are seen in either breast. There has been no significant interval change. IMPRESSION: NEGATIVE There is no mammographic evidence of malignancy. A 1 year screening mammogram is recommended. This exam was interpreted at Station ID: [id number]. NOTE: For mammograms, a report in lay terms will be sent to the patient. Approximately 15% of breast malignancies will not be visualized mammographically. In the management of a palpable breast mass, a negative mammogram must not discourage biopsy of a clinically suspicious lesion. Electronically Signed By: Alexi oconnell/ericka:03/02/2020 11:58:13 copy to: Kristel Oneal copy to: Lorna Boyd letter sent: Normal Exam ACR BI-RADS Category 1: Negative 3341F
== END ==
PROVIDERS: PCP Family Medicine; Referring Provider Family Medicine; Visit Provider Family Medicine
DX: Z12.39 Encounter for other screening for malignant neoplasm of breast (principal); Z15.01 Genetic susceptibility to malignant neoplasm of breast
CPT/HCPCS: 77049; 77063; 77067

== ENCOUNTER 2020-03-28 14:10 | Emergency (ER) | payer OTHER, MEDICAID, SELFPAY ==
[2020-03-28 14:25] VITALS: BP 139/81; PULSE 89; RESP 16; TEMP 36.4; O2SAT 97; BMI 40.2
--- NOTE | 2020-03-28 14:33 | DI.CT.S_ITS ---
PROCEDURE: CT KIDNEY URETER BLADDER (KUB) INDICATIONS: hx of obstructive kidney stone, c/o hematuria, back pain, n/ TECHNIQUE: Noncontrast 5 mm thick sections acquired from the diaphragms to the symphysis. 5 mm thick coronal and sagittal reformats were then performed. For radiation dose reduction, the following was used: automated exposure control, adjustment of mA and/or kV according to patient size. COMPARISON: [facility], CT, CT KIDNEY URETER BLADDER (KUB), 03/28/2018, 11:05. FINDINGS: Image quality: Excellent. Lung bases: Lung bases are clear. Heart size is normal. Urinary system: Right kidney: Faint paintbrush calcifications suggesting renal tubular acidosis. 1 mm lower pole nonobstructing stone. No hydronephrosis. Right ureter: Unremarkable Left kidney: Minimal faint paintbrush calcifications suggesting renal tubular acidosis. No measurable stone. No hydronephrosis. Left ureter: Unremarkable Bladder: No bladder stones. No bladder wall thickening. Other solid organs: Liver is normal in size. Gallbladder is unremarkable . Pancreas is normal in contours. Spleen is normal in size. No adrenal nodules. Peritoneum and bowel: Unenhanced bowel loops demonstrate normal wall thickness and caliber. No free fluid or air. Nodes and vessels: No retroperitoneal or mesenteric adenopathy by size criteria. Aorta and inferior vena cava are normal in caliber. Abdominal wall: No ventral hernias. Pelvis: No free pelvic fluid. No inguinal hernias or adenopathy. Uterus is surgically absent. Bones: No suspicious bony lesions. No vertebral body compression fractures. IMPRESSION: 1. Findings suggesting bilateral mild changes of renal tubular acidosis. 2. No ureteral stone. No hydronephrosis. Dictated by: Mekhi Turner M.D. on 03/28/2020 at 15:14 Approved by: Mekhi Turner M.D. on 03/28/2020 at 15:18
--- NOTE | 2020-03-28 14:54 | ED.FEMALEGU ---
HPI - Female Genitourinary <GABRIELA Ding - Last Filed: 03/28/20 16:42> General Chief complaint: Urogenital-Female Stated complaint: KIDNEY STONE NAUSEA PEEING BLOOD Time Seen by Provider: 03/28/20 14:22 Source: patient Mode of arrival: Ambulatory Limitations: no limitations History of Present Illness HPI Narrative: This is a 25-year-old female, nonsmoker, who has history of multiple kidney stones and obstructive kidney stone with urinary stent surgery presents to ED with chief complain of right flank pain with nausea and 4 episodes of vomiting which started yesterday. She noticed some urinary urgency, burning, hematuria and difficulty with urination before flank pain and nausea and vomiting started. Patient reports she used to [facility] and last visit was about 2 years ago with a stent insertion. Patient denies fever, chills. Patient reports pain as 6 to 7/10 and describes as sharp waves and deep pain in right flank. Patient reports some suprapubic tenderness. Patient reports father has history of kidney stones. She has history of pelvic congestion and pain with frequent uterine infection and is status post hysterectomy. Related Data Home Medications Medication Instructions Recorded Confirmed ibuprofen 800 mg PO PRN PRN 11/30/17 02/23/20 acetaminophen 325 mg capsule 325 mg PO Q6H PRN 01/20/18 02/23/20 baclofen 10 mg tablet 20 mg PO DAILY PRN 02/12/19 02/23/20 Previous Rx's Medication Instructions Recorded tramadol 50 mg tablet 100 mg PO BID PRN #60 tab 02/02/19 epinephrine [EpiPen 2-Jamie] 0.3 mg IM Q20M PRN #1 each 03/10/19 trazodone 100 mg tablet 200 mg PO BEDTIME PRN #60 tab 09/30/19 albuterol sulfate 90 mcg/actuation 2 puff INHALATION QID PRN #8.5 gram 02/15/20 aerosol inhaler lorazepam 0.5 mg tablet 0.5 mg PO Q8H PRN #15 tab 03/08/20 sertraline 25 mg tablet 50 mg PO DAILY #60 tab 03/08/20 promethazine 25 mg tablet 25 mg PO TID PRN #60 tab 03/09/20 lorazepam 1 mg tablet See Rx Instructions .ROUTE 03/23/20 .COMPLEX #20 tab ondansetron 4 mg PO Q8H PRN #7 tab 03/28/20 oxycodone-acetaminophen [Percocet] 1 tab PO Q8H PRN #10 tab 03/28/20 Allergies Allergy/AdvReac Type Severity Reaction Status Date / Time shellfish derived Allergy Severe ANAPHYLAXIS Verified 03/28/20 14:28 [SHELLFISH DERIVED] adhesive [ADHESIVE] Allergy Mild Verified 03/28/20 14:28 amoxicillin [AMOXICILLIN] Allergy Mild Verified 03/28/20 14:28 doxycycline [DOXYCYCLINE] Allergy Mild Verified 03/28/20 14:28 hydrocodone Allergy Mild rash Verified 03/28/20 14:28 iodine [IODINE] Allergy Mild Verified 03/28/20 14:28 metoclopramide Allergy Mild Verified 03/28/20 14:28 [METOCLOPRAMIDE] Penicillins [PENICILLINS] Allergy Mild Verified 03/28/20 14:28 prochlorperazine Allergy Mild Verified 03/28/20 14:28 [PROCHLORPERAZINE] sulfamethoxazole Allergy Mild RASH Verified 03/28/20 14:28 [From BACTRIM] trimethoprim [From BACTRIM] Allergy Mild RASH Verified 03/28/20 14:28 cephalexin [CEPHALEXIN] Allergy Unknown Verified 03/28/20 14:28 ciprofloxacin [CIPROFLOXACIN] Allergy Unknown Verified 03/28/20 14:28 clindamycin [CLINDAMYCIN] Allergy Unknown Verified 03/28/20 14:28 Iodinated Contrast Media Allergy Unknown Verified 03/28/20 14:28 [IODINATED CONTRAST MEDIA - IV DYE] latex [LATEX] Allergy Unknown Verified 03/28/20 14:28 lidocaine AdvReac Palpitation Verified 03/28/20 14:28 s Review of Systems <GABRIELA Ding - Last Filed: 03/28/20 16:42> Review of Systems Narrative: General: Denies fever, chills, fatigue, malaise, sweats. HEENT: Denies sinus pain, ear pain, sore throat, difficulty swallowing, dizziness. Respiratory: Denies dyspnea, cough, wheezing, hemoptysis, sputum. Cardiovascular: Denies chest pain, palpitations, orthopnea, edema. Gastrointestinal: See HPI : See HPI Musculoskeletal: See HPI Skin: Denies rash, skin lesions, or other. Neurologic: Denies weakness, headache, numbness, change in speech, confusion, seizures, incoordination. Psychiatric: No concerning psychosocial issues. 12-point review of systems is negative except for those stated above. Patient History <GABRIELA Ding - Last Filed: 03/28/20 16:42> Medical History BRCA positive (Chronic) Morbid obesity (Chronic) Nephrolithiasis (Acute ~2018) Ovarian cyst (Resolved) Patellar dislocation (Acute) Pelvic congestion (Resolved 2013) Surgical History H/O: hysterectomy (Acute) History of ureter stent (Acute) Status post appendectomy (Resolved 2003) Status post bilateral salpingectomy (Resolved 09/01/17) Status post dilation and curettage (Resolved 2010) Status post dilation and curettage (Resolved 2011) Status post knee surgery (Resolved 2007) Status post knee surgery (Resolved 2012) Status post laparoscopic supracervical hysterectomy (Resolved 09/01/17) Status post laparoscopy (Resolved 2003) Status post laparoscopy (Resolved 2011) Status post laparoscopy (Resolved 2004) Status post removal of cervix (Resolved) Status post tonsillectomy and adenoidectomy (Resolved) Family History Mother BRCA positive Hyperlipidemia CAD (coronary artery disease) Hypertension Grandmother Ovarian cancer Breast cancer alcohol intake frequency: 0-2 drinks per day Substance Use Type: does not use Exam <GABRIELA Ding - Last Filed: 03/28/20 16:42> Narrative Exam Narrative: GEN: Alert, oriented x 3, well appearing and nourished, and in no acute distress. Head: Normal cephalic, atraumatic. No scalp or temporal tenderness, palpable mass or rash. EYES: Pupils are equal, round, and reactive to light and accommodation. Extraocular muscles are intact bilaterally. There is no subconjunctival hemorrhage, exudate and sclera non-icteric. ENT: earing grossly intact. Nose without bleeding, purulent discharge or deviation. Mucous membrane moist, no mucosal lesion. Throat without erythema, tonsillar hypertrophy or exudate. Uvula in midline, airway patent. Neck: Trachea in midline. No JVD, non-tender without lymphadenopathy. No masses or thyroid megaly. Supple, non-tender and no meningeal signs. CARDIAC: Normal regular rate and rhythm without murmurs, gallops, or rubs. No chest wall tenderness. No peripheral edema, cyanosis or pallor. Capillary refill is less than 2 seconds. RESPIRATORY: Lungs are clear to auscultate bilaterally. No cough, wheezes, rales, or rhonchi. No stridor, respiratory distress, increase work of breathing, or accessary muscle used. ABD: Abdomen soft and non-distended. Suprapubic tenderness to palpate. No guarding or rebound tenderness to palpate. Bowel sounds are normal in all 4 quadrants. There is no palpable masses or organomegaly. EXT: Full painless ROM of all extremities with no loss of sensation, strength, effusion or edema. SKIN: Warm, dry, normal color for patient. No erythema, lesions or rash over visible areas. BACK: No deformity or crepitance. Right flank tenderness to percuss. NEUROLOGICAL: Alert and oriented to place, time and person. Sensation and motor function intact bilaterally. No facial droops, dysphasia. PSYCHIATRIC: Good judgement and reason, without hallucinations, abnormal affect or abnormal behaviors during the examination. Patient is not suicidal. Initial Vital Signs Initial Vital Signs: Vital Signs Temperature 97.5 F L 03/28/20 14:25 Pulse Rate 89 03/28/20 14:25 Respiratory Rate 16 03/28/20 14:25 Blood Pressure 139/81 03/28/20 14:25 Pulse Oximetry 97 03/28/20 14:25 <Nate Padilla DO - Last Filed: 03/28/20 17:02> Initial Vital Signs Initial Vital Signs: Vital Signs Temperature 97.5 F L 03/28/20 14:25 Pulse Rate 89 03/28/20 14:25 Respiratory Rate 16 03/28/20 14:25 Blood Pressure 139/81 03/28/20 14:25 Pulse Oximetry 97 03/28/20 14:25 Scores <GABRIELA Ding - Last Filed: 03/28/20 16:42> GCS Ez coma scale eye opening: Spontaneous Ez coma scale verbal response: Orientated Ez coma scale motor response: Obey commands [place] coma scale total score: 15 qSOFA Altered Mental Status (GCS <15): No Respiratory rate greater than/equal to 22: No Systolic blood pressure less than or equal to 100: No qSOFA Total: 0 0-1 Not High Risk 1-3 High risk Course <GABRIELA Ding - Last Filed: 03/28/20 16:42> Orders Ordered: ED Orders 03/28/20 14:15 Urine Microscopic Stat 03/28/20 14:33 CT kidney ureter bladder (KUB) Stat 03/28/20 15:00 Basic Metabolic Panel Stat Complete Blood Count AUTO DIFF Stat Lactate (Lactic Acid) Stat Sodium Chloride (Normal Saline 0.9%) 1,000 mls @ 150 mls/hr IV CONT JERI Last Infusion: 03/28/20 16:09 Dose: 0 mls/hr Documented by: Admin: 03/28/20 15:19 Dose: 150 mls/hr Documented by: ZENA Discontinued Medications Hydromorphone HCl (Dilaudid) 0.5 mg IV NOW ONE Stop: 03/28/20 15:58 Last Admin: 03/28/20 16:08 Dose: 0.5 mg Documented by: ZENA Ketorolac Tromethamine (Toradol) 15 mg IV NOW ONE Stop: 03/28/20 14:34 Last Admin: 03/28/20 15:19 Dose: 15 mg Documented by: ZENA Ondansetron HCl (Zofran) 4 mg IV NOW ONE Stop: 03/28/20 14:34 Last Admin: 03/28/20 15:19 Dose: 4 mg Documented by: ZENA Ondansetron HCl (Zofran) 4 mg IV NOW ONE Stop: 03/28/20 15:58 Last Admin: 03/28/20 16:08 Dose: 4 mg Documented by: ZENA Vital Signs Vital signs: Vital Signs - 8 hr 03/28/20 14:25 03/28/20 16:33 03/28/20 16:53 Temperature 97.5 F L Pulse Rate 89 76 71 Respiratory Rate 16 18 Blood Pressure 139/81 124/58 L 128/67 Pulse Oximetry 97 99 98 <Nate Padilla DO - Last Filed: 03/28/20 17:02> Orders Ordered: ED Orders 03/28/20 14:15 Urine Microscopic Stat 03/28/20 14:33 CT kidney ureter bladder (KUB) Stat 03/28/20 15:00 Basic Metabolic Panel Stat Complete Blood Count AUTO DIFF Stat Lactate (Lactic Acid) Stat Sodium Chloride (Normal Saline 0.9%) 1,000 mls @ 150 mls/hr IV CONT JERI Last Infusion: 03/28/20 16:09 Dose: 0 mls/hr Documented by: Admin: 03/28/20 15:19 Dose: 150 mls/hr Documented by: ZENA Discontinued Medications Hydromorphone HCl (Dilaudid) 0.5 mg IV NOW ONE Stop: 03/28/20 15:58 Last Admin: 03/28/20 16:08 Dose: 0.5 mg Documented by: ZENA Ketorolac Tromethamine (Toradol) 15 mg IV NOW ONE Stop: 03/28/20 14:34 Last Admin: 03/28/20 15:19 Dose: 15 mg Documented by: ZENA Ondansetron HCl (Zofran) 4 mg IV NOW ONE Stop: 03/28/20 14:34 Last Admin: 03/28/20 15:19 Dose: 4 mg Documented by: ZENA Ondansetron HCl (Zofran) 4 mg IV NOW ONE Stop: 03/28/20 15:58 Last Admin: 03/28/20 16:08 Dose: 4 mg Documented by: ZENA Vital Signs Vital signs: Vital Signs - 8 hr 03/28/20 14:25 03/28/20 16:33 03/28/20 16:53 Temperature 97.5 F L Pulse Rate 89 76 71 Respiratory Rate 16 18 Blood Pressure 139/81 124/58 L 128/67 Pulse Oximetry 97 99 98 MDM - Female Genitourinary <GABRIELA Ding - Last Filed: 03/28/20 16:42> Differential Diagnosis Differential diagnosis: Likely urinary tract infection, cystitis and other (Kidney stone) Medical Records Attestation: I reviewed the patient's medical records. Lab Data Attestation: I reviewed the patient's lab results. Result diagrams: 03/28/20 15:00 03/28/20 15:00 Labs: Lab Results 03/28/20 03/28/20 03/28/20 Range/Units 14:15 15:00 15:00 WBC 5.9 (4.5-11.0) X10^3/uL RBC 4.37 (4.0-5.2) X10^6/uL Hgb 13.5 (12.0-16.0) g/dL Hct 38.6 (36-46) % MCV 88.3 (80-100) fL MCH 31.0 (26-34) PG MCHC 35.1 (30-36) % RDW 13.2 (11.6-14.8) % Plt Count 254 (150-400) X10^3/uL Neut % (Auto) 51.2 (50-75) % Lymph % (Auto) 36.7 (25-40) % [place] % (Auto) 10.4 (3-14) % Eos % (Auto) 1.1 L (2-4) % Baso % (Auto) 0.6 (0-2) % Neut # (Auto) 3000 (1505-8220) /uL Lymph # (Auto) 2200 (9600-2283) /uL [place] # (Auto) 600 (0-900) /uL Eos # (Auto) 100 (0-450) /uL Baso # (Auto) 0 (0-100) /uL Sodium 138 (137-145) mmol/L Potassium 4.1 (3.4-5.1) mmol/L Chloride 104 (98-107) mmol/L Carbon Dioxide 28 (22-32) mmol/L BUN 16 (7-17) mg/dL Creatinine 0.71 (0.52-1.04) mg/dL Estimated GFR > 60.0 (>60) mL/min BUN/Creatinine Ratio 22.5 H (6-22) Glucose 106 H (70-100) mg/dL Lactate (0.7-2.1) mmol/L Calcium 9.5 (8.4-10.2) mg/dL Urine RBC 30-100/hpf H (0-5/HPF) Urine WBC None seen (0-5/HPF) Ur Squamous Epith Cells 5-10 /hpf H (0-5/HPF) Urine Bacteria None seen (None) Ur Culture Indicated? Cult not indicated 03/28/20 Range/Units 15:00 WBC (4.5-11.0) X10^3/uL RBC (4.0-5.2) X10^6/uL Hgb (12.0-16.0) g/dL Hct (36-46) % MCV (80-100) fL MCH (26-34) PG MCHC (30-36) % RDW (11.6-14.8) % Plt Count (150-400) X10^3/uL Neut % (Auto) (50-75) % Lymph % (Auto) (25-40) % [place] % (Auto) (3-14) % Eos % (Auto) (2-4) % Baso % (Auto) (0-2) % Neut # (Auto) (2666-1347) /uL Lymph # (Auto) (7217-2048) /uL [place] # (Auto) (0-900) /uL Eos # (Auto) (0-450) /uL Baso # (Auto) (0-100) /uL Sodium (137-145) mmol/L Potassium (3.4-5.1) mmol/L Chloride (98-107) mmol/L Carbon Dioxide (22-32) mmol/L BUN (7-17) mg/dL Creatinine (0.52-1.04) mg/dL Estimated GFR (>60) mL/min BUN/Creatinine Ratio (6-22) Glucose (70-100) mg/dL Lactate 1.3 (0.7-2.1) mmol/L Calcium (8.4-10.2) mg/dL Urine RBC (0-5/HPF) Urine WBC (0-5/HPF) Ur Squamous Epith Cells (0-5/HPF) Urine Bacteria (None) Ur Culture Indicated? Urine Dip Bedside Urine Glucose Negative Bedside Urine Bilirubin - Negative Bedside Urine Ketone - Negative Urine Specific [place] 1.020 Bedside Urine Occult Blood +++ Bedside Urine pH 7.0 Bedside Urine Protein +/- 15 Bedside Urine Urobilinogen - Negative Bedside Urine Nitrite - Negative Bedside Urine Leukocytes - Negative Esterase Imaging Data CT-KUB: Radiologist's Impression: [address] [address] [address] Scan Report Signed Patient: Ni Varner MMR#: [id number] : 1995Acct:[id number] Age/Sex: / FDate of Service: 03/28/20 Loc: ED Accession Number: [id number] Procedure: CT kidney ureter bladder (KUB) Ordering Provider: Richard Andres [facility] PROCEDURE: CT KIDNEY URETER BLADDER (KUB) INDICATIONS: hx of obstructive kidney stone, c/o hematuria, back pain, n/ TECHNIQUE: Noncontrast 5 mm thick sections acquired from the diaphragms to the symphysis. 5 mm thick coronal and sagittal reformats were then performed. For radiation dose reduction, the following was used: automated exposure control, adjustment of mA and/or kV according to patient size. COMPARISON: [facility], CT, CT KIDNEY URETER BLADDER (KUB), 03/28/2018, 11:05. FINDINGS: Image quality: Excellent. Lung bases: Lung bases are clear. Heart size is normal. Urinary system: Right kidney: Faint paintbrush calcifications suggesting renal tubular acidosis. 1 mm lower pole nonobstructing stone. No hydronephrosis. Right ureter: Unremarkable Left kidney: Minimal faint paintbrush calcifications suggesting renal tubular acidosis. No measurable stone. No hydronephrosis. Left ureter: Unremarkable Bladder: No bladder stones. No bladder wall thickening. Other solid organs: Liver is normal in size. Gallbladder is unremarkable . Pancreas is normal in contours. Spleen is normal in size. No adrenal nodules. Peritoneum and bowel: Unenhanced bowel loops demonstrate normal wall thickness and caliber. No free fluid or air. Nodes and vessels: No retroperitoneal or mesenteric adenopathy by size criteria. Aorta and inferior vena cava are normal in caliber. Abdominal wall: No ventral hernias. Pelvis: No free pelvic fluid. No inguinal hernias or adenopathy. Uterus is surgically absent. Bones: No suspicious bony lesions. No vertebral body compression fractures. IMPRESSION: 1. Findings suggesting bilateral mild changes of renal tubular acidosis. 2. No ureteral stone. No hydronephrosis. Dictated by: Mekhi Turner M.D. on 03/28/2020 at 15:14 Approved by: Mekhi Turner M.D. on 03/28/2020 at 15:18 MDM Narrative Medical decision making narrative: This is a 25-year-old female who has multiple episodes of kidney stone and surgery with stent for obstructive renal stone, hysterectomy with bilateral salpingectomy, appendectomy presents to ED with right flank pain with nausea and vomiting which started yesterday. Patient reports her pain is similar to previous kidney stone pain. POC urine test results is not consistent with urinary tract infection. Stable H&H. No leukocytosis. No elevation in lactate. Urine test shows positive for blood. CT KUB shows 1 minutes mm lower pole nonobstructing stone in right kidney without hydronephrosis. There are bilateral mild changes of renal tubular acidosis. Patient was medicated with IV fluid, Toradol, Zofran without much improvement. She was medicate additionally with Dilaudid and Zofran before discharged to home. Patient discharged to home with Percocet and Zofran. Advised to follow up with primary care physician/ [facility]. Return precautions discussed with patient and she verbalized understanding in agreement with the treatment plan. <Nate Padilla, DO - Last Filed: 03/28/20 17:02> Lab Data Labs: Lab Results 03/28/20 03/28/20 03/28/20 Range/Units 14:15 15:00 15:00 WBC 5.9 (4.5-11.0) X10^3/uL RBC 4.37 (4.0-5.2) X10^6/uL Hgb 13.5 (12.0-16.0) g/dL Hct 38.6 (36-46) % MCV 88.3 (80-100) fL MCH 31.0 (26-34) PG MCHC 35.1 (30-36) % RDW 13.2 (11.6-14.8) % Plt Count 254 (150-400) X10^3/uL Neut % (Auto) 51.2 (50-75) % Lymph % (Auto) 36.7 (25-40) % [place] % (Auto) 10.4 (3-14) % Eos % (Auto) 1.1 L (2-4) % Baso % (Auto) 0.6 (0-2) % Neut # (Auto) 3000 (3456-8017) /uL Lymph # (Auto) 2200 (2118-5481) /uL [place] # (Auto) 600 (0-900) /uL Eos # (Auto) 100 (0-450) /uL Baso # (Auto) 0 (0-100) /uL Sodium 138 (137-145) mmol/L Potassium 4.1 (3.4-5.1) mmol/L Chloride 104 (98-107) mmol/L Carbon Dioxide 28 (22-32) mmol/L BUN 16 (7-17) mg/dL Creatinine 0.71 (0.52-1.04) mg/dL Estimated GFR > 60.0 (>60) mL/min BUN/Creatinine Ratio 22.5 H (6-22) Glucose 106 H (70-100) mg/dL Lactate (0.7-2.1) mmol/L Calcium 9.5 (8.4-10.2) mg/dL Urine RBC 30-100/hpf H (0-5/HPF) Urine WBC None seen (0-5/HPF) Ur Squamous Epith Cells 5-10 /hpf H (0-5/HPF) Urine Bacteria None seen (None) Ur Culture Indicated? Cult not indicated 03/28/20 Range/Units 15:00 WBC (4.5-11.0) X10^3/uL RBC (4.0-5.2) X10^6/uL Hgb (12.0-16.0) g/dL Hct (36-46) % MCV (80-100) fL MCH (26-34) PG MCHC (30-36) % RDW (11.6-14.8) % Plt Count (150-400) X10^3/uL Neut % (Auto) (50-75) % Lymph % (Auto) (25-40) % [place] % (Auto) (3-14) % Eos % (Auto) (2-4) % Baso % (Auto) (0-2) % Neut # (Auto) (5387-5348) /uL Lymph # (Auto) (4291-4642) /uL [place] # (Auto) (0-900) /uL Eos # (Auto) (0-450) /uL Baso # (Auto) (0-100) /uL Sodium (137-145) mmol/L Potassium (3.4-5.1) mmol/L Chloride (98-107) mmol/L Carbon Dioxide (22-32) mmol/L BUN (7-17) mg/dL Creatinine (0.52-1.04) mg/dL Estimated GFR (>60) mL/min BUN/Creatinine Ratio (6-22) Glucose (70-100) mg/dL Lactate 1.3 (0.7-2.1) mmol/L Calcium (8.4-10.2) mg/dL Urine RBC (0-5/HPF) Urine WBC (0-5/HPF) Ur Squamous Epith Cells (0-5/HPF) Urine Bacteria (None) Ur Culture Indicated? Urine Dip Bedside Urine Glucose Negative Bedside Urine Bilirubin - Negative Bedside Urine Ketone - Negative Urine Specific [place] 1.020 Bedside Urine Occult Blood +++ Bedside Urine pH 7.0 Bedside Urine Protein +/- 15 Bedside Urine Urobilinogen - Negative Bedside Urine Nitrite - Negative Bedside Urine Leukocytes - Negative Esterase Discharge Plan Departure Patient Disposition: Home Clinical Impression: Calculus of right kidney Instructions: DI for Kidney Stones Activity Restrictions/Additional Instructions: You have been diagnosed with [1 mm nonobstructing stone in right kidney. There is no indications for infection or obstruction at this time. You should be able to pass this stone without difficulty.]. What to do: *Take your medications as directed. Please take [id number] Tylenol and or Motrin as needed for discomfort. Zofran for nausea as needed. For severe pain, you can take 1 tab of Percocet as needed. This is narcotic pain medication so he can cause constipation and sedation. Please take precaution not driving, drinking alcohol, or operating heavy equipments. As an adult, you can take up to 4000 mg Tylenol products in 24 hour. Percocet has 325 mg of Tylenol in a tab. This medication have been transmitted to [facility] in [place]. *Follow up with your primary care provider in 2-3 days, call for an appointment. [facility] with [facility]. Let them know you were seen in the ED and that we asked you to be seen in follow up. *Return to ED if you have any new, worsening, or concerning symptoms, such as [worsening pain, fever/chills, unable to tolerate fluids, increasing back pain, dark hematuria, chest pain, breathing difficulty or any acute concerns]. Prescriptions: New ondansetron 4 mg tablet,disintegrating 4 mg PO Q8H PRN (Reason: nausea and vomiting) Qty: 7 RF: 0 oxycodone-acetaminophen [Percocet] 5-325 mg tablet 1 tab PO Q8H PRN (Reason: pain) Qty: 10 RF: 0 No Action trazodone 100 mg tablet 200 mg PO BEDTIME PRN (Reason: insomnia) Qty: 60 RF: 6 albuterol sulfate [ProAir HFA] 90 mcg/actuation HFA aerosol inhaler 2 puff INHALATION QID PRN (Reason: shortness of breath or wheezing) Qty: 8.5 RF: 0 promethazine 25 mg tablet 25 mg PO TID PRN (Reason: nausea and vomiting) Qty: 60 RF: 0 lorazepam 1 mg tablet See Rx Instructions .ROUTE .COMPLEX Qty: 20 RF: 0 acetaminophen [Tylenol] 325 mg capsule 325 mg PO Q6H PRN (Reason: Pain, Mild) RF: 0 baclofen 10 mg tablet 20 mg PO DAILY PRN (Reason: Spasms) RF: 0 lorazepam 0.5 mg tablet 0.5 mg PO Q8H PRN (Reason: anxiety) Qty: 15 RF: 0 sertraline 25 mg tablet 50 mg PO DAILY Qty: 60 RF: 1 tramadol 50 mg tablet 100 mg PO BID PRN (Reason: pain) Qty: 60 RF: 2 epinephrine [EpiPen 2-Jamie] 0.3 mg/0.3 mL auto-injector 0.3 mg IM Q20M PRN (Reason: anaphylaxis) Qty: 1 RF: 0 ibuprofen 200 MG tablet 800 mg PO PRN PRN (Reason: Pain, Moderate) RF: 0 Referrals: Tara Sheikh DO [Primary Care Provider] - <Nate Padilla DO - Last Filed: 03/28/20 17:02> Cosign ED Attending Cosignature Attestation: Dr Padilla Co-Sign Statement: I was available for consultation during this patient's emergency department visit. This chart is signed by myself for administrative purposes only. I did not have direct contact with this patient during this visit. They were seen independently by the APC.
[2020-03-28 15:08] LABS: Add Manual Diff / Slide Review NO; Basophils Absolute Auto 0 /uL (0-100); Basophils Percent Auto 0.6 % (0-2); Eosinophils Absolute Auto 100 /uL (0-450); Eosinophils Percent Auto 1.1 % (2-4); Hematocrit 38.6 % (36-46); Hemoglobin 13.5 g/dL (12.0-16.0); Lymphocytes Absolute Auto 2200 /uL (1100-4500); Lymphocytes Percent Auto 36.7 % (25-40); Mean Corpuscular HGB Conc 35.1 % (30-36); Mean Corpuscular Volume 88.3 fL (80-100); Monocytes Absolute Auto 600 /uL (0-900); Monocytes Percent Auto 10.4 % (3-14); Neutrophils Absolute Auto 3000 /uL (1500-7000); Neutrophils Percent Auto 51.2 % (50-75); Platelet Count 254 X10^3/uL (150-400); Red Blood Cell Count 4.37 X10^6/uL (4.0-5.2); Red Cell Distribution Width 13.2 % (11.6-14.8); White Blood Cell Count 5.9 X10^3/uL (4.5-11.0)
[2020-03-28 15:17] LABS: BUN Creatinine Ratio 22.5 (6-22); Blood Urea Nitrogen 16 mg/dL (7-17); Calcium 9.5 mg/dL (8.4-10.2); Carbon Dioxide 28 mmol/L (22-32); Chloride 104 mmol/L (98-107); Estimated Glomerular Filt Rate > 60.0 mL/min (>60); Glucose 106 mg/dL (70-100); HEMOLYSIS < 15 (0-50); Potassium 4.1 mmol/L (3.4-5.1); Sodium 138 mmol/L (137-145)
[2020-03-28 15:18] LABS: Lactate (Lactic Acid) 1.3 mmol/L (0.7-2.1)
[2020-03-28] MEDS: ONDANSETRON 4 MG/2 ML INJ IV ×2 (15:19→16:08)
[2020-03-28] MEDS: SODIUM CHLORIDE 0.9% 1,000 ML 150 ML IV (15:19)
[2020-03-28] MEDS: KETOROLAC 60 MG/2 ML VIAL 15 MG IV (15:19)
[2020-03-28 15:29] LABS: Bacteria Urine None Seen; WBC Urine None Seen (0-5/HPF)
[2020-03-28 15:35] LABS: Culture Indicated Urine Cult Not Indicated; RBC Urine 30-100/HPF (0-5/HPF); Squamous Epithelial Cell Urine 5-10 /HPF (0-5/HPF)
[2020-03-28] MEDS: HYDROMORPHONE 0.5 MG INJ IV (16:08)
[2020-03-28 16:33] VITALS: BP 124/58; PULSE 76; O2SAT 99
[2020-03-28 16:53] VITALS: BP 128/67; PULSE 71; RESP 18; O2SAT 98
== END 2020-03-28 17:16 | disposition home or self-care (01) ==
PROVIDERS: Emergency Provider Nurse Practitioner Family; PCP Family Medicine
DX: N20.0 Calculus of kidney (principal); Z87.442 Personal history of urinary calculi; R10.9 Unspecified abdominal pain; R11.2 Nausea with vomiting, unspecified; R31.9 Hematuria, unspecified
CPT/HCPCS: 36415; 74176; 80048; 81003; 81015; 83605; 85025; 96361; 96374; 96375; 96376; 99284; J1170; J1885; J2405

== ENCOUNTER → 2020-04-06 14:42 | Outpatient (CLI) | payer OTHER, MEDICAID, SELFPAY ==
[2020-04-06 15:21] LABS: Bilirubin Urine UA NEGATIVE (NEGATIVE); Color Urine UA YELLOW; Glucose Urine UA NEGATIVE (Negative); Ketones Urine UA NEGATIVE (NEGATIVE); Leukocyte Esterase Urine UA TRACE (NEGATIVE); Nitrite Urine UA NEGATIVE (Negative); Occult Blood Urine UA 3+ (Negative); Protein Urine UA TRACE (Negative); Specific Gravity Urine UA 1.015 (1.000-1.035); Urobilinogen Urine UA 0.2 E.U./dL (0.2)
[2020-04-06 15:43] LABS: Appearance Urine UA SL CLOUDY; pH Urine UA 7.5 (4.5-8.0)
[2020-04-06 15:44] LABS: RBC Urine >100/HPF (0-5/HPF); Squamous Epithelial Cell Urine 1-5 /HPF (0-5/HPF); WBC Urine 1-5/HPF (0-5/HPF)
[2020-04-06 15:45] LABS: Amorphous Sediment Urine 1+; Bacteria Urine Occasional (0-1); Culture Indicated Urine Specimen Cultured
== END ==
PROVIDERS: PCP Family Medicine; Referring Provider Family Medicine; Visit Provider Family Medicine
DX: N20.0 Calculus of kidney (principal); R31.9 Hematuria, unspecified
CPT/HCPCS: 81001; 87086

== ENCOUNTER 2020-05-09 15:18 | Emergency (ER) | payer OTHER, MEDICAID, SELFPAY ==
[2020-05-09] VITALS (27 sets, daily range): BP systolic 103–146; BP diastolic 55–65; PULSE 68–109; RESP 13–31; TEMP 36.9; O2SAT 96–100; BMI 43.4
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
[2020-05-09 15:44] LABS: Add Manual Diff / Slide Review NO; Basophils Absolute Auto 0 /uL (0-100); Basophils Percent Auto 0.4 % (0-2); Eosinophils Absolute Auto 0 /uL (0-450); Eosinophils Percent Auto 0.5 % (2-4); Hematocrit 39.6 % (36-46); Hemoglobin 13.6 g/dL (12.0-16.0); Lymphocytes Absolute Auto 2100 /uL (1100-4500); Lymphocytes Percent Auto 26.9 % (25-40); Mean Corpuscular HGB Conc 34.4 % (30-36); Mean Corpuscular Hemoglobin 29.9 PG (26-34); Mean Corpuscular Volume 87.1 fL (80-100); Monocytes Absolute Auto 700 /uL (0-900); Monocytes Percent Auto 8.6 % (3-14); Neutrophils Absolute Auto 5000 /uL (1500-7000); Neutrophils Percent Auto 63.6 % (50-75); Platelet Count 223 X10^3/uL (150-400); Red Blood Cell Count 4.55 X10^6/uL (4.0-5.2); Red Cell Distribution Width 13.1 % (11.6-14.8); White Blood Cell Count 7.9 X10^3/uL (4.5-11.0)
[2020-05-09 16:03] LABS: Alanine Aminotransferase 19 IU/L (<35); Albumin 4.3 g/dL (3.5-5.0); Albumin Globulin Ratio 1.4 (1.0-2.8); Alkaline Phosphatase 53 U/L (38-126); Aspartate Aminotransferase 19 IU/L (14-36); BUN Creatinine Ratio 18.1 (6-22); Bilirubin Total 0.5 mg/dL (0.2-1.3); Blood Urea Nitrogen 13 mg/dL (7-17); Calcium 9.4 mg/dL (8.4-10.2); Carbon Dioxide 25 mmol/L (22-32); Chloride 106 mmol/L (98-107); Creatine Kinase 33 U/L (30-135); Estimated Glomerular Filt Rate > 60.0 mL/min (>60); Ethanol (ETOH) < 10 mg/dL; Globulin 3.1 g/dL (1.7-4.1); Glucose 119 mg/dL (70-100); HEMOLYSIS 18 (0-50); Lipase 75 U/L (23-300); Sodium 136 mmol/L (137-145); Total Protein 7.4 g/dL (6.3-8.2)
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
--- NOTE | 2020-05-09 16:08 | PC.NURSE ---
See trauma flowsheet for additional documentation
[2020-05-09] MEDS: fentaNYL 100 MCG/2 ML INJ (16:09)
[2020-05-09] MEDS: SODIUM CHLORIDE 0.9% 1,000 ML 150 ML IV (16:10)
[2020-05-09 16:14] LABS: Troponin I < 0.012 ng/mL (0.01-0.034)
[2020-05-09] MEDS: ONDANSETRON 4 MG/2 ML INJ (16:22)
[2020-05-09] MEDS: HYDROMORPHONE 1 MG INJ (16:37)
--- NOTE | 2020-05-09 16:37 | PC.NURSE ---
vERBAL ORDER FOR 1MG DILAUDID FROM MIKAL ROMERO DNP. C-SPINE CLEARED BY HEATHER AND COLLAR REMOVED AT THIS TIME.
[2020-05-09] MEDS: LORazepam 2 MG/ML INJ 1 MG IV (17:09)
--- NOTE | 2020-05-09 17:15 | PC.NURSE ---
pt removed from vaccuum splint, sitting up in bed, given ativan for back spasms, and given sips of water. reports feeling better at this time. Mother at bedside.
[2020-05-09] MEDS: HYDROMORPHONE 1 MG INJ IV (17:59)
[2020-05-09] MEDS: KETOROLAC 60 MG/2 ML VIAL 30 MG IV (17:59)
== END 2020-05-09 18:27 | disposition home or self-care (01) ==
PROVIDERS: Emergency Provider Emergency Medicine; PCP Family Medicine
DX: S09.90XA Unspecified injury of head, initial encounter (principal); S80.01XA Contusion of right knee, initial encounter; R10.2 Pelvic and perineal pain; M25.551 Pain in right hip; R07.89 Other chest pain; M54.9 Dorsalgia, unspecified; R51.9 Headache, unspecified; V49.50XA Passenger injured in collision with unspecified motor vehicles in traffic accident, initial encounter
CPT/HCPCS: 70450; 70486; 71045; 71250; 72125; 72170; 73562; 74176; 80053; 80320; 82550; 83690; 84484; 85025; 86850; 86900; 86901; 93005; 96361; 96374; 96375; 96376; 99285; 99291; 99292; J1170; J1885; J2060; J2405; J3010

== ENCOUNTER → 2020-05-20 15:48 | Outpatient (CLI) | payer OTHER, MEDICAID, SELFPAY ==
[2020-05-20 16:33] LABS: COVID19 -Nasal RAPID Negative (Negative)
== END ==
PROVIDERS: PCP Family Medicine; Visit Provider Nurse Practitioner
DX: Z11.59 Encounter for screening for other viral diseases (principal)
CPT/HCPCS: 87635

== ENCOUNTER → 2020-06-07 11:14 | Outpatient (CLI) | payer OTHER, MEDICAID, SELFPAY ==
--- NOTE | 2020-06-07 11:15 | DI.CT.S_ITS ---
PROCEDURE: CT KIDNEY URETER BLADDER (KUB) INDICATIONS: Concern for stone on right TECHNIQUE: Noncontrast 5 mm thick sections acquired from the diaphragms to the symphysis. 5 mm thick coronal and sagittal reformats were then performed. For radiation dose reduction, the following was used: automated exposure control, adjustment of mA and/or kV according to patient size. COMPARISON: [facility], CT, CT KIDNEY URETER BLADDER (KUB), 03/28/2020, 15:01. FINDINGS: Image quality: Lung bases: Lung bases are clear. Heart size is normal. Urinary system: Both kidneys are normal in size. Bilateral 1 mm renal calculi. No hydronephrosis or perinephric fat stranding. Both ureters appear non-dilated throughout their expected courses. Bladder wall thickness is normal; no calcified bladder stones. Other solid organs: Liver is normal in size. The gallbladder is grossly unremarkable. Calcifications seen in the rashawn hepatis, indeterminate etiology although appear unchanged Pancreas is normal in contours. Spleen is normal in size. No adrenal nodules. Peritoneum and bowel: Unenhanced bowel loops demonstrate normal wall thickness and caliber. No free fluid or air. Nodes and vessels: No retroperitoneal or mesenteric adenopathy by size criteria. Aorta and inferior vena cava are normal in caliber. Abdominal wall: No ventral hernias. Pelvis: No free pelvic fluid. No inguinal hernias or adenopathy. Bones: No suspicious bony lesions. No vertebral body compression fractures. IMPRESSION: Nonobstructive 1 mm bilateral renal calculi. No acute abnormality identified Dictated by: Aubrey Alcantara M.D. on 06/07/2020 at 12:36 Approved by: Aubrey Alcantara M.D. on 06/07/2020 at 12:43
== END ==
PROVIDERS: PCP Family Medicine; Referring Provider Family Medicine; Visit Provider Family Medicine
DX: N20.0 Calculus of kidney (principal); R10.9 Unspecified abdominal pain
CPT/HCPCS: 74176

== ENCOUNTER 2020-06-16 11:25 | Emergency (ER) | payer OTHER, MEDICAID, SELFPAY ==
[2020-06-16] VITALS (34 sets, daily range): BP systolic 117–171; BP diastolic 57–93; PULSE 92–138; RESP 11–61; TEMP 37.2; O2SAT 92–100; BMI 43.4
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
[2020-06-16] MEDS: LORazepam 2 MG/ML INJ ×2 (11:48→12:42)
[2020-06-16 11:54] LABS: Add Manual Diff / Slide Review NO; Basophils Absolute Auto 0 /uL (0-100); Basophils Percent Auto 0.4 % (0-2); Eosinophils Absolute Auto 100 /uL (0-450); Eosinophils Percent Auto 1.2 % (2-4); Hematocrit 38.3 % (36-46); Hemoglobin 13.5 g/dL (12.0-16.0); Lymphocytes Absolute Auto 1900 /uL (1100-4500); Lymphocytes Percent Auto 31.9 % (25-40); Mean Corpuscular HGB Conc 35.3 % (30-36); Mean Corpuscular Hemoglobin 30.6 PG (26-34); Mean Corpuscular Volume 86.5 fL (80-100); Monocytes Absolute Auto 500 /uL (0-900); Monocytes Percent Auto 8.9 % (3-14); Neutrophils Absolute Auto 3400 /uL (1500-7000); Neutrophils Percent Auto 57.6 % (50-75); Platelet Count 230 X10^3/uL (150-400); Red Blood Cell Count 4.42 X10^6/uL (4.0-5.2); Red Cell Distribution Width 13.3 % (11.6-14.8); White Blood Cell Count 5.9 X10^3/uL (4.5-11.0)
[2020-06-16] MEDS: LORazepam 2 MG/ML INJ IV ×4 (12:00→15:15)
[2020-06-16] MEDS: levETIRAcetam 1,500 MG in SODIUM CHLORIDE 0.9% 100 ML 460 ML IV (12:00)
[2020-06-16 12:09] LABS: Alanine Aminotransferase 21 IU/L (<35); Albumin 4.2 g/dL (3.5-5.0); Albumin Globulin Ratio 1.4 (1.0-2.8); Alkaline Phosphatase 68 U/L (38-126); Aspartate Aminotransferase 21 IU/L (14-36); BUN Creatinine Ratio 15.5 (6-22); Bilirubin Total 0.4 mg/dL (0.2-1.3); Blood Urea Nitrogen 13 mg/dL (7-17); Calcium 9.2 mg/dL (8.4-10.2); Carbon Dioxide 30 mmol/L (22-32); Chloride 103 mmol/L (98-107); Estimated Glomerular Filt Rate > 60.0 mL/min (>60); Globulin 2.9 g/dL (1.7-4.1); Glucose 95 mg/dL (70-100); HEMOLYSIS < 15 (0-50); Magnesium 1.9 mg/dL (1.6-2.3); Potassium 4.2 mmol/L (3.4-5.1); Sodium 136 mmol/L (137-145); Total Protein 7.1 g/dL (6.3-8.2)
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
[2020-06-16] MEDS: SODIUM CHLORIDE 0.9% 1,000 ML 150 ML IV (12:19)
[2020-06-16] MEDS: ONDANSETRON 4 MG/2 ML INJ IV (12:20)
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
[2020-06-16] MEDS: FOSPHENYTOIN IV (12:51)
[2020-06-16] MEDS: SODIUM CHLORIDE 0.9% IV (12:51)
[2020-06-16] MEDS: diphenhydrAMINE 50 MG/ML VIAL IV (13:00)
[2020-06-16 13:11] LABS: COVID19 -Nasal RAPID Negative (Negative)
[2020-06-16 13:51] LABS: Bacteria Urine None Seen; RBC Urine None Seen (0-5/HPF)
--- NOTE | 2020-06-16 13:51 | PC.NURSE ---
Patient requesting ice chips. When went back into room to deliver them spouse reported patient had had another seizure while away that lasted approximately 30 seconds. Patient lying in bed with both seizure pads, suction at bedside, and oxygen. Patient alert and tearful. No new orders obtained. Will continue to monitor.
[2020-06-16 14:00] LABS: UR Morphine/Opiate cutoff 300 Negative (Negative); Ur Creatinine Normal (Normal); Ur Specific Gravity Normal (Normal); Urine Amphetamines Negative (Negative); Urine Barbiturates Negative (Negative); Urine Benzodiazepines Negative (Negative); Urine Cocaine Negative (Negative); Urine MDMA Negative (Negative); Urine Methadone Negative (Negative); Urine Methamphetamines Negative (Negative); Urine Oxycodone Positive (Negative); Urine Phencyclidine Negative (Negative); Urine Tetrahydrocannabinol Negative (Negative); Urine Tricyclic Antidepressant Negative (Negative); Urine pH Normal (Normal)
[2020-06-16] MEDS: levETIRAcetam 500 MG in SODIUM CHLORIDE 0.9% 100 ML 420 ML IV (14:20)
[2020-06-16] MEDS: diazePAM 10 MG/2 ML SYRINGE (15:00)
[2020-06-16 15:06] LABS: Culture Indicated Urine Cult Not Indicated
[2020-06-16 15:21] LABS: Squamous Epithelial Cell Urine 5-10 /HPF (0-5/HPF); WBC Urine 5-10/HPF (0-5/HPF)
--- NOTE | 2020-06-16 18:13 | PC.NURSE ---
[facility] ETA 1845 [facility] [address] 323 rpt# [phone] Dr. Brooke Sullivan at [facility] is aware of transport ETA
--- NOTE | 2020-06-16 18:35 | PC.NURSE ---
x-aretha report given to MATT Sanches at [facility], #[phone]
== END 2020-06-16 19:04 | disposition short-term general hospital (02) ==
PROVIDERS: Emergency Provider Emergency Medicine; PCP Family Medicine
DX: G40.409 Other generalized epilepsy and epileptic syndromes, not intractable, without status epilepticus (principal); F07.81 Postconcussional syndrome; Z15.01 Genetic susceptibility to malignant neoplasm of breast; Z20.822 Contact with and (suspected) exposure to COVID-19; R51.9 Headache, unspecified; R11.0 Nausea; E66.01 Morbid (severe) obesity due to excess calories; Z68.41 Body mass index [BMI] 40.0-44.9, adult; N80.9 Endometriosis, unspecified; Z87.09 Personal history of other diseases of the respiratory system
CPT/HCPCS: 70450; 70553; 80053; 80305; 81003; 81015; 83735; 85025; 87635; 96361; 96365; 96367; 96375; 96376; 99284; 99291; C9803; A9579; J1200; J1642; J1953; J2060; J2405; J3360; Q2009

== ENCOUNTER → 2020-12-08 13:43 | Outpatient (CLI) | payer OTHER, MEDICAID, SELFPAY ==
[2020-12-08 14:46] LABS: Add Manual Diff / Slide Review NO; Basophils Absolute Auto 0 /uL (0-100); Basophils Percent Auto 0.5 % (0-2); Eosinophils Absolute Auto 100 /uL (0-450); Eosinophils Percent Auto 1.5 % (2-4); Hematocrit 37.6 % (36-46); Lymphocytes Absolute Auto 1600 /uL (1100-4500); Lymphocytes Percent Auto 32.5 % (25-40); Mean Corpuscular HGB Conc 34.6 % (30-36); Mean Corpuscular Hemoglobin 30.3 PG (26-34); Mean Corpuscular Volume 87.5 fL (80-100); Monocytes Absolute Auto 600 /uL (0-900); Monocytes Percent Auto 11.9 % (3-14); Neutrophils Absolute Auto 2700 /uL (1500-7000); Neutrophils Percent Auto 53.6 % (50-75); Platelet Count 216 X10^3/uL (150-400); Red Cell Distribution Width 14.4 % (11.6-14.8)
[2020-12-08 15:10] LABS: Alanine Aminotransferase 23 IU/L (<35); Albumin 4.1 g/dL (3.5-5.0); Albumin Globulin Ratio 1.4 (1.0-2.8); Alkaline Phosphatase 69 U/L (38-126); Aspartate Aminotransferase 27 IU/L (14-36); BUN Creatinine Ratio 8.2 (6-22); Bilirubin Total 0.6 mg/dL (0.2-1.3); Blood Urea Nitrogen 6 mg/dL (7-17); Calcium 9.2 mg/dL (8.4-10.2); Carbon Dioxide 26 mmol/L (22-32); Chloride 104 mmol/L (98-107); Estimated Glomerular Filt Rate > 60.0 mL/min (>60); Glucose 91 mg/dL (70-100); HEMOLYSIS < 15 (0-50); Potassium 3.7 mmol/L (3.4-5.1); Sodium 139 mmol/L (137-145); Total Protein 7.1 g/dL (6.3-8.2)
== END ==
PROVIDERS: PCP Family Medicine; Referring Provider Family Medicine; Visit Provider Family Medicine
DX: R19.7 Diarrhea, unspecified (principal)
CPT/HCPCS: 36415; 80053; 81002; 85025

== ENCOUNTER 2021-03-30 18:46 | Emergency (ER) | payer OTHER, MEDICAID, SELFPAY ==
[2021-03-30 19:02] VITALS: BP 130/60; PULSE 73; RESP 16; TEMP 36.5; O2SAT 100; BMI 31.1
[2021-03-30] MEDS: SODIUM CHLORIDE 0.9% 1,000 ML 1000 ML IV (20:51)
--- NOTE | 2021-03-30 21:02 | ED_ITS ---
HPI - General Adult General Chief complaint: Urogenital-Female Stated complaint: states kidney stones Time Seen by Provider: 03/30/21 21:02 Source: patient Mode of arrival: Ambulatory Limitations: no limitations History of Present Illness HPI narrative: 26-year-old woman with the prior history of multiple kidney sto toro, stents and surgical interventions who has been having right-sided flank pain over the course of today. She was passing smaller stones yesterday and is concerned that she has a larger stone that may be present. She also complains of urethral discomfort and and pressure but is able to void without difficulty. She has been having some nausea and vomiting secondary to pain. No diarrhea. She describes no fevers cough, dyspnea, chest pain or palpitations. Related Data Home Medications Medication Instructions Recorded Confirmed acetaminophen 325 mg capsule 325 mg PO Q6H PRN 01/20/18 03/15/21 (Tylenol) Previous Rx's Medication Instructions Recorded albuterol sulfate 90 mcg/actuation 2 puff INHALATION QID PRN #8.5 gram 02/15/20 aerosol inhaler (ProAir HFA) promethazine 25 mg tablet 25 mg PO TID PRN #270 tab 08/30/20 [address]abled [address] pass #1 ea 09/15/20 epinephrine 0.3 mg/0.3 mL See Rx Instructions .ROUTE 09/18/20 injection, auto-injector .COMPLEX #2 ea trazodone 100 mg tablet See Rx Instructions .ROUTE 01/17/21 .COMPLEX #180 tab lamotrigine 100 mg tablet 150 mg PO DAILY #45 tab 02/02/21 sertraline 100 mg tablet 200 mg PO DAILY #60 tab 02/02/21 baclofen 10 mg tablet See Rx Instructions .ROUTE 03/06/21 .COMPLEX #60 tab tramadol 50 mg tablet 100 mg PO BID #120 tab 03/07/21 lamotrigine 200 mg tablet 200 mg PO DAILY #90 tab 03/15/21 quetiapine 25 mg tablet See Rx Instructions PO BEDTIME #45 03/26/21 tab diazepam 10 mg tablet 10 mg PO QID #120 tab 03/27/21 Allergies Allergy/AdvReac Type Severity Reaction Status Date / Time shellfish derived Allergy Severe ANAPHYLAXIS Verified 03/15/21 10:54 [SHELLFISH DERIVED] adhesive [ADHESIVE] Allergy Mild Verified 03/15/21 10:54 amoxicillin [AMOXICILLIN] Allergy Mild Verified 03/15/21 10:54 doxycycline [DOXYCYCLINE] Allergy Mild Verified 03/15/21 10:54 hydrocodone Allergy Mild rash Verified 03/15/21 10:54 iodine [IODINE] Allergy Mild Verified 03/15/21 10:54 metoclopramide Allergy Mild Verified 03/15/21 10:54 [METOCLOPRAMIDE] Penicillins [PENICILLINS] Allergy Mild Verified 03/15/21 10:54 prochlorperazine Allergy Mild Verified 03/15/21 10:54 [PROCHLORPERAZINE] sulfamethoxazole Allergy Mild RASH Verified 03/15/21 10:54 [From BACTRIM] trimethoprim [From BACTRIM] Allergy Mild RASH Verified 03/15/21 10:54 cephalexin [CEPHALEXIN] Allergy Unknown Verified 03/15/21 10:54 ciprofloxacin [CIPROFLOXACIN] Allergy Unknown Verified 03/15/21 10:54 clindamycin [CLINDAMYCIN] Allergy Unknown Verified 03/15/21 10:54 Iodinated Contrast Media Allergy Unknown Verified 03/15/21 10:54 [IODINATED CONTRAST MEDIA - IV DYE] latex [LATEX] Allergy Unknown Verified 03/15/21 10:54 lidocaine AdvReac Palpitation Verified 03/15/21 10:54 s Review of Systems Review of Systems Narrative: Remainder of complete review of systems is otherwise unremarkable except for that included in the HPI. Patient History Medical History BRCA2 gene mutation positive in female Endometriosis Hematuria Major depressive disorder Morbid obesity Nephrolithiasis (~2017) Ovarian cyst Patellar dislocation PCOS (polycystic ovarian syndrome) Pelvic congestion (2013) Psychogenic nonepileptic seizure Surgical History H/O unilateral oophorectomy (~11/2020) H/O: hysterectomy History of ureter stent Status post appendectomy (2003) Status post bilateral salpingectomy (09/01/17) Status post dilation and curettage (2010) Status post dilation and curettage (2011) Status post knee surgery (2007) Status post knee surgery (2012) Status post laparoscopic supracervical hysterectomy (09/01/17) Status post laparoscopy (2003) Status post laparoscopy (2011) Status post laparoscopy (2004) Status post laparoscopy () Status post removal of cervix Status post tonsillectomy and adenoidectomy Family History Mother BRCA positive Hyperlipidemia CAD (coronary artery disease) Hypertension Grandmother Ovarian cancer Breast cancer Social History marital status: household members: spouse and children lives independently: Yes occupational status: employed ([employer] [place] Smoking Status: Never smoker Smoking Status: Never smoker alcohol intake frequency: 0-2 drinks per day Substance Use Type: does not use Exam Narrative Exam Narrative: General: Healthy appearing, in mild distress. Able to give a complete and coherent history. Well-nourished well-developed HEENT: Moist mucous membranes, normal sclera with reactive pupils, Respiratory: Lungs are clear to auscultation, no wheezing no rales no rhonchi. Full and symmetrical air movement Cardiac: Regular rate and rhythm no murmurs no bruits Abdomen: Soft, nontender, good bowel tones, mild right flank pain Skin: Warm and dry, no rashes Neurologic: Grossly neurologically intact with no obvious asymmetries or abnormalities Extremities: No trauma, well perfused Psych: Cooperative, appropriate insight and affect Initial Vital Signs Initial Vital Signs: Vital Signs Temperature 97.7 F 03/30/21 19:02 Pulse Rate 73 03/30/21 19:02 Respiratory Rate 16 03/30/21 19:02 Blood Pressure 130/60 03/30/21 19:02 Pulse Oximetry 100 03/30/21 19:02 Course Orders Ordered: ED Orders 03/30/21 20:40 Comprehensive Metabolic Panel Stat 03/30/21 20:42 Urine Culture Stat Urine Microscopic Stat 03/30/21 21:05 CT kidney ureter bladder (KUB) Stat Hydromorphone HCl (Hydromorphone 0.5 Mg Inj) 0.5 mg IV Q15MIN PRN PRN Reason: Pain, Last Admin: 03/30/21 21:24 Dose: 0.5 mg Documented by: ALEX Discontinued Medications Hydromorphone HCl (Hydromorphone 0.5 Mg Inj) 0.5 mg IV NOW ONE Stop: 03/30/21 23:09 Last Admin: 03/30/21 23:10 Dose: 0.5 mg Documented by: ALEX Sodium Chloride (Normal Saline 0.9%) 1,000 mls @ 1,000 mls/hr IV BOLUS ONE Stop: 03/30/21 20:31 Last Admin: 03/30/21 20:51 Dose: 1,000 mls/hr Documented by: ALEX Ketorolac Tromethamine (Ketorolac 30 Mg/Ml Vial) 15 mg IV NOW ONE Stop: 03/30/21 21:06 Last Admin: 03/30/21 21:10 Dose: 15 mg Documented by: ALEX Ondansetron HCl (Ondansetron 4 Mg/2 Ml Inj) 4 mg IV NOW ONE Stop: 03/30/21 23:08 Last Admin: 03/30/21 23:10 Dose: 4 mg Documented by: ALEX Vital Signs Vital signs: Vital Signs - 8 hr 03/30/21 19:02 Temperature 97.7 F Pulse Rate 73 Respiratory Rate 16 Blood Pressure 130/60 Pulse Oximetry 100 Medical Decision Making Lab Data Result diagrams: 03/30/21 20:40 Labs: Lab Results 03/30/21 03/30/21 Range/Units 20:40 20:42 Sodium 139 (137-145) mmol/L Potassium 4.0 (3.4-5.1) mmol/L Chloride 101 (98-107) mmol/L Carbon Dioxide 29 (22-32) mmol/L BUN 12 (7-17) mg/dL Creatinine 0.66 (0.52-1.04) mg/dL Estimated GFR > 60.0 (>60) mL/min BUN/Creatinine Ratio 18.2 (6-22) Glucose 85 (70-100) mg/dL Calcium 9.2 (8.4-10.2) mg/dL Total Bilirubin 0.3 (0.2-1.3) mg/dL AST 22 (14-36) IU/L ALT 21 (<35) IU/L Alkaline Phosphatase 63 (38-126) U/L Total Protein 7.2 (6.3-8.2) g/dL Albumin 4.3 (3.5-5.0) g/dL Globulin 2.9 (1.7-4.1) g/dL Albumin/Globulin Ratio 1.5 (1.0-2.8) Urine RBC 30-100/hpf H (0-5/HPF) Urine WBC 30-100/hpf H (0-5/HPF) Ur Squamous Epith Cells 1-5 /hpf (0-5/HPF) Ur Transition Epith Cell 5-10/hpf H (0-5/HPF) Urine Bacteria Few (2-10) H (None) Urine Mucus 2+ H (Negative) Ur Culture Indicated? Specimen cultured Urine Dip Bedside Urine Glucose Negative Bedside Urine Bilirubin + 1 Bedside Urine Ketone - Negative Urine Specific Preston 1.030 Bedside Urine Occult Blood +++ Bedside Urine pH 6.0 Bedside Urine Protein + 30 Bedside Urine Urobilinogen - Negative Bedside Urine Nitrite - Negative Bedside Urine Leukocytes +/- 15 Esterase Point of care testing: Urine Dip Bedside Urine Glucose Negative Bedside Urine Bilirubin + 1 Bedside Urine Ketone - Negative Urine Specific Preston 1.030 Bedside Urine Occult Blood +++ Bedside Urine pH 6.0 Bedside Urine Protein + 30 Bedside Urine Urobilinogen - Negative Bedside Urine Nitrite - Negative Bedside Urine Leukocytes +/- 15 Esterase MDM Narrative Medical decision making narrative: 26-year-old woman with prior history of multiple kidney stones multiple stones past yesterday continued right flank pain today. CT scan does not suggest any retained stones or need for urologic or s urgical intervention. No evidence of infection, pyelonephritis, pelvic inflammatory disease or ovarian pathology. She is reassured and is safe for home discharge Discharge Plan Departure Patient Disposition: Home Clinical Impression: Kidney stone Instructions: DI for Kidney Stones Activity Restrictions/Additional Instructions: Thank you for coming in today It looks like you successfully got rid of all of your kidney stones yesterday. There is no evidence of kidney infection, obstructing kidney stone or other findings that would require hospitalization or referral back to Urology. Using 400 mg of ibuprofen (2 nadl-zlo-ocqwfoh pills) and 1 Tylenol every 6 hours can be very helpful in controlling pain. I hope you feel better Prescriptions: No Action lamotrigine 200 mg tablet 200 mg PO DAILY Qty: 90 RF: 0 sertraline 100 mg tablet 200 mg PO DAILY Qty: 60 RF: 3 lamotrigine 100 mg tablet 150 mg PO DAILY Qty: 45 RF: 1 albuterol sulfate [ProAir HFA] 90 mcg/actuation HFA aerosol inhaler 2 puff INHALATION QID PRN (Reason: shortness of breath or wheezing) Qty: 8.5 RF: 0 promethazine 25 mg tablet 25 mg PO TID PRN (Reason: nausea and vomiting) Qty: 270 RF: 0 (DME) Disabled parking pass See Rx Instructions .Route .MEDSUPPLY Qty: 1 RF: 0 epinephrine 0.3 mg/0.3 mL auto-injector See Rx Instructions .ROUTE .COMPLEX Qty: 2 RF: 0 trazodone 100 mg tablet See Rx Instructions .ROUTE .COMPLEX Qty: 180 RF: 0 baclofen 10 mg tablet See Rx Instructions .ROUTE .COMPLEX Qty: 60 RF: 0 Hold Instructions: while taking cyclobenzaprine tramadol 50 mg tablet 100 mg PO BID Qty: 120 RF: 0 quetiapine 25 mg tablet See Rx Instructions PO BEDTIME Qty: 45 RF: 0 diazepam 10 mg tablet 10 mg PO QID Qty: 120 RF: 0 acetaminophen [Tylenol] 325 mg capsule 325 mg PO Q6H PRN (Reason: Pain, Mild) RF: 0 Referrals: Tara Sheikh DO [Primary Care Provider] -
[2021-03-30 21:03] LABS: Alanine Aminotransferase 21 IU/L (<35); Albumin 4.3 g/dL (3.5-5.0); Albumin Globulin Ratio 1.5 (1.0-2.8); Alkaline Phosphatase 63 U/L (38-126); Aspartate Aminotransferase 22 IU/L (14-36); BUN Creatinine Ratio 18.2 (6-22); Bilirubin Total 0.3 mg/dL (0.2-1.3); Blood Urea Nitrogen 12 mg/dL (7-17); Calcium 9.2 mg/dL (8.4-10.2); Carbon Dioxide 29 mmol/L (22-32); Chloride 101 mmol/L (98-107); Estimated Glomerular Filt Rate > 60.0 mL/min (>60); Globulin 2.9 g/dL (1.7-4.1); Glucose 85 mg/dL (70-100); HEMOLYSIS 17 (0-50); Sodium 139 mmol/L (137-145); Total Protein 7.2 g/dL (6.3-8.2)
--- NOTE | 2021-03-30 21:05 | DI.CT.S_ITS ---
PROCEDURE: CT KIDNEY URETER BLADDER (KUB) INDICATIONS: kidney stone suspected TECHNIQUE: Axial sections were acquired from the lung bases to the pubic symphysis. Coronal and sagittal reformats were performed. For radiation dose reduction, the following was used: automated exposure control, adjustment of mA and/or kV according to patient size. COMPARISON: [facility], CT, CT CHEST ABD PEL WO CON, 05/09/2020, 15:30. [facility], CT, CT KIDNEY URETER BLADDER (KUB), 06/07/2020, 11:28. FINDINGS: Image quality: Excellent. Lung bases: Unremarkable. Heart: No significant findings. URINARY: Right Kidney: Question faint 1 mm nonobstructing lower pole stone. No hydronephrosis. Right Ureter: No hydroureter. Left Kidney: No stones or hydronephrosis. Left Ureter: No hydroureter. Bladder: Bladder is decompressed. No bladder stones identified. ABDOMEN: Liver: Mild diffuse hepatic steatosis. Gallbladder: Unremarkable. Biliary ducts: Unremarkable. Pancreas: Unremarkable. Spleen: Unremarkable. Adrenal Glands: Unremarkable. Stomach and Bowel: Stomach, small bowel loops, and colon are unremarkable. Probable remote appendectomy. Peritoneum: No abnormal intraperitoneal fluid. No free air. Ventral Wall: No hernia. Abdominal Nodes: No enlarged retroperitoneal or mesenteric lymph nodes. Vessels: Aorta and inferior vena cava are normal in size. PELVIS: Pelvic Organs: Unremarkable. Uterus is surgically absent. Pelvic Nodes: Unremarkable. Miscellaneous: No inguinal hernias are seen. Bones: Unremarkable. IMPRESSION: 1. Question faint 1 mm nonobstructing right renal stone. 2. No hydronephrosis. No ureteral stones. 3. Mild hepatic steatosis. 4. No evidence of acute abdominal process. Dictated by: Mekhi Turner M.D. on 03/30/2021 at 22:07 Approved by: Mekhi Turner M.D. on 03/30/2021 at 22:12
[2021-03-30 21:10] LABS: RBC Urine 30-100/HPF (0-5/HPF); Squamous Epithelial Cell Urine 1-5 /HPF (0-5/HPF); Transitional Epi Cells Urine 5-10/HPF (0-5/HPF); WBC Urine 30-100/HPF (0-5/HPF)
[2021-03-30] MEDS: KETOROLAC 30 MG/ML VIAL 15 MG IV (21:10)
[2021-03-30 21:11] LABS: Bacteria Urine Few (2-10); Culture Indicated Urine Specimen Cultured; Mucus Urine 2+ (Negative)
[2021-03-30] MEDS: HYDROMORPHONE 0.5 MG INJ IV ×2 (21:24→23:10)
[2021-03-30] MEDS: ONDANSETRON 4 MG/2 ML INJ IV (23:10)
--- NOTE | 2021-04-13 13:03 | PC.NURSE ---
late entry IV fluids DC'd when patient was discharged at 0000
== END 2021-03-31 00:09 | disposition home or self-care (01) ==
PROVIDERS: Emergency Provider Emergency Medicine; PCP Family Medicine
DX: N20.0 Calculus of kidney (principal)
CPT/HCPCS: 36415; 74176; 80053; 81003; 81015; 87086; 96361; 96374; 96375; 99284; J1170; J1885; J2405

== ENCOUNTER 2021-08-30 11:51 | Emergency (ER) | payer OTHER, MEDICAID, SELFPAY ==
[2021-08-30 11:55] VITALS: BP 118/68; PULSE 85; RESP 15; TEMP 36.6; O2SAT 100; BMI 31.1
--- NOTE | 2021-08-30 12:31 | DI.CT.S_ITS ---
PROCEDURE: CT HEAD/BRAIN WO CON INDICATIONS: fall, ? hit head TECHNIQUE: Noncontrast 4.5 mm thick angled axial sections acquired from the foramen magnum to the vertex, with coronal and sagittal reformats. For radiation dose reduction, the following was used: automated exposure control, adjustment of mA and/or kV according to patient size. COMPARISON: [facility], MR, MR HEAD/BRAIN WO/W CON, 06/16/2020, 14:54. [facility], CT, CT HEAD/BRAIN WO CON, 06/16/2020, 11:53. FINDINGS: Image quality: Excellent. CSF spaces: Basal cisterns are patent. No extra-axial fluid collections. Ventricles are normal in size and shape. Brain: No midline shift. No intracranial masses or hemorrhage. Moss-white matter interface is normal. Skull and face: Calvarium and visualized facial bones are intact, without suspicious lesions. Sinuses: Visualized sinuses and mastoids are clear. IMPRESSION: 1. No acute intracranial process. Dictated by: Jada Bennett M.D. on 08/30/2021 at 14:07 Approved by: Jada Bennett M.D. on 08/30/2021 at 14:10
--- NOTE | 2021-08-30 12:31 | DI.CT.S_ITS ---
PROCEDURE: CT LUMBAR SPINE WO CON INDICATIONS: fall, hit head, complaint low back pain TECHNIQUE: Noncontrast 3 mm thick sections acquired from the T12 level to the sacrum. Sagittal and coronal reformats were constructed. For radiation dose reduction, the following was used: automated exposure control. COMPARISON: None. FINDINGS: Image quality: Excellent. Bones: There is normal bony alignment. No acute vertebral body compression fractures. No suspicious lytic or blastic bony lesions. No pars defects. Soft tissues: No retroperitoneal masses or hematomas. Visualized aorta is normal in caliber. Punctate nonobstructing right renal calculus. IMPRESSION: No visualized fracture. Dictated by: Jada Bennett M.D. on 08/30/2021 at 14:10 Approved by: Jada Bennett M.D. on 08/30/2021 at 14:12
--- NOTE | 2021-08-30 12:32 | ED_ITS ---
HPI - Fall General Chief Complaint: Fall Stated Complaint: Back problems, fell down stairs Time Seen by Provider: 08/30/21 12:27 Source: patient Mode of arrival: Ambulatory Limitations: no limitations History of Present Illness HPI Narrative: This is a 26-year-old female who is brought to the emergency department for back pain after fall. Patient states she fell on her back but does not give additional answers. She may or may not hit her head. She had what appeared to be seizure activity. Family at bedside states that she has nonepileptic seizures or psychogenic seizures. Patient did take a tramadol prior to arrival. She does have a history of asthma, endometriosis, BRCA positive with prior hysterectomy, oophorectomy, she also has history of multiple ureteral stents for kidney stones. Immediately after the seizure is able to tell me about her fall. She denies chest pain or shortness of breath. She describes pain and tingling down her legs. No loss of bowel or bladder control. Patient has been afebrile. No other GI or urinary symptoms are reported. Related Data Previous Rx's Medication Instructions Recorded albuterol sulfate 90 mcg/actuation 2 puff INHALATION QID PRN #8.5 gram 02/15/20 aerosol inhaler (ProAir HFA) promethazine 25 mg tablet 25 mg PO TID PRN #270 tab 08/30/20 [address]abled [address] pass #1 ea 09/15/20 epinephrine 0.3 mg/0.3 mL See Rx Instructions .ROUTE 09/18/20 injection, auto-injector .COMPLEX #2 ea lamotrigine 200 mg tablet 200 mg PO DAILY #30 tab 04/24/21 quetiapine 25 mg tablet See Rx Instructions PO BEDTIME #45 05/28/21 tab sertraline 100 mg tablet 200 mg PO DAILY #60 tab 06/20/21 trazodone 100 mg tablet See Rx Instructions .ROUTE 07/24/21 .COMPLEX #180 tab trazodone 100 mg tablet See Rx Instructions .ROUTE 07/24/21 .COMPLEX #180 tablet baclofen 10 mg tablet See Rx Instructions .ROUTE 07/25/21 .COMPLEX #30 tab tramadol 50 mg tablet 100 mg PO BID PRN #120 tab 08/20/21 metformin 500 mg tablet See Rx Instructions PO BID #60 tab 08/22/21 diazepam 10 mg tablet 10 mg PO QID #120 tab 08/23/21 diazepam 5 mg tablet (Valium) 5 mg PO TID PRN #10 tab 08/30/21 nitrofurantoin 100 mg PO BID #10 cap 08/30/21 monohydrate/macrocrystals 100 mg capsule (Macrobid) Allergies Allergy/AdvReac Type Severity Reaction Status Date / Time shellfish derived Allergy Severe ANAPHYLAXIS Verified 08/30/21 12:00 [SHELLFISH DERIVED] adhesive [ADHESIVE] Allergy Mild Verified 08/30/21 12:00 amoxicillin [AMOXICILLIN] Allergy Mild Verified 08/30/21 12:00 doxycycline [DOXYCYCLINE] Allergy Mild Verified 08/30/21 12:00 hydrocodone Allergy Mild rash Verified 08/30/21 12:00 iodine [IODINE] Allergy Mild Verified 08/30/21 12:00 metoclopramide Allergy Mild Verified 08/30/21 12:00 [METOCLOPRAMIDE] Penicillins [PENICILLINS] Allergy Mild Verified 08/30/21 12:00 prochlorperazine Allergy Mild Verified 08/30/21 12:00 [PROCHLORPERAZINE] sulfamethoxazole Allergy Mild RASH Verified 08/30/21 12:00 [From BACTRIM] trimethoprim [From BACTRIM] Allergy Mild RASH Verified 08/30/21 12:00 cephalexin [CEPHALEXIN] Allergy Unknown Verified 08/30/21 12:00 ciprofloxacin [CIPROFLOXACIN] Allergy Unknown Verified 08/30/21 12:00 clindamycin [CLINDAMYCIN] Allergy Unknown Verified 08/30/21 12:00 Iodinated Contrast Media Allergy Unknown Verified 08/30/21 12:00 [IODINATED CONTRAST MEDIA - IV DYE] latex [LATEX] Allergy Unknown Verified 08/30/21 12:00 acetaminophen [From Vicodin] AdvReac Rash Verified 08/30/21 13:35 lidocaine AdvReac Palpitation Verified 08/30/21 12:00 s Review of Systems Review of Systems ROS Unobtainable: All systems reviewed & are unremarkable except as noted in HPI and below Patient History Medical History BRCA2 gene mutation positive in female Endometriosis Hematuria Major depressive disorder Morbid obesity Nephrolithiasis (~2017) Ovarian cyst Patellar dislocation PCOS (polycystic ovarian syndrome) Pelvic congestion (2013) Psychogenic nonepileptic seizure Surgical History H/O unilateral oophorectomy (~11/2020) H/O: hysterectomy History of ureter stent Status post appendectomy (2003) Status post bilateral salpingectomy (09/01/17) Status post dilation and curettage (2010) Status post dilation and curettage (2011) Status post knee surgery (2007) Status post knee surgery (2012) Status post laparoscopic supracervical hysterectomy (09/01/17) Status post laparoscopy (2003) Status post laparoscopy (2011) Status post laparoscopy (2004) Status post laparoscopy (~05/2020) Status post removal of cervix Status post tonsillectomy and adenoidectomy Family History Mother BRCA positive Hyperlipidemia CAD (coronary artery disease) Hypertension Grandmother Ovarian cancer Breast cancer Social History marital status: household members: spouse and children lives independently: Yes occupational status: employed ([employer] [place] Smoking Status: Never smoker Smoking Status: Never smoker alcohol intake frequency: holidays/special occasions only Substance Use Type: does not use Exam Narrative Exam Narrative: GENERAL: Alert and oriented x three, female in mild distress. Patient has clear speech. Patient had some generalized shaking, eyes rolled back in her head initially this stopped and patient was able to converse with me immediately. Speech is clear. HEENT: Head normocephalic, atraumatic, EOMI, pupils reactive, face symmetric, moist mucous membranes NECK: Supple, full range of motion CARDIOVASCULAR: Regular rate and rhythm without murmurs, rubs or gallops. RESPIRATORY: Breath sounds equal bilaterally, no wheezes rales or rhonchi. ABDOMEN: Soft, nontender. Normoactive bowel sounds all 4 quadrants. No guarding or rebound, rigidity, no mass : No CVA tenderness BACK: No cervical, thoracic vertebral point tenderness. Patient does have some midline vertebral tenderness on palpation at the L1 to region, she has normal range of motion. Patient's gait is normal. Muscle strength is 5/5 in upper and lower extremities, normal sensation bilateral lower extremities. Patient is able to roll over in bed. EXTREMITIES: Normal range of motion, no clubbing or edema. Neurovascularly intact NEUROLOGICAL: Cranial nerves II through XII grossly intact. Moving all extremities SKIN: Warm, dry, no petechiae, no rashes or lesions. Initial Vital Signs Initial Vital Signs: Vital Signs Temperature 97.9 F 08/30/21 11:55 Pulse Rate 85 08/30/21 11:55 Respiratory Rate 15 08/30/21 11:55 Blood Pressure 118/68 08/30/21 11:55 Pulse Oximetry 100 08/30/21 11:55 Scores GCS Ez coma scale eye opening: Spontaneous Newell coma scale verbal response: Orientated Ez coma scale motor response: Obey commands Ez coma scale total score: 15 Course Orders Ordered: ED Orders 08/30/21 12:31 CT head/brain wo con Stat CT lumbar spine wo con Stat 08/30/21 12:58 Complete Blood Count AUTO DIFF Stat Comprehensive Metabolic Panel Stat Ethanol (ETOH) Stat Lactate (Lactic Acid) Stat Partial Thromboplastin Time Stat Test Serum,Qual Stat Prothrombin Time INR Stat 08/30/21 13:22 Urine Drug Screen, Rapid Stat Urine Microscopic Stat Discontinued Medications Haloperidol (Haloperidol 5 Mg/Ml Vial) 5 mg IV NOW ONE Stop: 08/30/21 12:45 Last Admin: 08/30/21 13:02 Dose: 5 mg Documented by: ANA Ketorolac Tromethamine (Ketorolac 30 Mg/Ml Vial) 30 mg IM NOW ONE Stop: 08/30/21 13:26 Last Admin: 08/30/21 14:40 Dose: Not Given Documented by: ANA Lorazepam (Lorazepam 2 Mg/Ml Inj) 0.5 mg IV NOW ONE Stop: 08/30/21 12:31 Last Admin: 08/30/21 13:07 Dose: Not Given Documented by: ANA Oxycodone/Acetaminophen (Oxycodone/Acetaminophen 5/325 Tablet) 1 tab PO NOW ONE Stop: 08/30/21 14:18 Last Admin: 08/30/21 14:30 Dose: 1 tab Documented by: ANA Reevaluation(s) Reevaluation #1: Recheck and patient's family had texted and stated that Haldol has been helpful for her nonepileptic seizures in the past. This was provided patient has had improvement here in the department. She still quite painful in her back. So will initiate additional medication for pain. Time: 13:22 Reevaluation #2: Patient is had some improvement with her symptoms. Reviewed her labs and imaging and that she has been having some UTI symptoms she has nitrates in her urine elects to start antibiotics. Patient does ask for something for pain management at home. Time: 14:34 Vital Signs Vital signs: Vital Signs - 8 hr 08/30/21 11:55 08/30/21 12:35 08/30/21 14:40 Temperature 97.9 F Pulse Rate 85 98 H 74 Respiratory Rate 15 18 18 Blood Pressure 118/68 121/63 117/59 L Pulse Oximetry 100 100 98 MDM - Fall Lab Data Result diagrams: 08/30/21 12:58 08/30/21 12:58 Labs: Lab Results 08/30/21 08/30/21 08/30/21 Range/Units 12:58 12:58 12:58 WBC 6.1 (4.5-11.0) X10^3/uL RBC 4.55 (4.0-5.2) X10^6/uL Hgb 13.7 (12.0-16.0) g/dL Hct 40.2 (36-46) % MCV 88.5 (80-100) fL MCH 30.2 (26-34) PG MCHC 34.1 (30-36) % RDW 13.5 (11.6-14.8) % Plt Count 207 (150-400) X10^3/uL Neut % (Auto) 63.1 (50-75) % Lymph % (Auto) 26.6 (25-40) % [place] % (Auto) 7.2 (3-14) % Eos % (Auto) 2.4 (2-4) % Baso % (Auto) 0.7 (0-2) % Neut # (Auto) 3900 (1686-3529) /uL Lymph # (Auto) 1600 (6196-7527) /uL [place] # (Auto) 400 (0-900) /uL Eos # (Auto) 100 (0-450) /uL Baso # (Auto) 0 (0-100) /uL PT 11.2 (10.1-12.7) SECONDS INR 1.0 (0.9-1.3) APTT 26 L (26.4-36.2) SECONDS Sodium 137 (137-145) mmol/L Potassium 4.1 (3.4-5.1) mmol/L Chloride 103 (98-107) mmol/L Carbon Dioxide 29 (22-32) mmol/L BUN 9 (7-17) mg/dL Creatinine 0.80 (0.52-1.04) mg/dL Estimated GFR > 60.0 (>60) mL/min BUN/Creatinine Ratio 11.3 (6-22) Glucose 90 (70-100) mg/dL Lactate (0.7-2.1) mmol/L Calcium 9.2 (8.4-10.2) mg/dL Total Bilirubin 0.6 (0.2-1.3) mg/dL AST 22 (14-36) IU/L ALT 14 (<35) IU/L Alkaline Phosphatase 47 (38-126) U/L Total Protein 6.9 (6.3-8.2) g/dL Albumin 4.1 (3.5-5.0) g/dL Globulin 2.8 (1.7-4.1) g/dL Albumin/Globulin Ratio 1.5 (1.0-2.8) Serum , Qual (Negative) Urine RBC (0-5/HPF) Urine WBC (0-5/HPF) Ur Squamous Epith Cells (0-5/HPF) Urine Bacteria (None) Ur Culture Indicated? U Opiates 300ng/mL cut (Negative) Ur Oxycodone Screen (Negative) Urine Methadone Screen (Negative) Ur Barbiturates Screen (Negative) U Tricyclic Antidepress (Negative) Ur Phencyclidine Scrn (Negative) Ur Amphetamines Screen (Negative) U Methamphetamines Scrn (Negative) Ur MDMA Scrn (Ecstasy) (Negative) U Benzodiazepines Scrn (Negative) Urine Cocaine Screen (Negative) U Marijuana (THC) Screen (Negative) Ethyl Alcohol < 10 ( - 10) mg/dL 08/30/21 08/30/21 08/30/21 Range/Units 12:58 12:58 13:22 WBC (4.5-11.0) X10^3/uL RBC (4.0-5.2) X10^6/uL Hgb (12.0-16.0) g/dL Hct (36-46) % MCV (80-100) fL MCH (26-34) PG MCHC (30-36) % RDW (11.6-14.8) % Plt Count (150-400) X10^3/uL Neut % (Auto) (50-75) % Lymph % (Auto) (25-40) % [place] % (Auto) (3-14) % Eos % (Auto) (2-4) % Baso % (Auto) (0-2) % Neut # (Auto) (9371-3728) /uL Lymph # (Auto) (3518-2633) /uL [place] # (Auto) (0-900) /uL Eos # (Auto) (0-450) /uL Baso # (Auto) (0-100) /uL PT (10.1-12.7) SECONDS INR (0.9-1.3) APTT (26.4-36.2) SECONDS Sodium (137-145) mmol/L Potassium (3.4-5.1) mmol/L Chloride (98-107) mmol/L Carbon Dioxide (22-32) mmol/L BUN (7-17) mg/dL Creatinine (0.52-1.04) mg/dL Estimated GFR (>60) mL/min BUN/Creatinine Ratio (6-22) Glucose (70-100) mg/dL Lactate 1.0 (0.7-2.1) mmol/L Calcium (8.4-10.2) mg/dL Total Bilirubin (0.2-1.3) mg/dL AST (14-36) IU/L ALT (<35) IU/L Alkaline Phosphatase (38-126) U/L Total Protein (6.3-8.2) g/dL Albumin (3.5-5.0) g/dL Globulin (1.7-4.1) g/dL Albumin/Globulin Ratio (1.0-2.8) Serum , Qual Negative (Negative) Urine RBC 1-5/hpf D (0-5/HPF) Urine WBC 5-10/hpf H (0-5/HPF) Ur Squamous Epith Cells 5-10 /hpf H (0-5/HPF) Urine Bacteria Many (>30) H (None) Ur Culture Indicated? Cult not indicated U Opiates 300ng/mL cut (Negative) Ur Oxycodone Screen (Negative) Urine Methadone Screen (Negative) Ur Barbiturates Screen (Negative) U Tricyclic Antidepress (Negative) Ur Phencyclidine Scrn (Negative) Ur Amphetamines Screen (Negative) U Methamphetamines Scrn (Negative) Ur MDMA Scrn (Ecstasy) (Negative) U Benzodiazepines Scrn (Negative) Urine Cocaine Screen (Negative) U Marijuana (THC) Screen (Negative) Ethyl Alcohol ( - 10) mg/dL 08/30/21 Range/Units 13:22 WBC (4.5-11.0) X10^3/uL RBC (4.0-5.2) X10^6/uL Hgb (12.0-16.0) g/dL Hct (36-46) % MCV (80-100) fL MCH (26-34) PG MCHC (30-36) % RDW (11.6-14.8) % Plt Count (150-400) X10^3/uL Neut % (Auto) (50-75) % Lymph % (Auto) (25-40) % [place] % (Auto) (3-14) % Eos % (Auto) (2-4) % Baso % (Auto) (0-2) % Neut # (Auto) (5629-4848) /uL Lymph # (Auto) (6642-5063) /uL [place] # (Auto) (0-900) /uL Eos # (Auto) (0-450) /uL Baso # (Auto) (0-100) /uL PT (10.1-12.7) SECONDS INR (0.9-1.3) APTT (26.4-36.2) SECONDS Sodium (137-145) mmol/L Potassium (3.4-5.1) mmol/L Chloride (98-107) mmol/L Carbon Dioxide (22-32) mmol/L BUN (7-17) mg/dL Creatinine (0.52-1.04) mg/dL Estimated GFR (>60) mL/min BUN/Creatinine Ratio (6-22) Glucose (70-100) mg/dL Lactate (0.7-2.1) mmol/L Calcium (8.4-10.2) mg/dL Total Bilirubin (0.2-1.3) mg/dL AST (14-36) IU/L ALT (<35) IU/L Alkaline Phosphatase (38-126) U/L Total Protein (6.3-8.2) g/dL Albumin (3.5-5.0) g/dL Globulin (1.7-4.1) g/dL Albumin/Globulin Ratio (1.0-2.8) Serum , Qual (Negative) Urine RBC (0-5/HPF) Urine WBC (0-5/HPF) Ur Squamous Epith Cells (0-5/HPF) Urine Bacteria (None) Ur Culture Indicated? U Opiates 300ng/mL cut Negative (Negative) Ur Oxycodone Screen Negative (Negative) Urine Methadone Screen Negative (Negative) Ur Barbiturates Screen Negative (Negative) U Tricyclic Antidepress Positive H (Negative) Ur Phencyclidine Scrn Negative (Negative) Ur Amphetamines Screen Negative (Negative) U Methamphetamines Scrn Negative (Negative) Ur MDMA Scrn (Ecstasy) Negative (Negative) U Benzodiazepines Scrn Positive H (Negative) Urine Cocaine Screen Negative (Negative) U Marijuana (THC) Screen Negative (Negative) Ethyl Alcohol ( - 10) mg/dL Point of Care Testing Test Results Negative Glucose POC 78 Urine Dip Bedside Urine Glucose Negative Bedside Urine Bilirubin - Negative Bedside Urine Ketone - Negative Urine Specific [place] 1.015 Bedside Urine Occult Blood +/- Bedside Urine pH 6.5 Bedside Urine Protein - Negative Bedside Urine Urobilinogen - Negative Bedside Urine Nitrite + Positive Bedside Urine Leukocytes ++ [address] scan - head: Radiologist's Impression: Ni Varner??26??F??1995 ? Allergy/Adv: shellfish derived, adhesive, amoxicillin, doxycycline, hydrocodone, iodine, metoclopramide, Penicillins, prochlorperazine, sulfamethoxazole, trimethoprim, cephalexin, ciprofloxacin, clindamycin, Iodinated Contrast Media, latex, acetaminophen, lidocaine (More??) Close Lumbar Spine CT (Signed) Jada Bennett - 08/30/[address] (Signed) Jada Bennett - 08/30/21 DI Result CC 04/27/21 DI Result CC 04/27/21 Abdomen/Pelvis CT (Signed) Mekhi Turner - 03/30/21 DI Result CC 02/02/21 DI Result 02/02/21 Brain MRI (Signed) Jose A Johnson - 06/16/[address] (Signed) Ryan Jaquez - 06/16/20 Abdomen/Pelvis CT (Signed) Aubrey Alcantara - 06/07/20 Knee X-Ray (Signed) Alexi Mcbride - 05/09/[address] (Signed) Celestine Su - 05/09/20 Pelvis X-Ray (Signed) Jian Redman - 05/09/[address] (Signed) Alexi Mcbride - 05/09/20 Chest/Abdomen/Pelvis CT (Signed) Wilfrido Vann - 05/09/20 Chest/Abdomen/Pelvis CT (Cancelled) 05/09/20 Chest X-Ray (Signed) Jian Redman - 05/09/[address] (Signed) Wilfrido Vann - 05/09/20 Abdomen/Pelvis CT (Signed) Mekhi Turner - 03/28/20 Mammogram Screening (Signed) Alexi Mcbride - 03/02/20 Breast MRI (Signed) Alexi Mcbride - 03/02/20 Ankle X-Ray (Signed) Celestine Su - 04/30/19 Breast MRI (Signed) Abdirashid Rob - 03/22/19 Mammogram Diagnostic (Signed) Lilly Gallo - 03/04/19 Breast Ultrasound (Signed) Lilly Gallo - 03/04/19 DI Result CC 11/29/18 Pelvis Ultrasound (Signed) Marce Love - 09/24/18 Renal Ultrasound (Signed) Jose D Flores - 09/21/18 Pelvis Ultrasound (Signed) Jian Redman - 09/21/18 Renal Ultrasound (Signed) Jdaa Bennett - 09/14/18 [place] [address] CT Scan Report Signed Patient: Ni Varner MR#: [id number] : 1995 Acct:[id number] Age/Sex: 26 / F Date of Service: 08/30/21 Loc: ED Accession Number: [id number] ?? Procedure: CT head/brain wo con Ordering Provider: Dominique Corcoran D.O. PROCEDURE:? CT HEAD/BRAIN WO CON ? INDICATIONS:? fall, ? hit head ? TECHNIQUE:? Noncontrast 4.5 mm thick angled axial sections acquired from the foramen magnum to the vertex, with coronal and sagittal reformats.? For radiation dose reduction, the following was used:? automated exposure control, adjustment of mA and/or kV according to patient size.? ? COMPARISON:? [facility], MR, MR HEAD/BRAIN WO/W CON, 06/16/2020, 14:54.? [facility], CT, CT HEAD/BRAIN WO CON, 06/16/2020, 11:53. ? FINDINGS:? Image quality:? Excellent.? ? CSF spaces:? Basal cisterns are patent.? No extra-axial fluid collections.? Ventricles are normal in size and shape.? ? Brain:? No midline shift.? No intracranial masses or hemorrhage.? Moss-white matter interface is normal.? ? Skull and face:? Calvarium and visualized facial bones are intact, without suspicious lesions.? ? Sinuses:? Visualized sinuses and mastoids are clear.? ? IMPRESSION:? ? 1. No acute intracranial process. ? ? Dictated by: Jada Bennett M.D. on 08/30/2021 at 14:07 ? ? Approved by: Jada Bennett M.D. on 08/30/2021 at 14:10?? Lumbar CT: Radiologist's Impression: [place] [address] CT Scan Report Signed Patient: Ni Varner MR#: [id number] : 1995 Acct:[id number] Age/Sex: 26 / F Date of Service: 08/30/21 Loc: ED Accession Number: [id number] ?? Procedure: CT lumbar spine wo con Ordering Provider: Dominique Corcoran D.O. PROCEDURE:? CT LUMBAR SPINE WO CON ? INDICATIONS:? fall, hit head, complaint low back pain ? TECHNIQUE:? Noncontrast 3 mm thick sections acquired from the T12 level to the sacrum.? Sagittal and coronal reformats were constructed.? For radiation dose reduction, the following was used:? automated exposure control.? ? COMPARISON:? None. ? FINDINGS:? Image quality:? Excellent.? ? Bones:? There is normal bony alignment.? No acute vertebral body compression fractures.? No suspicious lytic or blastic bony lesions.? No pars defects.? ? Soft tissues:? No retroperitoneal masses or hematomas.? Visualized aorta is normal in caliber.? Punctate nonobstructing right renal calculus. ? ? IMPRESSION:? ? No visualized fracture. ? ? Dictated by: Jada Bennett M.D. on 08/30/2021 at 14:10 ? ? Approved by: Jada Bennett M.D. on 08/30/2021 at 14:12?? [facility] Narrative Medical decision making narrative: This is a 26-year-old female who had a fall today. Patient has complaint of back pain with some numbness and tingling down her legs. She has normal neurologic exam. She has been ambulating in the department and to give a urine sample. She did state she hit her head. She had possible seizure-like activity but has known history of nonepileptic seizures according to her and family friend at bedside. This has been treated with Haldol in the past according to them. Patient did seem to respond well to this. Head CT, lumbar spine CT negative his patient was tender on exam with a complaint of numbness tingling. She has been ambulating department able to give a urine sample. Labs are reassuring. Patient's neurologic exam is reassuring well and plan to discharge home. Urine was noted to have nitrates. Discussed with patient if she would like to start antibiotics or wait for culture. Patient elects to start oral antibiotics. Discharge Plan Departure Patient Disposition: Home Clinical Impression: Back pain, Fall, UTI (urinary tract infection) Activity Restrictions/Additional Instructions: Follow-up with your physician for recheck. Your labs and imaging today are reassuring. Your urine does show likely infection. Urine culture takes 48-72 hours to result. You may continue home medications as prescribed an additional pain medication is included today. This medication can make you sleepy do not drive, perform hazardous activities or make any major decisions while taking it. This medication will make you constipated please take a stool softener once to twice daily until stools are soft and regular. Please take antibiotics until completely gone. [facility] in [place]. Please return for fevers, passing out, rapidly worsening symptoms, new weakness, loss of bowel or bladder control, inability lift or move your leg, persistent vomiting or other new or concerning symptoms. Prescriptions: New nitrofurantoin monohyd/m-cryst [Macrobid] 100 mg capsule 100 mg PO BID Qty: 10 0RF Rx Instructions: must administer with a meal/food diazepam [Valium] 5 mg tablet 5 mg PO TID PRN (Reason: muscle spasm) Qty: 10 0RF No Action albuterol sulfate [ProAir HFA] 90 mcg/actuation HFA aerosol inhaler 2 puff INHALATION QID PRN (Reason: shortness of breath or wheezing) Qty: 8.5 0RF promethazine 25 mg tablet 25 mg PO TID PRN (Reason: nausea and vomiting) Qty: 270 0RF (DME) Disabled parking pass See Rx Instructions .Route .MEDSUPPLY Qty: 1 0RF Rx Instructions: Pt unable to walk more then 200ft without stopping to rest. epinephrine 0.3 mg/0.3 mL auto-injector See Rx Instructions .ROUTE .COMPLEX Qty: 2 0RF Dose Instruction: INJECT INTRAMUSCULARLY EVERY 20 MINUTES NEEDED FOR ANAPHYLAXIS UNTIL RESPONSE Rx Instructions: INJECT INTRAMUSCULARLY EVERY 20 MINUTES NEEDED FOR ANAPHYLAXIS UNTIL RESPONSE lamotrigine 200 mg tablet 200 mg PO DAILY Qty: 30 2RF quetiapine 25 mg tablet See Rx Instructions PO BEDTIME Qty: 45 2RF Rx Instructions: Take 1 tab p.o. at HS. May take 1/2 tab p.o. during the day for anxiety sertraline 100 mg tablet 200 mg PO DAILY Qty: 60 2RF trazodone 100 mg tablet See Rx Instructions .ROUTE .COMPLEX Qty: 180 0RF Dose Instruction: TAKE 2 TABLETS BY MOUTH AT BEDTIME NEEDED FOR INSOMNIA Rx Instructions: TAKE 2 TABLETS BY MOUTH AT BEDTIME NEEDED FOR INSOMNIA trazodone 100 mg tablet See Rx Instructions .ROUTE .COMPLEX Qty: 180 0RF Dose Instruction: TAKE 2 TABLETS BY MOUTH AT BEDTIME NEEDED FOR INSOMNIA Rx Instructions: TAKE 2 TABLETS BY MOUTH AT BEDTIME NEEDED FOR INSOMNIA baclofen 10 mg tablet See Rx Instructions .ROUTE .COMPLEX Qty: 30 0RF Hold Instructions: while taking cyclobenzaprine Dose Instruction: TAKE 1/2 TABLET BY MOUTH TWICE DAILY Rx Instructions: TAKE 1/2 TABLET BY MOUTH TWICE DAILY tramadol 50 mg tablet 100 mg PO BID PRN (Reason: pain) Qty: 120 0RF metformin 500 mg tablet See Rx Instructions PO BID Qty: 60 1RF Rx Instructions: PO twice a day. diazepam 10 mg tablet 10 mg PO QID Qty: 120 2RF Referrals: Kimberly Redman MD [Primary Care Provider] -
[2021-08-30 12:35] VITALS: BP 121/63; PULSE 98; RESP 18; O2SAT 100
--- NOTE | 2021-08-30 12:35 | PC.NURSE ---
RN called to room by visitor stating pt having a seizure, reports pt has history of non-epileptic seizures and pt has had increased stress recently. Pt observed having bilateral shaking movements, Dr Corcoran called to bedside to assess pt. Episode lasted approximately 2 minutes, pt aaox4 immediately after.
[2021-08-30] MEDS: HALOPERIDOL 5 MG/ML VIAL IV (13:02)
[2021-08-30 13:05] LABS: Add Manual Diff / Slide Review NO; Basophils Absolute Auto 0 /uL (0-100); Basophils Percent Auto 0.7 % (0-2); Eosinophils Absolute Auto 100 /uL (0-450); Eosinophils Percent Auto 2.4 % (2-4); Hematocrit 40.2 % (36-46); Hemoglobin 13.7 g/dL (12.0-16.0); Lymphocytes Absolute Auto 1600 /uL (1100-4500); Lymphocytes Percent Auto 26.6 % (25-40); Mean Corpuscular HGB Conc 34.1 % (30-36); Mean Corpuscular Hemoglobin 30.2 PG (26-34); Mean Corpuscular Volume 88.5 fL (80-100); Monocytes Absolute Auto 400 /uL (0-900); Monocytes Percent Auto 7.2 % (3-14); Neutrophils Absolute Auto 3900 /uL (1500-7000); Neutrophils Percent Auto 63.1 % (50-75); Platelet Count 207 X10^3/uL (150-400); Red Blood Cell Count 4.55 X10^6/uL (4.0-5.2); Red Cell Distribution Width 13.5 % (11.6-14.8); White Blood Cell Count 6.1 X10^3/uL (4.5-11.0)
[2021-08-30 13:08] LABS: Prothrombin Time 11.2 SECONDS (10.1-12.7)
[2021-08-30 13:10] LABS: PTT Partial Thromboplastin Tim 26 SECONDS (26.4-36.2)
[2021-08-30 13:13] LABS: Alanine Aminotransferase 14 IU/L (<35); Albumin 4.1 g/dL (3.5-5.0); Albumin Globulin Ratio 1.5 (1.0-2.8); Alkaline Phosphatase 47 U/L (38-126); Aspartate Aminotransferase 22 IU/L (14-36); BUN Creatinine Ratio 11.3 (6-22); Bilirubin Total 0.6 mg/dL (0.2-1.3); Blood Urea Nitrogen 9 mg/dL (7-17); Calcium 9.2 mg/dL (8.4-10.2); Carbon Dioxide 29 mmol/L (22-32); Chloride 103 mmol/L (98-107); Estimated Glomerular Filt Rate > 60.0 mL/min (>60); Ethanol (ETOH) < 10 mg/dL; Globulin 2.8 g/dL (1.7-4.1); Glucose 90 mg/dL (70-100); HEMOLYSIS 47 (0-50); Potassium 4.1 mmol/L (3.4-5.1); Sodium 137 mmol/L (137-145); Total Protein 6.9 g/dL (6.3-8.2)
[2021-08-30 13:38] LABS: Pregnancy Test Serum,Qual Negative (Negative)
[2021-08-30 13:48] LABS: Ur Creatinine Normal (Normal); Ur Specific Gravity Normal (Normal); Urine pH Normal (Normal)
[2021-08-30 13:49] LABS: UR Morphine/Opiate cutoff 300 Negative (Negative); Urine Amphetamines Negative (Negative); Urine Barbiturates Negative (Negative); Urine Benzodiazepines Positive (Negative); Urine Cocaine Negative (Negative); Urine MDMA Negative (Negative); Urine Methadone Negative (Negative); Urine Methamphetamines Negative (Negative); Urine Oxycodone Negative (Negative); Urine Phencyclidine Negative (Negative); Urine Tetrahydrocannabinol Negative (Negative); Urine Tricyclic Antidepressant Positive (Negative)
[2021-08-30 13:51] LABS: Bacteria Urine Many (>30); Culture Indicated Urine Cult Not Indicated; RBC Urine 1-5/HPF (0-5/HPF); Squamous Epithelial Cell Urine 5-10 /HPF (0-5/HPF); WBC Urine 5-10/HPF (0-5/HPF)
[2021-08-30] MEDS: OXYCODONE/ACETAMINOPHEN 5/325 TABLET 1 TAB PO (14:30)
[2021-08-30 14:40] VITALS: BP 117/59; PULSE 74; RESP 18; O2SAT 98
== END 2021-08-30 14:58 | disposition home or self-care (01) ==
PROVIDERS: Emergency Provider Emergency Medicine; PCP Family Medicine
DX: M54.9 Dorsalgia, unspecified (principal); R20.0 Anesthesia of skin; R20.2 Paresthesia of skin; N39.0 Urinary tract infection, site not specified; W19.XXXA Unspecified fall, initial encounter
CPT/HCPCS: 70450; 72131; 80053; 80305; 80320; 81003; 81015; 81025; 82962; 83605; 84703; 85025; 85610; 85730; 96374; 99284; J1630

== ENCOUNTER → 2021-11-27 13:01 | Outpatient (CLI) | payer OTHER, MEDICAID, SELFPAY ==
[2021-11-27 14:40] LABS: Alanine Aminotransferase 17 IU/L (<35); Albumin 4.6 g/dL (3.5-5.0); Albumin Globulin Ratio 1.6 (1.0-2.8); Alkaline Phosphatase 57 U/L (38-126); Aspartate Aminotransferase 21 IU/L (14-36); BUN Creatinine Ratio 13.8 (6-22); Bilirubin Total 0.7 mg/dL (0.2-1.3); Blood Urea Nitrogen 12 mg/dL (7-17); Calcium 8.9 mg/dL (8.4-10.2); Carbon Dioxide 26 mmol/L (22-32); Chloride 101 mmol/L (98-107); Cholesterol 270 mg/dL (140-199); Estimated Glomerular Filt Rate > 60 mL/min (>60); Globulin 2.9 g/dL (1.7-4.1); Glucose 78 mg/dL (70-100); HDL Cholesterol 36 mg/dL (40-60); HEMOLYSIS < 15 (0-50); LDL Cholesterol Calculated 207 mg/dL (<100); Potassium 4.2 mmol/L (3.4-5.1); Sodium 135 mmol/L (137-145); Total Protein 7.5 g/dL (6.3-8.2); Triglycerides 136 mg/dL (35-150)
[2021-11-27 15:16] LABS: UR Morphine/Opiate cutoff 300 Negative (Negative); Ur Creatinine Normal (Normal); Ur Specific Gravity Normal (Normal); Urine Amphetamines Negative (Negative); Urine Barbiturates Negative (Negative); Urine Benzodiazepines Positive (Negative); Urine Cocaine Negative (Negative); Urine MDMA Negative (Negative); Urine Methadone Negative (Negative); Urine Methamphetamines Negative (Negative); Urine Oxycodone Negative (Negative); Urine Phencyclidine Negative (Negative); Urine Tetrahydrocannabinol Negative (Negative); Urine Tricyclic Antidepressant Negative (Negative); Urine pH Normal (Normal)
== END ==
PROVIDERS: PCP Pediatrics; Referring Provider Pediatrics; Visit Provider Pediatrics
DX: E78.5 Hyperlipidemia, unspecified (principal); F41.0 Panic disorder [episodic paroxysmal anxiety]; F41.1 Generalized anxiety disorder
CPT/HCPCS: 36415; 80053; 80061; 80305

== ENCOUNTER 2022-01-30 12:04 | Emergency (ER) | payer OTHER, MEDICAID, SELFPAY ==
[2022-01-30 12:12] VITALS: BP 129/71; PULSE 95; RESP 22; TEMP 36.3; O2SAT 100; BMI 30.2
[2022-01-30 12:53] LABS: Bacteria Urine Moderate (10-30); Culture Indicated Urine Cult Not Indicated; Mucus Urine 1+ (Negative); RBC Urine >100/HPF (0-5/HPF); Squamous Epithelial Cell Urine >30 /HPF (0-5/HPF); WBC Urine 5-10/HPF (0-5/HPF)
--- NOTE | 2022-01-30 14:44 | ED_ITS ---
HPI - Female Genitourinary General Chief complaint: Urogenital-Female Stated complaint: Lower left back pain Time Seen by Provider: 01/30/22 13:54 Source: patient Mode of arrival: Ambulatory History of Present Illness HPI Narrative: Patient is a 27-year-old female with well documented pseudoseizures at a neighboring facility where she has had 3 visits this month already for seizures. She was and evaluated on the 01/27/2022. She is taking quite a bit of Valium daily lead target mg tablets 4 times a day. There was an egg agreeance with the physician mother and patient to try and taper her down. A prescription was given to her for 40 tablets. She was supposed to see a neurologist yesterday. However patient says she did not see the neurologist the neurologist had a family emergency and now she has an appointment on . She is not on anti seizure medications. She actually had multiple CTs done on the he has she fell in something landed on her. Today she is here for left flank pain. Concern for possible kidney stone. In the waiting room she had a ?seizure with eye fluttering. It lasted briefly there was no postictal. She was promptly brought back to a room. Related Data Home Medications Medication Instructions Recorded Confirmed quetiapine 100 mg tablet 100 mg PO BEDTIME 01/08/22 01/08/22 Previous Rx's Medication Instructions Recorded diazepam 10 mg tablet 10 mg PO QID #120 tabs 08/23/21 diazepam 5 mg tablet (Valium) 5 mg PO TID PRN muscle spasm #10 08/30/21 tabs trazodone 100 mg tablet See Rx Instructions .Route 10/01/21 .COMPLEX #180 tabs lamotrigine 200 mg tablet 200 mg PO DAILY #30 tabs 11/29/21 quetiapine 25 mg tablet See Rx Instructions PO BEDTIME #45 11/29/21 tabs sertraline 100 mg tablet 200 mg PO DAILY #60 tabs 11/29/21 tramadol 50 mg tablet 100 mg PO BID PRN pain #120 tabs 12/17/21 metformin 500 mg tablet 500 mg PO BID #60 tabs 01/02/22 epinephrine 0.3 mg/0.3 mL See Rx Instructions .Route 01/08/22 injection, auto-injector .COMPLEX #2 ea nitrofurantoin 100 mg PO Q12H 5 days #10 caps 01/30/22 monohydrate/macrocrystals 100 mg capsule (Macrobid) Allergies Allergy/AdvReac Type Severity Reaction Status Date / Time shellfish derived Allergy Severe ANAPHYLAXIS Verified 08/30/21 12:00 [SHELLFISH DERIVED] adhesive [ADHESIVE] Allergy Mild Verified 08/30/21 12:00 amoxicillin [AMOXICILLIN] Allergy Mild Verified 08/30/21 12:00 doxycycline [DOXYCYCLINE] Allergy Mild Verified 08/30/21 12:00 hydrocodone Allergy Mild rash Verified 08/30/21 12:00 iodine [IODINE] Allergy Mild Verified 08/30/21 12:00 metoclopramide Allergy Mild Verified 08/30/21 12:00 [METOCLOPRAMIDE] Penicillins [PENICILLINS] Allergy Mild Verified 08/30/21 12:00 prochlorperazine Allergy Mild Verified 08/30/21 12:00 [PROCHLORPERAZINE] sulfamethoxazole Allergy Mild RASH Verified 08/30/21 12:00 [From BACTRIM] trimethoprim [From BACTRIM] Allergy Mild RASH Verified 08/30/21 12:00 cephalexin [CEPHALEXIN] Allergy Unknown Verified 08/30/21 12:00 ciprofloxacin [CIPROFLOXACIN] Allergy Unknown Verified 08/30/21 12:00 clindamycin [CLINDAMYCIN] Allergy Unknown Verified 08/30/21 12:00 Iodinated Contrast Media Allergy Unknown Verified 08/30/21 12:00 [IODINATED CONTRAST MEDIA - IV DYE] latex [LATEX] Allergy Unknown Verified 08/30/21 12:00 acetaminophen [From Vicodin] AdvReac Rash Verified 08/30/21 13:35 lidocaine AdvReac Palpitation Verified 08/30/21 12:00 s Review of Systems Review of Systems Narrative: GENERAL: Denies chills, fatigue, malaise, fever, sweats, travel HEENT: Denies sinus pain, ear pain, sore throat, difficulty swallowing, neck pain RESPIRATORY: Denies dyspnea, cough, wheezing, hemoptysis, sputum. CARDIOVASCULAR: Denies chest pain, palpitations, orthopnea, edema GASTROINTESTINAL: Denies nausea, vomiting, abdominal pain, diarrhea, constipation, melena. : See HPI MUSCULOSKELETAL: Denies weakness, joint pain, or bony pain SKIN: No rash, no erythema, no pruritus NEUROLOGIC: See HPI PSYCHIATRIC: No concerning psychosocial issues. 12 point review of systems is negative except for those stated above and HPI Patient History Medical History (Updated 01/30/22 @ 15:59 by Marylou Orellana DO) BRCA2 gene mutation positive in female Endometriosis Hematuria Major depressive disorder Morbid obesity Nephrolithiasis (~2017) Ovarian cyst Patellar dislocation PCOS (polycystic ovarian syndrome) Pelvic congestion (2013) 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 Surgical History H/O unilateral oophorectomy (~11/2020) H/O: hysterectomy History of ureter stent Status post appendectomy (2003) Status post bilateral salpingectomy (09/01/17) Status post dilation and curettage (2010) Status post dilation and curettage (2011) Status post knee surgery (2007) Status post knee surgery (2012) Status post laparoscopic supracervical hysterectomy (09/01/17) Status post laparoscopy (2003) Status post laparoscopy (2011) Status post laparoscopy (2004) Status post laparoscopy (~05/2020) Status post removal of cervix Status post tonsillectomy and adenoidectomy Family History Mother BRCA positive Hyperlipidemia CAD (coronary artery disease) Hypertension Grandmother Ovarian cancer Breast cancer alcohol intake frequency: holidays/special occasions only Substance Use Type: does not use Exam Initial Vital Signs Initial Vital Signs: Vital Signs Temperature 97.3 F L 01/30/22 12:12 Pulse Rate 95 H 01/30/22 12:12 Respiratory Rate 22 01/30/22 12:12 Blood Pressure 129/71 01/30/22 12:12 Pulse Oximetry 100 01/30/22 12:12 Oxygen Delivery Method 01/30/22 12:12 GENERAL: Alert 27 year old female and in no acute distress. HEENT: Head atraumatic,EOMI, pupils reactive, face symmetric, moist mucous membranes CARDIOVASCULAR: Regular rate and rhythm without murmurs, rubs or gallops. RESPIRATORY: Breath sounds equal bilaterally, no wheezes rales or rhonchi. ABDOMEN: Soft, nontender. Normoactive bowel sounds all 4 quadrants. No guarding or rebound. : Mild left CVA tenderness EXTREMITIES: Normal range of motion, no clubbing or edema. Neurovascularly intact NEUROLOGICAL: Alert and oriented x4. SKIN: Warm, dry, no laceration, no petechiae, no rashes or lesions. Course Orders Ordered: ED Orders 01/30/22 12:41 Urine Microscopic Stat 01/30/22 14:50 CBC Auto Diff [Complete Blood Count AUTO DIFF] Stat CMP [Comprehensive Metabolic Panel] Stat ETOH [Ethanol (ETOH)] Stat Prolactin Stat Discontinued Medications Sodium Chloride (Normal Saline 0.9%) 1,000 mls @ 1,000 mls/hr IV BOLUS ONE Stop: 01/30/22 14:55 Last Infusion: 01/30/22 16:38 Dose: 0 mls/hr Documented By: Admin: 01/30/22 15:18 Dose: 1,000 mls/hr Documented By: GUILLAUME Ketorolac Tromethamine (Ketorolac 30 Mg/Ml Vial) 15 mg IV NOW ONE Stop: 01/30/22 16:00 Last Admin: 01/30/22 16:07 Dose: 15 mg Documented By: EMANUEL Vital Signs Vital signs: Vital Signs - 8 hr 01/30/22 12:12 01/30/22 16:06 01/30/22 16:07 Temperature 97.3 F L Pulse Rate 95 H 81 Respiratory Rate 22 Blood Pressure 129/71 117/58 L Pulse Oximetry 100 100 Oxygen Delivery Method Room Air 01/30/22 16:07 01/30/22 16:29 01/30/22 16:30 Temperature Pulse Rate 78 72 Respiratory Rate Blood Pressure 114/57 L Pulse Oximetry 100 100 Oxygen Delivery Method MDM - Female Genitourinary Lab Data Result diagrams: 01/30/22 14:50 01/30/22 14:50 Labs: Lab Results 01/30/22 01/30/22 01/30/22 Range/Units 12:41 14:50 14:50 WBC 8.4 (4.5-11.0) X10^3/uL RBC 4.28 (4.0-5.2) X10^6/uL Hgb 13.5 (12.0-16.0) g/dL Hct 37.5 (36-46) % MCV 87.7 (80-100) fL MCH 31.6 (26-34) PG MCHC 36.0 (30-36) % RDW 13.1 (11.6-14.8) % Plt Count 219 (150-400) X10^3/uL Neut % (Auto) 71.1 (50-75) % Lymph % (Auto) 19.7 L (25-40) % [place] % (Auto) 8.6 (3-14) % Eos % (Auto) 0.4 L (2-4) % Baso % (Auto) 0.2 (0-2) % Neut # (Auto) 5900 (0918-9766) /uL Lymph # (Auto) 1600 (4575-0998) /uL [place] # (Auto) 700 (0-900) /uL Eos # (Auto) 0 (0-450) /uL Baso # (Auto) 0 (0-100) /uL Sodium 140 (137-145) mmol/L Potassium 4.2 (3.4-5.1) mmol/L Chloride 106 (98-107) mmol/L Carbon Dioxide 26 (22-32) mmol/L BUN 10 (7-17) mg/dL Creatinine 0.78 (0.52-1.04) mg/dL Estimated GFR > 60 (>60) mL/min BUN/Creatinine Ratio 12.8 (6-22) Glucose 106 H (70-100) mg/dL Calcium 8.8 (8.4-10.2) mg/dL Total Bilirubin 0.3 (0.2-1.3) mg/dL AST 16 (14-36) IU/L ALT 14 (<35) IU/L Alkaline Phosphatase 51 (38-126) U/L Total Protein 7.0 (6.3-8.2) g/dL Albumin 4.1 (3.5-5.0) g/dL Globulin 2.9 (1.7-4.1) g/dL Albumin/Globulin Ratio 1.4 (1.0-2.8) Prolactin 27.0 H (3.0-18.6) ng/mL Urine RBC >100/hpf H (0-5/HPF) Urine WBC 5-10/hpf H (0-5/HPF) Ur Squamous Epith Cells >30 /hpf H (0-5/HPF) Urine Bacteria Moderate (10-30) H (None) Urine Mucus 1+ H (Negative) Ur Culture Indicated? Cult not indicated Ethyl Alcohol < 10 ( - 10) mg/dL Urine Dip Bedside Urine Glucose Negative Bedside Urine Bilirubin + 1 Bedside Urine Ketone - Negative Urine Specific [place] 1.010 Bedside Urine Occult Blood +++ Bedside Urine pH 8.0 Bedside Urine Protein ++ 100 Bedside Urine Urobilinogen - Negative Bedside Urine Nitrite - Negative Bedside Urine Leukocytes + 70 Esterase MDM Narrative Medical decision making narrative: Patient is here today with left-sided flank pain concern for possible kidney stone. She just had multiple CTs a couple days ago. Urine does appear to be mildly infected will start her on antibiotics to see if it improves her symptoms. I discussed this with her if her pain continues then return for a CT KUB. Also discussed with her about decreasing her Valium. I was up front and said that I would not be filling her Valium medication today. She just received 40 tablets 2 days ago. I strongly encouraged her and educated her and discussed plan with her on how to wean the Valium and get her off. She says for the last 1 week she has been taking 3 a day instead of 4 today. I think down appropriate time to go to 2 a day. She states her neurologist had a family emergency yesterday and she did not get to see the doctor and it was rescheduled for a few weeks out. We discussed the risk of abruptly stopping Valium which would likely cause a true seizure. She understands this. But this time her blood work is overall reassuring. Discharge Plan Departure Patient Disposition: Home Clinical Impression: Psychogenic nonepileptic seizure, UTI (urinary tract infection) Instructions: DI for Urinary Tract Infection (UTI) Activity Restrictions/Additional Instructions: *You have been diagnosed with UTI *What to do: At this time will start you on antibiotics. Decision to not do a CT today was made is you been scanned with multiple CTs just a couple of days ago. If her pain worsens or continues or you do not passed a kidney stone he may return were possible CT *Continue to take medications as directed Recommend weaning in decreasing the Valium that you have left see do not have withdrawal seizure Valium 1 tablet twice daily for 3 days then 1 tablet once daily for 3 days and half a tablet for 3 days and stop Macrobid 100 mg twice a day for 5 days--> sent to [facility] [place] Ibuprofen 600 mg every 6 hours if needed for [id number] pain Tylenol 1000 mg every 6 hours if needed for ikig-we-ggfrleli pain *Follow up with your primary care provider in 2-3 days or call [phone] *Return to ER if you should have fever chills weakness or any new, worsening or concerning symptoms Prescriptions: New nitrofurantoin monohyd/m-cryst [Macrobid] 100 mg capsule 100 mg PO Q12H 5 Days Qty: 10 0RF Rx Instructions: must administer with a meal/food No Action trazodone 100 mg tablet See Rx Instructions .ROUTE .COMPLEX Qty: 180 0RF Dose Instruction: TAKE 2 TABLETS BY MOUTH AT BEDTIME NEEDED FOR INSOMNIA Rx Instructions: TAKE 2 TABLETS BY MOUTH AT BEDTIME NEEDED FOR INSOMNIA diazepam 10 mg tablet 10 mg PO QID Qty: 120 2RF Hold Instructions: NEEDS TO SEE NEUROLOGY metformin 500 mg tablet 500 mg PO BID Qty: 60 0RF lamotrigine 200 mg tablet 200 mg PO DAILY Qty: 30 2RF quetiapine 25 mg tablet See Rx Instructions PO BEDTIME Qty: 45 2RF Hold Instructions: SEEN BY PSYCHIATRY Rx Instructions: Take 1 tab p.o. at HS. May take 1/2 tab p.o. during the day for anxiety sertraline 100 mg tablet 200 mg PO DAILY Qty: 60 2RF tramadol 50 mg tablet 100 mg PO BID PRN (Reason: pain) Qty: 120 0RF quetiapine 100 mg tablet 100 mg PO BEDTIME epinephrine 0.3 mg/0.3 mL auto-injector See Rx Instructions .ROUTE .COMPLEX Qty: 2 0RF Dose Instruction: INJECT INTRAMUSCULARLY EVERY 20 MINUTES NEEDED FOR ANAPHYLAXIS UNTIL RESPONSE Rx Instructions: INJECT INTRAMUSCULARLY EVERY 20 MINUTES NEEDED FOR ANAPHYLAXIS UNTIL RESPONSE diazepam [Valium] 5 mg tablet 5 mg PO TID PRN (Reason: muscle spasm) Qty: 10 0RF Hold Instructions: NEEDS TO SEE NEUROLOGY Visit Report Forms: Patient Portal/API
[2022-01-30 15:01] LABS: Add Manual Diff / Slide Review NO; Basophils Absolute Auto 0 /uL (0-100); Basophils Percent Auto 0.2 % (0-2); Eosinophils Absolute Auto 0 /uL (0-450); Eosinophils Percent Auto 0.4 % (2-4); Hematocrit 37.5 % (36-46); Hemoglobin 13.5 g/dL (12.0-16.0); Lymphocytes Absolute Auto 1600 /uL (1100-4500); Lymphocytes Percent Auto 19.7 % (25-40); Mean Corpuscular Hemoglobin 31.6 PG (26-34); Mean Corpuscular Volume 87.7 fL (80-100); Monocytes Absolute Auto 700 /uL (0-900); Monocytes Percent Auto 8.6 % (3-14); Neutrophils Absolute Auto 5900 /uL (1500-7000); Neutrophils Percent Auto 71.1 % (50-75); Platelet Count 219 X10^3/uL (150-400); Red Blood Cell Count 4.28 X10^6/uL (4.0-5.2); Red Cell Distribution Width 13.1 % (11.6-14.8); White Blood Cell Count 8.4 X10^3/uL (4.5-11.0)
[2022-01-30 15:13] LABS: Alanine Aminotransferase 14 IU/L (<35); Albumin 4.1 g/dL (3.5-5.0); Albumin Globulin Ratio 1.4 (1.0-2.8); Alkaline Phosphatase 51 U/L (38-126); Aspartate Aminotransferase 16 IU/L (14-36); BUN Creatinine Ratio 12.8 (6-22); Bilirubin Total 0.3 mg/dL (0.2-1.3); Blood Urea Nitrogen 10 mg/dL (7-17); Calcium 8.8 mg/dL (8.4-10.2); Carbon Dioxide 26 mmol/L (22-32); Chloride 106 mmol/L (98-107); Estimated Glomerular Filt Rate > 60 mL/min (>60); Ethanol (ETOH) < 10 mg/dL; Globulin 2.9 g/dL (1.7-4.1); Glucose 106 mg/dL (70-100); HEMOLYSIS < 15 (0-50); Potassium 4.2 mmol/L (3.4-5.1); Sodium 140 mmol/L (137-145)
[2022-01-30] MEDS: SODIUM CHLORIDE 0.9% 1,000 ML 1000 ML IV (15:18)
[2022-01-30 16:06] VITALS: PULSE 81; O2SAT 100
[2022-01-30 16:07] VITALS: BP 117/58; PULSE 78; O2SAT 100
[2022-01-30] MEDS: KETOROLAC 30 MG/ML VIAL 15 MG IV (16:07)
[2022-01-30 16:29] VITALS: PULSE 72; O2SAT 100
[2022-01-30 16:30] VITALS: BP 114/57
== END 2022-01-30 16:38 | disposition home or self-care (01) ==
PROVIDERS: Emergency Provider Emergency Medicine
DX: F44.5 Conversion disorder with seizures or convulsions (principal); N39.0 Urinary tract infection, site not specified
CPT/HCPCS: 36415; 80053; 80320; 81003; 81015; 84146; 85025; 96361; 96374; 99284; J1885

== ENCOUNTER 2022-03-03 14:37 | Emergency (ER) | payer OTHER, MEDICAID, SELFPAY ==
[2022-03-03] VITALS (8 sets, daily range): BP systolic 100–131; BP diastolic 55–84; PULSE 68–94; RESP 10–28; TEMP 37.6; O2SAT 94–100; BMI 32.1
--- NOTE | 2022-03-03 14:43 | DI.CT.S_ITS ---
PROCEDURE: CT HEAD/BRAIN WO CON INDICATIONS: seizure/fall TECHNIQUE: Noncontrast 4.5 mm thick angled axial sections acquired from the foramen magnum to the vertex, with coronal and sagittal reformats. For radiation dose reduction, the following was used: automated exposure control, adjustment of mA and/or kV according to patient size. COMPARISON: [facility], CT, CT HEAD/BRAIN WO CON, 06/16/2020, 11:53. [facility], CT, CT CERVICAL SPINE WO CON, 03/03/2022, 15:07. [facility], CT, CT CHEST ABD PEL WO CON, 03/03/2022, 15:07. [facility], CT, CT HEAD/BRAIN WO CON, 08/30/2021, 12:38. FINDINGS: Image quality: Excellent. CSF spaces: Basal cisterns are patent. No extra-axial fluid collections. Ventricles are normal in size and shape. Brain: No midline shift. No intracranial masses or hemorrhage. Moss-white matter interface is normal. Skull and face: Calvarium and visualized facial bones are intact, without suspicious lesions. Sinuses: Visualized sinuses and mastoids are clear. IMPRESSION: No acute intracranial hemorrhage is seen. No acute intracranial process is seen. Dictated by: Wilfrido Vann M.D. on 03/03/2022 at 14:18 Approved by: Wilfrido Vann M.D. on 03/03/2022 at 14:19
--- NOTE | 2022-03-03 14:57 | DI.RAD.S_ITS ---
PROCEDURE: XR SHOULDER RT MIN 2V INDICATIONS: fall, dislocation TECHNIQUE: 2 views of the shoulder were acquired. COMPARISON: [facility], CT, CT CERVICAL SPINE WO CON, 03/03/2022, 15:07. [facility], CT, CT CHEST ABD PEL WO CON, 03/03/2022, 15:07. [facility], CR, XR KNEE RT 3V, 03/03/2022, 15:02. [facility], CT, CT HEAD/BRAIN WO CON, 03/03/2022, 14:54. FINDINGS: Bones: No fractures or dislocations. No suspicious bony lesions. Visualized ribs appear intact. Soft tissues: No suspicious soft tissue calcifications. The visualized lung demonstrates an unremarkable appearance. IMPRESSION: Plain film study within normal limits. If it would be helpful for clinical management decision making, please consider a dedicated, scheduled shoulder MRI for further evaluation (assuming that there is no contraindication). Dictated by: Wilfrido Vann M.D. on 03/03/2022 at 14:30 Approved by: Wilfrido Vann M.D. on 03/03/2022 at 14:31
--- NOTE | 2022-03-03 14:57 | DI.CT.S_ITS ---
PROCEDURE: CT CHEST ABD PEL WO CON INDICATIONS: trauma, fell down flight of stairs TECHNIQUE: After the administration of oral contrast, 5 mm thick sections acquired from the lung apices to the symphysis pubis. 5 mm thick coronal and sagittal reformats acquired, with additional 7 mm coronal MIP reformats through the lungs. For radiation dose reduction, the following was used: automated exposure control, adjustment of mA and/or kV according to patient size. COMPARISON: [facility], CT, CT CERVICAL SPINE WO CON, 03/03/2022, 15:07. [facility], CR, XR SHOULDER RT MIN 2V, 03/03/2022, 15:02. [facility], CR, XR KNEE RT 3V, 03/03/2022, 15:02. [facility], CT, CT HEAD/BRAIN WO CON, 03/03/2022, 14:54. FINDINGS: Image quality: Excellent. CHEST: Lungs and pleura: No acute pulmonary opacities. No pleural effusions or pneumothorax. Central and peripheral airways are patent are normal in caliber. Mediastinum: Heart size is normal. No pericardial effusion. No mediastinal adenopathy by CT size criteria. Thoracic aorta and central pulmonary arteries are normal in size. Esophagus is normal in caliber. No hiatal hernia. Chest wall: No axillary or supraclavicular adenopathy by size criteria. Thyroid gland demonstrates no significant abnormality . ABDOMEN: Solid organs: Liver is normal in size. Gallbladder wall is not thickened . Pancreas is normal in contours. The spleen is mildly enlarged, measuring 14 cm transversely. No adrenal nodules. Both kidneys are normal in size, without hydronephrosis or nephrolithiasis. Peritoneum and bowel: Small and large bowel loops are normal in caliber and wall thickness. No free fluid or air. Nodes and vessels: No retroperitoneal or mesenteric adenopathy by size criteria. Aorta and inferior vena cava are normal in size. Miscellaneous: No ventral hernias. PELVIS: Genitourinary: Bladder wall thickness is normal. The urinary bladder is prominent, measuring greater than 13 cm craniocaudal. This patient is status post hysterectomy. No adnexal masses are seen. Miscellaneous: No inguinal hernias or adenopathy. Bones: No suspicious bony lesions. No vertebral body compression fractures. Mild dextroconvex scoliotic curvature is seen. IMPRESSION: No acute posttraumatic abnormality is seen. Prominent size of the urinary bladder. Please correlate with potential voiding dysfunction. Incidental note is made of: Mild splenomegaly Hysterectomy Dictated by: Wilfrido Vann M.D. on 03/03/2022 at 14:31 Approved by: Wilfrido Vann M.D. on 03/03/2022 at 14:35
--- NOTE | 2022-03-03 14:57 | DI.CT.S_ITS ---
PROCEDURE: CT CERVICAL SPINE WO CON INDICATIONS: trauma TECHNIQUE: Noncontrast 3 mm thick sections acquired from the skull base to the T4 level. Sagittal and coronal reformats were then constructed. For radiation dose reduction, the following was used: automated exposure control, adjustment of mA and/or kV according to patient size. COMPARISON: [facility], CT, CT CHEST ABD PEL WO CON, 03/03/2022, 15:07. [facility], CT, CT HEAD/BRAIN WO CON, 03/03/2022, 14:54. [facility], CT, CT CERVICAL SPINE WO CON, 05/09/2020, 15:30. FINDINGS: Image quality: This examination is somewhat limited by quantum mottle artifact. Bones: No fractures or dislocations. Visualized superior ribs are intact. Soft tissues: Prevertebral soft tissues are normal in thickness. No paravertebral hematomas. No apical pneumothoraces. IMPRESSION: Negative for cervical spine fracture. Dictated by: Wilfrido Vann M.D. on 03/03/2022 at 14:20 Approved by: Wilfrido Vann M.D. on 03/03/2022 at 14:21
--- NOTE | 2022-03-03 14:57 | DI.RAD.S_ITS ---
PROCEDURE: XR KNEE RT 3V INDICATIONS: fall, pain TECHNIQUE: 3 views of the knee were acquired. COMPARISON: [facility], CT, CT CERVICAL SPINE WO CON, 03/03/2022, 15:07. [facility], CT, CT CHEST ABD PEL WO CON, 03/03/2022, 15:07. [facility], CR, XR SHOULDER RT MIN 2V, 03/03/2022, 15:02. [facility], CT, CT HEAD/BRAIN WO CON, 03/03/2022, 14:54. [facility], CR, XR KNEE RT 3V, 05/09/2020, 15:41. FINDINGS: Bones: No fractures or dislocations. No suspicious bony lesions. Soft tissues: No joint effusion. No suspicious soft tissue calcifications. IMPRESSION: Plain film study within normal limits. Dictated by: Wilfrido Vann M.D. on 03/03/2022 at 14:30 Approved by: Wilfrido Vann M.D. on 03/03/2022 at 14:30
[2022-03-03] MEDS: ONDANSETRON 4 MG/2 ML INJ IV (15:03)
[2022-03-03] MEDS: HYDROMORPHONE 0.5 MG INJ IV ×4 (15:03→17:11)
[2022-03-03 15:15] LABS: COVID19 -Nasal RAPID Negative (Negative)
--- NOTE | 2022-03-03 16:38 | ED.SEIZURE ---
HPI - Seizure General Chief Complaint: Seizure Stated Complaint: seizure, fall, dislocated shoulder Time Seen by Provider: 03/03/22 14:52 Source: patient and EMS Mode of arrival: EMS Limitations: no limitations History of Present Illness HPI Narrative: Patient is a 27-year-old female. 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 She states that she was coming down her stairs at home where she had a seizure. She states she did not feel particularly stressed at the time although she is in school and does feel like this is stressful. She states that she fell down approximately 8-9 stairs. She thought that she had dislocated her shoulder. Her mother who is a nurse was the 1st 1 on the scene who pulled on her shoulder. She is unsure as to whether not it reduced at that time. She is still having significant discomfort in the shoulder. She also had right hip pain and right knee pain. She reports no neck pain. No back pain. No left upper or lower extremity pain. Related Data Home Medications Medication Instructions Recorded Confirmed quetiapine 100 mg tablet 100 mg PO BEDTIME 01/08/22 01/08/22 Previous Rx's Medication Instructions Recorded diazepam 10 mg tablet 10 mg PO QID #120 tabs 08/23/21 diazepam 5 mg tablet (Valium) 5 mg PO TID PRN muscle spasm #10 08/30/21 tabs trazodone 100 mg tablet See Rx Instructions .Route 10/01/21 .COMPLEX #180 tabs lamotrigine 200 mg tablet 200 mg PO DAILY #30 tabs 11/29/21 quetiapine 25 mg tablet See Rx Instructions PO BEDTIME #45 11/29/21 tabs sertraline 100 mg tablet 200 mg PO DAILY #60 tabs 11/29/21 metformin 500 mg tablet 500 mg PO BID #60 tabs 01/02/22 epinephrine 0.3 mg/0.3 mL See Rx Instructions .Route 01/08/22 injection, auto-injector .COMPLEX #2 ea tramadol 50 mg tablet 100 mg PO BID PRN severe pain 01/31/22 (scale score 7-10) #60 tabs oxycodone-acetaminophen 5 mg-325 1 tab PO Q8H PRN pain #6 tabs 03/03/22 mg tablet (Percocet) Allergies Allergy/AdvReac Type Severity Reaction Status Date / Time shellfish derived Allergy Severe ANAPHYLAXIS Verified 03/03/22 14:44 [SHELLFISH DERIVED] adhesive [ADHESIVE] Allergy Mild Verified 03/03/22 14:44 amoxicillin [AMOXICILLIN] Allergy Mild Verified 03/03/22 14:44 doxycycline [DOXYCYCLINE] Allergy Mild Verified 03/03/22 14:44 hydrocodone Allergy Mild rash Verified 03/03/22 14:44 iodine [IODINE] Allergy Mild Verified 03/03/22 14:44 metoclopramide Allergy Mild Verified 03/03/22 14:44 [METOCLOPRAMIDE] Penicillins [PENICILLINS] Allergy Mild Verified 03/03/22 14:44 prochlorperazine Allergy Mild Verified 03/03/22 14:44 [PROCHLORPERAZINE] sulfamethoxazole Allergy Mild RASH Verified 03/03/22 14:44 [From BACTRIM] trimethoprim [From BACTRIM] Allergy Mild RASH Verified 03/03/22 14:44 cephalexin [CEPHALEXIN] Allergy Unknown Verified 03/03/22 14:44 ciprofloxacin [CIPROFLOXACIN] Allergy Unknown Verified 03/03/22 14:44 clindamycin [CLINDAMYCIN] Allergy Unknown Verified 03/03/22 14:44 Iodinated Contrast Media Allergy Unknown Verified 03/03/22 14:44 [IODINATED CONTRAST MEDIA - IV DYE] latex [LATEX] Allergy Unknown Verified 03/03/22 14:44 acetaminophen [From Vicodin] AdvReac Rash Verified 03/03/22 14:44 lidocaine AdvReac Palpitation Verified 03/03/22 14:44 s Review of Systems Review of Systems ROS Unobtainable: All systems reviewed & are unremarkable except as noted in HPI and below Patient History Medical History BRCA2 gene mutation positive in female Endometriosis Hematuria Major depressive disorder Morbid obesity Nephrolithiasis (~2017) Ovarian cyst Patellar dislocation PCOS (polycystic ovarian syndrome) Pelvic congestion (2013) 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 Surgical History H/O unilateral oophorectomy (~11/2020) H/O: hysterectomy History of ureter stent Status post appendectomy (2003) Status post bilateral salpingectomy (09/01/17) Status post dilation and curettage (2010) Status post dilation and curettage (2011) Status post knee surgery (2007) Status post knee surgery (2012) Status post laparoscopic supracervical hysterectomy (09/01/17) Status post laparoscopy (2003) Status post laparoscopy (2011) Status post laparoscopy (2004) Status post laparoscopy () Status post removal of cervix Status post tonsillectomy and adenoidectomy Family History Mother BRCA positive Hyperlipidemia CAD (coronary artery disease) Hypertension Grandmother Ovarian cancer Breast cancer Social History marital status: household members: spouse and children lives independently: Yes occupational status: employed Smoking Status: Current every day smoker Smoking Status: Current every day smoker tobacco type: vaping alcohol intake frequency: holidays/special occasions only Substance Use Type: does not use Exam Initial Vital Signs Initial Vital Signs: Vital Signs Temperature 99.6 F 03/03/22 14:45 Pulse Rate 80 03/03/22 14:45 Respiratory Rate 24 03/03/22 14:45 Blood Pressure 121/84 03/03/22 14:45 Pulse Oximetry 98 03/03/22 14:45 Oxygen Delivery Method 03/03/22 14:45 Const General: cooperative, comfortable, well developed and No ill appearing HENMT Head: normal to inspection and normocephalic Nose: external nose normal Face and sinus: normal facial exam Chest Chest: No crepitus and No tenderness Resp Effort & Inspection: normal respiratory effort Auscultation: clear to auscultation bilaterally Cardio Rate: regular rate Rhythm: regular rhythm Pulses: radial pulses present on the right GI Inspection: normal to inspection and non-distended Palpation: soft and No tender Back/Spine/Pelvis Cervical Spine: No cervical spinal tenderness Thoracic/Lumbar Spine: No paraspinal tenderness, No thoracic spinal tenderness and lumbar spinal tenderness Skin General: no rashes or lesions noted Neuro General: patient alert, patient awake and patient oriented x3 Speech: speech normal Other: No decreased tenderness over the lateral shoulder Extrem Other: Patient has tenderness to palpation throughout the right shoulder and over the right clavicle which makes it difficult to make any sort of evaluation of potential ligamentous injury. No right wrist tenderness. Pelvis was stable. Does have tenderness throughout the right knee but can flex and extend. Right ankle is unremarkable. Her left upper and left lower extremity are unremarkable. Psych Appearance: grossly normal and well kempt Procedures Orthopedic Splinting/Casting Injury #1: Upper Extremity Injury Location: shoulder Upper Extremity Immobilizer: sling/shoulder immobilizer Post splinting neuro exam: intact Post splinting vascular exam: intact Placed by: Nursing Scores [facility] [place] coma scale eye opening: Spontaneous Ez coma scale verbal response: Orientated Ez coma scale motor response: Obey commands Ez coma scale total score: 15 Course Orders Ordered: ED Orders 03/03/22 14:43 CT head/brain wo con Stat 03/03/22 14:46 CMP [Comprehensive Metabolic Panel] Stat Complete Blood Count AUTO DIFF Stat 03/03/22 14:49 COVID19 -Nasal RAPID/Pre-Proc Stat 03/03/22 14:57 CT cervical spine wo con Stat CT chest abd pel wo con Stat XR knee RT 3V Stat XR shoulder RT min 2V Stat Hydromorphone HCl (Hydromorphone 0.5 Mg Inj) 0.5 mg IV Q15MIN PRN PRN Reason: Pain, Last Admin: 03/03/22 16:19 Dose: 0.5 mg Documented By: Admin: 03/03/22 15:37 Dose: 0.5 mg Documented By: Admin: 03/03/22 15:03 Dose: 0.5 mg Documented By: YURI Discontinued Medications Ondansetron HCl (Ondansetron 4 Mg/2 Ml Inj) 4 mg IV NOW ONE Stop: 03/03/22 14:57 Last Admin: 03/03/22 15:03 Dose: 4 mg Documented By: YURI Vital Signs Vital signs: Vital Signs - 8 hr 03/03/22 14:45 Temperature 99.6 F Pulse Rate 80 Respiratory Rate 24 Blood Pressure 121/84 Pulse Oximetry 98 Oxygen Delivery Method Room Air MDM - Seizure Lab Data Labs: Lab Results 03/03/22 Range/Units 14:49 SARS-CoV-2 (PCR) Negative (Negative) Imaging Data Extremity x-ray #1: Radiologist's Impression: [address] [address] XRay Report Signed Patient: Ni Varner MR#: [id number] : 1995 Acct:[id number] Age/Sex: 27 / F Date of Service: 03/03/22 Loc: ED Accession Number: [id number] ?? Procedure: XR shoulder RT min 2V Ordering Provider: France Andrade MD PROCEDURE:? XR SHOULDER RT MIN 2V ? INDICATIONS:? fall, dislocation ? TECHNIQUE:? 2 views of the shoulder were acquired.? ? COMPARISON:? [facility], CT, CT CERVICAL SPINE WO CON, 03/03/2022, 15:07.? [facility], CT, CT CHEST ABD PEL WO CON, 03/03/2022, 15:07.? [facility], CR, XR KNEE RT 3V, 03/03/2022, 15:02.? [facility], CT, CT HEAD/BRAIN WO CON, 03/03/2022, 14:54. ? FINDINGS:? ? Bones:? No fractures or dislocations.? No suspicious bony lesions.? Visualized ribs appear intact.? ? Soft tissues:? No suspicious soft tissue calcifications.? The visualized lung demonstrates an unremarkable appearance. ? ? IMPRESSION:? Plain film study within normal limits. ? If it would be helpful for clinical management decision making, please consider a dedicated, scheduled shoulder MRI for further evaluation (assuming that there is no contraindication).? ? ? Dictated by: Wilfrido Vann M.D. on 03/03/2022 at 14:30 ? ? Approved by: Wilfrido Vann M.D. on 03/03/2022 at 14:31? Extremity x-ray #2: Radiologist's Impression: [address] [address] XRay Report Signed Patient: Ni Varner MR#: [id number] : 1995 Acct:[id number] Age/Sex: 27 / F Date of Service: 03/03/22 Loc: ED Accession Number: [id number] ?? Procedure: XR knee RT 3V Ordering Provider: France Andrade MD PROCEDURE:? XR KNEE RT 3V ? INDICATIONS:? fall, pain ? TECHNIQUE:? 3 views of the knee were acquired.? ? COMPARISON:? [facility], CT, CT CERVICAL SPINE WO CON, 03/03/2022, 15:07.? [facility], CT, CT CHEST ABD PEL WO CON, 03/03/2022, 15:07.? [facility], CR, XR SHOULDER RT MIN 2V, 03/03/2022, 15:02.? [facility], CT, CT HEAD/BRAIN WO CON, 03/03/2022, 14:54.? [facility], CR, XR KNEE RT 3V, 05/09/2020, 15:41. ? FINDINGS:? ? Bones:? No fractures or dislocations.? No suspicious bony lesions.? ? Soft tissues:? No joint effusion.? No suspicious soft tissue calcifications.? ? ? IMPRESSION:? Plain film study within normal limits. ? ? Dictated by: Wilfrido Vann M.D. on 03/03/2022 at 14:30 ? ? Approved by: Wilfrido Vann M.D. on 03/03/2022 at 14:30?? CT - cervical spine: Radiologist's Impression: [place] [address] CT Scan Report Signed Patient: Ni Varner MR#: [id number] : 1995 Acct:[id number] Age/Sex: 27 / F Date of Service: 03/03/22 Loc: ED Accession Number: [id number] ?? Procedure: CT cervical spine wo con Ordering Provider: France Andrade MD PROCEDURE:? CT CERVICAL SPINE WO CON ? INDICATIONS:? trauma ? TECHNIQUE:? Noncontrast 3 mm thick sections acquired from the skull base to the T4 level.? Sagittal and coronal reformats were then constructed.? For radiation dose reduction, the following was used:? automated exposure control, adjustment of mA and/or kV according to patient size.? ? COMPARISON:? [facility], CT, CT CHEST ABD PEL WO CON, 03/03/2022, 15:07.? [facility], CT, CT HEAD/BRAIN WO CON, 03/03/2022, 14:54.? [facility], CT, CT CERVICAL SPINE WO CON, 05/09/2020, 15:30. ? FINDINGS:? Image quality:? This examination is somewhat limited by quantum mottle artifact.? ? Bones:? No fractures or dislocations.? Visualized superior ribs are intact.? ? Soft tissues:? Prevertebral soft tissues are normal in thickness.? No paravertebral hematomas.? No apical pneumothoraces.? ? ? IMPRESSION:? Negative for cervical spine fracture. ? Dictated by: Wilfrido Vann M.D. on 03/03/2022 at 14:20 ? ? Approved by: Wilfrido Vann M.D. on 03/03/2022 at 14:21? Ct chest/ABD/Pelvis: Radiologist's Impression: [address] [address] [address] Scan Report Signed Patient: Ni Varner MR#: [id number] : 1995 Acct:[id number] Age/Sex: 27 / F Date of Service: 03/03/22 Loc: ED Accession Number: [id number] ?? Procedure: CT chest abd pel wo con Ordering Provider: France Andrade MD PROCEDURE:? CT CHEST ABD PEL WO CON ? INDICATIONS:? trauma, fell down flight of stairs ? TECHNIQUE:? After the administration of oral contrast, 5 mm thick sections acquired from the lung apices to the symphysis pubis.? 5 mm thick coronal and sagittal reformats acquired, with additional 7 mm coronal MIP reformats through the lungs.? For radiation dose reduction, the following was used:? automated exposure control, adjustment of mA and/or kV according to patient size.? ? COMPARISON:? [facility], CT, CT CERVICAL SPINE WO CON, 03/03/2022, 15:07.? [facility], CR, XR SHOULDER RT MIN 2V, 03/03/2022, 15:02.? [facility], CR, XR KNEE RT 3V, 03/03/2022, 15:02.? [facility], CT, CT HEAD/BRAIN WO CON, 03/03/2022, 14:54. ? FINDINGS:? Image quality:? Excellent.? ? CHEST:? Lungs and pleura:? No acute pulmonary opacities.? No pleural effusions or pneumothorax.? Central and peripheral airways are patent are normal in caliber.? ? Mediastinum:? Heart size is normal.? No pericardial effusion.? No mediastinal adenopathy by CT size criteria.? Thoracic aorta and central pulmonary arteries are normal in size.? Esophagus is normal in caliber.? No hiatal hernia.? ? Chest wall:? No axillary or supraclavicular adenopathy by size criteria.? Thyroid gland demonstrates no significant abnormality .? ? ? ABDOMEN:? Solid organs:? Liver is normal in size.? Gallbladder wall is not thickened .? Pancreas is normal in contours.? The spleen is mildly enlarged, measuring 14 cm transversely.? No adrenal nodules.? Both kidneys are normal in size, without hydronephrosis or nephrolithiasis.? ? Peritoneum and bowel:? Small and large bowel loops are normal in caliber and wall thickness.? No free fluid or air.? ? Nodes and vessels:? No retroperitoneal or mesenteric adenopathy by size criteria.? Aorta and inferior vena cava are normal in size.? ? Miscellaneous:? No ventral hernias.? ? ? PELVIS:? Genitourinary:? Bladder wall thickness is normal.? The urinary bladder is prominent, measuring greater than 13 cm craniocaudal.? This patient is status post hysterectomy. No adnexal masses are seen.? ? Miscellaneous:? No inguinal hernias or adenopathy.? ? Bones:? No suspicious bony lesions.? No vertebral body compression fractures.? Mild dextroconvex scoliotic curvature is seen.? IMPRESSION:? No acute posttraumatic abnormality is seen. ? Prominent size of the urinary bladder.? Please correlate with potential voiding dysfunction. ? ? Incidental note is made of: Mild splenomegaly Hysterectomy ? Dictated by: Wilfrido Vann M.D. on 03/03/2022 at 14:31 ? ? Approved by: Wilfrido Vann M.D. on 03/03/2022 at 14:35? CT scan - head: Radiologist's Impression: [place] [address] CT Scan Report Signed Patient: Ni Varner MR#: [id number] : 1995 Acct:[id number] Age/Sex: 27 / F Date of Service: 03/03/22 Loc: ED Accession Number: [id number] ?? Procedure: CT head/brain wo con Ordering Provider: France Andrade MD PROCEDURE:? CT HEAD/BRAIN WO CON ? INDICATIONS:? seizure/fall ? TECHNIQUE:? Noncontrast 4.5 mm thick angled axial sections acquired from the foramen magnum to the vertex, with coronal and sagittal reformats.? For radiation dose reduction, the following was used:? automated exposure control, adjustment of mA and/or kV according to patient size.? ? COMPARISON:? [facility], CT, CT HEAD/BRAIN WO CON, 06/16/2020, 11:53.? [facility], CT, CT CERVICAL SPINE WO CON, 03/03/2022, 15:07.? [facility], CT, CT CHEST ABD PEL WO CON, 03/03/2022, 15:07.? [facility], CT, CT HEAD/BRAIN WO CON, 08/30/2021, 12:38. ? FINDINGS:? Image quality:? Excellent.? ? CSF spaces:? Basal cisterns are patent.? No extra-axial fluid collections.? Ventricles are normal in size and shape.? ? Brain:? No midline shift.? No intracranial masses or hemorrhage.? Moss-white matter interface is normal.? ? Skull and face:? Calvarium and visualized facial bones are intact, without suspicious lesions.? ? Sinuses:? Visualized sinuses and mastoids are clear.? ? IMPRESSION:? No acute intracranial hemorrhage is seen.? ? No acute intracranial process is seen.? ? ? Dictated by: Wilfrido Vann M.D. on 03/03/2022 at 14:18 ? ? Approved by: Wilfrido Vann M.D. on 03/03/2022 at 14:19?? [facility] Narrative Medical decision making narrative: Right shoulder x-ray shows no fractures nor dislocations. Informed her that she potentially could have subluxed her right shoulder or potentially it was dislocated but was reduced at the scene. It is impossible to make any sort of evaluation of ligamentous injury in her right shoulder because she does have tenderness throughout. The rest of her radiologic studies here unremarkable. She was placed in a sling for her comfort but she was also told that she needs to come out of the sling tomorrow and start moving her shoulder in order to prevent stiffness. Hold on further radiologic studies for now. This does appear to fit her history of pseudoseizures. She was given return precautions. She expressed understanding and agreement. Discharge Plan Departure Patient Disposition: Home Clinical Impression: Injury of right shoulder, Fall down stairs, Seizure-like activity Instructions: How To Perform RICE (Rest, Ice, Compress, Elevate), DI for Seizure (Not Epilepsy/Seizure Disorder) Activity Restrictions/Additional Instructions: I would not be surprised if tomorrow your more sore than which you are today. The x-rays today showed no signs of fractures or dislocation of your shoulder. I recommend that you take the sling off tomorrow and start doing easy mobility of your shoulder in order to prevent stiffness. Contact your primary doctor for follow-up. Return to the emergency department for any new or worsening symptoms. Prescriptions: New oxycodone-acetaminophen [Percocet] 5-325 mg tablet 1 tab PO Q8H PRN (Reason: pain) Qty: 6 0RF No Action trazodone 100 mg tablet See Rx Instructions .ROUTE .COMPLEX Qty: 180 0RF Dose Instruction: TAKE 2 TABLETS BY MOUTH AT BEDTIME NEEDED FOR INSOMNIA Rx Instructions: TAKE 2 TABLETS BY MOUTH AT BEDTIME NEEDED FOR INSOMNIA diazepam 10 mg tablet 10 mg PO QID Qty: 120 2RF Hold Instructions: NEEDS TO SEE NEUROLOGY metformin 500 mg tablet 500 mg PO BID Qty: 60 0RF tramadol 50 mg tablet 100 mg PO BID PRN (Reason: severe pain (scale score 7-10)) Qty: 60 0RF Rx Instructions: Limit as possible. Prescribed per 01/30 signed pain management contract. Contract void and provider will offer no further tramadol refills if tramadol received per another provider. lamotrigine 200 mg tablet 200 mg PO DAILY Qty: 30 2RF quetiapine 25 mg tablet See Rx Instructions PO BEDTIME Qty: 45 2RF Hold Instructions: SEEN BY PSYCHIATRY Rx Instructions: Take 1 tab p.o. at HS. May take 1/2 tab p.o. during the day for anxiety sertraline 100 mg tablet 200 mg PO DAILY Qty: 60 2RF quetiapine 100 mg tablet 100 mg PO BEDTIME epinephrine 0.3 mg/0.3 mL auto-injector See Rx Instructions .ROUTE .COMPLEX Qty: 2 0RF Dose Instruction: INJECT INTRAMUSCULARLY EVERY 20 MINUTES NEEDED FOR ANAPHYLAXIS UNTIL RESPONSE Rx Instructions: INJECT INTRAMUSCULARLY EVERY 20 MINUTES NEEDED FOR ANAPHYLAXIS UNTIL RESPONSE diazepam [Valium] 5 mg tablet 5 mg PO TID PRN (Reason: muscle spasm) Qty: 10 0RF Hold Instructions: NEEDS TO SEE NEUROLOGY
== END 2022-03-03 17:20 | disposition home or self-care (01) ==
PROVIDERS: Emergency Medicine; Emergency Provider Emergency Medicine
DX: S49.91XA Unspecified injury of right shoulder and upper arm, initial encounter (principal); W10.9XXA Fall (on) (from) unspecified stairs and steps, initial encounter; R56.9 Unspecified convulsions; Z20.822 Contact with and (suspected) exposure to COVID-19
CPT/HCPCS: 70450; 71250; 72125; 73030; 73562; 74176; 87635; 96374; 96375; 96376; 99285; C9803; J1170; J2405

== ENCOUNTER 2022-03-16 15:51 | Emergency (ER) | payer OTHER, MEDICAID, SELFPAY ==
[2022-03-16 15:50] VITALS: BP 134/64; PULSE 59; RESP 18; TEMP 36.8; O2SAT 98
--- NOTE | 2022-03-16 17:15 | DI.RAD.S_ITS ---
PROCEDURE: XR SHOULDER RT MIN 2V INDICATIONS: Follow-up. Right shoulder pain. TECHNIQUE: 3 views of the shoulder were acquired. COMPARISON: [facility], CR, XR SHOULDER RT MIN 2V, 03/03/2022, 15:02. FINDINGS: Bones: No fractures or dislocations. No suspicious bony lesions. Visualized ribs appear intact. Soft tissues: No suspicious soft tissue calcifications. IMPRESSION: No acute osseous abnormalities. If clinical symptoms persist or there is clinical suspicion for internal derangement, MRI is suggested for further evaluation. Dictated by: Annel Johnson M.D. on 03/16/2022 at 18:09 Approved by: Annel Johnson M.D. on 03/16/2022 at 18:10
--- NOTE | 2022-03-16 17:15 | DI.US.S_ITS ---
PROCEDURE: US ABDOMEN LIMITED INDICATIONS: RUQ PAIN; 4 HOURS POST BLUNT TRAUMA TO ABDOMEN TECHNIQUE: Real-time focused scanning was performed of the abdomen, with image documentation. COMPARISON: [facility], US, US ABDOMEN COMPLETE, 01/20/2018, 16:19. [facility], US, ABDOMEN LIMITED, 06/05/2017, 10:43. FINDINGS: The liver is normal in size and has a normal echotexture. No perihepatic free fluid is seen. The gallbladder contains numerous nonmobile gallstones, but the gallbladder wall is only 1 mm in maximal thickness. No focal tenderness is present during sonographic palpation of the gallbladder and no abnormal pericholecystic free fluid is seen. The bile ducts are normal in caliber. The pancreas visualized appears normal. IMPRESSION: No trauma found but there are multiple gallstones within the gallbladder lumen without evidence of associated acute cholecystitis or biliary obstruction. Dictated by: Celestine Su M.D. on 03/16/2022 at 20:55 Approved by: Celestine Su M.D. on 03/16/2022 at 20:56
--- NOTE | 2022-03-16 17:15 | DI.CT.S_ITS ---
PROCEDURE: CT HEAD/BRAIN WO CON INDICATIONS: Syncope. Fall with head injury. TECHNIQUE: Noncontrast 4.5 mm thick angled axial sections acquired from the foramen magnum to the vertex, with coronal and sagittal reformats. For radiation dose reduction, the following was used: automated exposure control, adjustment of mA and/or kV according to patient size. COMPARISON: [facility], CT, CT HEAD/BRAIN WO CON, 03/03/2022, 14:54. FINDINGS: Image quality: Excellent. CSF spaces: Basal cisterns are patent. No extra-axial fluid collections. Ventricles are normal in size and shape. Brain: No midline shift. No intracranial masses or hemorrhage. Moss-white matter interface is normal. Skull and face: Calvarium and visualized facial bones are intact, without suspicious lesions. Sinuses: Visualized sinuses and mastoids are clear. IMPRESSION: 1. No acute intracranial abnormalities. Dictated by: Annel Johnson M.D. on 03/16/2022 at 17:53 Approved by: Annel Johnson M.D. on 03/16/2022 at 17:54
--- NOTE | 2022-03-16 17:15 | DI.RAD.S_ITS ---
PROCEDURE: XR HIP W PEL IF DONE RT 2V INDICATIONS: RUQ pain. RLQ pain. TECHNIQUE: AP pelvis with lateral view(s) of the right hip(s). COMPARISON: , CR, XR PELVIS 1-2V, 05/09/2020, 15:14. , CT, CT HEAD/BRAIN WO CON, 03/16/2022, 17:43. , CT, CT CHEST ABD PEL WO CON, 03/03/2022, 15:07. FINDINGS: Bones: No fractures or dislocations. Pelvic ring appears intact. No suspicious bony lesions. Soft tissues: The visualized bowel gas pattern is normal. No suspicious soft tissue calcifications. IMPRESSION: No significant plain film abnormality is seen. Dictated by: Wilfrido Vann M.D. on 03/16/2022 at 17:05 Approved by: Wilfrido Vann M.D. on 03/16/2022 at 17:06
--- NOTE | 2022-03-16 17:19 | ED.FALL ---
HPI - Fall General Chief Complaint: Trauma Stated Complaint: Syncope/seizure Time Seen by Provider: 03/16/22 17:06 Source: patient and EMS Mode of arrival: EMS Limitations: no limitations History of Present Illness HPI Narrative: Patient has a history of nonepileptic seizures for which he takes diltiazem regularly. She is status post hysterectomy and left oophorectomy. She fell 3 days ago, passed out 2 days ago, and may have passed out again today. She had gone to her refrigerator, then awoke with the refrigerator on top of her. She got out by screaming until neighbors came to help. She arrives by EMS with head pain, no visual changes or confusion. She has no neck pain or chest pain. She complains of severe right shoulder and right hip pain. She has no numbness or weakness in any extremity. She apparently had a prior history of right shoulder dislocation. Patient has a history of TBI, preceding her diagnosis of non ecchymotic seizures. She was discharged from the hospital at that time on large doses of Valium, which she continues to take. In recent months she was denied the Valium by a new PCM. She changed doctors. She was referred back to [facility] neurology. Neurology is referring her to a TBI psychiatry specialist. She has experienced recent episodes of syncope. She has no URI symptoms, we cannot sore throat, cough or fever. She has no chest discomfort. She does have abdominal discomfort following today's incident. She has nausea, vomiting diarrhea. She has no urinary complaints. Related Data Home Medications Medication Instructions Recorded Confirmed quetiapine 100 mg tablet 100 mg PO BEDTIME 01/08/22 01/08/22 Previous Rx's Medication Instructions Recorded diazepam 10 mg tablet 10 mg PO QID #120 tabs 08/23/21 diazepam 5 mg tablet (Valium) 5 mg PO TID PRN muscle spasm #10 08/30/21 tabs trazodone 100 mg tablet See Rx Instructions .Route 10/01/21 .COMPLEX #180 tabs lamotrigine 200 mg tablet 200 mg PO DAILY #30 tabs 11/29/21 quetiapine 25 mg tablet See Rx Instructions PO BEDTIME #45 11/29/21 tabs sertraline 100 mg tablet 200 mg PO DAILY #60 tabs 11/29/21 metformin 500 mg tablet 500 mg PO BID #60 tabs 01/02/22 epinephrine 0.3 mg/0.3 mL See Rx Instructions .Route 01/08/22 injection, auto-injector .COMPLEX #2 ea tramadol 50 mg tablet 100 mg PO BID PRN severe pain 01/31/22 (scale score 7-10) #60 tabs oxycodone-acetaminophen 5 mg-325 1 tab PO Q8H PRN pain #6 tabs 03/03/22 mg tablet (Percocet) diclofenac sodium 1 % topical gel 2 g topical QID #100 grams 03/16/22 oxycodone 10 mg tablet 5 mg PO Q6H PRN pain #14 tabs 03/16/22 Allergies Allergy/AdvReac Type Severity Reaction Status Date / Time shellfish derived Allergy Severe ANAPHYLAXIS Verified 03/03/22 14:44 [SHELLFISH DERIVED] adhesive [ADHESIVE] Allergy Mild Verified 03/03/22 14:44 amoxicillin [AMOXICILLIN] Allergy Mild Verified 03/03/22 14:44 doxycycline [DOXYCYCLINE] Allergy Mild Verified 03/03/22 14:44 hydrocodone Allergy Mild rash Verified 03/03/22 14:44 iodine [IODINE] Allergy Mild Verified 03/03/22 14:44 metoclopramide Allergy Mild Verified 03/03/22 14:44 [METOCLOPRAMIDE] Penicillins [PENICILLINS] Allergy Mild Verified 03/03/22 14:44 prochlorperazine Allergy Mild Verified 03/03/22 14:44 [PROCHLORPERAZINE] sulfamethoxazole Allergy Mild RASH Verified 03/03/22 14:44 [From BACTRIM] trimethoprim [From BACTRIM] Allergy Mild RASH Verified 03/03/22 14:44 cephalexin [CEPHALEXIN] Allergy Unknown Verified 03/03/22 14:44 ciprofloxacin [CIPROFLOXACIN] Allergy Unknown Verified 03/03/22 14:44 clindamycin [CLINDAMYCIN] Allergy Unknown Verified 03/03/22 14:44 Iodinated Contrast Media Allergy Unknown Verified 03/03/22 14:44 [IODINATED CONTRAST MEDIA - IV DYE] latex [LATEX] Allergy Unknown Verified 03/03/22 14:44 acetaminophen [From Vicodin] AdvReac Rash Verified 03/03/22 14:44 lidocaine AdvReac Palpitation Verified 03/03/22 14:44 s Review of Systems Review of Systems ROS Unobtainable: All systems reviewed & are unremarkable except as noted in HPI and below Patient History Medical History BRCA2 gene mutation positive in female Endometriosis Hematuria Major depressive disorder Morbid obesity Nephrolithiasis (~2017) Ovarian cyst Patellar dislocation PCOS (polycystic ovarian syndrome) Pelvic congestion (2013) 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 Surgical History H/O unilateral oophorectomy (~11/2020) H/O: hysterectomy History of ureter stent Status post appendectomy (2003) Status post bilateral salpingectomy (09/01/17) Status post dilation and curettage (2010) Status post dilation and curettage (2011) Status post knee surgery (2007) Status post knee surgery (2012) Status post laparoscopic supracervical hysterectomy (09/01/17) Status post laparoscopy (2003) Status post laparoscopy (2011) Status post laparoscopy (2004) Status post laparoscopy (~05/2020) Status post removal of cervix Status post tonsillectomy and adenoidectomy Family History Mother BRCA positive Hyperlipidemia CAD (coronary artery disease) Hypertension Grandmother Ovarian cancer Breast cancer Social History marital status: household members: spouse and children lives independently: Yes occupational status: employed Smoking Status: Current every day smoker Smoking Status: Current every day smoker tobacco type: vaping alcohol intake frequency: holidays/special occasions only Substance Use Type: does not use Exam Initial Vital Signs Initial Vital Signs: Vital Signs Temperature 98.3 F 03/16/22 15:50 Pulse Rate 59 L 03/16/22 15:50 Respiratory Rate 18 03/16/22 15:50 Blood Pressure 134/64 03/16/22 15:50 Pulse Oximetry 98 03/16/22 15:50 Oxygen Delivery Method 03/16/22 15:50 Const General: cooperative, healthy appearing and in distress (Headache. Abdominal pain. Right shoulder pain. Right hip pain.) Nutritional Appearance: average body habitus HENMT Head: normocephalic and atraumatic Ears: TM's normal bilaterally Nose: nares normal Face and sinus: normal facial exam Mouth: oral mucosae normal Eyes General: Yes appearance normal, both eyes and all related structures Conjunctivae: conjunctivae normal Sclera: sclerae normal Pupils: PERRL EOM: EOM intact bilaterally Neck Neck: normal visual inspection, full ROM and No tender Chest Chest: normal palpation of entire chest wall Resp Auscultation: clear to auscultation bilaterally Cardio Rate: regular rate Rhythm: regular rhythm Heart Sounds: S1 normal, S2 normal, no click, no gallops and no murmurs GI Other: Generalized abdominal tenderness. tenderness is most focused in the right upper quadrant and right lower quadrant. No masses. Normal bowel sounds. Back/Spine/Pelvis Back: normal to inspection and No back tenderness Skin General: no rashes or lesions noted Lesions: no lesions Rashes: no rashes Neuro General: patient alert, patient awake and patient oriented x3 Extrem General: normal to inspection, full ROM and no calf tenderness Psych Mental Status: mental status grossly normal Course Course Course Narrative: The patient has recently suffered multiple head injuries, she has a history of TBI. She has syncope, no suggestion of seizures. She is oriented x3, no neurologic deficits. She apparently had a prior dislocated shoulder. Her right shoulder x-rays are normal, exam raises a concern for rotator cuff injury. Cholelithiasis without cholecystitis was discovered. Orders Ordered: ED Orders 03/16/22 17:15 CT head/brain wo con Stat US abdomen limited Stat XR hip w pel if done RT 2V Stat XR shoulder RT min 2V Stat 03/16/22 17:19 Urine Drug Screen, Rapid Stat 03/16/22 18:10 CBC Auto Diff [Complete Blood Count AUTO DIFF] Stat CMP [Comprehensive Metabolic Panel] Stat Lipase Stat Sodium Chloride (Normal Saline 0.9%) 1,000 mls @ 125 mls/hr IV CONT JERI Last Admin: 03/16/22 18:17 Dose: 125 mls/hr Documented By: TEE Discontinued Medications Hydromorphone HCl (Hydromorphone 1 Mg Inj) 2 mg IV NOW ONE Stop: 03/16/22 18:50 Last Admin: 03/16/22 19:37 Dose: 2 mg Documented By: TEE Ketorolac Tromethamine (Ketorolac 30 Mg/Ml Vial) 30 mg IV NOW ONE Stop: 03/16/22 18:50 Last Admin: 03/16/22 19:37 Dose: 30 mg Documented By: Vital Signs Vital signs: Vital Signs - 8 hr 03/16/22 15:50 Temperature 98.3 F Pulse Rate 59 L Respiratory Rate 18 Blood Pressure 134/64 Pulse Oximetry 98 Oxygen Delivery Method Room Air - Fall Lab Data Result diagrams: 03/16/22 18:10 03/16/22 18:10 Labs: Lab Results 03/16/22 03/16/22 Range/Units 18:10 18:10 WBC 6.6 (4.5-11.0) X10^3/uL RBC 4.32 (4.0-5.2) X10^6/uL Hgb 13.4 (12.0-16.0) g/dL Hct 37.9 (36-46) % MCV 87.7 (80-100) fL MCH 31.0 (26-34) PG MCHC 35.3 (30-36) % RDW 13.2 (11.6-14.8) % Plt Count 259 (150-400) X10^3/uL Neut % (Auto) 59.3 (50-75) % Lymph % (Auto) 31.6 (25-40) % Henderson % (Auto) 8.0 (3-14) % Eos % (Auto) 0.6 L (2-4) % Baso % (Auto) 0.5 (0-2) % Neut # (Auto) 3900 (5019-0350) /uL Lymph # (Auto) 2100 (8472-4487) /uL Henderson # (Auto) 500 (0-900) /uL Eos # (Auto) 0 (0-450) /uL Baso # (Auto) 0 (0-100) /uL Sodium 138 (137-145) mmol/L Potassium 4.1 (3.4-5.1) mmol/L Chloride 105 (98-107) mmol/L Carbon Dioxide 26 (22-32) mmol/L BUN 10 (7-17) mg/dL Creatinine 0.74 (0.52-1.04) mg/dL Estimated GFR > 60 (>60) mL/min BUN/Creatinine Ratio 13.5 (6-22) Glucose 87 (70-100) mg/dL Calcium 8.6 (8.4-10.2) mg/dL Total Bilirubin 0.7 (0.2-1.3) mg/dL AST 17 (14-36) IU/L ALT 11 (<35) IU/L Alkaline Phosphatase 53 (38-126) U/L Total Protein 7.2 (6.3-8.2) g/dL Albumin 4.1 (3.5-5.0) g/dL Globulin 3.1 (1.7-4.1) g/dL Albumin/Globulin Ratio 1.3 (1.0-2.8) Lipase 63 (23-300) U/L Imaging Data Abdominal ultrasound:: Radiologist's Impression: Cardiomegaly with interstitial prominence and minimal pleural effusions. Please correlate with patient presentation, physical examination findings, and laboratory values for congestive heart failure. Discharge Plan Departure Patient Disposition: Home Clinical Impression: Injury of right shoulder, Contusion of head, Strain of right hip, Syncope, Cholelithiasis, Closed traumatic brain injury Instructions: Gallstones, Closed Head Injury, DI for Shoulder Pain Activity Restrictions/Additional Instructions: You should be on a low-fat diet. Discussed her gallbladder issue with your PCM. Tylenol or Advil for pain management. Apply Voltaren to the right shoulder and right hip as prescribed. Percocet for added pain control when necessary. Follow-up with your doctor for ongoing pain management as necessary. Prescriptions: New diclofenac sodium 1 % gel 2 g topical QID Qty: 100 3RF Rx Instructions: apply to single elbow, wrist or hand; for hand includes palm/fingers/back of hand oxycodone 10 mg tablet 5 mg PO Q6H PRN (Reason: pain) Qty: 14 0RF No Action trazodone 100 mg tablet See Rx Instructions .ROUTE .COMPLEX Qty: 180 0RF Dose Instruction: TAKE 2 TABLETS BY MOUTH AT BEDTIME NEEDED FOR INSOMNIA Rx Instructions: TAKE 2 TABLETS BY MOUTH AT BEDTIME NEEDED FOR INSOMNIA diazepam 10 mg tablet 10 mg PO QID Qty: 120 2RF Hold Instructions: NEEDS TO SEE NEUROLOGY metformin 500 mg tablet 500 mg PO BID Qty: 60 0RF tramadol 50 mg tablet 100 mg PO BID PRN (Reason: severe pain (scale score 7-10)) Qty: 60 0RF Rx Instructions: Limit as possible. Prescribed per 01/30 signed pain management contract. Contract void and provider will offer no further tramadol refills if tramadol received per another provider. lamotrigine 200 mg tablet 200 mg PO DAILY Qty: 30 2RF quetiapine 25 mg tablet See Rx Instructions PO BEDTIME Qty: 45 2RF Hold Instructions: SEEN BY PSYCHIATRY Rx Instructions: Take 1 tab p.o. at HS. May take 1/2 tab p.o. during the day for anxiety sertraline 100 mg tablet 200 mg PO DAILY Qty: 60 2RF quetiapine 100 mg tablet 100 mg PO BEDTIME epinephrine 0.3 mg/0.3 mL auto-injector See Rx Instructions .ROUTE .COMPLEX Qty: 2 0RF Dose Instruction: INJECT INTRAMUSCULARLY EVERY 20 MINUTES NEEDED FOR ANAPHYLAXIS UNTIL RESPONSE Rx Instructions: INJECT INTRAMUSCULARLY EVERY 20 MINUTES NEEDED FOR ANAPHYLAXIS UNTIL RESPONSE oxycodone-acetaminophen [Percocet] 5-325 mg tablet 1 tab PO Q8H PRN (Reason: pain) Qty: 6 0RF diazepam [Valium] 5 mg tablet 5 mg PO TID PRN (Reason: muscle spasm) Qty: 10 0RF Hold Instructions: NEEDS TO SEE NEUROLOGY
[2022-03-16] MEDS: SODIUM CHLORIDE 0.9% 1,000 ML 125 ML IV (18:17)
[2022-03-16 18:23] LABS: Add Manual Diff / Slide Review NO; Basophils Absolute Auto 0 /uL (0-100); Basophils Percent Auto 0.5 % (0-2); Eosinophils Absolute Auto 0 /uL (0-450); Eosinophils Percent Auto 0.6 % (2-4); Hematocrit 37.9 % (36-46); Hemoglobin 13.4 g/dL (12.0-16.0); Lymphocytes Absolute Auto 2100 /uL (1100-4500); Lymphocytes Percent Auto 31.6 % (25-40); Mean Corpuscular HGB Conc 35.3 % (30-36); Mean Corpuscular Volume 87.7 fL (80-100); Monocytes Absolute Auto 500 /uL (0-900); Neutrophils Absolute Auto 3900 /uL (1500-7000); Neutrophils Percent Auto 59.3 % (50-75); Platelet Count 259 X10^3/uL (150-400); Red Blood Cell Count 4.32 X10^6/uL (4.0-5.2); Red Cell Distribution Width 13.2 % (11.6-14.8); White Blood Cell Count 6.6 X10^3/uL (4.5-11.0)
[2022-03-16 18:33] LABS: Alanine Aminotransferase 11 IU/L (<35); Albumin 4.1 g/dL (3.5-5.0); Albumin Globulin Ratio 1.3 (1.0-2.8); Alkaline Phosphatase 53 U/L (38-126); Aspartate Aminotransferase 17 IU/L (14-36); BUN Creatinine Ratio 13.5 (6-22); Bilirubin Total 0.7 mg/dL (0.2-1.3); Blood Urea Nitrogen 10 mg/dL (7-17); Calcium 8.6 mg/dL (8.4-10.2); Carbon Dioxide 26 mmol/L (22-32); Chloride 105 mmol/L (98-107); Estimated Glomerular Filt Rate > 60 mL/min (>60); Globulin 3.1 g/dL (1.7-4.1); Glucose 87 mg/dL (70-100); HEMOLYSIS < 15 (0-50); Lipase 63 U/L (23-300); Potassium 4.1 mmol/L (3.4-5.1); Sodium 138 mmol/L (137-145); Total Protein 7.2 g/dL (6.3-8.2)
[2022-03-16 19:30] VITALS: PULSE 63; RESP 18; O2SAT 100
[2022-03-16] MEDS: HYDROMORPHONE 1 MG INJ 2 MG IV (19:37)
[2022-03-16] MEDS: KETOROLAC 30 MG/ML VIAL IV (19:37)
[2022-03-16 20:30] VITALS: PULSE 73; RESP 16; O2SAT 96
[2022-03-16 21:30] VITALS: PULSE 64; RESP 16; O2SAT 98
[2022-03-16] MEDS: OXYCODONE/ACETAMINOPHEN 5/325 TABLET 1 TAB PO (21:41)
== END 2022-03-16 22:02 | disposition home or self-care (01) ==
PROVIDERS: Emergency Provider Emergency Medicine
DX: S06.9XAA Unspecified intracranial injury with loss of consciousness status unknown, initial encounter (principal); R55 Syncope and collapse; S00.93XA Contusion of unspecified part of head, initial encounter; S76.011A Strain of muscle, fascia and tendon of right hip, initial encounter; K80.20 Calculus of gallbladder without cholecystitis without obstruction; Z90.710 Acquired absence of both cervix and uterus
CPT/HCPCS: 70450; 73030; 73502; 76705; 80053; 83690; 85025; 96361; 96374; 96375; 99284; J1170; J1885

== ENCOUNTER 2022-09-26 20:56 | Emergency (ER) | payer OTHER, MEDICAID, SELFPAY ==
[2022-09-26] VITALS (9 sets, daily range): BP systolic 101–140; BP diastolic 52–63; PULSE 58–78; RESP 16; TEMP 36.4; O2SAT 97–98; BMI 34.0
--- NOTE | 2022-09-26 21:13 | ED_ITS ---
HPI - Abdominal Pain General Chief Complaint: Abdominal Pain Stated Complaint: abdominal pain, vomiting blood Time Seen by Provider: 09/26/22 21:09 History of Present Illness HPI narrative: Patient 27-year-old female with significant history of anxiety, psychogenic neuroleptic seizures, PTSD depression, erosive gastritis causing hematemesis multiple EGDs, e history of vaginal bleeding despite hysterectomy, presents today with left lower quadrant pain nausea vomiting in vaginal bleeding. She actually was seen evaluated by her primary care provider yesterday she was having galactorrhea which started 2 days ago. She says this is persisting. She is metoclopramide Phenergan and oxycodone all which increase and prolactin levels. She apparently does have vaginal bleeding there is a known small opening in the cuff of her hysterectomy as identified her surgeon when she started lactating she started vaginal bleeding again. She denies fever or chills. No flank pain. He is had multiple CTs previously. She was admitted at [facility] recently for an EGD which she was found to have erosive gastritis. She can not have NSAIDs. She is taking oxycodone. Related Data Home Medications Medication Instructions Recorded Confirmed quetiapine 100 mg tablet 100 mg PO BEDTIME 01/08/22 01/08/22 Previous Rx's Medication Instructions Recorded diazepam 10 mg tablet 10 mg PO QID #120 tabs 08/23/21 diazepam 5 mg tablet (Valium) 5 mg PO TID PRN muscle spasm #10 08/30/21 tabs trazodone 100 mg tablet See Rx Instructions .Route 10/01/21 .COMPLEX #180 tabs lamotrigine 200 mg tablet 200 mg PO DAILY #30 tabs 11/29/21 quetiapine 25 mg tablet See Rx Instructions PO BEDTIME #45 11/29/21 tabs sertraline 100 mg tablet 200 mg PO DAILY #60 tabs 11/29/21 metformin 500 mg tablet 500 mg PO BID #60 tabs 01/02/22 epinephrine 0.3 mg/0.3 mL See Rx Instructions .Route 01/08/22 injection, auto-injector .COMPLEX #2 ea tramadol 50 mg tablet 100 mg PO BID PRN severe pain 01/31/22 (scale score 7-10) #60 tabs oxycodone-acetaminophen 5 mg-325 1 tab PO Q8H PRN pain #6 tabs 03/03/22 mg tablet (Percocet) diclofenac sodium 1 % topical gel 2 g topical QID #100 grams 03/16/22 oxycodone 10 mg tablet 5 mg PO Q6H PRN pain #14 tabs 03/16/22 levofloxacin 500 mg tablet 500 mg PO DAILY 3 days #3 tabs 09/27/22 Allergies Allergy/AdvReac Type Severity Reaction Status Date / Time shellfish derived Allergy Severe ANAPHYLAXIS Verified 03/03/22 14:44 [SHELLFISH DERIVED] adhesive [ADHESIVE] Allergy Mild Verified 03/03/22 14:44 amoxicillin [AMOXICILLIN] Allergy Mild Verified 03/03/22 14:44 doxycycline [DOXYCYCLINE] Allergy Mild Verified 03/03/22 14:44 hydrocodone Allergy Mild rash Verified 03/03/22 14:44 iodine [IODINE] Allergy Mild Verified 03/03/22 14:44 metoclopramide Allergy Mild Verified 03/03/22 14:44 [METOCLOPRAMIDE] Penicillins [PENICILLINS] Allergy Mild Verified 03/03/22 14:44 sulfamethoxazole Allergy Mild RASH Verified 03/03/22 14:44 [From BACTRIM] trimethoprim [From BACTRIM] Allergy Mild RASH Verified 03/03/22 14:44 cephalexin [CEPHALEXIN] Allergy Unknown Verified 03/03/22 14:44 ciprofloxacin [CIPROFLOXACIN] Allergy Unknown Verified 03/03/22 14:44 clindamycin [CLINDAMYCIN] Allergy Unknown Verified 03/03/22 14:44 Iodinated Contrast Media Allergy Unknown Verified 03/03/22 14:44 [IODINATED CONTRAST MEDIA - IV DYE] latex [LATEX] Allergy Unknown Verified 03/03/22 14:44 lidocaine AdvReac Palpitation Verified 03/03/22 14:44 s Patient History Medical History BRCA2 gene mutation positive in female Endometriosis Hematuria Major depressive disorder Morbid obesity Nephrolithiasis (~2017) Ovarian cyst Patellar dislocation PCOS (polycystic ovarian syndrome) Pelvic congestion (2013) 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 Surgical History H/O unilateral oophorectomy (~11/2020) H/O: hysterectomy History of ureter stent Status post appendectomy (2003) Status post bilateral salpingectomy (09/01/17) Status post dilation and curettage (2010) Status post dilation and curettage (2011) Status post knee surgery (2007) Status post knee surgery (2012) Status post laparoscopic supracervical hysterectomy (09/01/17) Status post laparoscopy (2003) Status post laparoscopy (2011) Status post laparoscopy (2004) Status post laparoscopy () Status post removal of cervix Status post tonsillectomy and adenoidectomy Family History Mother BRCA positive Hyperlipidemia CAD (coronary artery disease) Hypertension Grandmother Ovarian cancer Breast cancer Social History marital status: household members: spouse and children lives independently: Yes occupational status: employed Smoking Status: Current every day smoker Smoking Status: Current every day smoker tobacco type: vaping alcohol intake frequency: holidays/special occasions only Substance Use Type: does not use Exam Initial Vital Signs Initial Vital Signs: Vital Signs Temperature 97.6 F 09/26/22 21:09 Pulse Rate 78 09/26/22 21:09 Respiratory Rate 16 09/26/22 21:09 Blood Pressure 140/63 09/26/22 21:09 Pulse Oximetry 97 09/26/22 21:09 Oxygen Delivery Method Room Air 09/26/22 21:09 GENERAL: Alert pleasant well-appearing 27-year-old female and in no acute distress. HEENT: Head atraumatic,EOMI, pupils reactive, face symmetric, moist mucous membranes CARDIOVASCULAR: Regular rate and rhythm without murmurs, rubs or gallops. RESPIRATORY: Breath sounds equal bilaterally, no wheezes rales or rhonchi. ABDOMEN: Soft, mild tenderness left quadrant guarding rebound : No CVA tenderness EXTREMITIES: Normal range of motion, no clubbing or edema. Neurovascularly intact NEUROLOGICAL: Alert and oriented x4.Normal gait and speech. SKIN: Warm, dry, no laceration, no petechiae, no rashes or lesions. Course Orders Ordered: ED Orders 09/26/22 21:20 UA Complete [Urinalysis and Microscopic] Stat Urine Culture Stat 09/26/22 21:32 CBC Auto Diff [Complete Blood Count AUTO DIFF] Stat CMP [Comprehensive Metabolic Panel] Stat Lactate (Lactic Acid) Stat Lipase Stat Procalcitonin Stat 09/26/22 22:00 CT abdomen pelvis wo con Stat Discontinued Medications Diphenhydramine HCl (Diphenhydramine 50 Mg/Ml Vial) 25 mg IV NOW ONE Stop: 09/26/22 22:03 Last Admin: 09/26/22 22:21 Dose: Not Given Documented By: SARAH Hydromorphone HCl (Hydromorphone 1 Mg Inj) 1 mg IV NOW ONE Stop: 09/26/22 22:51 Last Admin: 09/26/22 23:01 Dose: 1 mg Documented By: SARAH Sodium Chloride (Normal Saline 0.9%) 1,000 mls @ 1,000 mls/hr IV BOLUS ONE Stop: 09/26/22 22:12 Last Infusion: 09/26/22 23:34 Dose: 0 mls/hr Documented By: Admin: 09/26/22 22:24 Dose: 1,000 mls/hr Documented By: SARAH Methylprednisolone (Methylprednisolone 125 Mg/2 Ml Vial) 125 mg IV NOW ONE Stop: 09/26/22 22:03 Last Admin: 09/26/22 22:21 Dose: Not Given Documented By: SARAH Pantoprazole Sodium (Pantoprazole 40 Mg Vial) 40 mg IV NOW ONE Stop: 09/26/22 21:42 Last Admin: 09/26/22 22:01 Dose: 40 mg Documented By: SARAH Prochlorperazine (Prochlorperazine 10 Mg/2 Ml Vial) 10 mg IV NOW ONE Stop: 09/26/22 21:42 Last Admin: 09/26/22 22:00 Dose: 10 mg Documented By: SARAH Vital Signs Vital signs: Vital Signs - 8 hr 09/26/22 21:09 09/26/22 22:00 09/26/22 21:14 Temperature 97.6 F Pulse Rate 78 60 74 Respiratory Rate 16 Blood Pressure 140/63 140/63 Pulse Oximetry 97 97 Oxygen Delivery Method Room Air 09/26/22 21:30 09/26/22 22:00 09/26/22 22:01 Temperature Pulse Rate 68 63 62 Respiratory Rate Blood Pressure Pulse Oximetry 97 98 98 Oxygen Delivery Method 09/26/22 22:01 09/26/22 22:29 09/26/22 22:29 Temperature Pulse Rate 60 Respiratory Rate Blood Pressure 117/55 L 101/52 L Pulse Oximetry 97 Oxygen Delivery Method 09/26/22 22:30 09/26/22 22:30 09/26/22 23:00 Temperature Pulse Rate 62 70 Respiratory Rate Blood Pressure 105/58 L Pulse Oximetry 97 97 Oxygen Delivery Method 09/26/22 23:30 09/27/22 00:00 09/27/22 00:30 Temperature Pulse Rate 58 L 58 L 73 Respiratory Rate Blood Pressure Pulse Oximetry 97 97 100 Oxygen Delivery Method 09/27/22 00:31 09/27/22 00:39 Temperature 97.8 F Pulse Rate 69 69 Respiratory Rate Blood Pressure 109/59 L Pulse Oximetry 100 100 Oxygen Delivery Method MDM - Abdominal Pain Lab Data 09/26/22 21:32 09/26/22 21:32 Labs: Lab Results 09/26/22 09/26/22 09/26/22 Range/Units 21:20 21:32 21:32 WBC 6.4 (4.5-11.0) X10^3/uL RBC 4.04 (4.0-5.2) X10^6/uL Hgb 12.6 (12.0-16.0) g/dL Hct 35.8 L (36-46) % MCV 88.6 (80-100) fL MCH 31.2 (26-34) PG MCHC 35.3 (30-36) % RDW 12.7 (11.6-14.8) % Plt Count 245 (150-400) X10^3/uL Neut % (Auto) 54.8 (50-75) % Lymph % (Auto) 34.4 (25-40) % [place] % (Auto) 6.9 (3-14) % Eos % (Auto) 2.0 (2-4) % Baso % (Auto) 1.9 (0-2) % Neut # (Auto) 3500 (2898-8100) /uL Lymph # (Auto) 2200 (3783-1177) /uL [place] # (Auto) 400 (0-900) /uL Eos # (Auto) 100 (0-450) /uL Baso # (Auto) 100 (0-100) /uL Sodium 136 L (137-145) mmol/L Potassium 3.6 (3.4-5.1) mmol/L Chloride 103 (98-107) mmol/L Carbon Dioxide 27 (22-32) mmol/L BUN 15 (7-17) mg/dL Creatinine 0.87 (0.52-1.04) mg/dL Estimated GFR > 60 (>60) mL/min BUN/Creatinine Ratio 17.2 (6-22) Glucose 96 (70-100) mg/dL Lactate (0.7-2.1) mmol/L Calcium 8.3 L (8.4-10.2) mg/dL Total Bilirubin 0.5 (0.2-1.3) mg/dL AST 16 (14-36) IU/L ALT 16 (<35) IU/L Alkaline Phosphatase 43 (38-126) U/L Total Protein 6.4 (6.3-8.2) g/dL Albumin 3.9 (3.5-5.0) g/dL Globulin 2.5 (1.7-4.1) g/dL Albumin/Globulin Ratio 1.6 (1.0-2.8) Lipase 86 (23-300) U/L Procalcitonin (<0.5) ng/mL Urine Color Red Urine Appearance Cloudy Urine pH 6.5 (4.5-8.0) Ur Specific [place] 1.025 (1.000-1.035) Urine Protein 1+ H (Negative) Urine Glucose (UA) Negative (Negative) g/dL Urine Ketones Negative (NEGATIVE) Urine Occult Blood 3+ H (Negative) Urine Nitrate Negative (Negative) Urine Bilirubin Negative (NEGATIVE) Urine Urobilinogen 1.0 (0.2) E.U./dL Ur Leukocyte Esterase 1+ H (NEGATIVE) Urine RBC >100/hpf H (0-5/HPF) Urine WBC 1-5/hpf (0-5/HPF) Ur Squamous Epith Cells 1-5 /hpf D (0-5/HPF) Urine Bacteria Occasional (0-1) (None) Ur Culture Indicated? Specimen cultured 09/26/22 09/26/22 Range/Units 21:32 21:32 WBC (4.5-11.0) X10^3/uL RBC (4.0-5.2) X10^6/uL Hgb (12.0-16.0) g/dL Hct (36-46) % MCV (80-100) fL MCH (26-34) PG MCHC (30-36) % RDW (11.6-14.8) % Plt Count (150-400) X10^3/uL Neut % (Auto) (50-75) % Lymph % (Auto) (25-40) % [place] % (Auto) (3-14) % Eos % (Auto) (2-4) % Baso % (Auto) (0-2) % Neut # (Auto) (5600-9781) /uL Lymph # (Auto) (7889-8614) /uL [place] # (Auto) (0-900) /uL Eos # (Auto) (0-450) /uL Baso # (Auto) (0-100) /uL Sodium (137-145) mmol/L Potassium (3.4-5.1) mmol/L Chloride (98-107) mmol/L Carbon Dioxide (22-32) mmol/L BUN (7-17) mg/dL Creatinine (0.52-1.04) mg/dL Estimated GFR (>60) mL/min BUN/Creatinine Ratio (6-22) Glucose (70-100) mg/dL Lactate 1.2 (0.7-2.1) mmol/L Calcium (8.4-10.2) mg/dL Total Bilirubin (0.2-1.3) mg/dL AST (14-36) IU/L ALT (<35) IU/L Alkaline Phosphatase (38-126) U/L Total Protein (6.3-8.2) g/dL Albumin (3.5-5.0) g/dL Globulin (1.7-4.1) g/dL Albumin/Globulin Ratio (1.0-2.8) Lipase (23-300) U/L Procalcitonin < 0.03 (<0.5) ng/mL Urine Color Urine Appearance Urine pH (4.5-8.0) Ur Specific [place] (1.000-1.035) Urine Protein (Negative) Urine Glucose (UA) (Negative) g/dL Urine Ketones (NEGATIVE) Urine Occult Blood (Negative) Urine Nitrate (Negative) Urine Bilirubin (NEGATIVE) Urine Urobilinogen (0.2) E.U./dL Ur Leukocyte Esterase (NEGATIVE) Urine RBC (0-5/HPF) Urine WBC (0-5/HPF) Ur Squamous Epith Cells (0-5/HPF) Urine Bacteria (None) Ur Culture Indicated? Point of care testing: Point of Care Testing Test Results Negative Urine Dip Bedside Urine Glucose Negative Bedside Urine Bilirubin - Negative Bedside Urine Ketone - Negative Urine Specific [place] 1.020 Bedside Urine Occult Blood - Negative Bedside Urine pH 6.0 Bedside Urine Protein + 30 Bedside Urine Urobilinogen +/- 1mg Bedside Urine Nitrite - Negative Bedside Urine Leukocytes + [address] scan - abdomen/pelvis: Radiologist's Impression: PROCEDURE:? CT ABDOMEN PELVIS WO CON ? INDICATIONS:? Left lower quadrant pain, hematuria ? TECHNIQUE:? Noncontrast 5 mm thick sections acquired from the diaphragms to the symphysis.? 5 mm coronal and sagittal reformats were then performed.? For radiation dose reduction, the following was used:? automated exposure control, adjustment of mA and/or kV according to patient size.? ? COMPARISON:? [facility], MR, MR ABDOMEN MRCP, 04/23/2022, 10:50.? [facility], CT, CT ABDOMEN PELVIS WITHOUT CONTRAST, 04/22/2022, 19:33.? [facility], MR, MR ABDOMEN MRCP, 04/23/2022, 10:50. ? FINDINGS:? Image quality:? Good ? Lower chest:? Unremarkable.? No hiatal hernia. ? Solid organs:? Liver is unremarkable.? Gallbladder is absent.? No pathologic dilation of the biliary tree or pancreatic duct.? Similar borderline splenomegaly, measuring about 14 cm.? No adrenal nodules.? ? No hydronephrosis.? No calcified stones.? As before, minimally hyperattenuating appearance of the renal pyramids bilaterally. ? Vessels and lymph nodes:? No abdominal aortic aneurysm or pathologic adenopathy by size criteria. ? Bowel and peritoneum:? No evidence of small bowel obstruction.? There are colonic diverticula.? No abscess or pathologic ascites. ? Body wall:? Unremarkable ? Pelvis:? Bladder is underdistended which limits evaluation.? Hysterectomy.? Prominent left ovary, with decreased size of previously seen cyst, reproductive organs are not well evaluated on CT, consider ultrasound correlation if needed. ? Bones:? No acute or suspicious osseous finding. ? IMPRESSION:? No acute abdominal pelvic pathology.? No calcified renal stones.? No hydronephrosis.? Nonspecific trace hyperattenuating appearance of the renal pyramids is sometimes associated with nephrocalcinosis. Consider CT IVP and possible cystoscopy for further workup of hematuria.? ? Consider ultrasound correlation if needed to further workup pelvic organs.? Hysterectomy. ? ? Dictated by: Kamaljit Bolanos M.D. on 09/26/2022 at 22:28 ?? [facility] Narrative Medical decision making narrative: Patient 27-year-old female with multiple complicated medical issues. Parents abdominal cramping. She is found to have vaginal bleeding despite hysterectomy. Records from yesterday report that there is area from her hysterectomy that has opened. However patient reports that she only started bleeding 2 days ago. Apparently this is known because she is scheduled to have it fixed in October. She says have blood in her urine some leukocytes. No nitrates. Will treat for a UTI. No evidence of sepsis she is a normal lactate normal WBC electrolytes are within normal limits. Patient had CT does not show any abnormality. She is allergic to contrast, CT was done without contrast. No cause of her left lower quadrant pain is identified. She is multiple other issues that are currently being worked up by the patient she does have some galactorrhea possibly due to medication versus other. Her PCP is ordering more tests. Overall she appears well. She is given 1 dose of Dilaudid she understands that she will not be given any further pain medication. She reports that for UTI Levaquin is only 1 that works. She has no sign of sepsis she can start antibiotic tomorrow. Discharge Plan Departure Patient Disposition: Home Clinical Impression: UTI (urinary tract infection) Instructions: DI for Urinary Tract Infection (UTI) Activity Restrictions/Additional Instructions: *You have been diagnosed with bladder infection *What to do: At this time will treat you for a bladder infection. Please follow-up with your dark thirst in regards to other ongoing problem *Continue to take medications as directed Levaquin 500 mg once a day for 3 days--> [facility] *Follow up with your primary care provider in 2-3 days or call [phone] *Return to ER if you should have increasing pain passing out heavy vaginal bleeding more than 2 super pads in 1 hour or any new, worsening or concerning symptoms Prescriptions: New levofloxacin 500 mg tablet 500 mg PO DAILY 3 Days Qty: 3 0RF No Action trazodone 100 mg tablet See Rx Instructions .ROUTE .COMPLEX Qty: 180 0RF Dose Instruction: TAKE 2 TABLETS BY MOUTH AT BEDTIME NEEDED FOR INSOMNIA Rx Instructions: TAKE 2 TABLETS BY MOUTH AT BEDTIME NEEDED FOR INSOMNIA diazepam 10 mg tablet 10 mg PO QID Qty: 120 2RF Hold Instructions: NEEDS TO SEE NEUROLOGY metformin 500 mg tablet 500 mg PO BID Qty: 60 0RF tramadol 50 mg tablet 100 mg PO BID PRN (Reason: severe pain (scale score 7-10)) Qty: 60 0RF Rx Instructions: Limit as possible. Prescribed per 01/30 signed pain management contract. Contract void and provider will offer no further tramadol refills if tramadol received per another provider. lamotrigine 200 mg tablet 200 mg PO DAILY Qty: 30 2RF quetiapine 25 mg tablet See Rx Instructions PO BEDTIME Qty: 45 2RF Hold Instructions: SEEN BY PSYCHIATRY Rx Instructions: Take 1 tab p.o. at HS. May take 1/2 tab p.o. during the day for anxiety sertraline 100 mg tablet 200 mg PO DAILY Qty: 60 2RF quetiapine 100 mg tablet 100 mg PO BEDTIME epinephrine 0.3 mg/0.3 mL auto-injector See Rx Instructions .ROUTE .COMPLEX Qty: 2 0RF Dose Instruction: INJECT INTRAMUSCULARLY EVERY 20 MINUTES NEEDED FOR ANAPHYLAXIS UNTIL RESPONSE Rx Instructions: INJECT INTRAMUSCULARLY EVERY 20 MINUTES NEEDED FOR ANAPHYLAXIS UNTIL RESPONSE oxycodone-acetaminophen [Percocet] 5-325 mg tablet 1 tab PO Q8H PRN (Reason: pain) Qty: 6 0RF diclofenac sodium 1 % gel 2 g topical QID Qty: 100 3RF Rx Instructions: apply to single elbow, wrist or hand; for hand includes palm/fingers/back of hand oxycodone 10 mg tablet 5 mg PO Q6H PRN (Reason: pain) Qty: 14 0RF diazepam [Valium] 5 mg tablet 5 mg PO TID PRN (Reason: muscle spasm) Qty: 10 0RF Hold Instructions: NEEDS TO SEE NEUROLOGY Referrals: Rosa Isela Ashley, JESSICA, [employer] [Primary Care Provider] - Stand Alone Forms: Patient Portal/API
[2022-09-26 21:24] LABS: Appearance Urine UA CLOUDY; Bilirubin Urine UA NEGATIVE (NEGATIVE); Color Urine UA RED; Glucose Urine UA NEGATIVE (Negative); Ketones Urine UA NEGATIVE (NEGATIVE); Leukocyte Esterase Urine UA 1+ (NEGATIVE); Nitrite Urine UA NEGATIVE (Negative); Occult Blood Urine UA 3+ (Negative); Protein Urine UA 1+ (Negative); Specific Gravity Urine UA 1.025 (1.000-1.035)
[2022-09-26 21:25] LABS: pH Urine UA 6.5 (4.5-8.0)
[2022-09-26 21:35] LABS: Bacteria Urine Occasional (0-1); Culture Indicated Urine Specimen Cultured; RBC Urine >100/HPF (0-5/HPF); Squamous Epithelial Cell Urine 1-5 /HPF (0-5/HPF); WBC Urine 1-5/HPF (0-5/HPF)
[2022-09-26 21:48] LABS: Add Manual Diff / Slide Review NO; Basophils Absolute Auto 100 /uL (0-100); Basophils Percent Auto 1.9 % (0-2); Eosinophils Absolute Auto 100 /uL (0-450); Hematocrit 35.8 % (36-46); Hemoglobin 12.6 g/dL (12.0-16.0); Lymphocytes Absolute Auto 2200 /uL (1100-4500); Lymphocytes Percent Auto 34.4 % (25-40); Mean Corpuscular HGB Conc 35.3 % (30-36); Mean Corpuscular Hemoglobin 31.2 PG (26-34); Mean Corpuscular Volume 88.6 fL (80-100); Monocytes Absolute Auto 400 /uL (0-900); Monocytes Percent Auto 6.9 % (3-14); Neutrophils Absolute Auto 3500 /uL (1500-7000); Neutrophils Percent Auto 54.8 % (50-75); Platelet Count 245 X10^3/uL (150-400); Red Blood Cell Count 4.04 X10^6/uL (4.0-5.2); Red Cell Distribution Width 12.7 % (11.6-14.8); White Blood Cell Count 6.4 X10^3/uL (4.5-11.0)
[2022-09-26 21:56] LABS: Lactate (Lactic Acid) 1.2 mmol/L (0.7-2.1)
[2022-09-26 21:57] LABS: Alanine Aminotransferase 16 IU/L (<35); Albumin 3.9 g/dL (3.5-5.0); Albumin Globulin Ratio 1.6 (1.0-2.8); Alkaline Phosphatase 43 U/L (38-126); Aspartate Aminotransferase 16 IU/L (14-36); BUN Creatinine Ratio 17.2 (6-22); Bilirubin Total 0.5 mg/dL (0.2-1.3); Blood Urea Nitrogen 15 mg/dL (7-17); Calcium 8.3 mg/dL (8.4-10.2); Carbon Dioxide 27 mmol/L (22-32); Chloride 103 mmol/L (98-107); Estimated Glomerular Filt Rate > 60 mL/min (>60); Globulin 2.5 g/dL (1.7-4.1); Glucose 96 mg/dL (70-100); HEMOLYSIS < 15 (0-50); Lipase 86 U/L (23-300); Potassium 3.6 mmol/L (3.4-5.1); Sodium 136 mmol/L (137-145); Total Protein 6.4 g/dL (6.3-8.2)
[2022-09-26] MEDS: PROCHLORPERAZINE 10 MG/2 ML VIAL IV (22:00)
--- NOTE | 2022-09-26 22:00 | DI.CT.S_ITS ---
PROCEDURE: CT ABDOMEN PELVIS WO CON INDICATIONS: Left lower quadrant pain, hematuria TECHNIQUE: Noncontrast 5 mm thick sections acquired from the diaphragms to the symphysis. 5 mm coronal and sagittal reformats were then performed. For radiation dose reduction, the following was used: automated exposure control, adjustment of mA and/or kV according to patient size. COMPARISON: [facility], MR, MR ABDOMEN MRCP, 04/23/2022, 10:50. [facility], CT, CT ABDOMEN PELVIS WITHOUT CONTRAST, 04/22/2022, 19:33. [facility], MR, MR ABDOMEN MRCP, 04/23/2022, 10:50. FINDINGS: Image quality: Good Lower chest: Unremarkable. No hiatal hernia. Solid organs: Liver is unremarkable. Gallbladder is absent. No pathologic dilation of the biliary tree or pancreatic duct. Similar borderline splenomegaly, measuring about 14 cm. No adrenal nodules. No hydronephrosis. No calcified stones. As before, minimally hyperattenuating appearance of the renal pyramids bilaterally. Vessels and lymph nodes: No abdominal aortic aneurysm or pathologic adenopathy by size criteria. Bowel and peritoneum: No evidence of small bowel obstruction. There are colonic diverticula. No abscess or pathologic ascites. Body wall: Unremarkable Pelvis: Bladder is underdistended which limits evaluation. Hysterectomy. Prominent left ovary, with decreased size of previously seen cyst, reproductive organs are not well evaluated on CT, consider ultrasound correlation if needed. Bones: No acute or suspicious osseous finding. IMPRESSION: No acute abdominal pelvic pathology. No calcified renal stones. No hydronephrosis. Nonspecific trace hyperattenuating appearance of the renal pyramids is sometimes associated with nephrocalcinosis. Consider CT IVP and possible cystoscopy for further workup of hematuria. Consider ultrasound correlation if needed to further workup pelvic organs. Hysterectomy. Dictated by: Kamaljit Bolanos M.D. on 09/26/2022 at 22:28 Approved by: Kamaljit Bolanos M.D. on 09/26/2022 at 22:35
[2022-09-26] MEDS: PANTOPRAZOLE 40 MG VIAL IV (22:01)
[2022-09-26 22:14] LABS: Procalcitonin < 0.03 ng/mL (<0.5)
[2022-09-26] MEDS: SODIUM CHLORIDE 0.9% 1,000 ML 1000 ML IV (22:24)
[2022-09-26] MEDS: HYDROMORPHONE 1 MG INJ IV (23:01)
[2022-09-27] VITALS: PULSE 58; O2SAT 97
[2022-09-27 00:30] VITALS: PULSE 73; O2SAT 100
[2022-09-27 00:31] VITALS: PULSE 69; O2SAT 100
[2022-09-27 00:39] VITALS: BP 109/59; PULSE 69; TEMP 36.6; O2SAT 100
== END 2022-09-27 00:48 | disposition home or self-care (01) ==
PROVIDERS: Emergency Provider Emergency Medicine; PCP Nurse Practitioner Family
DX: N39.0 Urinary tract infection, site not specified (principal); R11.2 Nausea with vomiting, unspecified; N93.9 Abnormal uterine and vaginal bleeding, unspecified
CPT/HCPCS: 36415; 74176; 80053; 81001; 81003; 81025; 83605; 83690; 84145; 85025; 87077; 87086; 87147; 87186; 96361; 96374; 96375; 99284; C9113; J0780; J1170

== ENCOUNTER 2022-10-02 15:56 | Emergency (ER) | payer OTHER, MEDICAID, SELFPAY ==
[2022-10-02] VITALS (8 sets, daily range): BP systolic 123–129; BP diastolic 66–69; PULSE 57–68; RESP 16; TEMP 36.7; O2SAT 98–100; BMI 34.0
--- NOTE | 2022-10-02 16:10 | PC.NURSE ---
Pt's left arm in sling and ice pack applied per EMS
--- NOTE | 2022-10-02 16:11 | DI.RAD.S_ITS ---
PROCEDURE: XR SHOULDER LT MIN 2V INDICATIONS: syncopal episode/L shoulder pain/poss dislocation TECHNIQUE: To views of the shoulder were acquired. COMPARISON: [facility], CR, XR SHOULDER RT MIN 2V, 03/16/2022, 17:39. [facility], CR, XR CHEST 1V, 10/02/2022, 16:20. FINDINGS: Bones: Mild superior subluxation of the distal clavicle at the AC joint without widening of AC joint. No fractures or dislocations. No suspicious bony lesions. Visualized ribs appear intact. Soft tissues: No suspicious soft tissue calcifications. IMPRESSION: 1. Mild superior subluxation of AC joint suggesting grade 2 AC separation. Recommend correlation with focal pain/tenderness. If clinically indicated, weight bearing view of the clavicles may be obtained. 2. Intact glenohumeral joint. Dictated by: Annel Johnson M.D. on 10/02/2022 at 16:59 Approved by: Annel Johnson M.D. on 10/02/2022 at 17:01
--- NOTE | 2022-10-02 16:11 | DI.RAD.S_ITS ---
PROCEDURE: XR CHEST 1V INDICATIONS: chest pain TECHNIQUE: One view of the chest was acquired. COMPARISON: [facility], CR, XR CHEST 1V, 05/09/2020, 15:14. FINDINGS: Surgical changes and devices: None. Lungs and pleura: Lungs are clear. No pleural effusions or pneumothorax. Mediastinum: Mediastinal contours appear normal. Heart size is normal. Bones and chest wall: No suspicious bony lesions. Overlying soft tissues appear unremarkable. IMPRESSION: No acute pulmonary process. Dictated by: Jada Bennett M.D. on 10/02/2022 at 16:54 Approved by: Jada Bennett M.D. on 10/02/2022 at 16:54
--- NOTE | 2022-10-02 16:12 | DI.RAD.S_ITS ---
PROCEDURE: XR ELBOW LT MIN 3V INDICATIONS: fall with elbow pain TECHNIQUE: 2 views of the elbow were acquired. COMPARISON: [facility], CR, ELBOW 3+ VIEWS LEFT, 05/30/2008, 15:34. [facility], CR, XR ELBOW 1 OR 2 VIEWS LEFT, 12/12/2021, 13:10. FINDINGS: Bones: No fractures or dislocations. No suspicious bony lesions. Soft tissues: No elbow joint effusion. No suspicious soft tissue calcifications. IMPRESSION: No acute osseous abnormality. If clinical symptoms persist or clinical suspicion for pathology is high, a repeat examination in 7-10 days, or advanced imaging such as CT or MRI is suggested for further evaluation. Dictated by: Annel Johnson M.D. on 10/02/2022 at 17:01 Approved by: Annel Johnson M.D. on 10/02/2022 at 17:02
--- NOTE | 2022-10-02 16:13 | DI.CT.S_ITS ---
PROCEDURE: CT CERVICAL SPINE WO CON INDICATIONS: syncope with head injury, distracting injury TECHNIQUE: Noncontrast 3 mm thick sections acquired from the skull base to the T4 level. Sagittal and coronal reformats were then constructed. For radiation dose reduction, the following was used: automated exposure control, adjustment of mA and/or kV according to patient size. COMPARISON: [facility], CT, CT CERVICAL SPINE WO CON, 03/03/2022, 15:07. FINDINGS: Image quality: Excellent. Bones: No fractures or dislocations. Visualized superior ribs are intact. There is mild reversal cervical curvature. Soft tissues: Prevertebral soft tissues are normal in thickness. No paravertebral hematomas. No apical pneumothoraces. IMPRESSION: Mild reversal cervical curvature overall nonspecific. This could be positional. Dictated by: Jada Bennett M.D. on 10/02/2022 at 16:51 Approved by: Jada Bennett M.D. on 10/02/2022 at 16:52
--- NOTE | 2022-10-02 16:13 | DI.CT.S_ITS ---
PROCEDURE: CT HEAD/BRAIN WO CON INDICATIONS: syncope with head injury TECHNIQUE: Noncontrast 4.5 mm thick angled axial sections acquired from the foramen magnum to the vertex, with coronal and sagittal reformats. For radiation dose reduction, the following was used: automated exposure control, adjustment of mA and/or kV according to patient size. COMPARISON: [facility], MR, MR BRAIN WITHOUT CONTRAST, 04/18/2022, 12:18. [facility], CT, CT HEAD/BRAIN WO CON, 03/16/2022, 17:43. FINDINGS: Image quality: Excellent. CSF spaces: Basal cisterns are patent. No extra-axial fluid collections. Ventricles are normal in size and shape. Brain: No midline shift. No intracranial masses or hemorrhage. Moss-white matter interface is normal. Skull and face: Calvarium and visualized facial bones are intact, without suspicious lesions. Sinuses: Visualized sinuses and mastoids are clear. IMPRESSION: 1. No acute intracranial process. Dictated by: Jada Bennett M.D. on 10/02/2022 at 16:50 Approved by: Jada Bennett M.D. on 10/02/2022 at 16:51
[2022-10-02 16:37] LABS: Add Manual Diff / Slide Review NO; Basophils Absolute Auto 0 /uL (0-100); Basophils Percent Auto 0.4 % (0-2); Eosinophils Absolute Auto 100 /uL (0-450); Eosinophils Percent Auto 1.8 % (2-4); Hematocrit 36.7 % (36-46); Hemoglobin 12.6 g/dL (12.0-16.0); Lymphocytes Absolute Auto 2200 /uL (1100-4500); Lymphocytes Percent Auto 43.6 % (25-40); Mean Corpuscular HGB Conc 34.5 % (30-36); Mean Corpuscular Hemoglobin 30.9 PG (26-34); Mean Corpuscular Volume 89.6 fL (80-100); Monocytes Absolute Auto 500 /uL (0-900); Monocytes Percent Auto 9.4 % (3-14); Neutrophils Absolute Auto 2300 /uL (1500-7000); Neutrophils Percent Auto 44.8 % (50-75); Platelet Count 197 X10^3/uL (150-400); Red Cell Distribution Width 12.6 % (11.6-14.8)
[2022-10-02 16:47] LABS: PTT Partial Thromboplastin Tim 26 SECONDS (26-36)
[2022-10-02] MEDS: PANTOPRAZOLE 40 MG VIAL IV (16:50)
[2022-10-02 16:53] LABS: Alanine Aminotransferase 15 IU/L (<35); Albumin 4.1 g/dL (3.5-5.0); Albumin Globulin Ratio 1.6 (1.0-2.8); Alkaline Phosphatase 37 U/L (38-126); Aspartate Aminotransferase 17 IU/L (14-36); BUN Creatinine Ratio 20.9 (6-22); Bilirubin Total 0.6 mg/dL (0.2-1.3); Blood Urea Nitrogen 18 mg/dL (7-17); Calcium 8.7 mg/dL (8.4-10.2); Carbon Dioxide 29 mmol/L (22-32); Chloride 101 mmol/L (98-107); Creatine Kinase 59 U/L (30-135); Estimated Glomerular Filt Rate > 60 mL/min (>60); Globulin 2.6 g/dL (1.7-4.1); Glucose 81 mg/dL (70-100); HEMOLYSIS < 15 (0-50); Lactate (Lactic Acid) 0.8 mmol/L (0.7-2.1); Lipase 98 U/L (23-300); Magnesium 1.9 mg/dL (1.6-2.3); Potassium 4.1 mmol/L (3.4-5.1); Sodium 136 mmol/L (137-145); Total Protein 6.7 g/dL (6.3-8.2)
[2022-10-02 17:04] LABS: Troponin I < 0.012 ng/mL (0.01-0.034)
[2022-10-02 17:27] LABS: COVID19 -Nasal RAPID Negative (Negative)
[2022-10-02] MEDS: OXYCODONE/ACETAMINOPHEN 5/325 TABLET 2 TAB PO (17:45)
--- NOTE | 2022-10-02 17:52 | ED_ITS ---
HPI - General Adult General Chief complaint: Syncope Stated complaint: syncope/ lac forehead/? shoulder dislocation Time Seen by Provider: 10/02/22 16:12 Source: patient and EMS Mode of arrival: EMS History of Present Illness HPI narrative: 27-year-old former smoker with history of seizures, epigastric pain, frequent gastrointestinal bleeding without specific source presents by EMS for evaluation an episode of vomiting and syncope versus near-syncope event in which she fell and struck her head on a hard object. Her primary complaint is of left shoulder injury and she is concerned that she broke or dislocated her shoulder. She ashley es any change in medications. She is not dizzy nor weak or lightheaded. She denies any chest pain or shortness of breath. She denies any diarrhea or constipation. She has severe pain to her left shoulder with any range of motion but denies numbness, tingling or weakness. Related Data Home Medications Medication Instructions Recorded Confirmed quetiapine 100 mg tablet 100 mg PO BEDTIME 01/08/22 01/08/22 Previous Rx's Medication Instructions Recorded diazepam 10 mg tablet 10 mg PO QID #120 tabs 08/23/21 diazepam 5 mg tablet (Valium) 5 mg PO TID PRN muscle spasm #10 08/30/21 tabs trazodone 100 mg tablet See Rx Instructions .Route 10/01/21 .COMPLEX #180 tabs lamotrigine 200 mg tablet 200 mg PO DAILY #30 tabs 11/29/21 quetiapine 25 mg tablet See Rx Instructions PO BEDTIME #45 11/29/21 tabs sertraline 100 mg tablet 200 mg PO DAILY #60 tabs 11/29/21 metformin 500 mg tablet 500 mg PO BID #60 tabs 01/02/22 epinephrine 0.3 mg/0.3 mL See Rx Instructions .Route 01/08/22 injection, auto-injector .COMPLEX #2 ea tramadol 50 mg tablet 100 mg PO BID PRN severe pain 01/31/22 (scale score 7-10) #60 tabs oxycodone-acetaminophen 5 mg-325 1 tab PO Q8H PRN pain #6 tabs 03/03/22 mg tablet (Percocet) diclofenac sodium 1 % topical gel 2 g topical QID #100 grams 03/16/22 oxycodone 10 mg tablet 5 mg PO Q6H PRN pain #14 tabs 03/16/22 Allergies Allergy/AdvReac Type Severity Reaction Status Date / Time shellfish derived Allergy Severe ANAPHYLAXIS Verified 10/02/22 16:09 [SHELLFISH DERIVED] adhesive [ADHESIVE] Allergy Mild Verified 10/02/22 16:09 amoxicillin [AMOXICILLIN] Allergy Mild Verified 10/02/22 16:09 doxycycline [DOXYCYCLINE] Allergy Mild Verified 10/02/22 16:09 hydrocodone Allergy Mild rash Verified 10/02/22 16:09 iodine [IODINE] Allergy Mild Verified 10/02/22 16:09 metoclopramide Allergy Mild Verified 10/02/22 16:09 [METOCLOPRAMIDE] Penicillins [PENICILLINS] Allergy Mild Verified 10/02/22 16:09 sulfamethoxazole Allergy Mild RASH Verified 10/02/22 16:09 [From BACTRIM] trimethoprim [From BACTRIM] Allergy Mild RASH Verified 10/02/22 16:09 cephalexin [CEPHALEXIN] Allergy Unknown Verified 10/02/22 16:09 ciprofloxacin [CIPROFLOXACIN] Allergy Unknown Verified 10/02/22 16:09 clindamycin [CLINDAMYCIN] Allergy Unknown Verified 10/02/22 16:09 Iodinated Contrast Media Allergy Unknown Verified 10/02/22 16:09 [IODINATED CONTRAST MEDIA - IV DYE] latex [LATEX] Allergy Unknown Verified 10/02/22 16:09 lidocaine AdvReac Palpitation Verified 10/02/22 16:09 s Review of Systems Review of Systems Narrative: GENERAL: See HPI HEENT: Denies sinus pain, ear pain, sore throat, difficulty swallowing, dizziness. RESPIRATORY: Denies dyspnea, cough, wheezing, hemoptysis, sputum. CARDIOVASCULAR: See HPI GASTROINTESTINAL: Denies nausea, vomiting, abdominal pain, diarrhea, constipation, melena. : Denies dysuria, frequency, incontinence, hematuria, urinary retention. MUSCULOSKELETAL: denies weakness, joint pain, or bony pain SKIN: Denies rash, skin lesions, or other NEUROLOGIC: See HPI PSYCHIATRIC: No concerning psychosocial issues. 12 point review of systems is negative except for those stated above Patient History Medical History BRCA2 gene mutation positive in female Endometriosis Hematuria Major depressive disorder Morbid obesity Nephrolithiasis (~2017) Ovarian cyst Patellar dislocation PCOS (polycystic ovarian syndrome) Pelvic congestion (2013) 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 Surgical History H/O unilateral oophorectomy (~11/2020) H/O: hysterectomy History of ureter stent Status post appendectomy (2003) Status post bilateral salpingectomy (09/01/17) Status post dilation and curettage (2010) Status post dilation and curettage (2011) Status post knee surgery (2007) Status post knee surgery (2012) Status post laparoscopic supracervical hysterectomy (09/01/17) Status post laparoscopy (2003) Status post laparoscopy (2011) Status post laparoscopy (2004) Status post laparoscopy (~05/2020) Status post removal of cervix Status post tonsillectomy and adenoidectomy Family History Mother BRCA positive Hyperlipidemia CAD (coronary artery disease) Hypertension Grandmother Ovarian cancer Breast cancer Social History marital status: household members: spouse and children lives independently: Yes occupational status: employed Smoking Status: Former smoker Smoking Status: Former smoker tobacco type: vaping alcohol intake frequency: holidays/special occasions only Substance Use Type: does not use Exam Narrative Exam Narrative: GENERAL: [27] year old patient appears stated age. Well-developed patient, in mild distress. GCS 15 HEAD: Small vertically oriented superficial abrasion and central forehead, no active bleeding or evidence of depressed skull fracture EYES: Pupils equal round and reactive. No hyphema Extraocular motions intact. No scleral icterus. No injection or drainage. ENT: Nose without bleeding, purulent drainage. No nasal septal hematoma Throat without erythema, tonsillar hypertrophy or exudate. Airway patent. NECK: Trachea midline. Non tender, no step-offs or crepitance CARDIOVASCULAR: Regular rate and rhythm without murmurs, gallops, or rubs. RESPIRATORY: Clear to auscultation. Breath sounds equal bilaterally. No wheezes, rales, or rhonchi. GASTROINTESTINAL: Abdomen soft, non-tender, nondistended. EXTREMITIES: Tender to left anterior lateral shoulder, worse with range of motion, closed, isolated and neurovascularly intact BACK: Nontender without deformity or crepitance. No flank tenderness. NEURO: AOx3. SKIN: No rash or erythema of visible areas Initial Vital Signs Initial Vital Signs: Vital Signs Temperature 98.1 F 10/02/22 15:57 Pulse Rate 57 L 10/02/22 15:57 Respiratory Rate 16 10/02/22 15:57 Blood Pressure 123/68 10/02/22 15:57 Pulse Oximetry 100 10/02/22 15:57 Oxygen Delivery Method Room Air 10/02/22 15:57 Course Orders Ordered: Discontinued Medications Ondansetron HCl (Ondansetron 4 Mg Odt Prepack) 1 bottle MISC SEEINSTR ONE Stop: 10/02/22 20:25 Last Admin: 10/02/22 20:40 Dose: 1 bottle Documented By: LOUIE Oxycodone/Acetaminophen (Oxycodone/Acetaminophen 5/325 Tablet) 2 tab PO NOW ONE Stop: 10/02/22 17:26 Last Admin: 10/02/22 17:45 Dose: 2 tab Documented By: NETTIE Oxycodone/Acetaminophen (Oxycodone/Acetaminophen 5/325 Tablet) 1 tab PO NOW ONE Stop: 10/02/22 20:25 Last Admin: 10/02/22 20:39 Dose: 1 tab Documented By: LOUIE Pantoprazole Sodium (Pantoprazole 40 Mg Vial) 40 mg IV NOW ONE Stop: 10/02/22 16:13 Last Admin: 10/02/22 16:50 Dose: 40 mg Documented By: NETTIE Vital Signs Vital signs: Vital Signs - 8 hr 10/02/22 15:57 Temperature 98.1 F Pulse Rate 57 L Respiratory Rate 16 Blood Pressure 123/68 Pulse Oximetry 100 Oxygen Delivery Method Room Air Medical Decision Making Lab Data 10/02/22 16:15 10/02/22 16:15 Labs: Lab Results 10/02/22 10/02/22 10/02/22 Range/Units 16:15 16:15 16:15 WBC 5.0 (4.5-11.0) X10^3/uL RBC 4.10 (4.0-5.2) X10^6/uL Hgb 12.6 (12.0-16.0) g/dL Hct 36.7 (36-46) % MCV 89.6 (80-100) fL MCH 30.9 (26-34) PG MCHC 34.5 (30-36) % RDW 12.6 (11.6-14.8) % Plt Count 197 (150-400) X10^3/uL Neut % (Auto) 44.8 L (50-75) % Lymph % (Auto) 43.6 H (25-40) % Edmunds % (Auto) 9.4 (3-14) % Eos % (Auto) 1.8 L (2-4) % Baso % (Auto) 0.4 (0-2) % Neut # (Auto) 2300 (1193-4779) /uL Lymph # (Auto) 2200 (5192-9892) /uL Edmunds # (Auto) 500 (0-900) /uL Eos # (Auto) 100 (0-450) /uL Baso # (Auto) 0 (0-100) /uL PT 12.0 (10.1-12.7) SECONDS INR 1.0 (0.9-1.3) APTT 26 (26-36) SECONDS Sodium 136 L (137-145) mmol/L Potassium 4.1 (3.4-5.1) mmol/L Chloride 101 (98-107) mmol/L Carbon Dioxide 29 (22-32) mmol/L BUN 18 H (7-17) mg/dL Creatinine 0.86 (0.52-1.04) mg/dL Estimated GFR > 60 (>60) mL/min BUN/Creatinine Ratio 20.9 (6-22) Glucose 81 (70-100) mg/dL Lactate (0.7-2.1) mmol/L Calcium 8.7 (8.4-10.2) mg/dL Magnesium 1.9 (1.6-2.3) mg/dL Total Bilirubin 0.6 (0.2-1.3) mg/dL AST 17 (14-36) IU/L ALT 15 (<35) IU/L Alkaline Phosphatase 37 L (38-126) U/L Total Creatine Kinase 59 (30-135) U/L CK-MB (CK-2) TNP CK-MB (CK-2) Rel Index TNP Troponin I < 0.012 (0.01-0.034) ng/mL Total Protein 6.7 (6.3-8.2) g/dL Albumin 4.1 (3.5-5.0) g/dL Globulin 2.6 (1.7-4.1) g/dL Albumin/Globulin Ratio 1.6 (1.0-2.8) Lipase 98 (23-300) U/L SARS-CoV-2 (PCR) (Negative) 10/02/22 10/02/22 Range/Units 16:15 16:15 WBC (4.5-11.0) X10^3/uL RBC (4.0-5.2) X10^6/uL Hgb (12.0-16.0) g/dL Hct (36-46) % MCV (80-100) fL MCH (26-34) PG MCHC (30-36) % RDW (11.6-14.8) % Plt Count (150-400) X10^3/uL Neut % (Auto) (50-75) % Lymph % (Auto) (25-40) % Edmunds % (Auto) (3-14) % Eos % (Auto) (2-4) % Baso % (Auto) (0-2) % Neut # (Auto) (8617-3184) /uL Lymph # (Auto) (7174-9134) /uL Edmunds # (Auto) (0-900) /uL Eos # (Auto) (0-450) /uL Baso # (Auto) (0-100) /uL PT (10.1-12.7) SECONDS INR (0.9-1.3) APTT (26-36) SECONDS Sodium (137-145) mmol/L Potassium (3.4-5.1) mmol/L Chloride (98-107) mmol/L Carbon Dioxide (22-32) mmol/L BUN (7-17) mg/dL Creatinine (0.52-1.04) mg/dL Estimated GFR (>60) mL/min BUN/Creatinine Ratio (6-22) Glucose (70-100) mg/dL Lactate 0.8 (0.7-2.1) mmol/L Calcium (8.4-10.2) mg/dL Magnesium (1.6-2.3) mg/dL Total Bilirubin (0.2-1.3) mg/dL AST (14-36) IU/L ALT (<35) IU/L Alkaline Phosphatase (38-126) U/L Total Creatine Kinase (30-135) U/L CK-MB (CK-2) CK-MB (CK-2) Rel Index Troponin I (0.01-0.034) ng/mL Total Protein (6.3-8.2) g/dL Albumin (3.5-5.0) g/dL Globulin (1.7-4.1) g/dL Albumin/Globulin Ratio (1.0-2.8) Lipase (23-300) U/L SARS-CoV-2 (PCR) Negative (Negative) MDM Narrative Medical decision making narrative: CC: 27-year-old female with extensive medical history presents with syncope versus near-syncope and shoulder pain Complicating co-morbidities: Seizures, GI complaints, GI bleed Data collected from: Patient Medical records reviewed: Prior notes reviewed in our EMR Differential considered, but not limited to: Syncope versus near-syncope versus upper GI bleed versus seizures versus pseudoseizures versus fracture versus dislocation versus other Exam documented above, pertinent findings include: Superficial abrasion and forehead, alert, oriented, GCS 15, no midline neck pain, heart rate regular, no increased work of breathing, left anterior shoulder pain without obvious deformity, closed, isolated and neurovascularly intact Lab Test results independently reviewed as above. Pertinent findings: No leukocytosis or left shift, no evidence of anemia, electrolytes and renal functi on as well as BUN within normal Independently reviewed EKG as above Imaging studies independently reviewed: CT of head and C-spine without significant findings, chest x-ray and elbow without acute findings, shoulder notes clavicle fracture Scores Used: GCS Treatments: Zofran, Percocet, Protonix Re-evaluations: Patient observed for multiple hours, significant improvement over the course of the visit Discussion: Patient with reported bloody vomit, syncopal episode had head injury with left shoulder pain. She has very reassuring history physical exam, imaging largely without significant findings, clavicle fracture is noted, she is splinted and pain is well controlled. Labs without significant abnormal findings. Disposition: see below, along with detailed discharge instructions that have been reviewed with patient as well as indications for ED re-evaluation and additional outpatient follow up Discharge Plan Departure Patient Disposition: Home Clinical Impression: Vomiting, Abrasion of forehead, shoulder Instructions: DI for Shoulder Pain, DI for Vomiting -- Adult Activity Restrictions/Additional Instructions: *You have been diagnosed with [shoulder separation, minor forehead abrasion, vomiting] *What to do: *Please continue to take your regular medications as directed. *Please follow up with your primary care provider in 2-3 days, call for an appointment. Let them know you were seen in the Emergency Department and that we ask that you be seen in follow up. We will electronically transmit a record of today's note if your PCP is in our system *If you do not have a primary care provider please contact the [facility] Resource line at [phone]. They will ask some questions about your medical history and help get you set up with a doctor in the community. *Return to Emergency Department if you should have any new, worsening or concerning symptoms, such as [fever greater than 101 F, shaking chills, worsening pain, persistent vomiting or other bothersome symptoms] Prescriptions: No Action trazodone 100 mg tablet See Rx Instructions .ROUTE .COMPLEX Qty: 180 0RF Dose Instruction: TAKE 2 TABLETS BY MOUTH AT BEDTIME NEEDED FOR INSOMNIA Rx Instructions: TAKE 2 TABLETS BY MOUTH AT BEDTIME NEEDED FOR INSOMNIA diazepam 10 mg tablet 10 mg PO QID Qty: 120 2RF Hold Instructions: NEEDS TO SEE NEUROLOGY metformin 500 mg tablet 500 mg PO BID Qty: 60 0RF tramadol 50 mg tablet 100 mg PO BID PRN (Reason: severe pain (scale score 7-10)) Qty: 60 0RF Rx Instructions: Limit as possible. Prescribed per 01/30 signed pain management contract. Contract void and provider will offer no further tramadol refills if tramadol received per another provider. lamotrigine 200 mg tablet 200 mg PO DAILY Qty: 30 2RF quetiapine 25 mg tablet See Rx Instructions PO BEDTIME Qty: 45 2RF Hold Instructions: SEEN BY PSYCHIATRY Rx Instructions: Take 1 tab p.o. at HS. May take 1/2 tab p.o. during the day for anxiety sertraline 100 mg tablet 200 mg PO DAILY Qty: 60 2RF quetiapine 100 mg tablet 100 mg PO BEDTIME epinephrine 0.3 mg/0.3 mL auto-injector See Rx Instructions .ROUTE .COMPLEX Qty: 2 0RF Dose Instruction: INJECT INTRAMUSCULARLY EVERY 20 MINUTES NEEDED FOR ANAPHYLAXIS UNTIL RESPONSE Rx Instructions: INJECT INTRAMUSCULARLY EVERY 20 MINUTES NEEDED FOR ANAPHYLAXIS UNTIL RESPONSE oxycodone-acetaminophen [Percocet] 5-325 mg tablet 1 tab PO Q8H PRN (Reason: pain) Qty: 6 0RF diclofenac sodium 1 % gel 2 g topical QID Qty: 100 3RF Rx Instructions: apply to single elbow, wrist or hand; for hand includes palm/fingers/back of hand oxycodone 10 mg tablet 5 mg PO Q6H PRN (Reason: pain) Qty: 14 0RF diazepam [Valium] 5 mg tablet 5 mg PO TID PRN (Reason: muscle spasm) Qty: 10 0RF Hold Instructions: NEEDS TO SEE NEUROLOGY Referrals: Nilo Arenas MD [Physician] - Rosa Isela Ashley DNP, [facility] [Primary Care Provider] - Stand Alone Forms: Patient Portal/API
--- NOTE | 2022-10-02 18:46 | PC.NURSE ---
Pt had an episode of seizure-like activity, resolved prior to medications given. No loss of bowel or bladder, neurologically intact, sitting up requesting pain medications. Dr Blankenship notified. No new orders.
[2022-10-02] MEDS: OXYCODONE/ACETAMINOPHEN 5/325 TABLET 1 TAB PO (20:39)
[2022-10-02] MEDS: ONDANSETRON 4 MG ODT PREPACK 1 BOTTLE MISC (20:40)
== END 2022-10-02 20:43 | disposition home or self-care (01) ==
PROVIDERS: Emergency Provider Emergency Medicine; PCP Nurse Practitioner Family
DX: S43.005A Unspecified dislocation of left shoulder joint, initial encounter (principal); S00.81XA Abrasion of other part of head, initial encounter; S09.90XA Unspecified injury of head, initial encounter; R07.9 Chest pain, unspecified; R11.10 Vomiting, unspecified; Z20.822 Contact with and (suspected) exposure to COVID-19
CPT/HCPCS: 36415; 70450; 71045; 72125; 73030; 73080; 80053; 82550; 83605; 83690; 83735; 84484; 85025; 85610; 85730; 87635; 93005; 93010; 96374; 99285; C9803; C9113

== ENCOUNTER 2023-01-06 15:10 | Emergency (ER) | payer OTHER, MEDICAID, SELFPAY ==
[2023-01-06] VITALS (8 sets, daily range): BP systolic 114–127; BP diastolic 59–84; PULSE 66–80; RESP 16; TEMP 36.5; O2SAT 95–100; BMI 34.0
[2023-01-06] MEDS: ONDANSETRON 4 MG ODT SL (15:43)
[2023-01-06 16:02] LABS: RBC Urine 10-30/HPF (0-5/HPF)
[2023-01-06 16:03] LABS: Bacteria Urine Few (2-10); Culture Indicated Urine Specimen Cultured; Squamous Epithelial Cell Urine 5-10 /HPF (0-5/HPF); WBC Urine 5-10/HPF (0-5/HPF)
--- NOTE | 2023-01-06 17:14 | PC.NURSE ---
Patient reports she has a history of hysterectomy and removal of one ovary because I was getting a bunch of cysts. A few days ago she was diagnosed with a huge cyst on the other ovary. Has had pain from this and vaginal bleeding. She is still having some bleeding with bilateral flank pain now and thinks the blood may be in her urine now. Also reports nausea/vomiting and fevers at home. Is afebrile at this time and has had no nausea/vomiting since zofran ODT. Tolerating ice chips at this time.
--- NOTE | 2023-01-06 17:53 | ED_ITS ---
HPI - Female Genitourinary <Rachel Herrera PA-C - Last Filed: 01/06/23 19:42> General Chief complaint: Urogenital-Female Stated complaint: cyst/urinating blood/N/V/fever Time Seen by Provider: 01/06/23 17:41 Source: patient Mode of arrival: Ambulatory History of Present Illness HPI Narrative: 28-year-old woman with a history of multiple allergies with anaphylaxis, Pyelonephritis, anxiety disorder, depression, PCOS, ovarian cyst and hysterectomy as well as chronic pain disorder presents with concern for pain with urination, urgency frequency flank pain some nausea and low-grade fevers. Patient states that these urinary symptoms began last night. She does state that earlier this weekend she was dealing with ovarian cyst symptoms and was seen at an urgent care for this had an ultrasound done and was told that she had a ovarian cyst on her 1 remaining ovary, at that time she was having a small amount of vaginal bleeding. She was also treated for a yeast infection at that time and told she might possibly have a UTI but they were not sure. These symptoms have since resolved however last night she developed flank pain on both sides and the urgency frequency, she also states she has seen a small amount of blood in her urine when she pees. She does endorse a history of kidney stones but states that this does not feel similar to that, her pain has been fairly persistent in her flanks and bladder. She has had some nausea today but no vomiting. She states her fever was low-grade and she has been taking ibuprofen/tylenol once or twice today to resolve it. She denies any other complaints or concerns Related Data Home Medications Medication Instructions Recorded Confirmed quetiapine 100 mg tablet 100 mg PO BEDTIME 01/08/22 01/08/22 Previous Rx's Medication Instructions Recorded diazepam 10 mg tablet 10 mg PO QID #120 tabs 08/23/21 diazepam 5 mg tablet (Valium) 5 mg PO TID PRN muscle spasm #10 08/30/21 tabs trazodone 100 mg tablet See Rx Instructions .Route 10/01/21 .COMPLEX #180 tabs lamotrigine 200 mg tablet 200 mg PO DAILY #30 tabs 11/29/21 quetiapine 25 mg tablet See Rx Instructions PO BEDTIME #45 11/29/21 tabs sertraline 100 mg tablet 200 mg PO DAILY #60 tabs 11/29/21 metformin 500 mg tablet 500 mg PO BID #60 tabs 01/02/22 epinephrine 0.3 mg/0.3 mL See Rx Instructions .Route 01/08/22 injection, auto-injector .COMPLEX #2 ea tramadol 50 mg tablet 100 mg PO BID PRN severe pain 01/31/22 (scale score 7-10) #60 tabs oxycodone-acetaminophen 5 mg-325 1 tab PO Q8H PRN pain #6 tabs 03/03/22 mg tablet (Percocet) diclofenac sodium 1 % topical gel 2 g topical QID #100 grams 03/16/22 oxycodone 10 mg tablet 5 mg PO Q6H PRN pain #14 tabs 03/16/22 levofloxacin 750 mg tablet 750 mg PO DAILY pyelonephritis 6 01/06/23 days #6 tabs Allergies Allergy/AdvReac Type Severity Reaction Status Date / Time shellfish derived Allergy Severe ANAPHYLAXIS Verified 01/06/23 15:34 [SHELLFISH DERIVED] adhesive [ADHESIVE] Allergy Mild Verified 01/06/23 15:34 amoxicillin [AMOXICILLIN] Allergy Mild Verified 01/06/23 15:34 doxycycline [DOXYCYCLINE] Allergy Mild Verified 01/06/23 15:34 hydrocodone Allergy Mild rash Verified 01/06/23 15:34 iodine [IODINE] Allergy Mild Verified 01/06/23 15:34 Penicillins [PENICILLINS] Allergy Mild Verified 01/06/23 15:34 sulfamethoxazole Allergy Mild RASH Verified 01/06/23 15:34 [From BACTRIM] trimethoprim [From BACTRIM] Allergy Mild RASH Verified 01/06/23 15:34 cephalexin [CEPHALEXIN] Allergy Unknown Verified 01/06/23 15:34 ciprofloxacin [CIPROFLOXACIN] Allergy Unknown Verified 01/06/23 15:34 clindamycin [CLINDAMYCIN] Allergy Unknown Verified 01/06/23 15:34 Iodinated Contrast Media Allergy Unknown Verified 01/06/23 15:34 [IODINATED CONTRAST MEDIA - IV DYE] latex [LATEX] Allergy Unknown Verified 01/06/23 15:34 lidocaine AdvReac Palpitation Verified 01/06/23 15:34 s Review of Systems <Rachel Herrera PA-C - Last Filed: 01/06/23 19:42> Review of Systems Narrative: See HPI Patient History <Rachel Herrera PA-C - Last Filed: 01/06/23 19:42> Medical History BRCA2 gene mutation positive in female Endometriosis Hematuria Major depressive disorder Morbid obesity Nephrolithiasis (~2017) Ovarian cyst Patellar dislocation PCOS (polycystic ovarian syndrome) Pelvic congestion (2013) 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 Surgical History H/O unilateral oophorectomy (~11/2020) H/O: hysterectomy History of ureter stent Status post appendectomy (2003) Status post bilateral salpingectomy (09/01/17) Status post dilation and curettage (2010) Status post dilation and curettage (2011) Status post knee surgery (2007) Status post knee surgery (2012) Status post laparoscopic supracervical hysterectomy (09/01/17) Status post laparoscopy (2003) Status post laparoscopy (2011) Status post laparoscopy (2004) Status post laparoscopy (~05/2020) Status post removal of cervix Status post tonsillectomy and adenoidectomy Family History Mother BRCA positive Hyperlipidemia CAD (coronary artery disease) Hypertension Grandmother Ovarian cancer Breast cancer tobacco type: vaping alcohol intake frequency: holidays/special occasions only Substance Use Type: does not use Exam <Rachel Herrera PA-C - Last Filed: 01/06/23 19:42> Narrative Exam Narrative: GENERAL: 28 year old patient appears stated age. Well-developed patient, in mild distress, nontoxic appearing. HEAD: Atraumatic. Normocephalic. EYES: Pupils equal round and reactive. Extraocular motions intact. No scleral icterus. No injection or drainage. ENT: Nose without bleeding, purulent drainage. Airway patent. NECK: Trachea midline. Non tender CARDIOVASCULAR: Regular rate and rhythm without murmurs, gallops, or rubs. RESPIRATORY: Clear to auscultation. Breath sounds equal bilaterally. No wheezes, rales, or rhonchi. GASTROINTESTINAL: Abdomen soft, there is suprapubic tenderness, otherwise non- tender, nondistended, bilateral CVA tenderness. EXTREMITIES: No edema or joint tenderness. BACK: Nontender without deformity or crepitance. Bilateral flank tenderness. NEURO: AOx3. SKIN: No rash or erythema of visible areas Initial Vital Signs Initial Vital Signs: Vital Signs Temperature 97.7 F 01/06/23 15:34 Pulse Rate 80 01/06/23 15:34 Respiratory Rate 16 01/06/23 15:34 Blood Pressure 124/84 01/06/23 15:34 Pulse Oximetry 97 01/06/23 15:34 Oxygen Delivery Method Room Air 01/06/23 15:34 <Dio Blankenship DO - Last Filed: 01/11/23 20:55> Initial Vital Signs Initial Vital Signs: Vital Signs Temperature 97.7 F 01/06/23 15:34 Pulse Rate 80 01/06/23 15:34 Respiratory Rate 16 01/06/23 15:34 Blood Pressure 124/84 01/06/23 15:34 Pulse Oximetry 97 01/06/23 15:34 Oxygen Delivery Method Room Air 01/06/23 15:34 Course <Rachel Herrera PA-C - Last Filed: 01/06/23 19:42> Orders Ordered: Discontinued Medications Acetaminophen (Acetaminophen 325 Mg Tablet) 975 mg PO NOW ONE Stop: 01/06/23 19:04 Last Admin: 01/06/23 19:16 Dose: 975 mg Documented By: GC Ketorolac Tromethamine (Ketorolac 30 Mg/Ml Vial) 30 mg IM NOW ONE Stop: 01/06/23 18:02 Last Admin: 01/06/23 18:17 Dose: 30 mg Documented By: SPF Levofloxacin (Levofloxacin 250 Mg Tablet) 750 mg PO NOW ONE Stop: 01/06/23 18:41 Last Admin: 01/06/23 19:15 Dose: 750 mg Documented By: GC Ondansetron HCl (Ondansetron 4 Mg Odt) 4 mg SL NOW PRN PRN Reason: Nausea And Vomiting Last Admin: 01/06/23 15:43 Dose: 4 mg Documented By: RL Ondansetron HCl (Ondansetron 4 Mg/2 Ml Inj) 4 mg IV NOW PRN PRN Reason: Nausea And Vomiting Vital Signs Vital signs: Vital Signs - 8 hr 01/06/23 15:34 01/06/23 17:11 01/06/23 17:12 Temperature 97.7 F Pulse Rate 80 73 Respiratory Rate 16 Blood Pressure 124/84 124/68 Pulse Oximetry 97 98 Oxygen Delivery Method Room Air 01/06/23 17:12 01/06/23 17:30 01/06/23 17:30 Temperature Pulse Rate 77 70 Respiratory Rate Blood Pressure 121/68 Pulse Oximetry 99 100 Oxygen Delivery Method 01/06/23 18:00 01/06/23 18:00 01/06/23 18:30 Temperature Pulse Rate 69 66 Respiratory Rate Blood Pressure 127/69 Pulse Oximetry 99 98 Oxygen Delivery Method Room Air 01/06/23 19:00 01/06/23 19:02 01/06/23 19:02 Temperature Pulse Rate 70 67 Respiratory Rate Blood Pressure 114/59 L Pulse Oximetry 95 98 Oxygen Delivery Method <Dio Blankenship DO - Last Filed: 01/11/23 20:55> Orders Ordered: Discontinued Medications Acetaminophen (Acetaminophen 325 Mg Tablet) 975 mg PO NOW ONE Stop: 01/06/23 19:04 Last Admin: 01/06/23 19:16 Dose: 975 mg Documented By: GC Ketorolac Tromethamine (Ketorolac 30 Mg/Ml Vial) 30 mg IM NOW ONE Stop: 01/06/23 18:02 Last Admin: 01/06/23 18:17 Dose: 30 mg Documented By: SPF Levofloxacin (Levofloxacin 250 Mg Tablet) 750 mg PO NOW ONE Stop: 01/06/23 18:41 Last Admin: 01/06/23 19:15 Dose: 750 mg Documented By: GC Ondansetron HCl (Ondansetron 4 Mg Odt) 4 mg SL NOW PRN PRN Reason: Nausea And Vomiting Last Admin: 01/06/23 15:43 Dose: 4 mg Documented By: RL Ondansetron HCl (Ondansetron 4 Mg/2 Ml Inj) 4 mg IV NOW PRN PRN Reason: Nausea And Vomiting Vital Signs Vital signs: Vital Signs - 8 hr 01/06/23 15:34 01/06/23 17:11 01/06/23 17:12 Temperature 97.7 F Pulse Rate 80 73 Respiratory Rate 16 Blood Pressure 124/84 124/68 Pulse Oximetry 97 98 Oxygen Delivery Method Room Air 01/06/23 17:12 01/06/23 17:30 01/06/23 17:30 Temperature Pulse Rate 77 70 Respiratory Rate Blood Pressure 121/68 Pulse Oximetry 99 100 Oxygen Delivery Method 01/06/23 18:00 01/06/23 18:00 01/06/23 18:30 Temperature Pulse Rate 69 66 Respiratory Rate Blood Pressure 127/69 Pulse Oximetry 99 98 Oxygen Delivery Method Room Air 01/06/23 19:00 01/06/23 19:02 01/06/23 19:02 Temperature Pulse Rate 70 67 Respiratory Rate Blood Pressure 114/59 L Pulse Oximetry 95 98 Oxygen Delivery Method MDM - Female Genitourinary <Rachel Herrera PA-C - Last Filed: 01/06/23 19:42> Differential Diagnosis Differential diagnosis: Likely urinary tract infection and other (Pyelo nephritis) Medical Records Attestation: I reviewed the patient's medical records. Lab Data Attestation: I reviewed the patient's lab results. Labs: Lab Results 01/06/23 Range/Units 15:43 Urine RBC 10-30/hpf H (0-5/HPF) Urine WBC 5-10/hpf H (0-5/HPF) Ur Squamous Epith Cells 5-10 /hpf H (0-5/HPF) Urine Bacteria Few (2-10) H (None) Ur Culture Indicated? Specimen cultured Point of Care Testing Test Results Negative Urine Dip Bedside Urine Glucose Negative Bedside Urine Bilirubin - Negative Bedside Urine Ketone - Negative Urine Specific [place] 1.015 Bedside Urine Occult Blood +++ Bedside Urine pH 6.0 Bedside Urine Protein + 30 Bedside Urine Urobilinogen - Negative Bedside Urine Nitrite - Negative Bedside Urine Leukocytes +/- 15 Esterase Imaging Data Abdominal x-ray: Radiologist's Impression: [address] [address] XRay Report Signed Patient: Ni Varner MR#: [id number] : 1995 Acct:[id number] Age/Sex: 28 / F Date of Service: 01/06/23 Loc: ED Accession Number: [id number] ?? Procedure: XR KUB Ordering Provider: Rachel Herrera P.A-C PROCEDURE:? XR KUB ? INDICATIONS:? probably pyelo, flank pain ? TECHNIQUE:? One view of the abdomen acquired.? ? COMPARISON:? [facility], CT, CT ABDOMEN PELVIS WO CON, 09/26/2022, 22:20. ? FINDINGS:? ? Surgical changes and devices:? Cholecystectomy.? ? Bowel:? Bowel gas pattern is normal.? ? Soft tissues:? No suspicious abdominal calcifications.? Visualized solid organ contours appear normal in size.? ? Bones:? No suspicious bony lesions.? ? IMPRESSION:? No acute abnormalities. ? ? Dictated by: Annel Johnson M.D. on 01/06/2023 at 19:03 ? ? Approved by: Annel Johnson M.D. on 01/06/2023 at 19:04?? ECG Data Attestation: I personally reviewed and interpreted this ECG as follows: Interpretation: Sinus bradycardia heart rate 6 [place] interval 144 milliseconds rest duration 68 milliseconds QTc 391 milliseconds MDM Narrative Medical decision making narrative: This is a well-appearing 28-year-old woman who presents with concern for urinary symptoms including some nausea low-grade fevers and flank pain since last night. Recently was treated for yeast infection and advised she had a ovarian cyst. Patient is nontoxic appearing today with unremarkable vitals but does have flank tenderness and suprapubic tenderness as well as concerning history of nausea and report of low-grade fevers. Patient has multiple antibiotic allergies and pharmacy is consulted regarding treatment for presumed pyelonephritis in this patient. X-ray KUB is also obtained with no concerning findings noted. Pharmacy feels that levofloxacin is appropriate given patient has taken this before and has done fine. Plan initial dose in the emergency department after IM Toradol for pain. Given that patient is on multiple QT prolonging medications do evaluate EKG before providing initial antibiotic dose, this returns with a QTC of 391 milliseconds, feel it is reasonable to start the levofloxacin however patient is discouraged from taking Zofran at home unless absolutely necessary. Patient did receive Zofran upon presentation to the ER due to some nausea which did help her symptoms. Her urine dip today is consistent with a UTI. Additional labs are not obtained. Return precautions provided, follow-up plan discussed, all questions answered. <Dio Blankenship, DO - Last Filed: 01/11/23 20:55> Lab Data Labs: Lab Results 01/06/23 Range/Units 15:43 Urine RBC 10-30/hpf H (0-5/HPF) Urine WBC 5-10/hpf H (0-5/HPF) Ur Squamous Epith Cells 5-10 /hpf H (0-5/HPF) Urine Bacteria Few (2-10) H (None) Ur Culture Indicated? Specimen cultured Point of Care Testing Test Results Negative Urine Dip Bedside Urine Glucose Negative Bedside Urine Bilirubin - Negative Bedside Urine Ketone - Negative Urine Specific [place] 1.015 Bedside Urine Occult Blood +++ Bedside Urine pH 6.0 Bedside Urine Protein + 30 Bedside Urine Urobilinogen - Negative Bedside Urine Nitrite - Negative Bedside Urine Leukocytes +/- 15 Esterase Discharge Plan Departure Patient Disposition: Home Clinical Impression: Pyelonephritis Activity Restrictions/Additional Instructions: *You have been diagnosed with [UTI/pyelonephritis] *What to do: *Please continue to take your regular medications as directed. [2] New medication prescriptions sent to your pharmacy: [Levofloxacin, Zofran] [ ] New medication written as a paper prescription [ ] No new medications given *Please follow up with your primary care provider in 2-3 days, call for an appointment. Let them know you were seen in the Emergency Department and that we ask that you be seen in follow up. We will electronically transmit a record of today's note if your PCP is in our system. Your urine today was consistent with a UTI in your exam and history are consistent with pyelonephritis which is when a urinary tract infection affects the kidneys. We are placing you on a strong antibiotic that is effective for treating this, you need to take this daily as prescribed, I am prescribing a small amount of antinausea medicine for you but you should only take this if he absolutely needs to I encourage you to try things like mint and ximena tea to see if this helps with your nausea before trying this medication. Because you were on a number of medications that can increase interval in your heart electrical activity it is important to use caution with taking a lot of the antinausea medicine in addition to this new antibiotic as well as her other regular medicines which is wide prefer you not to take the antinausea medicine unless you really need to. *If you do not have a primary care provider please contact the [facility] Resource line at [phone]. They will ask some questions about your medical history and help get you set up with a doctor in the community. *Return to Emergency Department if you should have any new, worsening or concerning symptoms, such as [fever greater than 101 F, shaking chills, worsening pain, persistent vomiting or other bothersome symptoms] Prescriptions: New levofloxacin 750 mg tablet 750 mg PO DAILY 6 Days Qty: 6 0RF No Action trazodone 100 mg tablet See Rx Instructions .ROUTE .COMPLEX Qty: 180 0RF Dose Instruction: TAKE 2 TABLETS BY MOUTH AT BEDTIME NEEDED FOR INSOMNIA Rx Instructions: TAKE 2 TABLETS BY MOUTH AT BEDTIME NEEDED FOR INSOMNIA diazepam 10 mg tablet 10 mg PO QID Qty: 120 2RF Hold Instructions: NEEDS TO SEE NEUROLOGY metformin 500 mg tablet 500 mg PO BID Qty: 60 0RF tramadol 50 mg tablet 100 mg PO BID PRN (Reason: severe pain (scale score 7-10)) Qty: 60 0RF Rx Instructions: Limit as possible. Prescribed per 01/30 signed pain management contract. Contract void and provider will offer no further tramadol refills if tramadol received per another provider. lamotrigine 200 mg tablet 200 mg PO DAILY Qty: 30 2RF quetiapine 25 mg tablet See Rx Instructions PO BEDTIME Qty: 45 2RF Hold Instructions: SEEN BY PSYCHIATRY Rx Instructions: Take 1 tab p.o. at HS. May take 1/2 tab p.o. during the day for anxiety sertraline 100 mg tablet 200 mg PO DAILY Qty: 60 2RF quetiapine 100 mg tablet 100 mg PO BEDTIME epinephrine 0.3 mg/0.3 mL auto-injector See Rx Instructions .ROUTE .COMPLEX Qty: 2 0RF Dose Instruction: INJECT INTRAMUSCULARLY EVERY 20 MINUTES NEEDED FOR ANAPHYLAXIS UNTIL RESPONSE Rx Instructions: INJECT INTRAMUSCULARLY EVERY 20 MINUTES NEEDED FOR ANAPHYLAXIS UNTIL RESPONSE oxycodone-acetaminophen [Percocet] 5-325 mg tablet 1 tab PO Q8H PRN (Reason: pain) Qty: 6 0RF diclofenac sodium 1 % gel 2 g topical QID Qty: 100 3RF Rx Instructions: apply to single elbow, wrist or hand; for hand includes palm/fingers/back of hand oxycodone 10 mg tablet 5 mg PO Q6H PRN (Reason: pain) Qty: 14 0RF diazepam [Valium] 5 mg tablet 5 mg PO TID PRN (Reason: muscle spasm) Qty: 10 0RF Hold Instructions: NEEDS TO SEE NEUROLOGY Referrals: Rosa Isela Ashley DNP, [employer] [Primary Care Provider] - Stand Alone Forms: Patient Portal/API <Dio Blankenship DO - Last Filed: 01/11/23 20:55> Cosign ED Attending Cosignature Attestation: I was immediately available in the department for consultation. Documentation has been reviewed. I agree with assessment and plan.
--- NOTE | 2023-01-06 18:02 | DI.RAD.S_ITS ---
PROCEDURE: XR KUB INDICATIONS: probably pyelo, flank pain TECHNIQUE: One view of the abdomen acquired. COMPARISON: [facility], CT, CT ABDOMEN PELVIS WO CON, 09/26/2022, 22:20. FINDINGS: Surgical changes and devices: Cholecystectomy. Bowel: Bowel gas pattern is normal. Soft tissues: No suspicious abdominal calcifications. Visualized solid organ contours appear normal in size. Bones: No suspicious bony lesions. IMPRESSION: No acute abnormalities. Dictated by: Annel Johnson M.D. on 01/06/2023 at 19:03 Approved by: Annel Johnson M.D. on 01/06/2023 at 19:04
[2023-01-06] MEDS: KETOROLAC 30 MG/ML VIAL IM (18:17)
[2023-01-06] MEDS: levoFLOXacin 250 MG TABLET 750 MG PO (19:15)
[2023-01-06] MEDS: ACETAMINOPHEN 325 MG TABLET 975 MG PO (19:16)
== END 2023-01-06 19:23 | disposition home or self-care (01) ==
PROVIDERS: Emergency Medicine; Emergency Provider Student in an Organized Health Care Education/Training Program; PCP Nurse Practitioner Family
DX: N12 Tubulo-interstitial nephritis, not specified as acute or chronic (principal); R10.9 Unspecified abdominal pain
CPT/HCPCS: 74018; 81003; 81015; 81025; 87086; 93005; 93010; 96372; 99283; 99284; J1885

== ENCOUNTER 2023-07-13 14:22 | Emergency (ER) | payer OTHER, MEDICAID, SELFPAY ==
[2023-07-13 14:21] VITALS: BP 141/98; PULSE 77; RESP 18; TEMP 36.4; O2SAT 96; BMI 37.8
--- NOTE | 2023-07-13 14:25 | DI.RAD.S_ITS ---
PROCEDURE: XR FEMUR LT MIN 2V INDICATIONS: L sided femur pain after fall TECHNIQUE: 2 views of the femur were acquired. COMPARISON: None. FINDINGS: Bones: No fractures or dislocations. No suspicious bony lesions. Soft tissues: No suspicious soft tissue calcifications or masses. IMPRESSION: No acute bony abnormality. Dictated by: Annel Johnson M.D. on 07/13/2023 at 14:58 Approved by: Annel Johnson M.D. on 07/13/2023 at 14:59
--- NOTE | 2023-07-13 14:26 | ED_ITS ---
HPI - General Adult General Chief complaint: Fall Stated complaint: Fall down 7 steps on thinner Time Seen by Provider: 07/13/23 14:25 Source: patient and EMS Mode of arrival: EMS Limitations: no limitations History of Present Illness HPI narrative: Patient is a 28-year-old female. Sustained an injury to her left lower extremity several days ago. She has been evaluated for this. She does use crutches for pain control. She states she was trying to go up some stairs. She states she normally turned around it sits down to go up the stairs but this time she tried to use the crutches. She states she lost her balance and fell. She did hit her head. No loss of consciousness. Despite the stated complaint she has not on blood thinners. Was having neck pain, left hip pain, left leg pain. There has been no change in the neurologic symptoms of her left leg what she describes as numbness and tingling but that has been there since her prior injury several days ago. She arrived on a backboard in it a folded blanket as a cervical collar. Related Data Home Medications Medication Instructions Recorded Confirmed quetiapine 100 mg tablet 100 mg PO BEDTIME 01/08/22 01/08/22 Previous Rx's Medication Instructions Recorded diazepam 10 mg tablet 10 mg PO QID #120 tabs 08/23/21 diazepam 5 mg tablet (Valium) 5 mg PO TID PRN muscle spasm #10 08/30/21 tabs trazodone 100 mg tablet See Rx Instructions .Route 10/01/21 .COMPLEX #180 tabs lamotrigine 200 mg tablet 200 mg PO DAILY #30 tabs 11/29/21 quetiapine 25 mg tablet See Rx Instructions PO BEDTIME #45 11/29/21 tabs sertraline 100 mg tablet 200 mg (2 x 100 mg) PO DAILY #60 11/29/21 tabs metformin 500 mg tablet 500 mg PO BID #60 tabs 01/02/22 epinephrine 0.3 mg/0.3 mL See Rx Instructions .Route 01/08/22 injection, auto-injector .COMPLEX #2 ea tramadol 50 mg tablet 100 mg (2 x 50 mg) PO BID PRN 01/31/22 severe pain (scale score 7-10) #60 tabs oxycodone-acetaminophen 5 mg-325 1 tab PO Q8H PRN pain #6 tabs 03/03/22 mg tablet (Percocet) diclofenac sodium 1 % topical gel 2 g topical QID #100 grams 03/16/22 oxycodone 10 mg tablet 5 mg (1/2 x 10 mg) PO Q6H PRN pain 03/16/22 #14 tabs Allergies Allergy/AdvReac Type Severity Reaction Status Date / Time shellfish derived Allergy Severe ANAPHYLAXIS Verified 01/06/23 15:34 [SHELLFISH DERIVED] adhesive [ADHESIVE] Allergy Mild Verified 01/06/23 15:34 amoxicillin [AMOXICILLIN] Allergy Mild Verified 01/06/23 15:34 doxycycline [DOXYCYCLINE] Allergy Mild Verified 01/06/23 15:34 hydrocodone Allergy Mild rash Verified 01/06/23 15:34 iodine [IODINE] Allergy Mild Verified 01/06/23 15:34 Penicillins [PENICILLINS] Allergy Mild Verified 01/06/23 15:34 sulfamethoxazole Allergy Mild RASH Verified 01/06/23 15:34 [From BACTRIM] trimethoprim [From BACTRIM] Allergy Mild RASH Verified 01/06/23 15:34 cephalexin [CEPHALEXIN] Allergy Unknown Verified 01/06/23 15:34 ciprofloxacin [CIPROFLOXACIN] Allergy Unknown Verified 01/06/23 15:34 clindamycin [CLINDAMYCIN] Allergy Unknown Verified 01/06/23 15:34 Iodinated Contrast Media Allergy Unknown Verified 01/06/23 15:34 [IODINATED CONTRAST MEDIA - IV DYE] latex [LATEX] Allergy Unknown Verified 01/06/23 15:34 lidocaine AdvReac Palpitation Verified 01/06/23 15:34 s Review of Systems Review of Systems ROS Unobtainable: All systems reviewed & are unremarkable except as noted in HPI and below Patient History Medical History Psychogenic nonepileptic seizure Major depressive disorder PCOS (polycystic ovarian syndrome) BRCA2 gene mutation positive in female Psychogenic nonepileptic seizure Endometriosis Hematuria Patellar dislocation Nephrolithiasis (~2017) Morbid obesity Ovarian cyst Pelvic congestion (2013) Surgical History H/O unilateral oophorectomy (~11/2020) H/O: hysterectomy History of ureter stent Status post appendectomy (2003) Status post bilateral salpingectomy (09/01/17) Status post dilation and curettage (2010) Status post dilation and curettage (2011) Status post knee surgery (2007) Status post knee surgery (2012) Status post laparoscopic supracervical hysterectomy (09/01/17) Status post laparoscopy (2003) Status post laparoscopy (2011) Status post laparoscopy (2004) Status post laparoscopy () Status post removal of cervix Status post tonsillectomy and adenoidectomy Family History Mother BRCA positive Hyperlipidemia CAD (coronary artery disease) Hypertension Grandmother Ovarian cancer Breast cancer Social History marital status: household members: spouse and children lives independently: Yes occupational status: employed Smoking Status: Former smoker Smoking Status: Former smoker tobacco type: vaping alcohol intake frequency: holidays/special occasions only Substance Use Type: does not use Exam Initial Vital Signs Initial Vital Signs: Vital Signs Temperature 97.6 F 07/13/23 14:21 Pulse Rate 77 07/13/23 14:21 Respiratory Rate 18 07/13/23 14:21 Blood Pressure 141/98 H 07/13/23 14:21 Pulse Oximetry 96 07/13/23 14:21 Oxygen Delivery Method Room Air 07/13/23 14:21 Const General: cooperative, comfortable and No ill appearing HENMT Head: normal to inspection and normocephalic Face and sinus: normal facial exam Chest Chest: No tenderness Resp Effort & Inspection: normal respiratory effort Auscultation: clear to auscultation bilaterally Cardio Rate: regular rate Rhythm: regular rhythm GI Inspection: normal to inspection and non-distended Palpation: No tender Back/Spine/Pelvis Cervical Spine: collar present Thoracic/Lumbar Spine: No thoracic spinal tenderness and No lumbar spinal tenderness Skin General: no rashes or lesions noted Neuro General: patient alert, patient awake, patient oriented x3 and moves all extremities Extrem Other: Tenderness to palpation of the left hemipelvis. Tenderness to the left femur in the left knee. Scores GCS Harmony coma scale eye opening: Spontaneous Ez coma scale verbal response: Orientated Ez coma scale motor response: Obey commands Ez coma scale total score: 15 Course Orders Ordered: ED Orders 07/13/23 14:25 CT cervical spine wo con Stat CT head/brain wo con Stat XR femur LT min 2V Stat XR pelvis 1-2V Stat 07/13/23 15:00 Basic Metabolic Panel Stat Complete Blood Count AUTO DIFF Stat Discontinued Medications Diphenhydramine HCl (Diphenhydramine 25 Mg Tablet) 25 mg PO NOW ONE Stop: 07/13/23 16:08 Last Admin: 07/13/23 16:14 Dose: 25 mg Documented By: MPO Hydromorphone HCl (Hydromorphone 0.5 Mg Inj) 0.5 mg IV NOW ONE Stop: 07/13/23 16:28 Last Admin: 07/13/23 16:39 Dose: 0.5 mg Documented By: ARMANI Morphine Sulfate (Morphine 4 Mg/Ml Inj) 4 mg IV NOW ONE Stop: 07/13/23 15:41 Last Admin: 07/13/23 15:47 Dose: 4 mg Documented By: ARMANI Vital Signs Vital signs: Vital Signs - 8 hr 07/13/23 14:21 Temperature 97.6 F Pulse Rate 77 Respiratory Rate 18 Blood Pressure 141/98 H Pulse Oximetry 96 Oxygen Delivery Method Room Air Medical Decision Making Lab Data Lab results reviewed: Yes I reviewed the patient's lab results. 07/13/23 15:00 07/13/23 15:00 Labs: Lab Results 07/13/23 Range/Units 15:00 WBC 6.7 (4.5-11.0) X10^3/uL RBC 4.41 (4.0-5.2) X10^6/uL Hgb 13.7 (12.0-16.0) g/dL Hct 38.9 (36-46) % MCV 88.3 (80-100) fL MCH 31.1 (26-34) PG MCHC 35.2 (30-36) % RDW 12.7 (11.6-14.8) % Plt Count 283 (150-400) X10^3/uL Neut % (Auto) 58.4 (50-75) % Lymph % (Auto) 33.2 (25-40) % [place] % (Auto) 8.0 (3-14) % Eos % (Auto) 0.0 L (2-4) % Baso % (Auto) 0.4 (0-2) % Neut # (Auto) 3900 (4288-5974) /uL Lymph # (Auto) 2200 (0277-8899) /uL [place] # (Auto) 500 (0-900) /uL Eos # (Auto) 0 (0-450) /uL Baso # (Auto) 0 (0-100) /uL Sodium 137 (137-145) mmol/L Potassium 4.1 (3.4-5.1) mmol/L Chloride 105 (98-107) mmol/L Carbon Dioxide 24 (22-32) mmol/L BUN 15 (7-17) mg/dL Creatinine 0.82 (0.52-1.04) mg/dL Estimated GFR > 60 (>60) mL/min BUN/Creatinine Ratio 18.3 (6-22) Glucose 89 (70-100) mg/dL Calcium 9.3 (8.4-10.2) mg/dL Imaging Data Extremity x-ray #1: Radiologist's Impression: PROCEDURE: XR PELVIS 1-2V INDICATIONS: Left sided hip pain after fall TECHNIQUE: 1 view(s) of the pelvis acquired. COMPARISON: [facility], CR, XR FEMUR LT MIN 2V, 07/13/2023, 14:28. [facility], CR, XR PELVIS 1-2V, 05/09/2020, 15:14. FINDINGS: Bones: No fractures or dislocations. No suspicious bony lesions. Soft tissues: Visualized bowel gas pattern is normal. No suspicious soft tissue calcifications. IMPRESSION: No acute bony abnormality. If clinical symptoms persist or clinical suspicion for pathology is high, a repeat examination in 7-10 days, or advanced imaging such as CT or MRI is suggested for further evaluation. CT scan - head: Radiologist's Impression: PROCEDURE: CT HEAD/BRAIN WO CON INDICATIONS: fall down stairs TECHNIQUE: Noncontrast 4.5 mm thick angled axial sections acquired from the foramen magnum to the vertex, with coronal and sagittal reformats. For radiation dose reduction, the following was used: automated exposure control, adjustment of mA and/or kV according to patient size. COMPARISON: [facility], CT, CT HEAD WITHOUT CONTRAST, 06/20/2023, 20:06. [facility], CT, CT HEAD/BRAIN WO CON, 10/02/2022, 16:28. FINDINGS: Image quality: Diagnostic. CSF spaces: Basal cisterns are patent. No extra-axial fluid collections. Ventricles are normal in size and shape. Brain: No midline shift. No intracranial masses or hemorrhage. Moss-white matter interface is normal. Skull and face: Calvarium and visualized facial bones are intact, without suspicious lesions. Sinuses: Visualized sinuses and mastoids are clear. IMPRESSION: No acute intracranial pathology. CT - cervical spine: Radiologist's Impression: PROCEDURE: CT CERVICAL SPINE WO CON INDICATIONS: fall down stairs TECHNIQUE: Noncontrast 3 mm thick sections acquired from the skull base to the T4 level. Sagittal and coronal reformats were then constructed. For radiation dose reduction, the following was used: automated exposure control, adjustment of mA and/or kV according to patient size. COMPARISON: [facility], CT, CT CERVICAL SPINE WO CON, 10/02/2022, 16:28. FINDINGS: Image quality: Excellent. Bones: No fractures or dislocations. Trace anterolisthesis of C2 on C3. Visualized superior ribs are intact. Soft tissues: Prevertebral soft tissues are normal in thickness. No paravertebral hematomas. No apical pneumothoraces. IMPRESSION: No displaced fracture or traumatic subluxation. Extremity x-ray #2: Radiologist's Impression: PROCEDURE: XR FEMUR LT MIN 2V INDICATIONS: L sided femur pain after fall TECHNIQUE: 2 views of the femur were acquired. COMPARISON: None. FINDINGS: Bones: No fractures or dislocations. No suspicious bony lesions. Soft tissues: No suspicious soft tissue calcifications or masses. IMPRESSION: No acute bony abnormality. MDM Narrative Medical decision making narrative: Workup here in the emergency department shows no signs of acute fractures. CT scans and x-rays are unremarkable. She uses crutches at home given the injury that she had to her leg several days ago. No other injuries were found on the exam nor described by the patient. Will discharge patient home with return precautions. Discharge Plan Departure Patient Disposition: Home Clinical Impression: Left leg pain Activity Restrictions/Additional Instructions: The workup today did not show any new injuries. All of your x-rays and CT scans look well. Keep all of your scheduled medical appointments. Return to the emergency department for new or worsening symptoms. Prescriptions: No Action trazodone 100 mg tablet See Rx Instructions .ROUTE .COMPLEX Qty: 180 0RF Dose Instruction: TAKE 2 TABLETS BY MOUTH AT BEDTIME NEEDED FOR INSOMNIA Rx Instructions: TAKE 2 TABLETS BY MOUTH AT BEDTIME NEEDED FOR INSOMNIA diazepam 10 mg tablet 10 mg PO QID Qty: 120 2RF Hold Instructions: NEEDS TO SEE NEUROLOGY metformin 500 mg tablet 500 mg PO BID Qty: 60 0RF tramadol 50 mg tablet 100 mg PO BID PRN (Reason: severe pain (scale score 7-10)) Qty: 60 0RF Rx Instructions: Limit as possible. Prescribed per 01/30 signed pain management contract. Contract void and provider will offer no further tramadol refills if tramadol received per another provider. lamotrigine 200 mg tablet 200 mg PO DAILY Qty: 30 2RF quetiapine 25 mg tablet See Rx Instructions PO BEDTIME Qty: 45 2RF Hold Instructions: SEEN BY PSYCHIATRY Rx Instructions: Take 1 tab p.o. at HS. May take 1/2 tab p.o. during the day for anxiety sertraline 100 mg tablet 200 mg PO DAILY Qty: 60 2RF quetiapine 100 mg tablet 100 mg PO BEDTIME epinephrine 0.3 mg/0.3 mL auto-injector See Rx Instructions .ROUTE .COMPLEX Qty: 2 0RF Dose Instruction: INJECT INTRAMUSCULARLY EVERY 20 MINUTES NEEDED FOR ANAPHYLAXIS UNTIL RESPONSE Rx Instructions: INJECT INTRAMUSCULARLY EVERY 20 MINUTES NEEDED FOR ANAPHYLAXIS UNTIL RESPONSE oxycodone-acetaminophen [Percocet] 5-325 mg tablet 1 tab PO Q8H PRN (Reason: pain) Qty: 6 0RF diclofenac sodium 1 % gel 2 g topical QID Qty: 100 3RF Rx Instructions: apply to single elbow, wrist or hand; for hand includes palm/fingers/back of hand oxycodone 10 mg tablet 5 mg PO Q6H PRN (Reason: pain) Qty: 14 0RF diazepam [Valium] 5 mg tablet 5 mg PO TID PRN (Reason: muscle spasm) Qty: 10 0RF Hold Instructions: NEEDS TO SEE NEUROLOGY Referrals: Rosa Isela Ashley DNP, [employer] [Primary Care Provider] - Stand Alone Forms: Patient Portal/API
[2023-07-13 15:06] LABS: Add Manual Diff / Slide Review NO; Basophils Absolute Auto 0 /uL (0-100); Basophils Percent Auto 0.4 % (0-2); Eosinophils Absolute Auto 0 /uL (0-450); Hematocrit 38.9 % (36-46); Hemoglobin 13.7 g/dL (12.0-16.0); Lymphocytes Absolute Auto 2200 /uL (1100-4500); Lymphocytes Percent Auto 33.2 % (25-40); Mean Corpuscular HGB Conc 35.2 % (30-36); Mean Corpuscular Hemoglobin 31.1 PG (26-34); Mean Corpuscular Volume 88.3 fL (80-100); Monocytes Absolute Auto 500 /uL (0-900); Neutrophils Absolute Auto 3900 /uL (1500-7000); Neutrophils Percent Auto 58.4 % (50-75); Platelet Count 283 X10^3/uL (150-400); Red Blood Cell Count 4.41 X10^6/uL (4.0-5.2); Red Cell Distribution Width 12.7 % (11.6-14.8); White Blood Cell Count 6.7 X10^3/uL (4.5-11.0)
[2023-07-13 15:17] LABS: BUN Creatinine Ratio 18.3 (6-22); Blood Urea Nitrogen 15 mg/dL (7-17); Calcium 9.3 mg/dL (8.4-10.2); Carbon Dioxide 24 mmol/L (22-32); Chloride 105 mmol/L (98-107); Estimated Glomerular Filt Rate > 60 mL/min (>60); Glucose 89 mg/dL (70-100); HEMOLYSIS < 15 (0-50); Potassium 4.1 mmol/L (3.4-5.1); Sodium 137 mmol/L (137-145)
--- NOTE | 2023-07-13 15:27 | PC.NURSE ---
Pt reports numbness and tingling to left leg prior to fall from earlier injury. Pt also reporting the screw under my left leg is infected.
[2023-07-13] MEDS: MORPHINE 4 MG/ML INJ IV (15:47)
--- NOTE | 2023-07-13 16:00 | PC.NURSE ---
Localized hives noted on pt's left wrist at IV site. Pt c/o itching. Denies any difficulty breathing or SOB.
[2023-07-13] MEDS: diphenhydrAMINE 25 MG TABLET PO (16:14)
--- NOTE | 2023-07-13 16:17 | PC.NURSE ---
Addendum entered by Ana Wild CNA 07/13/23 16:46: Hives have resolved. Original Note: Dr Padilla aware of pt hives. order for 25 mg PO benadryl placed.
[2023-07-13] MEDS: HYDROMORPHONE 0.5 MG INJ IV (16:39)
== END 2023-07-13 16:55 | disposition home or self-care (01) ==
PROVIDERS: Emergency Provider Emergency Medicine; PCP Nurse Practitioner Family
DX: M79.605 Pain in left leg (principal); M54.2 Cervicalgia; W10.9XXA Fall (on) (from) unspecified stairs and steps, initial encounter; Z79.899 Other long term (current) drug therapy
CPT/HCPCS: 36415; 70450; 72125; 72170; 73552; 80048; 85025; 96374; 96375; 99284; 99285; J1170; J2270

== ENCOUNTER 2023-09-04 16:22 | Emergency (ER) | payer OTHER, MEDICAID, SELFPAY ==
[2023-09-04 16:28] VITALS: BP 157/77; PULSE 76; RESP 17; TEMP 36.6; O2SAT 100; BMI 40.6
--- NOTE | 2023-09-04 17:12 | ED_ITS ---
HPI - Female Genitourinary General Chief complaint: Urogenital-Female Stated complaint: kidney pain, vomiting blood, passing blood Time Seen by Provider: 09/04/23 16:38 Mode of arrival: Ambulatory History of Present Illness HPI Narrative: 28-year-old female presents this afternoon for chief complaint of bilateral flank pain since yesterday afternoon. She states this has happened before as she has had kidney stones before, she states she was ?picking out stones yesterday that I saw in the toilet, she then took cranberry juice, cranberry tablets and azo and then had an episode where she was ?vomiting blood. She states the pain and vomiting caused her to pass out at home. She recalls the incident, she did not fall or strike her head. She last had Tylenol about 1-2 hours ago, her last oral intake in terms of food was last night. She does take pantoprazole daily for erosive gastritis and she is followed by Gastroenterology who she will see in September this year. She did not measure her temperature but she felt warm yesterday, she states she is having difficulty urinating, her history is significant for hysterectomy with right oophorectomy multiple exploratory laparotomies, cholecystectomy, appendectomy and tonsillectomy. She has multiple allergies to antibiotics and IV contrast please refer to her medical record. She is denying any injury, no upper abdominal discomfort at this point all other systems are reviewed and are negative. Related Data Home Medications Medication Instructions Recorded Confirmed quetiapine 100 mg tablet 100 mg PO BEDTIME 01/08/22 01/08/22 Previous Rx's Medication Instructions Recorded diazepam 10 mg tablet 10 mg PO QID #120 tabs 08/23/21 diazepam 5 mg tablet (Valium) 5 mg PO TID PRN muscle spasm #10 08/30/21 tabs trazodone 100 mg tablet See Rx Instructions .Route 10/01/21 .COMPLEX #180 tabs lamotrigine 200 mg tablet 200 mg PO DAILY #30 tabs 11/29/21 quetiapine 25 mg tablet See Rx Instructions PO BEDTIME #45 11/29/21 tabs sertraline 100 mg tablet 200 mg (2 x 100 mg) PO DAILY #60 11/29/21 tabs metformin 500 mg tablet 500 mg PO BID #60 tabs 01/02/22 epinephrine 0.3 mg/0.3 mL See Rx Instructions .Route 01/08/22 injection, auto-injector .COMPLEX #2 ea tramadol 50 mg tablet 100 mg (2 x 50 mg) PO BID PRN 01/31/22 severe pain (scale score 7-10) #60 tabs oxycodone-acetaminophen 5 mg-325 1 tab PO Q8H PRN pain #6 tabs 03/03/22 mg tablet (Percocet) diclofenac sodium 1 % topical gel 2 g topical QID #100 grams 03/16/22 oxycodone 10 mg tablet 5 mg (1/2 x 10 mg) PO Q6H PRN pain 03/16/22 #14 tabs oxycodone-acetaminophen 5 mg-325 1 tab PO Q6H PRN pain #10 tabs 09/04/23 mg tablet (Percocet) tamsulosin 0.4 mg capsule (Flomax) 0.4 mg PO DAILY #14 caps 09/04/23 Allergies Allergy/AdvReac Type Severity Reaction Status Date / Time Iodinated Contrast Media Allergy Severe Anaphylaxis Verified 09/04/23 16:36 [IODINATED CONTRAST MEDIA - IV DYE] iodine [IODINE] Allergy Severe Anaphylaxis Verified 09/04/23 16:36 shellfish derived Allergy Severe Anaphylaxis Verified 09/04/23 16:36 [SHELLFISH DERIVED] adhesive [ADHESIVE] Allergy Mild Verified 09/04/23 16:35 amoxicillin [AMOXICILLIN] Allergy Mild Verified 09/04/23 16:35 doxycycline [DOXYCYCLINE] Allergy Mild Verified 09/04/23 16:35 hydrocodone Allergy Mild rash Verified 09/04/23 16:35 Penicillins [PENICILLINS] Allergy Mild Verified 09/04/23 16:35 sulfamethoxazole Allergy Mild RASH Verified 09/04/23 16:35 [From BACTRIM] trimethoprim [From BACTRIM] Allergy Mild RASH Verified 09/04/23 16:35 cephalexin [CEPHALEXIN] Allergy Unknown Verified 09/04/23 16:35 ciprofloxacin [CIPROFLOXACIN] Allergy Unknown Verified 09/04/23 16:35 clindamycin [CLINDAMYCIN] Allergy Unknown Verified 09/04/23 16:35 latex [LATEX] Allergy Unknown Verified 09/04/23 16:35 lidocaine AdvReac Palpitation Verified 09/04/23 16:35 s Review of Systems Review of Systems Narrative: All other systems reviewed and are negative. Patient History Medical History Psychogenic nonepileptic seizure Major depressive disorder PCOS (polycystic ovarian syndrome) BRCA2 gene mutation positive in female Psychogenic nonepileptic seizure Endometriosis Hematuria Patellar dislocation Nephrolithiasis (~2017) Morbid obesity Ovarian cyst Pelvic congestion (2014) Surgical History H/O unilateral oophorectomy (~11/2020) Status post laparoscopy (~05/2020) H/O: hysterectomy History of ureter stent Status post removal of cervix Status post bilateral salpingectomy (09/01/17) Status post laparoscopic supracervical hysterectomy (09/01/17) Status post tonsillectomy and adenoidectomy Status post laparoscopy (2004) Status post appendectomy (2003) Status post knee surgery (2012) Status post knee surgery (2007) Status post dilation and curettage (2011) Status post dilation and curettage (2010) Status post laparoscopy (2011) Status post laparoscopy (2003) Family History Mother BRCA positive Hyperlipidemia CAD (coronary artery disease) Hypertension Grandmother Ovarian cancer Breast cancer tobacco type: vaping alcohol intake frequency: holidays/special occasions only Substance Use Type: does not use Exam Initial Vital Signs Initial Vital Signs: Vital Signs Temperature 98 F 09/04/23 16:28 Pulse Rate 76 09/04/23 16:28 Respiratory Rate 17 09/04/23 16:28 Blood Pressure 157/77 H 09/04/23 16:28 Pulse Oximetry 100 09/04/23 16:28 Oxygen Delivery Method Room Air 09/04/23 16:28 Vital signs reviewed and are normal except for elevated systolic reading. Const Other: Seated, smiling, no visible distress. Work of breathing is normal. [facility] Head: normal to inspection, normocephalic and atraumatic Nose: external nose normal, nares normal, nasal mucous membranes and turbinates normal and No epistaxis Mouth: oral mucosae normal, lip normal, tongue normal and oropharynx normal Throat: posterior oropharynx normal and tonsils absent Eyes Conjunctivae: conjunctivae normal Sclera: sclerae normal Neck Other: Full active ROM no adenopathy. Resp Other: Lung sounds are clear throughout no wheezes rales or rhonchi. Equal expansion. No pain with deep inspiration. Cardio Other: Heart is regular rate and rhythm. No tachycardia. GI Other: Bowel sounds are present, she is soft nontender postoperative scars are noted. There is no discoloration, no masses, mild suprapubic tenderness without guarding bladder is not distended. Back/Spine/Pelvis Other: No discoloration, no focal bony midline tenderness. She is tender over both flanks with CVA tap but no guarding. Skin Other: Normal color, turgor, temperature. Extrem Other: Moves all well, she was ambulatory upon arrival. Course Course Course Narrative: All of Ni's lab work is normal except for her urinalysis which showed greater than 100 RBCs per high-powered field. There was no bacteria. This is consistent with her history of kidney stones and her symptoms today. She is afebrile normal vital signs, I have prescribed her Flomax as well as Percocet which he has had in the past without any allergies. I discussed the case with Dr. Walt moss attending who agrees with my discharge plan at this point. We did not image her as she has multiple allergies especially contrast. [place]ist [place] she will contact their office tomorrow. Regarding her gastritis again her CBC is normal there is no clinical findings to suggest an active GI bleed. She has pantoprazole and she will take that daily. Orders Ordered: ED Orders 09/04/23 16:35 Complete Blood Count AUTO DIFF Stat Comprehensive Metabolic Panel Stat Lipase Stat 09/04/23 17:18 PTT Partial Thromboplastin Frantz Stat Prothrombin Time INR Stat 09/04/23 17:50 Urine Microscopic Stat 09/04/23 18:38 ABO RH Type Stat Ondansetron HCl (Ondansetron 4 Mg Odt) 4 mg PO NOW PRN PRN Reason: Nausea And Vomiting Last Admin: 09/04/23 18:01 Dose: 4 mg Documented By: DARLIN Ondansetron HCl (Ondansetron 4 Mg/2 Ml Inj) 4 mg IV NOW PRN PRN Reason: Nausea And Vomiting Reevaluation(s) Reevaluation #1: Repeat vital signs remain normal. Vital Signs Vital signs: Vital Signs - 8 hr 09/04/23 16:28 Temperature 98 F Pulse Rate 76 Respiratory Rate 17 Blood Pressure 157/77 H Pulse Oximetry 100 Oxygen Delivery Method Room Air MDM - Female Genitourinary Lab Data Lab results narrative: Laboratory results are normal except for her urine analysis. RBCs greater than 100 per high-powered field no other findings. 09/04/23 18:30 09/04/23 18:30 Labs: Lab Results 09/04/23 09/04/23 09/04/23 Range/Units 17:50 18:30 18:38 WBC 8.1 (4.5-11.0) X10^3/uL RBC 4.48 (4.0-5.2) X10^6/uL Hgb 13.8 (12.0-16.0) g/dL Hct 40.5 (36-46) % MCV 90.4 (80-100) fL MCH 30.8 (26-34) PG MCHC 34.1 (30-36) % RDW 13.6 (11.6-14.8) % Plt Count 278 (150-400) X10^3/uL Neut % (Auto) 59.8 (50-75) % Lymph % (Auto) 32.1 (25-40) % Anson % (Auto) 7.6 (3-14) % Eos % (Auto) 0.0 L (2-4) % Baso % (Auto) 0.5 (0-2) % Neut # (Auto) 4800 (4908-4946) /uL Lymph # (Auto) 2600 (5985-1074) /uL Anson # (Auto) 600 (0-900) /uL Eos # (Auto) 0 (0-450) /uL Baso # (Auto) 0 (0-100) /uL PT 11.2 (9.4-12.5) SECONDS INR 1.0 (0.9-1.3) APTT 30 (25.1-36.5) SECONDS Sodium 137 (137-145) mmol/L Potassium 3.4 (3.4-5.1) mmol/L Chloride 104 (98-107) mmol/L Carbon Dioxide 26 (22-32) mmol/L BUN 12 (7-17) mg/dL Creatinine 0.73 (0.52-1.04) mg/dL Estimated GFR > 60 (>60) mL/min BUN/Creatinine Ratio 16.4 (6-22) Glucose 76 (70-100) mg/dL Calcium 9.3 (8.4-10.2) mg/dL Total Bilirubin 0.8 (0.2-1.3) mg/dL AST 18 (14-36) IU/L ALT 18 (<35) IU/L Alkaline Phosphatase 58 (38-126) U/L Total Protein 7.9 (6.3-8.2) g/dL Albumin 4.6 (3.5-5.0) g/dL Globulin 3.3 (1.7-4.1) g/dL Albumin/Globulin Ratio 1.4 (1.0-2.8) Lipase 143 (23-300) U/L Urine RBC >100/hpf H (0-5/HPF) Urine WBC 1-5/hpf (0-5/HPF) Ur Squamous Epith Cells 10-30 /hpf H (0-5/HPF) Urine Bacteria Occasional (0-1) (None) Ur Culture Indicated? Cult not indicated Vol Urine Centrifuged 10ml (spun) Blood Type A Negative MDM Narrative Medical decision making narrative: I discussed the case with Dr. Godoy well he is okay with my discharge plan with close watchful waiting. Patient has been given red flag warning signs in detail. She has been through this before she has a longstanding history of kidney stones she will strain her urine, she is started on Flomax. As well as some Percocet that she has had in the past. She lives in [place] I have asked her to go to the closest emergency department if she has a recurrence of pain, has any new symptoms, develops a fever, inability to pass urine, starts passing clots, or any other worrisome symptoms. She will follow up with her urologist and she will contact them in the morning. Discharge Plan Departure Patient Disposition: Home Clinical Impression: Hematuria with proteinuria, History of kidney stones Instructions: DI for Hematuria Activity Restrictions/Additional Instructions: I have prescribed Flomax as you have a longstanding history of kidney stones, please take it daily and contact her urologist tomorrow for follow-up. I have prescribed pain medication that she had in the past please use caution as it can cause sedation and can be habit-forming. Please use your promethazine at home try to push fluids urinate use your strainer and try to capture any stones. If your symptoms worsen or you develop any fever, vomiting, or any other worrisome symptoms please go to local emergency department. Prescriptions: New tamsulosin [Flomax] 0.4 mg capsule 0.4 mg PO DAILY Qty: 14 0RF oxycodone-acetaminophen [Percocet] 5-325 mg tablet 1 tab PO Q6H PRN (Reason: pain) Qty: 10 0RF No Action trazodone 100 mg tablet See Rx Instructions .ROUTE .COMPLEX Qty: 180 0RF Dose Instruction: TAKE 2 TABLETS BY MOUTH AT BEDTIME NEEDED FOR INSOMNIA Rx Instructions: TAKE 2 TABLETS BY MOUTH AT BEDTIME NEEDED FOR INSOMNIA diazepam 10 mg tablet 10 mg PO QID Qty: 120 2RF Hold Instructions: NEEDS TO SEE NEUROLOGY metformin 500 mg tablet 500 mg PO BID Qty: 60 0RF tramadol 50 mg tablet 100 mg PO BID PRN (Reason: severe pain (scale score 7-10)) Qty: 60 0RF Rx Instructions: Limit as possible. Prescribed per 01/30 signed pain management contract. Contract void and provider will offer no further tramadol refills if tramadol received per another provider. lamotrigine 200 mg tablet 200 mg PO DAILY Qty: 30 2RF quetiapine 25 mg tablet See Rx Instructions PO BEDTIME Qty: 45 2RF Hold Instructions: SEEN BY PSYCHIATRY Rx Instructions: Take 1 tab p.o. at HS. May take 1/2 tab p.o. during the day for anxiety sertraline 100 mg tablet 200 mg PO DAILY Qty: 60 2RF quetiapine 100 mg tablet 100 mg PO BEDTIME epinephrine 0.3 mg/0.3 mL auto-injector See Rx Instructions .ROUTE .COMPLEX Qty: 2 0RF Dose Instruction: INJECT INTRAMUSCULARLY EVERY 20 MINUTES NEEDED FOR ANAPHYLAXIS UNTIL RESPONSE Rx Instructions: INJECT INTRAMUSCULARLY EVERY 20 MINUTES NEEDED FOR ANAPHYLAXIS UNTIL RESPONSE oxycodone-acetaminophen [Percocet] 5-325 mg tablet 1 tab PO Q8H PRN (Reason: pain) Qty: 6 0RF diclofenac sodium 1 % gel 2 g topical QID Qty: 100 3RF Rx Instructions: apply to single elbow, wrist or hand; for hand includes palm/fingers/back of hand oxycodone 10 mg tablet 5 mg PO Q6H PRN (Reason: pain) Qty: 14 0RF diazepam [Valium] 5 mg tablet 5 mg PO TID PRN (Reason: muscle spasm) Qty: 10 0RF Hold Instructions: NEEDS TO SEE NEUROLOGY Referrals: Rosa Isela Ashley, JESSICA, CENTRAL STERILE TECHNICIAN [Primary Care Provider] - Stand Alone Forms: Patient Portal/API
[2023-09-04] MEDS: ONDANSETRON 4 MG ODT PO (18:01)
[2023-09-04 18:47] LABS: Bacteria Urine Occasional (0-1); RBC Urine >100/HPF (0-5/HPF); Squamous Epithelial Cell Urine 10-30 /HPF (0-5/HPF); Urine Volume 10mL (spun); WBC Urine 1-5/HPF (0-5/HPF)
[2023-09-04 18:48] LABS: Culture Indicated Urine Cult Not Indicated
[2023-09-04 18:51] LABS: Add Manual Diff / Slide Review NO; Basophils Absolute Auto 0 /uL (0-100); Basophils Percent Auto 0.5 % (0-2); Eosinophils Absolute Auto 0 /uL (0-450); Hematocrit 40.5 % (36-46); Hemoglobin 13.8 g/dL (12.0-16.0); Lymphocytes Absolute Auto 2600 /uL (1100-4500); Lymphocytes Percent Auto 32.1 % (25-40); Mean Corpuscular HGB Conc 34.1 % (30-36); Mean Corpuscular Hemoglobin 30.8 PG (26-34); Mean Corpuscular Volume 90.4 fL (80-100); Monocytes Absolute Auto 600 /uL (0-900); Monocytes Percent Auto 7.6 % (3-14); Neutrophils Absolute Auto 4800 /uL (1500-7000); Neutrophils Percent Auto 59.8 % (50-75); Platelet Count 278 X10^3/uL (150-400); Red Blood Cell Count 4.48 X10^6/uL (4.0-5.2); Red Cell Distribution Width 13.6 % (11.6-14.8); White Blood Cell Count 8.1 X10^3/uL (4.5-11.0)
[2023-09-04 18:56] LABS: Prothrombin Time 11.2 SECONDS (9.4-12.5)
[2023-09-04 18:58] LABS: PTT Partial Thromboplastin Tim 30 SECONDS (25.1-36.5)
[2023-09-04 19:00] LABS: Alanine Aminotransferase 18 IU/L (<35); Albumin 4.6 g/dL (3.5-5.0); Albumin Globulin Ratio 1.4 (1.0-2.8); Alkaline Phosphatase 58 U/L (38-126); Aspartate Aminotransferase 18 IU/L (14-36); BUN Creatinine Ratio 16.4 (6-22); Bilirubin Total 0.8 mg/dL (0.2-1.3); Blood Urea Nitrogen 12 mg/dL (7-17); Calcium 9.3 mg/dL (8.4-10.2); Carbon Dioxide 26 mmol/L (22-32); Chloride 104 mmol/L (98-107); Estimated Glomerular Filt Rate > 60 mL/min (>60); Globulin 3.3 g/dL (1.7-4.1); Glucose 76 mg/dL (70-100); HEMOLYSIS < 15 (0-50); Lipase 143 U/L (23-300); Potassium 3.4 mmol/L (3.4-5.1); Sodium 137 mmol/L (137-145); Total Protein 7.9 g/dL (6.3-8.2)
[2023-09-04 19:40] VITALS: BP 144/94; PULSE 83; RESP 20; O2SAT 98
== END 2023-09-04 19:40 | disposition home or self-care (01) ==
PROVIDERS: Emergency Medicine; Emergency Provider Physician Assistant Medical; PCP Nurse Practitioner Family
DX: R31.9 Hematuria, unspecified (principal); Z79.899 Other long term (current) drug therapy; Z87.442 Personal history of urinary calculi
CPT/HCPCS: 80053; 81015; 83690; 85025; 85610; 85730; 86900; 86901; 99283

== ENCOUNTER 2024-03-14 17:55 | Emergency (ER) | payer OTHER, MEDICAID, SELFPAY ==
[2024-03-14] VITALS (7 sets, daily range): BP systolic 119–142; BP diastolic 58–74; PULSE 87–97; RESP 16; TEMP 36.8; O2SAT 96–99; BMI 49.1
--- NOTE | 2024-03-14 18:28 | DI.RAD.S_ITS ---
PROCEDURE: XR FOOT LT MIN 3V INDICATIONS: fall TECHNIQUE: 3 views of the foot were acquired. COMPARISON: None. FINDINGS: Bones: No fractures or dislocations. No suspicious bony lesions. Soft tissues: No tibiotalar joint effusion. Achilles tendon appears normal. IMPRESSION: No acute bony abnormality. Approved by: Bunny Kathleen M.D. on 03/14/2024 at 18:02
--- NOTE | 2024-03-14 18:28 | DI.RAD.S_ITS ---
PROCEDURE: XR ANKLE LT MIN 3V INDICATIONS: fall. pt resisted my efforts to straiten foot and ankle TECHNIQUE: 3 views of the ankle were acquired. COMPARISON: [facility], CR, XR ANKLE LT MIN 3V, 04/30/2019, 17:49. FINDINGS: Bones: No fractures or dislocations. Ankle mortise is normally aligned. No suspicious bony lesions. Soft tissues: No tibiotalar joint effusion. Achilles tendon appears normal. IMPRESSION: No acute bony abnormality or significant effusion. Approved by: Bunny Kathleen M.D. on 03/14/2024 at 17:59
--- NOTE | 2024-03-14 19:36 | ED_ITS ---
HPI - General Adult General Chief complaint: Syncope Stated complaint: Syncope Time Seen by Provider: 03/14/24 17:56 Source: patient and EMS Mode of arrival: EMS History of Present Illness HPI narrative: Patient is a 29-year-old female who states that she had an episode where she passed out she was going down some stairs in her house. States she was going out to her car to get some Tylenol and ibuprofen because she was having discomfort after a recent kidney surgery that she had. She states that she tripped and twisted her left ankle and also landed on her left hip. She arrived by EMS with the air splint in place. She has had prior surgery to the ankle. Related Data Home Medications Medication Instructions Recorded Confirmed quetiapine 100 mg tablet 100 mg PO BEDTIME 01/08/22 01/08/22 Previous Rx's Medication Instructions Recorded diazepam 10 mg tablet 10 mg PO QID #120 tabs 08/23/21 diazepam 5 mg tablet (Valium) 5 mg PO TID PRN muscle spasm #10 08/30/21 tabs trazodone 100 mg tablet See Rx Instructions .Route 10/01/21 .COMPLEX #180 tabs lamotrigine 200 mg tablet 200 mg PO DAILY #30 tabs 11/29/21 quetiapine 25 mg tablet See Rx Instructions PO BEDTIME #45 11/29/21 tabs sertraline 100 mg tablet 200 mg (2 x 100 mg) PO DAILY #60 11/29/21 tabs metformin 500 mg tablet 500 mg PO BID #60 tabs 01/02/22 epinephrine 0.3 mg/0.3 mL See Rx Instructions .Route 01/08/22 injection, auto-injector .COMPLEX #2 ea tramadol 50 mg tablet 100 mg (2 x 50 mg) PO BID PRN 01/31/22 severe pain (scale score 7-10) #60 tabs oxycodone-acetaminophen 5 mg-325 1 tab PO Q8H PRN pain #6 tabs 03/03/22 mg tablet (Percocet) diclofenac sodium 1 % topical gel 2 g topical QID #100 grams 03/16/22 oxycodone 10 mg tablet 5 mg (1/2 x 10 mg) PO Q6H PRN pain 03/16/22 #14 tabs oxycodone-acetaminophen 5 mg-325 1 tab PO Q6H PRN pain #10 tabs 09/04/23 mg tablet (Percocet) tamsulosin 0.4 mg capsule (Flomax) 0.4 mg PO DAILY #14 caps 09/04/23 Allergies Allergy/AdvReac Type Severity Reaction Status Date / Time Iodinated Contrast Media Allergy Severe Anaphylaxis Verified 09/04/23 16:36 [IODINATED CONTRAST MEDIA - IV DYE] iodine [IODINE] Allergy Severe Anaphylaxis Verified 09/04/23 16:36 shellfish derived Allergy Severe Anaphylaxis Verified 09/04/23 16:36 [SHELLFISH DERIVED] adhesive [ADHESIVE] Allergy Mild Verified 09/04/23 16:35 amoxicillin [AMOXICILLIN] Allergy Mild Verified 09/04/23 16:35 doxycycline [DOXYCYCLINE] Allergy Mild Verified 09/04/23 16:35 hydrocodone Allergy Mild rash Verified 09/04/23 16:35 Penicillins [PENICILLINS] Allergy Mild Verified 09/04/23 16:35 sulfamethoxazole Allergy Mild RASH Verified 09/04/23 16:35 [From BACTRIM] trimethoprim [From BACTRIM] Allergy Mild RASH Verified 09/04/23 16:35 cephalexin [CEPHALEXIN] Allergy Unknown Verified 09/04/23 16:35 ciprofloxacin [CIPROFLOXACIN] Allergy Unknown Verified 09/04/23 16:35 clindamycin [CLINDAMYCIN] Allergy Unknown Verified 09/04/23 16:35 latex [LATEX] Allergy Unknown Verified 09/04/23 16:35 lidocaine AdvReac Palpitation Verified 09/04/23 16:35 s Review of Systems Review of Systems ROS Unobtainable: All systems reviewed & are unremarkable except as noted in HPI and below Patient History Medical History Psychogenic nonepileptic seizure Major depressive disorder PCOS (polycystic ovarian syndrome) BRCA2 gene mutation positive in female Psychogenic nonepileptic seizure Endometriosis Hematuria Patellar dislocation Nephrolithiasis (~2017) Morbid obesity Ovarian cyst Pelvic congestion (2013) Surgical History H/O unilateral oophorectomy (~11/2020) Status post laparoscopy (~05/2020) H/O: hysterectomy History of ureter stent Status post removal of cervix Status post bilateral salpingectomy (09/01/17) Status post laparoscopic supracervical hysterectomy (09/01/17) Status post tonsillectomy and adenoidectomy Status post laparoscopy (2004) Status post appendectomy (2003) Status post knee surgery (2012) Status post knee surgery (2007) Status post dilation and curettage (2011) Status post dilation and curettage (2010) Status post laparoscopy (2011) Status post laparoscopy (2003) Family History Mother BRCA positive Hyperlipidemia CAD (coronary artery disease) Hypertension Grandmother Ovarian cancer Breast cancer Social History marital status: household members: spouse and children lives independently: Yes occupational status: employed Smoking Status: Former smoker Smoking Status: Former smoker tobacco type: vaping alcohol intake frequency: holidays/special occasions only Substance Use Type: does not use Exam Initial Vital Signs Initial Vital Signs: Vital Signs Temperature 98.2 F 03/14/24 18:00 Pulse Rate 90 03/14/24 18:00 Respiratory Rate 16 03/14/24 18:00 Blood Pressure 132/74 03/14/24 18:00 Pulse Oximetry 98 03/14/24 18:00 Oxygen Delivery Method Room Air 03/14/24 18:00 Const General: cooperative and comfortable HENMT Head: normal to inspection and normocephalic Resp Effort & Inspection: normal respiratory effort Cardio Rate: regular rate Skin Other: Well-healed surgical scar lateral aspect of left ankle Neuro General: patient alert and patient awake Extrem Other: Discomfort along the lateral aspect of the left ankle. She does have left knee pain but is able to flex and extend. Is able to do a straight leg raise and internally externally rotate the left hip. Course Orders Ordered: ED Orders 03/14/24 18:28 XR ankle LT min 3V Stat XR foot LT min 3V Stat Discontinued Medications Tramadol HCl (Tramadol 50 Mg Tablet) 50 mg PO NOW ONE Stop: 03/14/24 19:39 Last Admin: 03/14/24 19:51 Dose: 50 mg Documented By: SHIVANI Vital Signs Vital signs: Vital Signs - 8 hr 03/14/24 18:30 03/14/24 18:30 03/14/24 19:00 Pulse Rate 87 94 H Blood Pressure 142/74 H Pulse Oximetry 98 96 Oxygen Delivery Method 03/14/24 19:01 03/14/24 19:01 03/14/24 19:30 Pulse Rate 97 H 90 Blood Pressure 122/58 L Pulse Oximetry 97 99 Oxygen Delivery Method Room Air 03/14/24 19:31 03/14/24 19:31 Pulse Rate 97 H Blood Pressure 119/74 Pulse Oximetry 97 Oxygen Delivery Method Room Air Medical Decision Making Imaging Data Extremity x-ray #1: Radiologist's Impression: PROCEDURE: XR ANKLE LT MIN 3V INDICATIONS: fall. pt resisted my efforts to straiten foot and ankle TECHNIQUE: 3 views of the ankle were acquired. COMPARISON: [facility], CR, XR ANKLE LT MIN 3V, 04/30/2019, 17:49. FINDINGS: Bones: No fractures or dislocations. Ankle mortise is normally aligned. No suspicious bony lesions. Soft tissues: No tibiotalar joint effusion. Achilles tendon appears normal. IMPRESSION: No acute bony abnormality or significant effusion. Extremity x-ray #2: Radiologist's Impression: PROCEDURE: XR FOOT LT MIN 3V INDICATIONS: fall TECHNIQUE: 3 views of the foot were acquired. COMPARISON: None. FINDINGS: Bones: No fractures or dislocations. No suspicious bony lesions. Soft tissues: No tibiotalar joint effusion. Achilles tendon appears normal. IMPRESSION: No acute bony abnormality. MDM Narrative Medical decision making narrative: X-ray showed no signs of fracture. She was given a air splint and crutches for comfort. No other injuries from the event. Patient was discharged home with return precautions. Discharge Plan Departure Patient Disposition: Home Clinical Impression: Ankle sprain Instructions: How to Use Crutches, DI for Ankle Sprain, How To Perform RICE (Rest, Ice, Compress, Elevate) Activity Restrictions/Additional Instructions: Continue to take all of your medications as directed. There were no fractures noted on the x-ray so you can walk on your left ankle as tolerated. Use the crutches in the ankle brace as needed. Also recommend ice. You can continue to take Tylenol and/or ibuprofen for discomfort. Prescriptions: No Action trazodone 100 mg tablet See Rx Instructions .ROUTE .COMPLEX Qty: 180 0RF Dose Instruction: TAKE 2 TABLETS BY MOUTH AT BEDTIME NEEDED FOR INSOMNIA Rx Instructions: TAKE 2 TABLETS BY MOUTH AT BEDTIME NEEDED FOR INSOMNIA diazepam 10 mg tablet 10 mg PO QID Qty: 120 2RF Hold Instructions: NEEDS TO SEE NEUROLOGY metformin 500 mg tablet 500 mg PO BID Qty: 60 0RF tramadol 50 mg tablet 100 mg PO BID PRN (Reason: severe pain (scale score 7-10)) Qty: 60 0RF Rx Instructions: Limit as possible. Prescribed per 01/30 signed pain management contract. Contract void and provider will offer no further tramadol refills if tramadol received per another provider. lamotrigine 200 mg tablet 200 mg PO DAILY Qty: 30 2RF quetiapine 25 mg tablet See Rx Instructions PO BEDTIME Qty: 45 2RF Hold Instructions: SEEN BY PSYCHIATRY Rx Instructions: Take 1 tab p.o. at HS. May take 1/2 tab p.o. during the day for anxiety sertraline 100 mg tablet 200 mg PO DAILY Qty: 60 2RF quetiapine 100 mg tablet 100 mg PO BEDTIME epinephrine 0.3 mg/0.3 mL auto-injector See Rx Instructions .ROUTE .COMPLEX Qty: 2 0RF Dose Instruction: INJECT INTRAMUSCULARLY EVERY 20 MINUTES NEEDED FOR ANAPHYLAXIS UNTIL RESPONSE Rx Instructions: INJECT INTRAMUSCULARLY EVERY 20 MINUTES NEEDED FOR ANAPHYLAXIS UNTIL RESPONSE oxycodone-acetaminophen [Percocet] 5-325 mg tablet 1 tab PO Q8H PRN (Reason: pain) Qty: 6 0RF diclofenac sodium 1 % gel 2 g topical QID Qty: 100 3RF Rx Instructions: apply to single elbow, wrist or hand; for hand includes palm/fingers/back of hand oxycodone 10 mg tablet 5 mg PO Q6H PRN (Reason: pain) Qty: 14 0RF diazepam [Valium] 5 mg tablet 5 mg PO TID PRN (Reason: muscle spasm) Qty: 10 0RF Hold Instructions: NEEDS TO SEE NEUROLOGY tamsulosin [Flomax] 0.4 mg capsule 0.4 mg PO DAILY Qty: 14 0RF oxycodone-acetaminophen [Percocet] 5-325 mg tablet 1 tab PO Q6H PRN (Reason: pain) Qty: 10 0RF Referrals: Rosa Isela Ashley DNP, ELECTROMYOGRAPHIC TECHNICIAN [Primary Care Provider] - Stand Alone Forms: Patient Portal/API
[2024-03-14] MEDS: TRAMADOL 50 MG TABLET PO (19:51)
== END 2024-03-14 19:55 | disposition home or self-care (01) ==
PROVIDERS: Emergency Provider Emergency Medicine; PCP Nurse Practitioner Family
DX: S93.402A Sprain of unspecified ligament of left ankle, initial encounter (principal); W01.0XXA Fall on same level from slipping, tripping and stumbling without subsequent striking against object, initial encounter
CPT/HCPCS: 73610; 73630; 99283